=== PATIENT | male | born 1955 | race Caucasian/White ===

== ENCOUNTER 2017-11-05 11:26 | Inpatient (IN) | payer MEDICARE, SELFPAY ==
[2017-11-05] VITALS (8 sets, daily range): BP systolic 125–168; BP diastolic 61–102; PULSE 91–109; RESP 14–19; TEMP 36.1–37.1; O2SAT 93–98; BMI 23.6; BMI 22.7
--- NOTE | 2017-11-05 13:22 | CT_ITS ---
STUDY: CT ABDOMEN AND PELVIS WITH CONTRAST REASON FOR EXAM: Male, 61 years old. Lower abdominal pain. Elevated lipase. Metastatic lung cancer. Multiple previous abdominal surgeries. RADIATION DOSAGE (If Supplied By Facility): CTDIvol = ( 12.78 ) mGy, DLP = ( 690.08 ) mGycm TECHNIQUE: Transaxial images were obtained from the dome of the diaphragm to the symphysis pubis without oral contrast. 100CC ml of Isovue 300 contrast was administered. Sagittal and coronal images were reconstructed. Individualized dose optimization techniques were used for this CT. COMPARISON: 10/26/2017. FINDINGS: Visualized lung bases show chronic pulmonary disease including fibrosis. No effusions. Stable appearance of the liver which is normal shape and size vascular 3 tiny low-attenuation structures to small to characterize but stable and most consistent with cysts. Gallbladder is surgically absent. Abnormal pancreas which shows evidence for diffuse edema especially around the pancreatic head, there is peripancreatic edema and there is dilatation of the pancreatic duct. All these findings are new since previous exam and consistent with pancreatitis. No focal fluid collections or definite evidence for pancreatic necrosis. A 3.3 cm mass is not excluded in the head of the pancreas suggested on axial image 54 and coronal image 45. Spleen is unremarkable. Right adrenal gland is unremarkable. Again seen is a malignant mass of the left adrenal gland, with a greatest dimension, top to bottom, of 5.7 cm and measuring 5.4 cm only 9 days ago. Both kidneys show simple cysts and are otherwise normal. Stomach is unremarkable. Proximal duodenum shows prominent thickening of the wall probably related to the adjacent abnormalities of the pancreas. There is no evidence for small bowel obstruction. No distended loops of large bowel, no evidence of large bowel obstruction. Aorta shows heavily calcified plaque. No retroperitoneal adenopathy. In the pelvis, there is an enlarged prostate with calcifications. Bladder contour is normal. No free fluid. Skeletal structures show degenerative changes and no acute or focal abnormalities. There are old inferior pubic rami fractures. CT/Abdomen/Pelvis WITH Contrast IMPRESSION: Findings most consistent with acute pancreatitis. Correlate with liver function enzymes. Cannot exclude mass in the head of the pancreas. Secondary duodenitis. Increasing size of malignant mass of the left adrenal gland. Electronically Signed: Pilo Huizar MD at 16:37 EST , Service support ,
[2017-11-05] MEDS: 0.9% Normal Saline 1,000 ML 125 ML IV (13:34)
[2017-11-05 13:40] LABS: Absolute Lymphocyte Count 1.47 X10^3/ul (0.83-4.51); Absolute Neutrophil Count 8.9 X10^3/uL (2.0-7.7); Basophil# 0.02 X10^3/uL; Basophil% 0.2 % (0-1); Eosinophil# 0.07 X10^3/uL; Eosinophils% 0.6 % (0-5); Hematocrit 41.8 % (40-54); Hemoglobin 14.4 g/dl (13.0-16.5); Lymphocyte # 1.47 X10^3/ul (4.0); Lymphocyte % 12.7 % (19-41); Mean Corp Hgb Conc 34.4 g/gl (32-36); Mean Corpuscular Hgb 31.9 pg (27.0-32.0); Mean Corpuscular Volume 92.7 fL (80-94); Monocyte# 1.05 X10^3/uL; Monocyte% 9.1 % (0-10); Neutrophil # 8.93 X10^3/uL (2.7-7.7); Neutrophil % 77.1 % (47-70); Platelet Count 337 K/mm3 (150-450); RBC Distribution Width CV 13.6 % (11.6-14.6); RBC Distribution Width SD 45.2 fl (35.1-43.9); Red Blood Count 4.51 M/mm3 (4.6-6.2); White Blood Count 11.6 K/mm3 (4.4-11.0)
[2017-11-05 13:46] LABS: POSITIVE COUNT NO; POSITIVE DIFFERENTIAL NO; POSITIVE MORPHOLOGY NO
[2017-11-05 14:00] LABS: ALB/GLOB Ratio 0.6 RATIO (0.9-2.4); AST(SGOT) 25 U/L (15-37); Alanine Aminotransfer ALT/SGPT 18 U/L (12-78); Albumin, Serum 2.8 g/dL (3.4-5.0); Alkaline Phosphatase 112 U/L (45-117); Anion Gap 10 (5-15); BUN 8 mg/dL (7-18); BUN/Creat Ratio 14.2 RATIO (10-20); Calcium,Total 9.5 mg/dL (8.5-10.1); Chloride 98 mmol/L (98-107); Creatinine, Serum 0.56 mg/dL (0.70-1.30); EST Glomerular Filtration Rate 156 mL/min (>60); Est Glom Filt Rate - Afr Amer 188 mL/min (>60); Estimated Creatinine Clearance 135.02 ml/min; Globulin 4.8 g/dL (2.2-4.2); Glucose 186 mg/dL (70-110); Lipase 8848 U/L (73-393); Potassium 4.2 mmol/L (3.5-5.1); Protein, Total 7.6 g/dL (6.4-8.2); Sodium Level 135 mmol/L (136-145)
[2017-11-05 14:46] LABS: Red Blood Cells-Urine 0 SEEN /hpf (0-5); Squamous Epithelial Cells - UA 0 SEEN /hpf (0-5)
[2017-11-05 14:51] LABS: Color, Urine Yellow (Yellow); Glucose, Dipstick 50 mg/dl (Normal); Leukocyte Esterase-Dipstick 25 /ul (Negative); Nitrite-Dipstick Negative (Negative); Occult Blood-Urine Negative /ul (Negative); Protein-Dipstick 30 mg/dl (Negative); Specific Gravity, Urine 1.015 (1.002-1.030); Urine Bilirubin Dipstick Negative (Negative); Urine Clarity Clear (Clear); Urine Urobilinogen Normal (Normal)
[2017-11-05 14:54] LABS: Ketone-Dipstick 150 mg/dl (Negative)
[2017-11-05 15:00] LABS: Mucous, Urine 2+ /hpf (<or=2+); White Blood Cells 0-5 SEEN /hpf (0-5)
[2017-11-05 15:01] LABS: Bacteria RARE /hpf (None Seen)
--- NOTE | 2017-11-05 15:19 | ED.VISSUMM ---
- ER Visit Summary Date of Service: 11/05/17 Chief Complaint: [Abdominal pain] History of Present Illness: The patient is a 61 M [] who presents the emergency department with abdominal pain is been going on for the past 1 week it has diffuse bilateral mid abdomen has had nausea and difficulty with bowel movements. No fevers or chills. No urinary symptoms. He is diabetic. He has small smell lung cancer adrenal cancer is metastatic to the lymph nodes. He had a port placed 3 days ago. Physical Examination: [] Blood pressure elevated other vitals within normal limits WN WD NAD PERRL EOMI MMM NECK supple and nontender, no masses RRR no murmur rub or gallop, no peripheral edema, symmetric radial pulses CTAB no respiratory distress ABDOMEN is soft moderate diffuse tenderness, normal bowel sounds, no distension, no rebound or guarding SKIN is warm and dry no rashes Alert and Oriented x3, CN II-XII in tact, no motor or sensory deficits, gait normal No lymphadenopathy Test Results: [] Emergency Department Course and Treatment: [Screening labs are obtained and was significant for a lipase of 8800. CAT scans consistent with acute pancreatitis and secondary duodenitis. He has increasing side of his adrenal mass. Patient will be given IV fluids Protonix and fentanyl. I spoke with the patient's on-call oncologist. I spoke with the hospitalist he will be admitted.] Treatment Plan: [] Disposition: [Admit] Impression: [Pancreatitis 2. Metastatic small cell carcinoma] This note was generated with [employer] dictation software. It may contain incorrect words, spelling, and punctuation that were not noted in review of the chart prior to signing ED Disposition - Plan for ED Patient: Chief Complaint: Abd Pain Referrals: Last Aguilar Chi, MD [Primary Care Provider] -
--- NOTE | 2017-11-05 16:47 | PCM.HP.STD ---
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 Qualifiers: Laterality: left Qualified Code(s): C79.72 - Secondary malignant neoplasm of left adrenal gland (2) Regional lymph node metastasis present Status: Chronic (3) Small cell lung cancer Status: Chronic Qualifiers: Laterality: left Comment: ALEC (4) COPD (chronic obstructive pulmonary disease) Status: Chronic Qualifiers: COPD type: unspecified COPD (5) Crohns disease Status: Chronic Qualifiers: Gastrointestinal tract location: unspecified location Digestive disease complication type: unspecified complication Qualified Code(s): K50.919 - Crohn's disease, unspecified, with unspecified complications (6) Diabetes mellitus, type II Status: Chronic Qualifiers: Diabetes mellitus complication status: with unspecified complications Diabetes mellitus custodial insulin use: without custodial use Qualified Code(s): E11.8 - Type 2 diabetes mellitus with unspecified complications (7) History of TIA (transient ischemic attack) Status: Chronic (8) History of tobacco use Status: Chronic (9) Hypothyroidism Status: Chronic Qualifiers: Hypothyroidism type: unspecified (10) Migraine Status: Chronic Qualifiers: Migraine type: unspecified Status migrainosus presence: without status migrainosus Intractability: not intractable Qualified Code(s): G43.909 - Migraine, unspecified, not intractable, without status migrainosus History of Present Illness Date of Admission: 11/05/17 Chief Complaint: Abdominal pain, nausea, loose stool The patient is a 61 y/o M w/ PMHx: Chronic COPD, Migraines, Bipolar Disorder, Diabetes mellitus type II, Crohn's disease, Hypothyroidism, Hx TIA, Hx Tobacco use, Small cell lung cancer ALEC with metastatic disease to L adrenal and omentum w/ regional lymph involvement who presents to the [facility] ED on 11/05/17 with history of ongoing, progressively worsening diffuse abdominal discomfort, primarily epigastric and BL LQ also with associated nausea without emesis in addition to occasional loose stool x 1 week. He denies any associated fever or chills. In the ED work-up included T 98, HR 90-110, BP 151/61, RR 19, 95% on RA, CBC w/ WBC 11.6, Hgb 14.4, Plts 337 with L shift, CMP w/ Na 135, BUN/Cr8/0.56, glucose 186, lipase 8848, UA not marked appearing, CT A/P w/ findings consistent with acute pancreatitis, increased size of malignant mass L adrenal gland. He notes upcoming planned chemotherapy to start 11/06/16. In the ED patient administered NS, phenergan, protonix, fentanyl. Past Medical History Past Medical History (Chronic Problems): Chronic Problems (Last Reviewed 10/24/17 @ 13:17 by Kizzy Sena) Diabetes mellitus, type II (Chronic) COPD (chronic obstructive pulmonary disease) (Chronic) History of tobacco use (Chronic) Migraine (Chronic) Crohns disease (Chronic) History of TIA (transient ischemic attack) (Chronic) Hypothyroidism (Chronic) Small cell lung cancer (Chronic) ALEC 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) Allergies morphine Allergy (Verified 11/05/17 12:47) Swelling Home Medications: Ambulatory Orders Medication Instructions Recorded Atorvastatin Calcium 40 mg PO QHS 09/16/17 Divalproex Sodium [Depakote ER] 500 mg PO DAILY 09/16/17 Levothyroxine [Synthroid] 25 mcg PO DAILY 09/16/17 Metformin HCl [Glucophage] 500 mg PO BID 09/16/17 acetaminophen 300 mg-codeine 30 mg 1 tab PO TID PRN 10/15/17 tablet Albuterol Aerosols [Ventolin 2.5 mg INHALATION Q6H 10/25/17 Aerosols] Butalb/Acetaminophen/Caffeine 1 each PO PRN PRN 10/25/17 [Fhsvmc-Colcjhwy-Uhvu 50-300-40] Divalproex Sodium [Depakote] 1,000 mg PO QHS 10/25/17 Senna [Senokot] 1 tablet PO DAILY PRN 10/25/17 Acetaminophen/Codeine #3 1 tab PO Q4H PRN PRN #30 tab 10/27/17 [Tylenol#3] Surgical History: - - Cholecystectomy, appendectomy, colonic resection for Crohn's disease as well as for diverticulitis, left thumb surgery, several hernia repairs (8 total noted per patient), LNDx Bx, Port placement. Psychiatric History: Anxiety, Bipolar, Depression Lives: Spouse/ Significant Other Smoking Status: Former smoker - Quit October 2016. Tobacco Use: Non-smoker Alcohol: Rare Drugs: None - *Family History Maternal Family History: Family History (Last Reviewed 10/24/17 @ 13:17 by Kizzy Sena) Father CAD (coronary artery disease) Mesothelioma Grandfather Leukemia Brother Throat cancer History Items: No pertinent history Paternal Family History: Family History (Last Reviewed 10/24/17 @ 13:17 by Kizzy Sena) Father CAD (coronary artery disease) Mesothelioma Grandfather Leukemia Brother Throat cancer History Items: No pertinent history Review of Systems Constitutional: Reports: Anorexia, Malaise, Weakness, Fatigue Gastrointestinal: Reports: Abdominal Pain, Nausea Psychiatric: Reports: Anxiety, Depression VTE Information - Inpt Only VTE Present on Admission: No VTE Mechan Device Prophylaxis: SCD's VTE Pharm Prophylaxis ordered?: Yes Subjective: Seated upright in the ED bed, uncomfortable appearing. Objective: Physical Examination: General: awake, alert, oriented x 3 and cooperative, seated upright in the ED bed, uncomfortable appearing. Skin: normal color, turgor, no icterus, cyanosis. HEENT: AT/NC, EOMI, PERRLA, dry MM, no carotid bruits or JVD noted. Lungs: CTA bilaterally, moderate effort, mild decrease BL bases, no rales, ronchi or wheezing. Heart: Mildly tachycardic with regular; no gallop, rub audible. Abdomen: soft, TTP diffusely, > epigastric and BL LQ, voluntary guarding, no rebound TTP, ND, mildly hypoactive BS, no HSM but difficult to assess w/ severity of pain. Extremities: no cyanosis, clubbing, or edema. Neurological: patient awake, alert, oriented x 3; cognitive function intact; pupils equally reactive to light and accomodation; cranial nerves II-XII grossly normal, moving all 4 extremities, no focal deficits, strength severely globally decreased secondary to acute presentation. Psychiatric: affect appears fatigued, no acute evidence of depressive or anxiety feelings. - Physical Exam Vital Signs Temp Pulse Resp BP Pulse Ox 97.8 F 91 14 168/102 H 95 11/05/17 12:48 11/05/17 14:12 11/05/17 14:12 11/05/17 14:12 11/05/17 14:12 Oxygen Delivery Method Room Air Weight: 160 lb Body Mass Index (BMI) 23.6 Laboratory Tests Past 24 Hrs 11/05/17 11/05/17 11/05/17 13:31 13:31 14:37 WBC 11.6 H RBC 4.51 L Hgb 14.4 Hct 41.8 MCV 92.7 MCH 31.9 MCHC 34.4 RDW 13.6 RDW Differential 45.2 H Plt Count 337 MPV 10.0 Immature Gran % (Auto) 0.300 Neut % (Auto) 77.1 H Lymph % (Auto) 12.7 L Russell % (Auto) 9.1 Eos % (Auto) 0.6 Baso % (Auto) 0.2 Absolute Neuts (auto) 8.9 H Absolute Lymphs (auto) 1.47 Total Counted Not Reportable Sodium 135 L Potassium 4.2 Chloride 98 Carbon Dioxide 27.0 Anion Gap 10 BUN 8 Creatinine 0.56 L Estim Creat Clear Calc 135.02 Est GFR (MDRD) Af Amer 188 Est GFR (MDRD) Non-Af 156 BUN/Creatinine Ratio 14.2 Glucose 186 H Calcium 9.5 Total Bilirubin 0.50 AST 25 ALT 18 Alkaline Phosphatase 112 Total Protein 7.6 Albumin 2.8 L Globulin 4.8 H Albumin/Globulin Ratio 0.6 L Lipase 8848 H Urine Color Yellow Urine Clarity Clear Urine pH 6.0 Ur Specific [place] 1.015 Urine Protein 30 H Urine Glucose (UA) 50 H Urine Ketones 150 H Urine Occult Blood Negative Urine Nitrite Negative Urine Bilirubin Negative Urine Urobilinogen Normal Ur Leukocyte Esterase 25 H Urine RBC 0 SEEN Urine WBC 0-5 SEEN Ur Squamous Epith Cells 0 SEEN Urine Bacteria RARE Urine Mucus 2+ Assessment/Plan The patient is a 61 y/o M w/ PMHx: Chronic COPD, Migraines, Bipolar Disorder, Diabetes mellitus type II, Crohn's disease, Hypothyroidism, Hx TIA, Hx Tobacco use, Small cell lung cancer ALEC with metastatic disease to L adrenal and omentum w/ regional lymph involvement who presents to the [facility] ED on 11/05/17 with history of ongoing, progressively worsening diffuse abdominal discomfort, primarily epigastric and BL LQ also with associated nausea without emesis in addition to occasional loose stool x 1 week. (1) Acute pancreatitis w/ abdominal pain, nausea, loose stools w/ concurrent Duodenitis likely secondary to proximity: Will admit to [facility], maintain on IVFs, NPO, IV famotidine, IV pain control w/ fentanyl given intolerance of dilaudid with headache as well as allergy to morphine, PRN codeine which he tolerates outpatient (tylenol #3 hx use), trend lipase, CMP. Hx S/P cholecystectomy, CT A/P with chronic pulmonary disease, abnormal pancreas which shows evidence for diffuse edema especially around the pancreatic head, there is peripancreatic edema and there is dilatation of the pancreatic duct, 3.3 cm mass is not excluded in the head, malignant mass of the left adrenal gland, with a greatest dimension, top to bottom, of 5.7 cm and measuring 5.4 cm only 9 days ago, proximal duodenum shows prominent thickening of the wall probably related to the adjacent abnormalities of the pancreas. 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 Given increased size, concerning, will consult Hem/Onc. Would expect hold on chemotherapy secondary to acute presentation. (3) Diabetes mellitus type II: Hold oral home regimen, NPO status, accu checks w/ ISS. (4) Hypothyroidism: Continue home synthroid regimen. (5) Hx TIA: Continue home asa, statin, not on BP regimen, PRN hydralazine. (7) Crohn's Disease: Not on agent, CT duodenal findings likely secondary to proximity. (8) Migraines: Continue home oral depakote regimen. (9) Chronic COPD: HOB, IS, PRN albuterol, ATC aerosols although declined last admission. (10) DVT Prophylaxis: SCDs, lovenox. Code Visit Inpatient E&M: 31608 Init Hosp L3
--- NOTE | 2017-11-05 16:55 | HP.PCM_ITS ---
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 Qualifiers: Laterality: left Qualified Code(s): C79.72 - Secondary malignant neoplasm of left adrenal gland (2) Regional lymph node metastasis present Status: Chronic (3) Small cell lung cancer Status: Chronic Qualifiers: Laterality: left Comment: ALEC (4) COPD (chronic obstructive pulmonary disease) Status: Chronic Qualifiers: COPD type: unspecified COPD (5) Crohns disease Status: Chronic Qualifiers: Gastrointestinal tract location: unspecified location Digestive disease complication type: unspecified complication Qualified Code(s): K50.919 - Crohn 's disease, unspecified, with unspecified complications (6) Diabetes mellitus, type II Status: Chronic Qualifiers: Diabetes mellitus complication status: with unspecified complications Diabetes mellitus detention insulin use: without detention use Qualified Code( s): E11.8 - Type 2 diabetes mellitus with unspecified complications (7) History of TIA (transient ischemic attack) Status: Chronic (8) History of tobacco use Status: Chronic (9) Hypothyroidism Status: Chronic Qualifiers: Hypothyroidism type: unspecified (10) Migraine Status: Chronic Qualifiers: Migraine type: unspecified Status migrainosus presence: without status migrainosus Intractability: not intractable Qualified Code(s): G43.909 - Migraine, unspecified, not intractable, without status migrainosus History of Present Illness Date of Admission: 11/05/17 Chief Complaint: Abdominal pain, nausea, loose stool The patient is a 61 y/o M w/ PMHx: Chronic COPD, Migraines, Bipolar Disorder, Diabetes mellitus type II, Crohn's disease, Hypothyroidism, Hx TIA, Hx Tobacco use, Small cell lung cancer ALEC with metastatic disease to L adrenal and omentum w/ regional lymph involvement who presents to the [facility] ED on 11/05/17 with history of ongoing, progressively worsening diffuse abdominal discomfort, primarily epigastric and BL LQ also with associated nausea without emesis in addition to occasional loose stool x 1 week. He denies any associated fever or chills. In the ED work-up included T 98, HR 90-110, BP 151/61, RR 19, 95% on RA , CBC w/ WBC 11.6, Hgb 14.4, Plts 337 with L shift, CMP w/ Na 135, BUN/Cr8/0.56 , glucose 186, lipase 8848, UA not marked appearing, CT A/P w/ findings consistent with acute pancreatitis, increased size of malignant mass L adrenal gland. He notes upcoming planned chemotherapy to start 11/06/16. In the ED patient administered NS, phenergan, protonix, fentanyl. Past Medical History Past Medical History (Chronic Problems): Chronic Problems (Last Reviewed 10/24/17 @ 13:17 by Kizzy Sena) Diabetes mellitus, type II (Chronic) COPD (chronic obstructive pulmonary disease) (Chronic) History of tobacco use (Chronic) Migraine (Chronic) Crohns disease (Chronic) History of TIA (transient ischemic attack) (Chronic) Hypothyroidism (Chronic) Small cell lung cancer (Chronic) ALEC 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) Allergies morphine Allergy (Verified 11/05/17 12:47) Swelling Home Medications: Ambulatory Orders Medication Instructions Recorded Atorvastatin Calcium 40 mg PO QHS 09/16/17 Divalproex Sodium [Depakote ER] 500 mg PO DAILY 09/16/17 Levothyroxine [Synthroid] 25 mcg PO DAILY 09/16/17 Metformin HCl [Glucophage] 500 mg PO BID 09/16/17 acetaminophen 300 mg-codeine 30 mg 1 tab PO TID PRN 10/15/17 tablet Albuterol Aerosols [Ventolin 2.5 mg INHALATION Q6H 10/25/17 Aerosols] Butalb/Acetaminophen/Caffeine 1 each PO PRN PRN 10/25/17 [[id number] 50-300-40] Divalproex Sodium [Depakote] 1,000 mg PO QHS 10/25/17 Senna [Senokot] 1 tablet PO DAILY PRN 10/25/17 Acetaminophen/Codeine #3 1 tab PO Q4H PRN PRN #30 tab 10/27/17 [Tylenol#3] Surgical History: - - Cholecystectomy, appendectomy, colonic resection for Crohn 's disease as well as for diverticulitis, left thumb surgery, several hernia repairs (8 total noted per patient), LNDx Bx, Port placement. Psychiatric History: Anxiety, Bipolar, Depression Lives: Spouse/ Significant Other Smoking Status: Former smoker - Quit October 2016. Tobacco Use: Non-smoker Alcohol: Rare Drugs: None - *Family History Maternal Family History: Family History (Last Reviewed 10/24/17 @ 13:17 by Kizzy Sena) Father CAD (coronary artery disease) Mesothelioma Grandfather Leukemia Brother Throat cancer History Items: No pertinent history Paternal Family History: Family History (Last Reviewed 10/24/17 @ 13:17 by Kizzy Sena) Father CAD (coronary artery disease) Mesothelioma Grandfather Leukemia Brother Throat cancer History Items: No pertinent history Review of Systems Constitutional: Reports: Anorexia, Malaise, Weakness, Fatigue Gastrointestinal: Reports: Abdominal Pain, Nausea Psychiatric: Reports: Anxiety, Depression VTE Information - Inpt Only VTE Present on Admission: No VTE Mechan Device Prophylaxis: SCD's VTE Pharm Prophylaxis ordered?: Yes Subjective: Seated upright in the ED bed, uncomfortable appearing. Objective: Physical Examination: General: awake, alert, oriented x 3 and cooperative, seated upright in the ED bed, uncomfortable appearing. Skin: normal color, turgor, no icterus, cyanosis. HEENT: AT/NC, EOMI, PERRLA, dry MM, no carotid bruits or JVD noted. Lungs: CTA bilaterally, moderate effort, mild decrease BL bases, no rales, ronchi or wheezing. Heart: Mildly tachycardic with regular; no gallop, rub audible. Abdomen: soft, TTP diffusely, > epigastric and BL LQ, voluntary guarding, no rebound TTP, ND, mildly hypoactive BS, no HSM but difficult to assess w/ severity of pain. Extremities: no cyanosis, clubbing, or edema. Neurological: patient awake, alert, oriented x 3; cognitive function intact; pupils equally reactive to light and accomodation; cranial nerves II-XII grossly normal, moving all 4 extremities, no focal deficits, strength severely globally decreased secondary to acute presentation. Psychiatric: affect appears fatigued, no acute evidence of depressive or anxiety feelings. - Physical Exam Vital Signs Temp Pulse Resp BP Pulse Ox 97.8 F 91 14 168/102 H 95 11/05/17 12:48 11/05/17 14:12 11/05/17 14:12 11/05/17 14:12 11/05/17 14:12 Oxygen Delivery Method Room Air Weight: 160 lb Body Mass Index (BMI) 23.6 Laboratory Tests Past 24 Hrs 11/05/17 11/05/17 11/05/17 13:31 13:31 14:37 WBC 11.6 H RBC 4.51 L Hgb 14.4 Hct 41.8 MCV 92.7 MCH 31.9 MCHC 34.4 RDW 13.6 RDW Differential 45.2 H Plt Count 337 MPV 10.0 Immature Gran % (Auto) 0.300 Neut % (Auto) 77.1 H Lymph % (Auto) 12.7 L [place] % (Auto) 9.1 Eos % (Auto) 0.6 Baso % (Auto) 0.2 Absolute Neuts (auto) 8.9 H Absolute Lymphs (auto) 1.47 Total Counted Not Reportable Sodium 135 L Potassium 4.2 Chloride 98 Carbon Dioxide 27.0 Anion Gap 10 BUN 8 Creatinine 0.56 L Estim Creat Clear Calc 135.02 Est GFR (MDRD) Af Amer 188 Est GFR (MDRD) Non-Af 156 BUN/Creatinine Ratio 14.2 Glucose 186 H Calcium 9.5 Total Bilirubin 0.50 AST 25 ALT 18 Alkaline Phosphatase 112 Total Protein 7.6 Albumin 2.8 L Globulin 4.8 H Albumin/Globulin Ratio 0.6 L Lipase 8848 H Urine Color Yellow Urine Clarity Clear Urine pH 6.0 Ur Specific [place] 1.015 Urine Protein 30 H Urine Glucose (UA) 50 H Urine Ketones 150 H Urine Occult Blood Negative Urine Nitrite Negative Urine Bilirubin Negative Urine Urobilinogen Normal Ur Leukocyte Esterase 25 H Urine RBC 0 SEEN Urine WBC 0-5 SEEN Ur Squamous Epith Cells 0 SEEN Urine Bacteria RARE Urine Mucus 2+ Assessment/Plan The patient is a 61 y/o M w/ PMHx: Chronic COPD, Migraines, Bipolar Disorder, Diabetes mellitus type II, Crohn's disease, Hypothyroidism, Hx TIA, Hx Tobacco use, Small cell lung cancer ALEC with metastatic disease to L adrenal and omentum w/ regional lymph involvement who presents to the [facility] ED on 11/05/17 with history of ongoing, progressively worsening diffuse abdominal discomfort, primarily epigastric and BL LQ also with associated nausea without emesis in addition to occasional loose stool x 1 week. (1) Acute pancreatitis w/ abdominal pain, nausea, loose stools w/ concurrent Duodenitis likely secondary to proximity: Will admit to [facility], maintain on IVFs, NPO, IV famotidine, IV pain control w/ fentanyl given intolerance of dilaudid with headache as well as allergy to morphine, PRN codeine which he tolerates outpatient (tylenol #3 hx use), trend lipase, CMP. Hx S/P cholecystectomy, CT A/ P with chronic pulmonary disease, abnormal pancreas which shows evidence for diffuse edema especially around the pancreatic head, there is peripancreatic edema and there is dilatation of the pancreatic duct, 3.3 cm mass is not excluded in the head, malignant mass of the left adrenal gland, with a greatest dimension, top to bottom, of 5.7 cm and measuring 5.4 cm only 9 days ago, proximal duodenum shows prominent thickening of the wall probably related to the adjacent abnormalities of the pancreas. 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 Given increased size, concerning, will consult Hem/Onc. Would expect hold on chemotherapy secondary to acute presentation. (3) Diabetes mellitus type II: Hold oral home regimen, NPO status, accu checks w / ISS. (4) Hypothyroidism: Continue home synthroid regimen. (5) Hx TIA: Continue home asa, statin, not on BP regimen, PRN hydralazine. (7) Crohn's Disease: Not on agent, CT duodenal findings likely secondary to proximity. (8) Migraines: Continue home oral depakote regimen. (9) Chronic COPD: HOB, IS, PRN albuterol, ATC aerosols although declined last admission. (10) DVT Prophylaxis: SCDs, lovenox. Code Visit Inpatient E&M: 03020 Init Hosp L3
[2017-11-05] MEDS: fentaNYL 100 MCG/2 ML Ampul 25 MCG IV (17:34)
[2017-11-05] MEDS: 0.9% Normal Saline 1,000 ML 500 ML IV (18:49)
--- NOTE | 2017-11-05 19:30 | CPS ---
pt did not want aero tx at this time.
[2017-11-05] MEDS: Acetaminophen 325 MG Tablet 650 MG PO (19:32)
[2017-11-05 19:36] LABS: Bedside Glucose 146 mg/dL (70-110)
[2017-11-05 19:56] LABS: Magnesium 1.6 mg/dL (1.8-2.4); Phosphorus 3.1 mg/dL (2.5-4.9)
[2017-11-05] MEDS: Divalproex Sodium 250 MG Tablet 1000 MG PO (23:56)
[2017-11-05] MEDS: Atorvastatin Calcium 40 MG Tablet PO (23:57)
[2017-11-06] VITALS (7 sets, daily range): BP systolic 97–138; BP diastolic 53–70; PULSE 94–108; RESP 14–20; TEMP 36.2–37.2; O2SAT 95–97
[2017-11-06 00:36] LABS: Bedside Glucose 147 mg/dL (70-110)
[2017-11-06] MEDS: 0.9% Normal Saline 1,000 ML 150 ML IV ×4 (01:36→23:57)
[2017-11-06] MEDS: Acetaminophen 325 MG Tablet 650 MG PO ×3 (03:37→22:55)
[2017-11-06 06:21] LABS: Absolute Lymphocyte Count 1.46 X10^3/ul (0.83-4.51); Absolute Neutrophil Count 6.9 X10^3/uL (2.0-7.7); Basophil# 0.02 X10^3/uL; Basophil% 0.2 % (0-1); Eosinophil# 0.13 X10^3/uL; Eosinophils% 1.4 % (0-5); Lymphocyte # 1.46 X10^3/ul (4.0); Lymphocyte % 15.7 % (19-41); Mean Corp Hgb Conc 32.4 g/gl (32-36); Mean Corpuscular Hgb 30.9 pg (27.0-32.0); Mean Corpuscular Volume 95.4 fL (80-94); Mean Platelet Vol. 10.1 fl (6.2-12.0); Monocyte# 0.77 X10^3/uL; Monocyte% 8.3 % (0-10); Neutrophil # 6.89 X10^3/uL (2.7-7.7); Neutrophil % 74.1 % (47-70); Platelet Count 288 K/mm3 (150-450); RBC Distribution Width CV 13.8 % (11.6-14.6); RBC Distribution Width SD 47.8 fl (35.1-43.9); Red Blood Count 3.88 M/mm3 (4.6-6.2); White Blood Count 9.3 K/mm3 (4.4-11.0)
[2017-11-06 06:30] LABS: POSITIVE COUNT NO; POSITIVE DIFFERENTIAL NO; POSITIVE MORPHOLOGY NO
[2017-11-06 06:35] LABS: ALB/GLOB Ratio 0.6 RATIO (0.9-2.4); AST(SGOT) 24 U/L (15-37); Alanine Aminotransfer ALT/SGPT 13 U/L (12-78); Albumin, Serum 2.3 g/dL (3.4-5.0); Alkaline Phosphatase 89 U/L (45-117); Anion Gap 11 (5-15); BUN 7 mg/dL (7-18); BUN/Creat Ratio 15.6 RATIO (10-20); Calcium,Total 7.9 mg/dL (8.5-10.1); Chloride 106 mmol/L (98-107); Creatinine, Serum 0.45 mg/dL (0.70-1.30); EST Glomerular Filtration Rate 202 mL/min (>60); Est Glom Filt Rate - Afr Amer 244 mL/min (>60); Estimated Creatinine Clearance 166.01 ml/min; Globulin 3.7 g/dL (2.2-4.2); Glucose 130 mg/dL (70-110); Lipase 10322 U/L (73-393); Potassium 3.7 mmol/L (3.5-5.1); Sodium Level 140 mmol/L (136-145)
[2017-11-06] MEDS: Levothyroxine 25 MCG TABLET PO (06:35)
[2017-11-06] MEDS: Ipratropium/Albuterol Sulfate 3 ML AMPUL.NEB INHALATION ×3 (07:05→18:51)
[2017-11-06 07:31] LABS: Bedside Glucose 121 mg/dL (70-110)
--- NOTE | 2017-11-06 07:42 | PN_ITS ---
Subjective: Patient was seen and examined. He complains of mild abdominal pain. Tolerating clear liquid diet. Denies any fever or chills. Denies nausea and vomiting. Objective: Physical Examination: General: awake, alert, oriented x 3 and cooperative, comfortable in bed Skin: normal color, turgor, no icterus, cyanosis. HEENT: Moist oral mucosa Lungs: Diminished air entry, vesicular BS, no wheezes or rhonchi Heart: Tachycardic, HS I +II, regular, no murmurs. Abdomen: Full, soft, slight upper abdominal tenderness Extremities: no edema. Neurological: patient awake, alert, oriented x 3; cognitive function intact; pupils equally reactive to light and accomodation; cranial nerves II-XII grossly normal, moving all 4 extremities, no focal deficits, strength severely globally decreased secondary to acute presentation. Psychiatric: affect appears fatigued, no acute evidence of depressive or anxiety feelings. Vitals/I&O's: Vital Signs Temp Pulse Resp BP Pulse Ox 97.8 F 107 H 16 116/53 L 95 11/06/17 06:19 11/06/17 06:19 11/06/17 06:19 11/06/17 06:19 11/06/17 06:19 Oxygen Delivery Method Room Air Weight: 69.853 kg Body Mass Index (BMI) 22.7 Intake and Output for Last 24 Hours 11/04/17 11/05/17 11/06/17 23:59 23:59 23:59 Intake Total 2500 / 2500 Balance 2500 / 2500 Laboratory Results 11/05/17 18:50: POC Glucose 146 H 11/05/17 19:28: Phosphorus 3.1, Magnesium 1.6 L 11/06/17 00:00: POC Glucose 147 H 11/06/17 05:34: WBC 9.3, RBC 3.88 L, Hgb 12.0 L, Hct 37.0 L, MCV 95.4 H, MCH 30.9, MCHC 32.4, RDW 13.8, RDW Differential 47.8 H, Plt Count 288, MPV 10.1, Immature Gran % (Auto) 0.300, Neut % (Auto) 74.1 H, Lymph % (Auto) 15.7 L, [place] % (Auto) 8.3, Eos % (Auto) 1.4, Baso % (Auto) 0.2, Absolute Neuts (auto) 6.9, Absolute Lymphs (auto) 1.46, Total Counted Not Reportable 11/06/17 05:34: Sodium 140, Potassium 3.7, Chloride 106, Carbon Dioxide 23.0, Anion Gap 11, BUN 7, Creatinine 0.45 L, Estim Creat Clear Calc 166.01, Est GFR ( MDRD) Af Amer 244, Est GFR (MDRD) Non-Af 202, BUN/Creatinine Ratio 15.6, Glucose 130 H, Calcium 7.9 L, Total Bilirubin 0.40, AST 24, ALT 13, Alkaline Phosphatase 89, Total Protein 6.0 L, Albumin 2.3 L, Globulin 3.7, Albumin/ Globulin Ratio 0.6 L, Lipase 24490 H 11/06/17 06:29: POC Glucose 121 H Current Medications Acetaminophen (Tylenol) 650 mg PO Q6H PRN PRN PRN Reason: Mild Pain (1-3)/Temp > 100.7 F Last Admin: 11/06/17 03:37 Dose: 650 mg Acetaminophen/Butalbital/Caffeine (Fioricet) 1 tablet PO DAILY PRN PRN PRN Reason: HEADACHE PAIN Al Hydroxide/Mg Hydroxide (Mylanta Ii) 30 ml PO Q6H PRN PRN PRN Reason: Gastric burning Albuterol Sulfate (Ventolin Aerosols) 2.5 mg INHALATION Q2H PRN PRN PRN Reason: dyspnea, wheezing Albuterol/Ipratropium (Duoneb) 3 ml INHALATION Q6HWA.RT [facility] Last Admin: 11/06/17 07:05 Dose: 3 ml Aspirin (Ecotrin) 81 mg PO DAILY@0800 [facility] Atorvastatin Calcium (Lipitor) 40 mg PO QHS [facility] Last Admin: 11/05/17 23:57 Dose: 40 mg Codeine Sulfate (Codeine) 30 mg PO Q4H PRN PRN PRN Reason: PAIN Last Admin: 11/06/17 03:36 Dose: 30 mg Dextrose (D50w Syringe) 0 gm IV X1 PRN; Protocol PRN Reason: Hypoglycemia Divalproex Sodium (Depakote Er) 500 mg PO DAILY [facility] Divalproex Sodium (Depakote) 1,000 mg PO QHS [facility] Last Admin: 11/05/17 23:56 Dose: 1,000 mg Enoxaparin Sodium (Lovenox) 40 mg SC DAILY@1000 [facility] Fentanyl Citrate (Sublimaze) 50 mcg IV Q2H PRN PRN PRN Reason: SEVERE PAIN (6-10/10) Glucagon () 1 mg IM .X1 PRN PRN Reason: Hypoglycemia Hydralazine HCl (Apresoline) 10 mg IV Q4H PRN PRN PRN Reason: SBP > 160 Sodium Chloride () 1,000 mls @ 150 mls/hr IV .Q6H40M [facility] Last Admin: 11/06/17 01:36 Dose: 150 mls/hr Famotidine 20 mg/ Sodium (Chloride) 10 mls @ 300 mls/hr IV Q12 [facility] Last Admin: 11/05/17 19:34 Dose: 300 mls/hr Insulin Aspart (Novolog Flexpen (Bkc)) 0 units SC Q6 [facility] PRN Reason: Protocol Last Admin: 11/06/17 06:29 Dose: Not Given Levothyroxine Sodium (Synthroid) 25 mcg PO DAILY@0600 [facility] Last Admin: 11/06/17 06:35 Dose: 25 mcg Magnesium Hydroxide (Milk Of Magnesia) 30 ml PO DAILY PRN PRN PRN Reason: Constipation Ondansetron HCl (Zofran) 4 mg IV Q8H PRN PRN PRN Reason: NAUSEA Promethazine HCl (Phenergan (Ll)) 6.25 mg IV Q6H PRN PRN PRN Reason: NAUSEA/VOMITING Senna (Senokot) 1 tablet PO DAILY PRN PRN Reason: Constipation Zolpidem Tartrate (Ambien (Generic)) 5 mg PO QHS PRN PRN PRN Reason: INSOMNIA Assessment/Plan 61 y/o M with PMHx of Chronic COPD, Diabetes mellitus type II, Crohn's disease, hypothyroidism, 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 1. Acute pancreatitis/duodenitis, with very minimal improvement, lipase has gone up to 10,322 from 8848, kept on IV fluids, n.p.o., diet advanced as tolerated, IV famotidine, pain control with fentanyl and as needed codeine 2. Small cell lung cancer with metastatic disease to L adrenal and omentum with regional lymph involvement, now with possible pancreatic involvement, hematology oncology consulted, patient was supposed to have chemotherapy today but would hold on account of acute presentation 3. Diabetes mellitus type II, blood sugars are fairly controlled, metformin on hold, on account of n.p.o. status, will continue with Accu-Cheks and insulin sliding scale 4. Hypothyroidism, on synthroid 5. Hx TIA, on asa, statin, 6. Crohn's Disease 7. Migraines 8. Chronic COPD 9. DVT Prophylaxis: SCDs, lovenox This note was generated with [employer] software. It may contain incorrect words, spelling, and punctuation that were not noted in checking the note before signing. Code Visit Inpatient E&M: 22779 Subs Hosp L2
[2017-11-06] MEDS: Enoxaparin 40 MG/0.4 ML Syringe SC (08:37)
[2017-11-06] MEDS: Divalproex (ER) 500 MG Tablet PO ×2 (08:38→22:54)
[2017-11-06 08:51] LABS: Magnesium 1.5 mg/dL (1.8-2.4)
[2017-11-06] MEDS: Acetaminophen/Butalbital/Caffe 1 Tablet PO (11:16)
[2017-11-06 11:31] LABS: Bedside Glucose 116 mg/dL (70-110)
--- NOTE | 2017-11-06 12:57 | CHAPLAIN ---
Type of Pastoral Visit _x__ Initial Visit ___ Follow-up Visit ___ On-call Visit ___ General Patient Visit ___ Spiritual Assessment ___ Family Conference ___ Bereavement ___ Rapid Response ___ Code Blue ___ Other (describe below) Pastoral Care Referral From _x__ Patient ___ Family ___ Nurse ___ Physician ___ Belt Loop Maker ___ Stereo Equipment Installer ___ Other (describe below) Sacrament/Intervention _x__ Active listening ___ Anointing ___ Restorationism ___ Bereavement ___ Communion _x__ Tonya exploration ___ ___ Life review _x__ Prayer ___ Reconciliation ___ Sacrament of Sick _x__ Supportive presence ___ Wedding ___ Other (describe below) Pastoral Comments patient disclosed during visit that cancer was discovered during last admission to hospital; we discussed how he is coping with this diagnosis and pt was tearful at times; pt had SO and a DIL in room; DIL says that pt has tremendous love and support; pt says that he wonders how much time he will have and I've lived a good life, but I would still like to live more; pt tells me that he has no tonya background or support but that I do believe in God and I'm praying; pt speaks of good fortune of having insurance and gaining knowledge of illness and we look at spiritual aspect of these truths; pt would benefit from future visits of support;
[2017-11-06] MEDS: Ondansetron 4 MG/2 ML Vial IV (14:26)
--- NOTE | 2017-11-06 16:03 | CASEMGMT ---
RN KEN Face to Face with patient for initial transition planning/care coordination assessment. RN CM introduced self and role at [facility]. Patient lying in bed, alert and oriented, with family at bedside. Patient willing to participate in assessment and is able to answer all questions appropriately. Care providers, pharmacy, and demographics verified. See link attached. Patient wishes to discharge home, denies need for home health at this time. Patient states he has no further needs or concerns at this time. CM to follow for discharge planning needs that may arise. Disposition Plan: Patient to discharge home with family support and follow-up plans in place.
--- NOTE | 2017-11-06 16:52 | PN_ITS ---
- Past Medical/Social History Social History Smoking Status Former smoker Vital Signs Height 5 ft 9 in Weight: 69.853 kg Weight in Pounds 154.0 lbs Pulse Ox 97 Temperature 97.1 F Pulse Rate 102 Respiratory Rate 16 Blood Pressure 97/59 Blood Pressure Position Semi-Fowlers Laboratory Data: Laboratory Tests 3 11/06/17 11/06/17 11/06/17 Range/Units 11:23 06:29 05:34 WBC (4.4-11.0) K/mm3 RBC (4.6-6.2) M/mm3 Hgb (13.0-16.5) g/dl Hct (40-54) % MCV (80-94) fL MCH (27.0-32.0) pg MCHC (32-36) g/gl RDW (11.6-14.6) % RDW Differential (35.1-43.9) fl Plt Count (150-450) K/mm3 MPV (6.2-12.0) fl Immature Gran % (Auto) (0.0-0.9) % Neut % (Auto) (47-70) % Lymph % (Auto) (19-41) % [place] % (Auto) (0-10) % Eos % (Auto) (0-5) % Baso % (Auto) (0-1) % Absolute Neuts (auto) (2.0-7.7) X10^3/uL Absolute Lymphs (auto) (0.83-4.51) X10^3/ul Total Counted Sodium (136-145) mmol/L Potassium (3.5-5.1) mmol/L Chloride (98-107) mmol/L Carbon Dioxide (21.0-32.0) mmol/L Anion Gap (5-15) BUN (7-18) mg/dL Creatinine (0.70-1.30) mg/dL Estim Creat Clear Calc ml/min Est GFR (MDRD) Af Amer (>60) mL/min Est GFR (MDRD) Non-Af (>60) mL/min BUN/Creatinine Ratio (10-20) RATIO Glucose (70-110) mg/dL Calcium (8.5-10.1) mg/dL Phosphorus (2.5-4.9) mg/dL Magnesium 1.5 L (1.8-2.4) mg/dL Total Bilirubin (0.20-1.00) mg/dL AST (15-37) U/L ALT (12-78) U/L Alkaline Phosphatase (45-117) U/L Total Protein (6.4-8.2) g/dL Albumin (3.4-5.0) g/dL Globulin (2.2-4.2) g/dL Albumin/Globulin Ratio (0.9-2.4) RATIO Lipase (73-393) U/L POC Glucose 116 H 121 H (70-110) mg/dL 3 11/06/17 11/06/17 11/06/17 Range/Units 05:34 05:34 00:00 WBC 9.3 (4.4-11.0) K/mm3 RBC 3.88 L (4.6-6.2) M/mm3 Hgb 12.0 L (13.0-16.5) g/dl Hct 37.0 L (40-54) % MCV 95.4 H (80-94) fL MCH 30.9 (27.0-32.0) pg MCHC 32.4 (32-36) g/gl RDW 13.8 (11.6-14.6) % RDW Differential 47.8 H (35.1-43.9) fl Plt Count 288 (150-450) K/mm3 MPV 10.1 (6.2-12.0) fl Immature Gran % (Auto) 0.300 (0.0-0.9) % Neut % (Auto) 74.1 H (47-70) % Lymph % (Auto) 15.7 L (19-41) % [place] % (Auto) 8.3 (0-10) % Eos % (Auto) 1.4 (0-5) % Baso % (Auto) 0.2 (0-1) % Absolute Neuts (auto) 6.9 (2.0-7.7) X10^3/uL Absolute Lymphs (auto) 1.46 (0.83-4.51) X10^3/ul Total Counted Not Reportable Sodium 140 (136-145) mmol/L Potassium 3.7 (3.5-5.1) mmol/L Chloride 106 (98-107) mmol/L Carbon Dioxide 23.0 (21.0-32.0) mmol/L Anion Gap 11 (5-15) BUN 7 (7-18) mg/dL Creatinine 0.45 L (0.70-1.30) mg/dL Estim Creat Clear Calc 166.01 ml/min Est GFR (MDRD) Af Amer 244 (>60) mL/min Est GFR (MDRD) Non-Af 202 (>60) mL/min BUN/Creatinine Ratio 15.6 (10-20) RATIO Glucose 130 H (70-110) mg/dL Calcium 7.9 L (8.5-10.1) mg/dL Phosphorus (2.5-4.9) mg/dL Magnesium (1.8-2.4) mg/dL Total Bilirubin 0.40 (0.20-1.00) mg/dL AST 24 (15-37) U/L ALT 13 (12-78) U/L Alkaline Phosphatase 89 (45-117) U/L Total Protein 6.0 L (6.4-8.2) g/dL Albumin 2.3 L (3.4-5.0) g/dL Globulin 3.7 (2.2-4.2) g/dL Albumin/Globulin Ratio 0.6 L (0.9-2.4) RATIO Lipase 28658 H (73-393) U/L POC Glucose 147 H (70-110) mg/dL 3 11/05/17 11/05/17 Range/Units 19:28 18:50 WBC (4.4-11.0) K/mm3 RBC (4.6-6.2) M/mm3 Hgb (13.0-16.5) g/dl Hct (40-54) % MCV (80-94) fL MCH (27.0-32.0) pg MCHC (32-36) g/gl RDW (11.6-14.6) % RDW Differential (35.1-43.9) fl Plt Count (150-450) K/mm3 MPV (6.2-12.0) fl Immature Gran % (Auto) (0.0-0.9) % Neut % (Auto) (47-70) % Lymph % (Auto) (19-41) % [place] % (Auto) (0-10) % Eos % (Auto) (0-5) % Baso % (Auto) (0-1) % Absolute Neuts (auto) (2.0-7.7) X10^3/uL Absolute Lymphs (auto) (0.83-4.51) X10^3/ul Total Counted Sodium (136-145) mmol/L Potassium (3.5-5.1) mmol/L Chloride (98-107) mmol/L Carbon Dioxide (21.0-32.0) mmol/L Anion Gap (5-15) BUN (7-18) mg/dL Creatinine (0.70-1.30) mg/dL Estim Creat Clear Calc ml/min Est GFR (MDRD) Af Amer (>60) mL/min Est GFR (MDRD) Non-Af (>60) mL/min BUN/Creatinine Ratio (10-20) RATIO Glucose (70-110) mg/dL Calcium (8.5-10.1) mg/dL Phosphorus 3.1 (2.5-4.9) mg/dL Magnesium 1.6 L (1.8-2.4) mg/dL Total Bilirubin (0.20-1.00) mg/dL AST (15-37) U/L ALT (12-78) U/L Alkaline Phosphatase (45-117) U/L Total Protein (6.4-8.2) g/dL Albumin (3.4-5.0) g/dL Globulin (2.2-4.2) g/dL Albumin/Globulin Ratio (0.9-2.4) RATIO Lipase (73-393) U/L POC Glucose 146 H (70-110) mg/dL Diagnostic Data: Diagnostic Data Abdomen/Pelvis CT 11/05/17 13:22 IMPRESSION: Findings most consistent with acute pancreatitis. Correlate with liver function enzymes. Cannot exclude mass in the head of the pancreas. Secondary duodenitis. Increasing size of malignant mass of the left adrenal gland. 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 (1) Acute pancreatitis w/ abdominal pain, nausea, loose stools w/ concurrent Duodenitis likely secondary to proximity: Will admit to [facility], maintain on IVFs, NPO, IV famotidine, IV pain control w/ fentanyl given intolerance of dilaudid with headache as well as allergy to morphine, PRN codeine which he tolerates outpatient (tylenol #3 hx use), trend lipase, CMP. Hx S/P cholecystectomy, CT A/ P with chronic pulmonary disease, abnormal pancreas which shows evidence for diffuse edema especially around the pancreatic head, there is peripancreatic edema and there is dilatation of the pancreatic duct, 3.3 cm mass is not excluded in the head, malignant mass of the left adrenal gland, with a greatest dimension, top to bottom, of 5.7 cm and measuring 5.4 cm only 9 days ago, proximal duodenum shows prominent thickening of the wall probably related to the adjacent abnormalities of the pancreas. 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 Given increased size, concerning, will consult Hem/Onc. Would expect hold on chemotherapy secondary to acute presentation. (3) Diabetes mellitus type II: Hold oral home regimen, NPO status, accu checks w / ISS. (4) Hypothyroidism: Continue home synthroid regimen. (5) Hx TIA: Continue home asa, statin, not on BP regimen, PRN hydralazine. (7) Crohn's Disease: Not on agent, CT duodenal findings likely secondary to proximity. (8) Migraines: Continue home oral depakote regimen. (9) Chronic COPD: HOB, IS, PRN albuterol, ATC aerosols although declined last admission. (10) DVT Prophylaxis: SCDs, lovenox. Medications: Medications Added to Medication List This Visit Category Date Time Status Aspirin E.C. [Ecotrin] Med 11/06/17 08:00 Active 81 mg PO DAILY@0800 Divalproex (ER) [Depakote ER] Med 11/06/17 10:00 Active 500 mg PO DAILY Enoxaparin [Lovenox] Med 11/06/17 10:00 Active 40 mg SC DAILY@1000 Primary Care Provider: Last Aguilar Referring Provider:
--- NOTE | 2017-11-06 16:55 | CON.PCM_ITS ---
Consult Referring Physician: Manju Torres Date of Service:: 11/06/17 Chief Complaint: Abdominal Pain History of Present Illness: Mr. Dennis Hernandez is a pleasant 61-year-old male, ex-smoker who quit in 2015, who was hospitalized at [facility] in September 2017 with his acute abdominal pain and diagnosed with pancreatitis. During hospitalization a chest x-ray revealed a left lung mass. CT scan showed a malignant-looking left upper lobe mass and a CT-guided biopsy on September 18, 2017 confirmed small cell lung cancer. PET CT October 08, 2017 showed abnormal uptake consistent with a malignant process involving the left lung mass, hilar adenopathy and a newly evolving left adrenal mass was not visualized on his CT scan of the abdomen in March 2017. MRI of the brain showed no evidence of metastatic disease. 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 Port placed right upper chest 11/01/[address] Villegas. Scheduled to commence with cycle 1 carboplatin/VP16 on 11/06/17. Mr. Hernandez presented to [facility] ED on 11/05/17 with c/o of primarily epigastric and bilateral lower quad pain accompanied by nausea and loose stools x 1 week. also with associated nausea without emesis in addition to occasional loose stool x 1 week. Denied fever/chills. Lipase found to be 8848, CT A/P w/ findings consistent with acute pancreatitis, increased size of malignant mass L adrenal gland. Thus, patient admitted for management of acute pancreatitis. Upon assessment, patient reports marked improvement of pain and has been busy ambulating in the cueva, does not endorse exertional SOB, although admits to continued occasional wheezing. Power of Brand Communications Manager: No Living Will: No Health History: Social History Smoking Status Former smoker Allergies/Adverse Reactions: Allergy/AdvReac Type Severity Reaction Status Date / Time morphine Allergy Swelling Verified 11/05/17 12:47 Home Medications Medication Instructions Recorded Atorvastatin Calcium 40 mg PO QHS 09/16/17 Divalproex Sodium [Depakote ER] 500 mg PO DAILY 09/16/17 Levothyroxine [Synthroid] 25 mcg PO DAILY 09/16/17 Metformin HCl [Glucophage] 500 mg PO BID 09/16/17 acetaminophen 300 mg-codeine 30 mg 1 tab PO TID PRN 10/15/17 tablet Albuterol Aerosols [Ventolin 2.5 mg INHALATION Q6H 10/25/17 Aerosols] Butalb/Acetaminophen/Caffeine 1 each PO PRN PRN 10/25/17 [Hacsll-Mntwbick-Xweo 50-300-40] Divalproex Sodium [Depakote] 1,000 mg PO QHS 10/25/17 Senna [Senokot] 1 tablet PO DAILY PRN 10/25/17 Acetaminophen/Codeine #3 1 tab PO Q4H PRN PRN #30 tab 10/27/17 [Tylenol#3] Review of Systems Constitutional:: Reports: Fatigue, Weight loss. Denies: Fever, Sweats, Appetite change, Chills Cardiovascular:: Denies: Chest pain, Palpitations, Orthopnea, PND, Shortness of breath Respiratory: Reports: Cough, Shortness of breath upon exertion - occasionally, Wheezing - occasionally. Denies: Hemoptysis Gastrointestinal:: Denies: Abdominal pain, Nausea, Vomiting, Diarrhea, Constipation, Hematochezia Genitourinary: Denies: Dysuria, Hematuria, 15, Flank pain Musculoskeletal:: Denies: Back pain, Myalgia, Arthralgia Skin: Denies: Rash, Skin Changes, Wounds Neurological:: Denies: Headache, Dizziness, Visual changes, Tinnitus, Hearing loss Psychiatric: Denies: Anxiety, Depression, Homicidal Ideations, Suicidal Ideations Vital Signs Height 5 ft 9 in Weight: 69.853 kg Weight in Pounds 154.0 lbs Pulse Ox 97 Temperature 97.1 F Pulse Rate 102 Respiratory Rate 16 Blood Pressure 97/59 Blood Pressure Position Semi-Fowlers - Physical Exam General: Alert, Oriented x3, No apparent distress HEENT: Atraumatic, Normocephalic Oropharynx:: Negative for: Dry mucosa, Ulcerated lesions Neck:: Supple, Trachea midline. Negative for: JVD, bilateral Cardiac:: Regular rate, Regular rhythm, Normal S1, Normal S2. Negative for: Murmur Lungs: Clear to auscultation, Wheezes - faint expiratory, Excusion symmetrical. Negative for: Rhonchi, Increased respiratory effort Abdomen:: Bowel sounds x 4, Soft, Non-tender, Non-distended. Negative for: Hepatosplenomegaly Extremities:: Negative for: Cyanosis, Edema Neurological: Neuro grossly intact Skin:: - - port right upper chest, covered with DSD. Negative for: Lesions, Rash, Petechiae, Ecchymosis Psychiatric:: Appropriate affect, Euthymic Lymphatics:: Negative for: Cervical lymphadenopathy, Supraclavicular lymphadenopathy Laboratory Data: Laboratory Tests 3 11/06/17 11/06/17 11/06/17 Range/Units 11:23 06:29 05:34 WBC (4.4-11.0) K/mm3 RBC (4.6-6.2) M/mm3 Hgb (13.0-16.5) g/dl Hct (40-54) % MCV (80-94) fL MCH (27.0-32.0) pg MCHC (32-36) g/gl RDW (11.6-14.6) % RDW Differential (35.1-43.9) fl Plt Count (150-450) K/mm3 MPV (6.2-12.0) fl Immature Gran % (Auto) (0.0-0.9) % Neut % (Auto) (47-70) % Lymph % (Auto) (19-41) % [place] % (Auto) (0-10) % Eos % (Auto) (0-5) % Baso % (Auto) (0-1) % Absolute Neuts (auto) (2.0-7.7) X10^3/uL Absolute Lymphs (auto) (0.83-4.51) X10^3/ul Total Counted Sodium (136-145) mmol/L Potassium (3.5-5.1) mmol/L Chloride (98-107) mmol/L Carbon Dioxide (21.0-32.0) mmol/L Anion Gap (5-15) BUN (7-18) mg/dL Creatinine (0.70-1.30) mg/dL Estim Creat Clear Calc ml/min Est GFR (MDRD) Af Amer (>60) mL/min Est GFR (MDRD) Non-Af (>60) mL/min BUN/Creatinine Ratio (10-20) RATIO Glucose (70-110) mg/dL Calcium (8.5-10.1) mg/dL Phosphorus (2.5-4.9) mg/dL Magnesium 1.5 L (1.8-2.4) mg/dL Total Bilirubin (0.20-1.00) mg/dL AST (15-37) U/L ALT (12-78) U/L Alkaline Phosphatase (45-117) U/L Total Protein (6.4-8.2) g/dL Albumin (3.4-5.0) g/dL Globulin (2.2-4.2) g/dL Albumin/Globulin Ratio (0.9-2.4) RATIO Lipase (73-393) U/L POC Glucose 116 H 121 H (70-110) mg/dL 3 11/06/17 11/06/17 11/06/17 Range/Units 05:34 05:34 00:00 WBC 9.3 (4.4-11.0) K/mm3 RBC 3.88 L (4.6-6.2) M/mm3 Hgb 12.0 L (13.0-16.5) g/dl Hct 37.0 L (40-54) % MCV 95.4 H (80-94) fL MCH 30.9 (27.0-32.0) pg MCHC 32.4 (32-36) g/gl RDW 13.8 (11.6-14.6) % RDW Differential 47.8 H (35.1-43.9) fl Plt Count 288 (150-450) K/mm3 MPV 10.1 (6.2-12.0) fl Immature Gran % (Auto) 0.300 (0.0-0.9) % Neut % (Auto) 74.1 H (47-70) % Lymph % (Auto) 15.7 L (19-41) % [place] % (Auto) 8.3 (0-10) % Eos % (Auto) 1.4 (0-5) % Baso % (Auto) 0.2 (0-1) % Absolute Neuts (auto) 6.9 (2.0-7.7) X10^3/uL Absolute Lymphs (auto) 1.46 (0.83-4.51) X10^3/ul Total Counted Not Reportable Sodium 140 (136-145) mmol/L Potassium 3.7 (3.5-5.1) mmol/L Chloride 106 (98-107) mmol/L Carbon Dioxide 23.0 (21.0-32.0) mmol/L Anion Gap 11 (5-15) BUN 7 (7-18) mg/dL Creatinine 0.45 L (0.70-1.30) mg/dL Estim Creat Clear Calc 166.01 ml/min Est GFR (MDRD) Af Amer 244 (>60) mL/min Est GFR (MDRD) Non-Af 202 (>60) mL/min BUN/Creatinine Ratio 15.6 (10-20) RATIO Glucose 130 H (70-110) mg/dL Calcium 7.9 L (8.5-10.1) mg/dL Phosphorus (2.5-4.9) mg/dL Magnesium (1.8-2.4) mg/dL Total Bilirubin 0.40 (0.20-1.00) mg/dL AST 24 (15-37) U/L ALT 13 (12-78) U/L Alkaline Phosphatase 89 (45-117) U/L Total Protein 6.0 L (6.4-8.2) g/dL Albumin 2.3 L (3.4-5.0) g/dL Globulin 3.7 (2.2-4.2) g/dL Albumin/Globulin Ratio 0.6 L (0.9-2.4) RATIO Lipase 11143 H (73-393) U/L POC Glucose 147 H (70-110) mg/dL 3 11/05/17 11/05/17 Range/Units 19:28 18:50 WBC (4.4-11.0) K/mm3 RBC (4.6-6.2) M/mm3 Hgb (13.0-16.5) g/dl Hct (40-54) % MCV (80-94) fL MCH (27.0-32.0) pg MCHC (32-36) g/gl RDW (11.6-14.6) % RDW Differential (35.1-43.9) fl Plt Count (150-450) K/mm3 MPV (6.2-12.0) fl Immature Gran % (Auto) (0.0-0.9) % Neut % (Auto) (47-70) % Lymph % (Auto) (19-41) % [place] % (Auto) (0-10) % Eos % (Auto) (0-5) % Baso % (Auto) (0-1) % Absolute Neuts (auto) (2.0-7.7) X10^3/uL Absolute Lymphs (auto) (0.83-4.51) X10^3/ul Total Counted Sodium (136-145) mmol/L Potassium (3.5-5.1) mmol/L Chloride (98-107) mmol/L Carbon Dioxide (21.0-32.0) mmol/L Anion Gap (5-15) BUN (7-18) mg/dL Creatinine (0.70-1.30) mg/dL Estim Creat Clear Calc ml/min Est GFR (MDRD) Af Amer (>60) mL/min Est GFR (MDRD) Non-Af (>60) mL/min BUN/Creatinine Ratio (10-20) RATIO Glucose (70-110) mg/dL Calcium (8.5-10.1) mg/dL Phosphorus 3.1 (2.5-4.9) mg/dL Magnesium 1.6 L (1.8-2.4) mg/dL Total Bilirubin (0.20-1.00) mg/dL AST (15-37) U/L ALT (12-78) U/L Alkaline Phosphatase (45-117) U/L Total Protein (6.4-8.2) g/dL Albumin (3.4-5.0) g/dL Globulin (2.2-4.2) g/dL Albumin/Globulin Ratio (0.9-2.4) RATIO Lipase (73-393) U/L POC Glucose 146 H (70-110) mg/dL Diagnostic Data: Diagnostic Data Abdomen/Pelvis CT 11/05/17 13:22 IMPRESSION: Findings most consistent with acute pancreatitis. Correlate with liver function enzymes. Cannot exclude mass in the head of the pancreas. Secondary duodenitis. Increasing size of malignant mass of the left adrenal gland. 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 Chemotherapy administration held d/ t admission for medical management of acute pancreatitis. Most recent NCCN guidelines and advice systemic chemotherapy with carboplatin etoposide 4-6 cycles depending on response. D/t aggressive nature of small cell carcinomas, disease is typically found to be highly responsive to [place] based chemotherapy regimens. Thus, will not delay start of chemotherapy longer than necessary to recover from this acute presentation. Of note, CT A/P obtained 11/05 revealed in addition to diffuse peripancreatic and pancreatic edema as well as dilatation of the pancreatic duct, a questionable 3.3 cm mass at the head of the pancreas. Also biopsy proven malignant mass of the left adrenal gland is rapidly increasing in size with a greatest dimension, top to bottom, of 5.7 cm and measuring 5.4 cm only 9 days ago likely illustrating rapid doubling time. Oncology team to continue following. (2) DVT Prophylaxis: High risk for developing VTE d/t malignancy. Stressed importance of frequent ambulation and SCDs to patient. Continue prophylactic Lovenox. (3) Acute pancreatitis w/ abdominal pain, nausea, loose stools w/ concurrent Duodenitis likely secondary to proximity: Managed by hospitalist team, patient maintained on IVFs, NPO, IV famotidine, IV pain control with PRN codeine and trend lipase. (4) Central line- Power port right upper chest placed last week per Dr. Villegas. Certainly may access via sterile technique and utilize if able to obtain adequate blood return on aspiration if needed Bella Aguila, ZAYNAB, [employer], AOCNP Medications: Medications Added to Medication List This Visit Category Date Time Status Aspirin E.C. [Ecotrin] Med 11/06/17 08:00 Active 81 mg PO DAILY@0800 Divalproex (ER) [Depakote ER] Med 11/06/17 10:00 Active 500 mg PO DAILY Enoxaparin [Lovenox] Med 11/06/17 10:00 Active 40 mg SC DAILY@1000 Primary Care Provider: Last Aguilar Referring Provider: (1) Small cell lung cancer Status: Chronic Qualifiers: Laterality: left Comment: ALEC (2) Metastasis to adrenal gland Status: Chronic Qualifiers: Laterality: left Qualified Code(s): C79.72 - Secondary malignant neoplasm of left adrenal gland (3) Mass of pancreas Status: Acute (4) DVT prophylaxis Status: Acute
[2017-11-06 17:26] LABS: Bedside Glucose 154 mg/dL (70-110)
[2017-11-06] MEDS: Atorvastatin Calcium 40 MG Tablet PO (22:55)
[2017-11-06] MEDS: Divalproex Sodium 250 MG Tablet 1000 MG PO (22:57)
[2017-11-07] VITALS (27 sets, daily range): BP systolic 69–131; BP diastolic 38–92; PULSE 88–108; RESP 16–24; TEMP 36.2–36.9; O2SAT 87–95
[2017-11-07 00:21] LABS: Bedside Glucose 136 mg/dL (70-110)
[2017-11-07] MEDS: Levothyroxine 25 MCG TABLET PO (05:57)
[2017-11-07] MEDS: 0.9% Normal Saline 1,000 ML 150 ML IV ×2 (05:57→07:50)
[2017-11-07 05:59] LABS: ALB/GLOB Ratio 0.6 RATIO (0.9-2.4); AST(SGOT) 125 U/L (15-37); Alanine Aminotransfer ALT/SGPT 91 U/L (12-78); Albumin, Serum 2.5 g/dL (3.4-5.0); Alkaline Phosphatase 111 U/L (45-117); Anion Gap 12 (5-15); BUN 8 mg/dL (7-18); BUN/Creat Ratio 10.5 RATIO (10-20); Calcium,Total 8.2 mg/dL (8.5-10.1); Chloride 106 mmol/L (98-107); Creatinine, Serum 0.76 mg/dL (0.70-1.30); EST Glomerular Filtration Rate 109 mL/min (>60); Est Glom Filt Rate - Afr Amer 132 mL/min (>60); Estimated Creatinine Clearance 98.29 ml/min; Globulin 4.3 g/dL (2.2-4.2); Glucose 169 mg/dL (70-110); Lipase 2711 U/L (73-393); Potassium 4.9 mmol/L (3.5-5.1); Protein, Total 6.8 g/dL (6.4-8.2); Sodium Level 139 mmol/L (136-145)
[2017-11-07 06:13] LABS: Absolute Lymphocyte Count 0.77 X10^3/ul (0.83-4.51); Absolute Neutrophil Count 8.6 X10^3/uL (2.0-7.7); Basophil# 0.02 X10^3/uL; Basophil% 0.2 % (0-1); Eosinophil# 0.02 X10^3/uL; Eosinophils% 0.2 % (0-5); Hematocrit 42.3 % (40-54); Hemoglobin 13.3 g/dl (13.0-16.5); Lymphocyte # 0.77 X10^3/ul (4.0); Lymphocyte % 7.7 % (19-41); Mean Corp Hgb Conc 31.4 g/gl (32-36); Mean Corpuscular Hgb 30.9 pg (27.0-32.0); Mean Corpuscular Volume 98.1 fL (80-94); Mean Platelet Vol. 10.8 fl (6.2-12.0); Monocyte# 0.51 X10^3/uL; Monocyte% 5.1 % (0-10); Neutrophil # 8.61 X10^3/uL (2.7-7.7); Neutrophil % 86.2 % (47-70); Platelet Count 302 K/mm3 (150-450); RBC Distribution Width SD 50.1 fl (35.1-43.9); Red Blood Count 4.31 M/mm3 (4.6-6.2)
[2017-11-07 06:15] LABS: Differential Indicated SCAN CRITERIA MET; POSITIVE COUNT YES; POSITIVE DIFFERENTIAL NO; POSITIVE MORPHOLOGY NO
--- NOTE | 2017-11-07 06:15 | NURSING ---
Dr. Shaw advised that pt was not feeling well with poor color. BP 69/48, OT 170 (very diaphoretic), HR [address] Shaw his history as well. Anitra ISLAS stated HR was then reading in 130's. Dr. Shaw wanted BP taken in both arms and if BP low give 1L NS bolus wide open. Advised Dr. Shaw that labs had been drawn. Will request stat read. Pt groggy but responding stating what's going on?
--- NOTE | 2017-11-07 06:33 | NURSING ---
Linens changed, color a little better, seems more alert. On telemetry. According to monitor appears to be Afib which he has a history of.
[2017-11-07] MEDS: 0.9% Normal Saline 1,000 ML 999 ML IV (06:36)
[2017-11-07] MEDS: Ipratropium/Albuterol Sulfate 3 ML AMPUL.NEB INHALATION ×3 (07:07→20:25)
[2017-11-07 07:15] LABS: Bedside Glucose 170 mg/dL (70-110)
--- NOTE | 2017-11-07 08:51 | RAD_ITS ---
STUDY: X-RAY CHEST REASON FOR EXAM: Male, 61 years old. Shortness of breath. TECHNIQUE: Single AP portable view of the chest. COMPARISON: November 01, 2017. FINDINGS: Telemetry wires overlie the chest. Stable right jugular Port-A-Cath. There is elevation of right hemidiaphragm. There is diffuse interstitial changes throughout both lungs which have increased from the prior study. There is stable nodular density in the left perihilar region, unchanged from prior study. There is no demonstrated pleural abnormality. Normal size heart. Normal mediastinum and right hilum. There is prominence of the left hilum. Normal visualized pulmonary arteries. Normal visualized aortic arch and descending thoracic aorta. No visualized osseous changes. There is no demonstrated abnormality of the visualized soft tissue structures of the upper abdomen. RAD/Chest 1 View (Portable) IMPRESSION: 1. Persistent left perihilar mass and hilar prominence unchanged from prior study. 2. Increased diffuse interstitial changes. Electronically Signed: Flavio Hurley DO at 12:32 EST Tel [phone], Service support ,
--- NOTE | 2017-11-07 09:00 | PCM.PN.HOSP ---
Patient Problems: Active and Suspected Problems (Last Reviewed 10/24/17 @ 13:17 by Kizzy Sena) Mass of pancreas (Acute) DVT prophylaxis (Acute) Subjective: Patient was seen and examined. Noted acute events overnight with patient was said to have been looking as she, hypotensive. No fevers was seen. Says he feels fine. Complains of epigastric discomfort, has however been tolerating liquid diet with no nausea or vomiting or diarrhea. He is constipated and yet to move his bowels Vitals reviewed does show blood pressure 103/79, patient is saturating well on 3 L of oxygen. Vitals/I&O's: Vital Signs Temp Pulse Resp BP Pulse Ox 97.3 F L 102 H 18 103/92 H 90 11/07/17 08:42 11/07/17 08:42 11/07/17 08:42 11/07/17 08:42 11/07/17 08:42 Oxygen Flow Rate 3 Oxygen Delivery Method Nasal Cannula Weight: 69.853 kg Body Mass Index (BMI) 22.7 Intake and Output for Last 24 Hours 11/05/17 11/06/17 11/07/17 23:59 23:59 23:59 Intake Total 3635 / 3635 1426 / 1426 Balance 3635 / 3635 1426 / 1426 General: Alert, Oriented x3, Cooperative, - - On intranasal cannula oxygen HEENT: Atraumatic, PERRLA, EOMI, Normocephalic Oral: Moist Mucosa Neck: Supple Lungs: Diminished - At both lung bases, Rales - More on the right lower lung zone Cardiovascular: Regular rate, Regular Rhythm, Normal S1, Normal S2, No murmurs Abdomen: Bowel Sounds Present, Soft, No Hepato-splenomegaly, Distended, Tender - Epigastric and bilateral upper quadrant, Extremities: No edema Skin: No rashes, No breakdown Musculoskeletal: No Tenderness to Palpation of Joints or Extremities Neurological: Cranial nerves II-XII grossly intact Psych/Mental Status: Normal Affect, Appropriate Laboratory Results 11/06/17 11:23: POC Glucose 116 H 11/06/17 17:06: POC Glucose 154 H 11/07/17 00:13: POC Glucose 136 H 11/07/17 05:10: WBC 10.0, RBC 4.31 L, Hgb 13.3, Hct 42.3, MCV 98.1 H, MCH 30.9, MCHC 31.4 L, RDW 14.0, RDW Differential 50.1 H, Plt Count 302, MPV 10.8, Immature Gran % (Auto) 0.600, Neut % (Auto) 86.2 H, Lymph % (Auto) 7.7 L, [place] % (Auto) 5.1, Eos % (Auto) 0.2, Baso % (Auto) 0.2, Absolute Neuts (auto) 8.6 H, Absolute Lymphs (auto) 0.77 L, Total Counted Not Reportable, Differential Comment 11/07/17 05:10: Sodium 139, Potassium 4.9, Chloride 106, Carbon Dioxide 21.0, Anion Gap 12, BUN 8, Creatinine 0.76, Estim Creat Clear Calc 98.29, Est GFR (MDRD) Af Amer 132, Est GFR (MDRD) Non-Af 109, BUN/Creatinine Ratio 10.5, Glucose 169 H, Calcium 8.2 L, Total Bilirubin 0.90, AST 125 H, ALT 91 H, Alkaline Phosphatase 111, Total Protein 6.8, Albumin 2.5 L, Globulin 4.3 H, Albumin/Globulin Ratio 0.6 L, Lipase 2711 H 11/07/17 06:07: POC Glucose 170 H Current Medications Acetaminophen (Tylenol) 650 mg PO Q6H PRN PRN PRN Reason: Mild Pain (1-3)/Temp > 100.7 F Last Admin: 11/06/17 22:55 Dose: 650 mg Acetaminophen/Butalbital/Caffeine (Fioricet) 1 tablet PO DAILY PRN PRN PRN Reason: HEADACHE PAIN Last Admin: 11/06/17 11:16 Dose: 1 tablet Al Hydroxide/Mg Hydroxide (Mylanta Ii) 30 ml PO Q6H PRN PRN PRN Reason: Gastric burning Albuterol Sulfate (Ventolin Aerosols) 2.5 mg INHALATION Q2H PRN PRN PRN Reason: dyspnea, wheezing Albuterol/Ipratropium (Duoneb) 3 ml INHALATION Q6HWA.RT [facility] Last Admin: 11/07/17 07:07 Dose: 3 ml Aspirin (Ecotrin) 81 mg PO DAILY@0800 [facility] Last Admin: 11/06/17 08:33 Dose: Not Given Atorvastatin Calcium (Lipitor) 40 mg PO QHS [facility] Last Admin: 11/06/17 22:55 Dose: 40 mg Bisacodyl (Dulcolax) 10 mg RECTAL X1 ONE Stop: 11/07/17 08:52 Codeine Sulfate (Codeine) 30 mg PO Q4H PRN PRN PRN Reason: PAIN Last Admin: 11/06/17 22:55 Dose: 30 mg Dextrose (D50w Syringe) 0 gm IV X1 PRN; Protocol PRN Reason: Hypoglycemia Divalproex Sodium (Depakote Er) 500 mg PO DAILY [facility] Last Admin: 11/06/17 22:54 Dose: 500 mg Divalproex Sodium (Depakote) 1,000 mg PO QHS [facility] Last Admin: 11/06/17 22:57 Dose: 1,000 mg Enoxaparin Sodium (Lovenox) 40 mg SC DAILY@1000 [facility] Last Admin: 11/06/17 08:37 Dose: 40 mg Fentanyl Citrate (Sublimaze) 50 mcg IV Q2H PRN PRN PRN Reason: SEVERE PAIN (6-10/10) Glucagon () 1 mg IM .X1 PRN PRN Reason: Hypoglycemia Hydralazine HCl (Apresoline) 10 mg IV Q4H PRN PRN PRN Reason: SBP > 160 Sodium Chloride () 1,000 mls @ 150 mls/hr IV .Q6H40M [facility] Last Admin: 11/07/17 07:50 Dose: 150 mls/hr Famotidine 20 mg/ Sodium (Chloride) 10 mls @ 300 mls/hr IV Q12 [facility] Last Admin: 11/06/17 22:54 Dose: 300 mls/hr Insulin Aspart (Novolog Flexpen (Bkc)) 0 units SC Q6 VICKIE PRN Reason: Protocol Last Admin: 11/07/17 00:20 Dose: Not Given Levothyroxine Sodium (Synthroid) 25 mcg PO DAILY@0600 [facility] Last Admin: 11/07/17 05:57 Dose: 25 mcg Magnesium Hydroxide (Milk Of Magnesia) 30 ml PO DAILY PRN PRN PRN Reason: Constipation Ondansetron HCl (Zofran) 4 mg IV Q8H PRN PRN PRN Reason: NAUSEA Last Admin: 11/06/17 14:26 Dose: 4 mg Promethazine HCl (Phenergan (Ll)) 6.25 mg IV Q6H PRN PRN PRN Reason: NAUSEA/VOMITING Senna (Senokot) 1 tablet PO DAILY PRN PRN Reason: Constipation Sodium Chloride ([place] Nasal [place]) 1 spray NASAL TID PRN PRN PRN Reason: NASAL DRYNESS Zolpidem Tartrate (Ambien (Generic)) 5 mg PO QHS PRN PRN PRN Reason: INSOMNIA Assessment/Plan Active and Suspected Problems (Last Reviewed 10/24/17 @ 13:17 by Kizzy Sena) Mass of pancreas (Acute) DVT prophylaxis (Acute) 61 y/o M with PMHx of Chronic COPD, Diabetes mellitus type II, Crohn's disease, hypothyroidism, 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 1. Hypotension, likely related to dehydration, less likely to sepsis, no fevers, no leukocytosis, will continue to monitor on IV fluids 2. Acute hypoxic respiratory insufficiency in a patient with metastatic lung cancer, other differentials could be fluid overload condition, the chest x-ray, would wean off oxygen for SPO2 more than 94% 3. Acute pancreatitis/duodenitis, slightly improving, tolerating liquid diet, will advance diet as tolerated, continue on fentanyl and as needed codeine 4. Small cell lung cancer with metastatic disease to L adrenal and omentum with regional lymph involvement, Oncology 3. Diabetes mellitus type II, blood sugars are fairly controlled, metformin on hold, on account of n.p.o. status, will continue with Accu-Cheks and insulin sliding scale 4. Hypothyroidism, on synthroid 5. Hx TIA, on asa, statin, 6. Crohn's Disease 7. Migraines 8. Chronic COPD 9. DVT Prophylaxis: SCDs, lovenox This note was generated with [employer] software. It may contain incorrect words, spelling, and punctuation that were not noted in checking the note before signing.
--- NOTE | 2017-11-07 09:09 | PN_ITS ---
Patient Problems: Active and Suspected Problems (Last Reviewed 10/24/17 @ 13:17 by Kizzy Sena) Mass of pancreas (Acute) DVT prophylaxis (Acute) Subjective: Patient was seen and examined. Noted acute events overnight with patient was said to have been looking as she, hypotensive. No fevers was seen. Says he feels fine. Complains of epigastric discomfort, has however been tolerating liquid diet with no nausea or vomiting or diarrhea. He is constipated and yet to move his bowels Vitals reviewed does show blood pressure 103/79, patient is saturating well on 3 L of oxygen. Vitals/I&O's: Vital Signs Temp Pulse Resp BP Pulse Ox 97.3 F L 102 H 18 103/92 H 90 11/07/17 08:42 11/07/17 08:42 11/07/17 08:42 11/07/17 08:42 11/07/17 08:42 Oxygen Flow Rate 3 Oxygen Delivery Method Nasal Cannula Weight: 69.853 kg Body Mass Index (BMI) 22.7 Intake and Output for Last 24 Hours 11/05/17 11/06/17 11/07/17 23:59 23:59 23:59 Intake Total 3635 / 3635 1426 / 1426 Balance 3635 / 3635 1426 / 1426 General: Alert, Oriented x3, Cooperative, - - On intranasal cannula oxygen HEENT: Atraumatic, PERRLA, EOMI, Normocephalic Oral: Moist Mucosa Neck: Supple Lungs: Diminished - At both lung bases, Rales - More on the right lower lung zone Cardiovascular: Regular rate, Regular Rhythm, Normal S1, Normal S2, No murmurs Abdomen: Bowel Sounds Present, Soft, No Hepato-splenomegaly, Distended, Tender - Epigastric and bilateral upper quadrant, Extremities: No edema Skin: No rashes, No breakdown Musculoskeletal: No Tenderness to Palpation of Joints or Extremities Neurological: Cranial nerves II-XII grossly intact Psych/Mental Status: Normal Affect, Appropriate Laboratory Results 11/06/17 11:23: POC Glucose 116 H 11/06/17 17:06: POC Glucose 154 H 11/07/17 00:13: POC Glucose 136 H 11/07/17 05:10: WBC 10.0, RBC 4.31 L, Hgb 13.3, Hct 42.3, MCV 98.1 H, MCH 30.9, MCHC 31.4 L, RDW 14.0, RDW Differential 50.1 H, Plt Count 302, MPV 10.8, Immature Gran % (Auto) 0.600, Neut % (Auto) 86.2 H, Lymph % (Auto) 7.7 L, [place] % (Auto) 5.1, Eos % (Auto) 0.2, Baso % (Auto) 0.2, Absolute Neuts (auto) 8.6 H, Absolute Lymphs (auto) 0.77 L, Total Counted Not Reportable, Differential Comment 11/07/17 05:10: Sodium 139, Potassium 4.9, Chloride 106, Carbon Dioxide 21.0, Anion Gap 12, BUN 8, Creatinine 0.76, Estim Creat Clear Calc 98.29, Est GFR ( MDRD) Af Amer 132, Est GFR (MDRD) Non-Af 109, BUN/Creatinine Ratio 10.5, Glucose 169 H, Calcium 8.2 L, Total Bilirubin 0.90, AST 125 H, ALT 91 H, Alkaline Phosphatase 111, Total Protein 6.8, Albumin 2.5 L, Globulin 4.3 H, Albumin/Globulin Ratio 0.6 L, Lipase 2711 H 11/07/17 06:07: POC Glucose 170 H Current Medications Acetaminophen (Tylenol) 650 mg PO Q6H PRN PRN PRN Reason: Mild Pain (1-3)/Temp > 100.7 F Last Admin: 11/06/17 22:55 Dose: 650 mg Acetaminophen/Butalbital/Caffeine (Fioricet) 1 tablet PO DAILY PRN PRN PRN Reason: HEADACHE PAIN Last Admin: 11/06/17 11:16 Dose: 1 tablet Al Hydroxide/Mg Hydroxide (Mylanta Ii) 30 ml PO Q6H PRN PRN PRN Reason: Gastric burning Albuterol Sulfate (Ventolin Aerosols) 2.5 mg INHALATION Q2H PRN PRN PRN Reason: dyspnea, wheezing Albuterol/Ipratropium (Duoneb) 3 ml INHALATION Q6HWA.RT [facility] Last Admin: 11/07/17 07:07 Dose: 3 ml Aspirin (Ecotrin) 81 mg PO DAILY@0800 [facility] Last Admin: 11/06/17 08:33 Dose: Not Given Atorvastatin Calcium (Lipitor) 40 mg PO QHS [facility] Last Admin: 11/06/17 22:55 Dose: 40 mg Bisacodyl (Dulcolax) 10 mg RECTAL X1 ONE Stop: 11/07/17 08:52 Codeine Sulfate (Codeine) 30 mg PO Q4H PRN PRN PRN Reason: PAIN Last Admin: 11/06/17 22:55 Dose: 30 mg Dextrose (D50w Syringe) 0 gm IV X1 PRN; Protocol PRN Reason: Hypoglycemia Divalproex Sodium (Depakote Er) 500 mg PO DAILY [facility] Last Admin: 11/06/17 22:54 Dose: 500 mg Divalproex Sodium (Depakote) 1,000 mg PO QHS [facility] Last Admin: 11/06/17 22:57 Dose: 1,000 mg Enoxaparin Sodium (Lovenox) 40 mg SC DAILY@1000 [facility] Last Admin: 11/06/17 08:37 Dose: 40 mg Fentanyl Citrate (Sublimaze) 50 mcg IV Q2H PRN PRN PRN Reason: SEVERE PAIN (6-10/10) Glucagon () 1 mg IM .X1 PRN PRN Reason: Hypoglycemia Hydralazine HCl (Apresoline) 10 mg IV Q4H PRN PRN PRN Reason: SBP > 160 Sodium Chloride () 1,000 mls @ 150 mls/hr IV .Q6H40M [facility] Last Admin: 11/07/17 07:50 Dose: 150 mls/hr Famotidine 20 mg/ Sodium (Chloride) 10 mls @ 300 mls/hr IV Q12 [facility] Last Admin: 11/06/17 22:54 Dose: 300 mls/hr Insulin Aspart (Novolog Flexpen (Bkc)) 0 units SC Q6 VICKIE PRN Reason: Protocol Last Admin: 11/07/17 00:20 Dose: Not Given Levothyroxine Sodium (Synthroid) 25 mcg PO DAILY@0600 [facility] Last Admin: 11/07/17 05:57 Dose: 25 mcg Magnesium Hydroxide (Milk Of Magnesia) 30 ml PO DAILY PRN PRN PRN Reason: Constipation Ondansetron HCl (Zofran) 4 mg IV Q8H PRN PRN PRN Reason: NAUSEA Last Admin: 11/06/17 14:26 Dose: 4 mg Promethazine HCl (Phenergan (Ll)) 6.25 mg IV Q6H PRN PRN PRN Reason: NAUSEA/VOMITING Senna (Senokot) 1 tablet PO DAILY PRN PRN Reason: Constipation Sodium Chloride ([place] Nasal [place]) 1 spray NASAL TID PRN PRN PRN Reason: NASAL DRYNESS Zolpidem Tartrate (Ambien (Generic)) 5 mg PO QHS PRN PRN PRN Reason: INSOMNIA Assessment/Plan Active and Suspected Problems (Last Reviewed 10/24/17 @ 13:17 by Kizzy Sena) Mass of pancreas (Acute) DVT prophylaxis (Acute) 61 y/o M with PMHx of Chronic COPD, Diabetes mellitus type II, Crohn's disease, hypothyroidism, 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 1. Hypotension, likely related to dehydration, less likely to sepsis, no fevers , no leukocytosis, will continue to monitor on IV fluids 2. Acute hypoxic respiratory insufficiency in a patient with metastatic lung cancer, other differentials could be fluid overload condition, the chest x-ray, would wean off oxygen for SPO2 more than 94% 3. Acute pancreatitis/duodenitis, slightly improving, tolerating liquid diet, will advance diet as tolerated, continue on fentanyl and as needed codeine 4. Small cell lung cancer with metastatic disease to L adrenal and omentum with regional lymph involvement, Oncology 3. Diabetes mellitus type II, blood sugars are fairly controlled, metformin on hold, on account of n.p.o. status, will continue with Accu-Cheks and insulin sliding scale 4. Hypothyroidism, on synthroid 5. Hx TIA, on asa, statin, 6. Crohn's Disease 7. Migraines 8. Chronic COPD 9. DVT Prophylaxis: SCDs, lovenox This note was generated with [employer] software. It may contain incorrect words, spelling, and punctuation that were not noted in checking the note before signing.
[2017-11-07] MEDS: Enoxaparin 40 MG/0.4 ML Syringe SC (09:30)
[2017-11-07] MEDS: Bisacodyl 10 MG Suppository RECTAL (09:37)
[2017-11-07] MEDS: Magnesium Hydroxide 30 ML UDC PO (09:37)
--- NOTE | 2017-11-07 10:15 | NURSING ---
reviewed breathing techniques with patient as when he was first placed on pulse oximetry his oxygen saturations were in the low 80s even with 3 L of supplemental oxygen. Encouraged deep breathing exercises focussing on breathing through his nose and he is able to obtain oxygen saturations in the mid to upper 90s on 3L. Patient actually maintained oxygen saturations above 95% for a few minutes after performing deep breathing exercises. Educated patient that we will continue to monitor oxygen saturations but that if he continues to drop that we may need to utilize a mask to aid in oxygen delivery. patient acknowledges and denies further needs at this time. call light within reach
--- NOTE | 2017-11-07 10:50 | NURSING ---
Patient continued to drop oxygen saturations to low 80s without performing breathing exercises. Patient states that at home he uses supplemental oxygen at 2 - 4 L based on how he is feeling. This, he informs me is at the direction of Dr Sullivan. Given that his oxygen saturations continue to drop His oxygen has been increased to 4 L of oxygen. Will await Dr Dimas's response from text sent by Franky. Dr Dimas provided orders including a transfer to the ICU. She is on the floor to assess the patient and explain plans.
[2017-11-07 11:26] LABS: Allen Test POS; Base Excess -6 mmol/L (-2 to +2); Bicarbonate 20.2 mmol/L (22-26); Blood Gas Specimen Type ART; O2 Delivery Device Nasal Can; PO2 67 mmHG (75-100); SITE R Radial; SO2 92 % (95-99); Time Given 1115; Total Carbon Dioxide 21 mmol/L; pCO2 37.6 mmHg (35-45); pH 7.34 (7.35-7.45)
[2017-11-07 12:46] LABS: M R Staph aureus DNA By PCR Negative (Negative); Probe Check PASS; Specimen Processing Control PASS
--- NOTE | 2017-11-07 12:47 | CON.PCM_ITS ---
Reason for Consult Date of Consultation: 11/07/17 Reason for Consultation: Acute on chronic respiratory failure History of Present Illness: The patient is a 61-year-old male, with a history as outlined below, who presented to the emergency department initially on November 05 with complaints of abdominal pain, nausea and loose bowel movements. The patient does have a history of mild COPD and is a prior heavy smoker, having quit completely in 2015. The patient was hospitalized in September, during which time, a CT chest was obtained and revealed a left upper lobe lung mass. The patient subsequently underwent a CT-guided lung biopsy in September which confirmed the presence of small cell lung cancer. As part of his staging process, a PET CT was completed which revealed a left adrenal mass. This lesion was also later biopsied in October and was positive for metastatic small cell carcinoma. The patient is currently being followed by oncology. He recently underwent a port placement in preparation for initiation of chemotherapy. In fact, the patient was supposed to start his first cycle of chemotherapy on November 06. Subsequent workup has revealed evidence of acute pancreatitis. A repeat CT abdomen/pelvis completed on November 05 revealed increasing size of the malignant mass of the left adrenal gland. The visualized portions of the lung bases revealed chronic fibrosis. Pulmonary function testing last completed in October 2017 revealed evidence of an irreversible mild large airways obstructive ventilatory defect with a disproportionate moderate reduction in diffusing capacity. To date, the patient has been afebrile and without evidence of a leukocytosis. On the morning of November 07, the patient reportedly became hypotensive with systolic pressures in the 80s. Of note, the patient had received 30 mg of codeine this morning. The patient was given an IV fluid bolus. He was subsequently transferred to the medical intensive care unit. Nevertheless, upon arrival to the unit, the patient was noted to be hemodynamically stable. Past Medical History Past Medical History (Chronic Problems): Chronic Problems (Last Reviewed 10/24/17 @ 13:17 by Kizzy Sena) Diabetes mellitus, type II (Chronic) COPD (chronic obstructive pulmonary disease) (Chronic) History of tobacco use (Chronic) Migraine (Chronic) Crohns disease (Chronic) History of TIA (transient ischemic attack) (Chronic) Hypothyroidism (Chronic) Small cell lung cancer (Chronic) 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) Allergies morphine Allergy (Verified 11/05/17 12:47) Swelling Home Medications: Ambulatory Orders Medication Instructions Recorded Atorvastatin Calcium 40 mg PO QHS 09/16/17 Divalproex Sodium [Depakote ER] 500 mg PO DAILY 09/16/17 Levothyroxine [Synthroid] 25 mcg PO DAILY 09/16/17 Metformin HCl [Glucophage] 500 mg PO BID 09/16/17 acetaminophen 300 mg-codeine 30 mg 1 tab PO TID PRN 10/15/17 tablet Albuterol Aerosols [Ventolin 2.5 mg INHALATION Q6H 10/25/17 Aerosols] Butalb/Acetaminophen/Caffeine 1 each PO PRN PRN 10/25/17 [[id number] 50-300-40] Divalproex Sodium [Depakote] 1,000 mg PO QHS 10/25/17 Senna [Senokot] 1 tablet PO DAILY PRN 10/25/17 Acetaminophen/Codeine #3 1 tab PO Q4H PRN PRN #30 tab 10/27/17 [Tylenol#3] Surgical History: - - Cholecystectomy, appendectomy, colonic resection for Crohn 's disease as well as for diverticulitis, left thumb surgery, several hernia repairs (8 total noted per patient), LNDx Bx, Port placement. Psychiatric History: Anxiety, Bipolar, Depression Lives: Spouse/ Significant Other Smoking Status: Former smoker Tobacco Use: Non-smoker Alcohol: Rare Drugs: None - *Family History Maternal Family History: Family History (Last Reviewed 10/24/17 @ 13:17 by Kizzy Sena) Father CAD (coronary artery disease) Mesothelioma Grandfather Leukemia Brother Throat cancer History Items: No pertinent history Paternal Family History: Family History (Last Reviewed 10/24/17 @ 13:17 by Kizzy Sena) Father CAD (coronary artery disease) Mesothelioma Grandfather Leukemia Brother Throat cancer History Items: No pertinent history Review of Systems Constitutional: Reports: Fatigue. Denies: Chills, Fever Eyes: Denies: Blurred vision, Double vision HEENT: Denies: Head Aches, Sinus Congestion, Sinus Drainage Cardiovascular: Denies: Chest Pain, Palpitations Respiratory: Reports: Shortness of Breath Gastrointestinal: Reports: Abdominal Pain. Denies: Nausea, Vomiting Genitourinary: Denies: Dysuria Musculoskeletal: Denies: Joint Pain, Joint Tenderness Skin: Denies: Rash, Wounds Neurological: Denies: Numbness, Tingling, Focal weakness Psychiatric: Denies: Anxiety, Depression, Homicidal Ideations, Suicidal Ideations Hematologic/ Lymphatic: Denies: Easy Bruising, Easy Bleeding Patient Problems: Active and Suspected Problems (Last Reviewed 10/24/17 @ 13:17 by Kizzy Sena) Mass of pancreas (Acute) DVT prophylaxis (Acute) Objective: The patient's most recent lab work, culture data and imaging studies have all been personally reviewed. Rapid influenza screen was negative. Plain film chest x-ray dated November 07 revealed a stable appearing left perihilar mass and diffuse interstitial edema. The patient is overall net +5 L for the admission. - Physical Exam General: Alert, Oriented x3, Cooperative, No apparent distress HEENT: Atraumatic, PERRLA, Normocephalic Oral: Moist Mucosa, No Gingival or Mucosal Lesions/ Ulcerations Neck: Supple, No Nodes, Trachea Midline Lungs: Diminished, Rales, - - No conversational dyspnea or accessory muscle use. Cardiovascular: Regular rate, Regular Rhythm, Normal S1, Normal S2, No murmurs Abdomen: Bowel Sounds Present, Soft, Non Tender Extremities: No clubbing, No cyanosis, No edema Skin: No rashes, No breakdown Musculoskeletal: No Tenderness to Palpation of Joints or Extremities Lymphatic: No Cervical, Supraclavicular, or Inguinal Adenopathy Neurological: Neuro grossly intact Psych/Mental Status: Normal Affect, Appropriate Vital Signs Temp Pulse Resp BP Pulse Ox 98.2 F 100 24 H 100/64 87 11/07/17 10:14 11/07/17 10:55 11/07/17 10:55 11/07/17 10:55 11/07/17 10:55 Oxygen Flow Rate 4 Oxygen Delivery Method Nasal Cannula Weight: 153 lb 15.992 oz Body Mass Index (BMI) 22.7 Intake and Output for Last 24 Hours 11/05/17 11/06/17 11/07/17 23:59 23:59 23:59 Intake Total 3635 / 3635 1426 / 1426 Balance 3635 / 3635 1426 / 1426 Microbiology Past 72 Hours 11/07/17 10:35 Influenza Types A,B Direct FA (LEATHA) - Final Mucosa - Nose Laboratory Tests Past 24 Hrs 11/07/17 11/07/17 11/07/17 05:10 05:10 11:21 WBC 10.0 RBC 4.31 L Hgb 13.3 Hct 42.3 MCV 98.1 H MCH 30.9 MCHC 31.4 L RDW 14.0 RDW Differential 50.1 H Plt Count 302 MPV 10.8 Immature Gran % (Auto) 0.600 Neut % (Auto) 86.2 H Lymph % (Auto) 7.7 L [place] % (Auto) 5.1 Eos % (Auto) 0.2 Baso % (Auto) 0.2 Absolute Neuts (auto) 8.6 H Absolute Lymphs (auto) 0.77 L Total Counted Not Reportable Differential Comment Specimen Type ART Sample Site R Radial pH 7.34 L Bicarbonate Actual 20.2 L POC Total CO2 21 Base Excess -6 L O2 Saturation 92 L ABG pCO2 37.6 ABG pO2 67 L Willem Test POS O2 Delivery Device Nasal Can Liter Flow 4.0 Blood Gas Notified Whom [facility] Blood Gas Notified Time 1115 Sodium 139 Potassium 4.9 Chloride 106 Carbon Dioxide 21.0 Anion Gap 12 BUN 8 Creatinine 0.76 Estim Creat Clear Calc 98.29 Est GFR (MDRD) Af Amer 132 Est GFR (MDRD) Non-Af 109 BUN/Creatinine Ratio 10.5 Glucose 169 H Calcium 8.2 L Total Bilirubin 0.90 AST 125 H ALT 91 H Alkaline Phosphatase 111 Total Protein 6.8 Albumin 2.5 L Globulin 4.3 H Albumin/Globulin Ratio 0.6 L Lipase 2711 H MRSA (PCR) 11/07/17 11:25 WBC RBC Hgb Hct MCV MCH MCHC RDW RDW Differential Plt Count MPV Immature Gran % (Auto) Neut % (Auto) Lymph % (Auto) [place] % (Auto) Eos % (Auto) Baso % (Auto) Absolute Neuts (auto) Absolute Lymphs (auto) Total Counted Differential Comment Specimen Type Sample Site pH Bicarbonate Actual POC Total CO2 Base Excess O2 Saturation ABG pCO2 ABG pO2 Willem Test O2 Delivery Device Liter Flow Blood Gas Notified Whom Blood Gas Notified Time Sodium Potassium Chloride Carbon Dioxide Anion Gap BUN Creatinine Estim Creat Clear Calc Est GFR (MDRD) Af Amer Est GFR (MDRD) Non-Af BUN/Creatinine Ratio Glucose Calcium Total Bilirubin AST ALT Alkaline Phosphatase Total Protein Albumin Globulin Albumin/Globulin Ratio Lipase MRSA (PCR) Negative POC Glucose 11/07/17 11/07/17 11/06/17 06:07 00:13 17:06 POC Glucose 170 H 136 H 154 H Clinical Impression(s) from Imaging Studies Abdomen/Pelvis CT 11/05/17 13:22 IMPRESSION: Findings most consistent with acute pancreatitis. Correlate with liver function enzymes. Cannot exclude mass in the head of the pancreas. Secondary duodenitis. Increasing size of malignant mass of the left adrenal gland. Electronically Signed: Pilo Huizar MD at 16:37 EST , Service support , Chest X-Ray 11/07/17 08:51 IMPRESSION: 1. Persistent left perihilar mass and hilar prominence unchanged from prior study. 2. Increased diffuse interstitial changes. Electronically Signed: Flavio Hurley DO at 12:32 EST Tel [phone], Service support , Assessment/Plan Active and Suspected Problems (Last Reviewed 10/24/17 @ 13:17 by Kizzy Sena) Mass of pancreas (Acute) DVT prophylaxis (Acute) RECOMMENDATIONS: 1. Wean supplemental oxygen as tolerated. The patient wears between 2 and 4 L/ min at his baseline. 2. Agree with Lasix administration 3. Continue scheduled aerosol treatments 4. Advance diet as tolerated. 5. Start subcu heparin for DVT prophylaxis 6. Encourage incentive spirometer use and mobilize patient as tolerated 7. Check TSH and BNP levels IMPRESSIONS: 1. Acute on chronic hypoxic respiratory failure The patient has a baseline oxygen requirement between 2 and 4 L in his home environment. He is currently maintaining appropriate oxygen saturations at 4 L/ min. Repeat plain film chest x-ray showed findings concerning for interstitial edema. Agree with Lasix administration. Wean supplemental oxygen as tolerated. Encourage incentive spirometer use and mobilize patient as tolerated. Given that the patient is afebrile, has no cough and is without evidence of an elevated white blood cell count, have low clinical index of suspicion for underlying pulmonary infectious process. 2. Acute pancreatitis Improving clinically. Advance diet as tolerated. Lipase is downtrending. 3. Transient hypotension Potentially related to intravascular volume depletion versus ill fitting blood pressure cuff. The patient is currently hemodynamically stable. We will continue to monitor accordingly. 4. Stage IV small cell lung cancer There are tentative plans to start chemotherapy once the patient has been stabilized medically. 5. Tobacco dependence now in remission/hypothyroidism/diabetes/hyperlipidemia/ COPD Complicates care, management, recovery and prognosis. Continue home medications as indicated. Hold metformin and cover with sliding scale insulin while inpatient. Continue duo nebs while awake. This note was generated with [employer] dictation software. It may contain incorrect words, spelling, and punctuation that were not noted in checking the note before signing. Code Visit Inpatient E&M: 59704 Init Hosp L2
[2017-11-07] MEDS: Furosemide 20 MG/2 ML VIAL IV (13:12)
[2017-11-07 13:16] LABS: Bedside Glucose 228 mg/dL (70-110)
--- NOTE | 2017-11-07 14:19 | CASEMGMT ---
Intro role of CM to patient and his family in room. Discussed ADV DIR, brochure given. Discussed [place] regarding decision making if no adv dir. Pt is not , has significant other and children. Pt did state he felt his son is unrealistic re: pt prognosis. Questions answered. Pt will notify nurse if he would like adv directives completed this admission. Remigio ISLAS BSN ACM
[2017-11-07] MEDS: Heparin Injection 5,000 UNITS/ML Syringe 5000 UNITS SC ×2 (15:04→21:28)
[2017-11-07 15:26] LABS: Bedside Glucose 136 mg/dL (70-110)
[2017-11-07 15:27] LABS: Thyroid Stim Hormone (TSH) 1.04 uIU/mL (0.358-3.74)
[2017-11-07 21:36] LABS: Bedside Glucose 167 mg/dL (70-110)
[2017-11-08] VITALS (17 sets, daily range): BP systolic 122–154; BP diastolic 73–89; PULSE 84–98; RESP 12–18; TEMP 36.2–37.1; O2SAT 85–98
--- NOTE | 2017-11-08 04:20 | NURSING ---
Patient put inspector semiconductor wafer light, which was answered by this RN. Patient stated he wants this mask off, it is not helping, he does not wear O2 at home unless he feels short of breath and at this time he is not short of breath and doesn't care what the numbers read, he wants the oxygen off. This RN explained the consequences of not wearing oxygen with his O2 saturation decreasing into the 70's-80's. Patient stated he knows the risk and knows he has cancer and does not want the oxygen on right now. This RN followed patient's wishes and removed the oxygen.
--- NOTE | 2017-11-08 04:40 | NURSING ---
Patient's O2 sats were 78% maintaining. This RN went into patient's room and explained again the consequences of not wearing oxygen, with the possibility of needing intubated. Patient stated he understood and would wear oxygen via nasal cannula, but does not want to wear the venti mask. Patient placed on 4L NC. Will continue to monitor.
[2017-11-08] MEDS: Levothyroxine 25 MCG TABLET PO (05:00)
[2017-11-08] MEDS: Heparin Injection 5,000 UNITS/ML Syringe 5000 UNITS SC ×3 (05:00→22:48)
[2017-11-08 05:10] LABS: Absolute Lymphocyte Count 1.01 X10^3/ul (0.83-4.51); Absolute Neutrophil Count 5.3 X10^3/uL (2.0-7.7); Basophil# 0.02 X10^3/uL; Basophil% 0.3 % (0-1); Eosinophil# 0.06 X10^3/uL; Eosinophils% 0.9 % (0-5); Hematocrit 31.2 % (40-54); Lymphocyte # 1.01 X10^3/ul (4.0); Lymphocyte % 14.9 % (19-41); Mean Corp Hgb Conc 32.1 g/gl (32-36); Mean Corpuscular Hgb 31.4 pg (27.0-32.0); Mean Corpuscular Volume 98.1 fL (80-94); Mean Platelet Vol. 9.9 fl (6.2-12.0); Monocyte# 0.42 X10^3/uL; Monocyte% 6.2 % (0-10); Neutrophil # 5.28 X10^3/uL (2.7-7.7); Neutrophil % 77.6 % (47-70); Platelet Count 255 K/mm3 (150-450); RBC Distribution Width CV 13.8 % (11.6-14.6); Red Blood Count 3.18 M/mm3 (4.6-6.2); White Blood Count 6.8 K/mm3 (4.4-11.0)
[2017-11-08 05:14] LABS: POSITIVE COUNT NO; POSITIVE DIFFERENTIAL NO; POSITIVE MORPHOLOGY NO
[2017-11-08 05:36] LABS: ALB/GLOB Ratio 0.5 RATIO (0.9-2.4); AST(SGOT) 1012 U/L (15-37); Alanine Aminotransfer ALT/SGPT 781 U/L (12-78); Albumin, Serum 2.1 g/dL (3.4-5.0); Alkaline Phosphatase 110 U/L (45-117); Anion Gap 8 (5-15); BUN 9 mg/dL (7-18); BUN/Creat Ratio 14.1 RATIO (10-20); Calcium,Total 7.7 mg/dL (8.5-10.1); Chloride 109 mmol/L (98-107); Creatinine, Serum 0.64 mg/dL (0.70-1.30); EST Glomerular Filtration Rate 134 mL/min (>60); Est Glom Filt Rate - Afr Amer 162 mL/min (>60); Estimated Creatinine Clearance 116.72 ml/min; Globulin 3.9 g/dL (2.2-4.2); Glucose 142 mg/dL (70-110); Lipase 4762 U/L (73-393); Potassium 3.8 mmol/L (3.5-5.1); Sodium Level 144 mmol/L (136-145)
--- NOTE | 2017-11-08 06:53 | PCM.PN.INT ---
Subjective: The patient was seen and examined at the bedside this morning. Events from the last 24 hours have been reviewed. The patient is currently afebrile and hemodynamically stable. Overnight, the patient did desaturate, requiring an escalation in his supplemental flow rate. The patient eventually required the initiation of a Ventimask. However, a short time later, the patient refused to use supplemental oxygen. Following a discussion with nursing staff, he eventually agreed to utilize a nasal cannula only. The patient was overall net +1.4 L yesterday. His hemoglobin has fallen from 13 g/dL to 10 g/dL this morning. He also has worsening transaminitis and a climbing lipase level. Troponin was elevated to 0.37. This morning, the patient is without any significant complaints. He does report that his nasal cannula was not appropriately positioned last evening when he was sleeping, and this is what led to his oxygen desaturation. He currently denies the presence of chest pain. Objective: The patient's most recent lab work, culture data and imaging studies have all been personally reviewed. Rapid influenza screen was negative. Blood cultures are currently pending. Plain film chest x-ray dated November 07 revealed a stable appearing left perihilar mass and diffuse interstitial edema. General: Alert, Oriented x3, Cooperative, No apparent distress HEENT: Atraumatic, PERRLA, Normocephalic Oral: Moist Mucosa, No Gingival or Mucosal Lesions/ Ulcerations Neck: Supple, No Nodes, Trachea Midline Lungs: Diminished, Rales, - - Mild end expiratory wheeze. No conversational dyspnea. Cardiovascular: Regular rate, Regular Rhythm, Normal S1, Normal S2, No murmurs Abdomen: Bowel Sounds Present, Soft, Non Tender Extremities: No clubbing, No cyanosis, No edema Skin: No rashes, No breakdown Musculoskeletal: No Tenderness to Palpation of Joints or Extremities Lymphatic: No Cervical, Supraclavicular, or Inguinal Adenopathy Neurological: Neuro grossly intact Psych/Mental Status: Alert and oriented to time, place, person, mood and affect Vital Signs Temp Pulse Resp BP Pulse Ox 97.8 F 91 14 122/77 H 85 11/08/17 06:00 11/08/17 06:00 11/08/17 06:00 11/08/17 06:00 11/08/17 06:00 Oxygen Flow Rate 4 Oxygen Delivery Method Nasal Cannula Weight: 153 lb 15.992 oz Body Mass Index (BMI) 22.7 Intake and Output for Last 24 Hours 11/06/17 11/07/17 11/08/17 23:59 23:59 23:59 Intake Total 3635 / 3635 1741 / 1741 120 / 120 Output Total 340 / 340 200 / 200 Balance 3635 / 3635 1401 / 1401 -80 / -80 Labs (Last 48 Hours) 11/06/17 11/06/17 11/06/17 05:34 06:29 11:23 WBC RBC Hgb Hct MCV MCH MCHC RDW RDW Differential Plt Count MPV Immature Gran % (Auto) Neut % (Auto) Lymph % (Auto) [place] % (Auto) Eos % (Auto) Baso % (Auto) Absolute Neuts (auto) Absolute Lymphs (auto) Total Counted Differential Comment Specimen Type Sample Site pH Bicarbonate Actual POC Total CO2 Base Excess O2 Saturation ABG pCO2 ABG pO2 Willem Test O2 Delivery Device Liter Flow Blood Gas Notified Whom Blood Gas Notified Time Sodium Potassium Chloride Carbon Dioxide Anion Gap BUN Creatinine Estim Creat Clear Calc Est GFR (MDRD) Af Amer Est GFR (MDRD) Non-Af BUN/Creatinine Ratio Glucose Calcium Magnesium 1.5 L Total Bilirubin AST ALT Alkaline Phosphatase Troponin I B-Natriuretic Peptide Total Protein Albumin Globulin Albumin/Globulin Ratio Lipase TSH MRSA (PCR) POC Glucose 121 H 116 H 11/06/17 11/07/17 11/07/17 17:06 00:13 05:10 WBC 10.0 RBC 4.31 L Hgb 13.3 Hct 42.3 MCV 98.1 H MCH 30.9 MCHC 31.4 L RDW 14.0 RDW Differential 50.1 H Plt Count 302 MPV 10.8 Immature Gran % (Auto) 0.600 Neut % (Auto) 86.2 H Lymph % (Auto) 7.7 L [place] % (Auto) 5.1 Eos % (Auto) 0.2 Baso % (Auto) 0.2 Absolute Neuts (auto) 8.6 H Absolute Lymphs (auto) 0.77 L Total Counted Not Reportable Differential Comment Specimen Type Sample Site pH Bicarbonate Actual POC Total CO2 Base Excess O2 Saturation ABG pCO2 ABG pO2 Willem Test O2 Delivery Device Liter Flow Blood Gas Notified Whom Blood Gas Notified Time Sodium Potassium Chloride Carbon Dioxide Anion Gap BUN Creatinine Estim Creat Clear Calc Est GFR (MDRD) Af Amer Est GFR (MDRD) Non-Af BUN/Creatinine Ratio Glucose Calcium Magnesium Total Bilirubin AST ALT Alkaline Phosphatase Troponin I B-Natriuretic Peptide Total Protein Albumin Globulin Albumin/Globulin Ratio Lipase TSH MRSA (PCR) POC Glucose 154 H 136 H 11/07/17 11/07/17 11/07/17 05:10 06:07 11:21 WBC RBC Hgb Hct MCV MCH MCHC RDW RDW Differential Plt Count MPV Immature Gran % (Auto) Neut % (Auto) Lymph % (Auto) [place] % (Auto) Eos % (Auto) Baso % (Auto) Absolute Neuts (auto) Absolute Lymphs (auto) Total Counted Differential Comment Specimen Type ART Sample Site R Radial pH 7.34 L Bicarbonate Actual 20.2 L POC Total CO2 21 Base Excess -6 L O2 Saturation 92 L ABG pCO2 37.6 ABG pO2 67 L Willem Test POS O2 Delivery Device Nasal Can Liter Flow 4.0 Blood Gas Notified Whom [facility] MD Blood Gas Notified Time 1115 Sodium 139 Potassium 4.9 Chloride 106 Carbon Dioxide 21.0 Anion Gap 12 BUN 8 Creatinine 0.76 Estim Creat Clear Calc 98.29 Est GFR (MDRD) Af Amer 132 Est GFR (MDRD) Non-Af 109 BUN/Creatinine Ratio 10.5 Glucose 169 H Calcium 8.2 L Magnesium Total Bilirubin 0.90 AST 125 H ALT 91 H Alkaline Phosphatase 111 Troponin I B-Natriuretic Peptide Total Protein 6.8 Albumin 2.5 L Globulin 4.3 H Albumin/Globulin Ratio 0.6 L Lipase 2711 H TSH MRSA (PCR) POC Glucose 170 H 11/07/17 11/07/17 11/07/17 11:25 13:08 14:30 WBC RBC Hgb Hct MCV MCH MCHC RDW RDW Differential Plt Count MPV Immature Gran % (Auto) Neut % (Auto) Lymph % (Auto) [place] % (Auto) Eos % (Auto) Baso % (Auto) Absolute Neuts (auto) Absolute Lymphs (auto) Total Counted Differential Comment Specimen Type Sample Site pH Bicarbonate Actual POC Total CO2 Base Excess O2 Saturation ABG pCO2 ABG pO2 Willem Test O2 Delivery Device Liter Flow Blood Gas Notified Whom Blood Gas Notified Time Sodium Potassium Chloride Carbon Dioxide Anion Gap BUN Creatinine Estim Creat Clear Calc Est GFR (MDRD) Af Amer Est GFR (MDRD) Non-Af BUN/Creatinine Ratio Glucose Calcium Magnesium Total Bilirubin AST ALT Alkaline Phosphatase Troponin I 0.37 H B-Natriuretic Peptide Total Protein Albumin Globulin Albumin/Globulin Ratio Lipase TSH MRSA (PCR) Negative POC Glucose 228 H 11/07/17 11/07/17 11/07/17 14:30 14:30 15:22 WBC RBC Hgb Hct MCV MCH MCHC RDW RDW Differential Plt Count MPV Immature Gran % (Auto) Neut % (Auto) Lymph % (Auto) [place] % (Auto) Eos % (Auto) Baso % (Auto) Absolute Neuts (auto) Absolute Lymphs (auto) Total Counted Differential Comment Specimen Type Sample Site pH Bicarbonate Actual POC Total CO2 Base Excess O2 Saturation ABG pCO2 ABG pO2 Willem Test O2 Delivery Device Liter Flow Blood Gas Notified Whom Blood Gas Notified Time Sodium Potassium Chloride Carbon Dioxide Anion Gap BUN Creatinine Estim Creat Clear Calc Est GFR (MDRD) Af Amer Est GFR (MDRD) Non-Af BUN/Creatinine Ratio Glucose Calcium Magnesium Total Bilirubin AST ALT Alkaline Phosphatase Troponin I B-Natriuretic Peptide 119.0 H Total Protein Albumin Globulin Albumin/Globulin Ratio Lipase TSH 1.04 MRSA (PCR) POC Glucose 136 H 11/07/17 11/08/17 11/08/17 21:26 04:50 04:50 WBC 6.8 RBC 3.18 L Hgb 10.0 L Hct 31.2 L MCV 98.1 H MCH 31.4 MCHC 32.1 RDW 13.8 RDW Differential 47.0 H Plt Count 255 MPV 9.9 Immature Gran % (Auto) 0.100 Neut % (Auto) 77.6 H Lymph % (Auto) 14.9 L [place] % (Auto) 6.2 Eos % (Auto) 0.9 Baso % (Auto) 0.3 Absolute Neuts (auto) 5.3 Absolute Lymphs (auto) 1.01 Total Counted Not Reportable Differential Comment Specimen Type Sample Site pH Bicarbonate Actual POC Total CO2 Base Excess O2 Saturation ABG pCO2 ABG pO2 Willem Test O2 Delivery Device Liter Flow Blood Gas Notified Whom Blood Gas Notified Time Sodium 144 Potassium 3.8 Chloride 109 H Carbon Dioxide 27.0 Anion Gap 8 BUN 9 Creatinine 0.64 L Estim Creat Clear Calc 116.72 Est GFR (MDRD) Af Amer 162 Est GFR (MDRD) Non-Af 134 BUN/Creatinine Ratio 14.1 Glucose 142 H Calcium 7.7 L Magnesium Total Bilirubin 0.20 AST 1012 H ALT 781 H Alkaline Phosphatase 110 Troponin I B-Natriuretic Peptide Total Protein 6.0 L Albumin 2.1 L Globulin 3.9 Albumin/Globulin Ratio 0.5 L Lipase 4762 H TSH MRSA (PCR) POC Glucose 167 H Microbiology 11/07/17 10:35 Mucosa - Nose Influenza Types A,B Direct FA (LEATHA) - Final Clinical Impression(s) from Imaging Studies Abdomen/Pelvis CT 11/05/17 13:22 IMPRESSION: Findings most consistent with acute pancreatitis. Correlate with liver function enzymes. Cannot exclude mass in the head of the pancreas. Secondary duodenitis. Increasing size of malignant mass of the left adrenal gland. Electronically Signed: Pilo Huiazr MD at 16:37 EST , Service support , Chest X-Ray 11/07/17 08:51 IMPRESSION: 1. Persistent left perihilar mass and hilar prominence unchanged from prior study. 2. Increased diffuse interstitial changes. Electronically Signed: Flavio Hurley DO at 12:32 EST Tel [phone], Service support , Assessment/Plan Active and Suspected Problems (Last Reviewed 10/24/17 @ 13:17 by Kizzy Sena) Mass of pancreas (Acute) DVT prophylaxis (Acute) RECOMMENDATIONS: 1. Wean supplemental oxygen as tolerated. The patient wears between 2 and 4 L/min at his baseline. 2. Recommend continued attempts at diuresis 3. Continue scheduled aerosol treatments 4. Patient to be made n.p.o., given climbing lipase and worsening transaminitis 5. Encourage incentive spirometer use and mobilize patient as tolerated. 6. Continue subcu heparin for DVT prophylaxis 7. Trend troponins 8. Obtain surface echocardiogram IMPRESSIONS: 1. Acute on chronic hypoxic respiratory failure The patient has a baseline oxygen requirement between 2 and 4 L in his home environment. He is currently maintaining appropriate oxygen saturations at 4 L/min. Repeat plain film chest x-ray showed findings concerning for interstitial edema. Agree with Lasix administration. Wean supplemental oxygen as tolerated. Encourage incentive spirometer use and mobilize patient as tolerated. Given that the patient is afebrile, has no cough and is without evidence of an elevated white blood cell count, have low clinical index of suspicion for underlying pulmonary infectious process. 2. Acute pancreatitis Although the patient was initially improving both clinically and from a laboratory perspective, his most recent lipase and transaminases are elevated. Therefore, would recommend transitioning the patient back to an n.p.o. status. Agree with obtaining right upper quadrant ultrasound. 3. Normocytic anemia Continue to monitor blood counts daily. Transfusion can be considered if hemoglobin drops below 7 g/dL. 4. Troponin elevation Continue to trend troponins. Echocardiogram is currently pending. 5. Stage IV small cell lung cancer There are tentative plans to start chemotherapy once the patient has been stabilized medically. 6. Tobacco dependence now in remission/hypothyroidism/diabetes/hyperlipidemia/COPD Complicates care, management, recovery and prognosis. Continue home medications as indicated. Hold metformin and cover with sliding scale insulin while inpatient. Continue duo nebs while awake. This note was generated with [employer] dictation software. It may contain incorrect words, spelling, and punctuation that were not noted in checking the note before signing. Code Visit Inpatient E&M: 28187 Subs Hosp L3
[2017-11-08] MEDS: Ipratropium/Albuterol Sulfate 3 ML AMPUL.NEB INHALATION ×3 (07:13→18:49)
[2017-11-08 07:16] LABS: Bedside Glucose 139 mg/dL (70-110)
--- NOTE | 2017-11-08 07:23 | ECHOD_ITS ---
Reason For Study: DYSPNEA/sSOB Procedure This was a 2D Doppler, Color Flow transthoracic echocardiogram. Exam performed portable in ICU/CCU. Left Ventricle Normal size and thickness. The estimated ejection fraction is 65 %. Normal diastology for age. No regional wall motion abnormalities noted. Right Ventricle Normal size and thickness. Normal systolic function. Atria Normal left atrium. Normal right atrium. Normal atrial septum. Mitral Valve The mitral valve is structurally normal. No prolapse or stenosis seen. Tricuspid Valve Normal tricuspid valve. Trivial tricuspid valve insufficiency. Right ventricular systolic pressure estimated to be 43 mmHg. Mild pulmonary hypertension. Aortic Valve Trisinus/trileaflet aortic valve. Normal aortic valve. Pulmonic Valve Normal pulmonic valve. Great Vessels Normal aortic root. Normal arch. Normal inferior vena cava. Inferior vena cava collapse with sniff. Pericardium/Pleural No pericardial effusion. MMode/2D Measurements & Calculations LVIDd: 4.0 cm IVSd: 1.3 cm Ao root diam: 3.0 cm LVIDs: 2.5 cm LVPWd: 1.0 cm LA dimension: 3.5 cm RVDd: 3.1 cm FS: 37.9 % LAV(MOD-bp): 59.7 ml EDV(MOD-sp4): 53.7 ml EDV(MOD-sp2): 52.9 ml LAV(MOD-bp) Indexed: 32.4 ml/m2 ESV(MOD-sp4): 29.2 ml EF(MOD-sp2): 46.9 % LAV(MOD-sp2): 62.2 ml EF(MOD-sp4): 45.6 % LAV(MOD-sp4): 50.6 ml SV(MOD-sp4): 24.5 ml SV(MOD-sp2): 24.8 ml LA A4 area: 19.3 cm2 RA A4 area: 13.5 cm2 Time Measurements MV dec time: 0.17 sec Doppler Measurements & Calculations MV E max enrrique: 128.6 cm/sec Lat Peak E' Enrrique: 9.2 cm/sec Med Peak E' Enrrique: 9.7 cm/sec MV A max enrrique: 101.0 cm/sec E/E' lat: 14.0 E/E' med: 13.2 MV E/A: 1.3 Ao V2 max: 143.6 cm/sec LV V1 max: 123.6 cm/sec PA V2 max: 83.0 cm/sec Ao max P.3 mmHg LV V1 max P.1 mmHg Ao V2 mean: 95.8 cm/sec Ao mean P.1 mmHg Ao V2 VTI: 26.2 cm TR max enrrique: 283.4 cm/sec TR max P.4 mmHg Interpretation Summary The estimated ejection fraction is 65 %. Normal diastology for age. Trivial tricuspid valve insufficiency. Right ventricular systolic pressure estimated to be 43 mmHg. Mild pulmonary hypertension. The study was technically difficult. There is no comparison study available. Ordering Physician: Mariano Bhat D.O. Referring Physician: Last Aguilar Chi Performed By: Laura Roca RDCS, RVT
--- NOTE | 2017-11-08 07:37 | US_ITS ---
STUDY: ABDOMINAL ULTRASOUND - RIGHT UPPER QUADRANT REASON FOR VISIT: Male, 61 years old. Elevated liver enzymes. TECHNIQUE: Ultrasound evaluation of the right upper quadrant was performed with real-time and static medina-scale imaging. TECHNICAL QUALITY: Adequate. COMPARISON: Comparison is made with prior CT scan of the abdomen dated November 05, 2017. FINDINGS: Liver: The liver measures 16.5 cm. There is increased echogenicity consistent with fatty infiltration. The bile ducts are within normal limits. There is hepatic color flow. The direction of portal flow is hepatopetal. There is no demonstrated mass lesion. Gallbladder: The patient is status post cholecystectomy. Common Bile Duct (C.B.D.): The common bile duct measures 5.4 mm. Pancreas: Normal size of the head, body of the pancreas. The tail portion is obscured due to overlying bowel gas. There is normal echogenicity of the pancreas. There is no demonstrated pancreatic mass or cyst. Right Kidney: Normal size of the right kidney. The right kidney measures 11.8 cm x 5.4 cm x 6.4 cm. Normal renal cortex. The right cortex measures 1.9 cm. There is no demonstrated renal mass or cyst. There is no right hydronephrosis. US/Liver IMPRESSION: Diffuse fatty infiltration of the liver. The patient is status post cholecystectomy. Electronically Signed: Dale Salazar MD at 11:05 EST Tel [phone], Service support ,
--- NOTE | 2017-11-08 08:15 | PCM.PN.HOSP ---
Patient Problems: Active and Suspected Problems (Last Reviewed 10/24/17 @ 13:17 by Kizzy Sena) Mass of pancreas (Acute) DVT prophylaxis (Acute) Subjective: Patient was seen and examined. Had dips in his oxygen saturation overnight with use of the venturi mask. On 5 L of oxygen this morning. Denies any worsening shortness of breath, fever or chills. Abdominal discomfort is present but much better. Objective: PHYSICAL EXAM: General: Alert, Oriented x3, Cooperative, - - On intranasal cannula oxygen HEENT: Atraumatic, PERRLA, EOMI, Normocephalic Oral: Moist Mucosa Neck: Supple Lungs: Diminished - At both lung bases, less rales - More on the right lower lung zone Cardiovascular: Regular rate, Regular Rhythm, Normal S1, Normal S2, No murmurs Abdomen: Bowel Sounds Present, Soft, No Hepato-splenomegaly, Distended, Tender - Epigastric and bilateral upper quadrant, Extremities: No edema Skin: No rashes, No breakdown Musculoskeletal: No Tenderness to Palpation of Joints or Extremities Neurological: Cranial nerves II-XII grossly intact Psych/Mental Status: Normal Affect, Appropriate Vitals/I&O's: Vital Signs Temp Pulse Resp BP Pulse Ox 97.8 F 91 14 122/77 H 85 11/08/17 06:00 11/08/17 06:00 11/08/17 06:00 11/08/17 06:00 11/08/17 06:00 Oxygen Flow Rate 4 Oxygen Delivery Method Nasal Cannula Weight: 69.853 kg Body Mass Index (BMI) 22.7 Intake and Output for Last 24 Hours 11/06/17 11/07/17 11/08/17 23:59 23:59 23:59 Intake Total 3635 / 3635 1741 / 1741 120 / 120 Output Total 340 / 340 200 / 200 Balance 3635 / 3635 1401 / 1401 -80 / -80 Microbiology Past 72 Hours 11/07/17 10:35 Mucosa - Nose Influenza Types A,B Direct FA (LEATHA) - Final Laboratory Results 11/07/17 11:21: Specimen Type ART, Sample Site R Radial, pH 7.34 L, Bicarbonate Actual 20.2 L, POC Total CO2 21, Base Excess -6 L, O2 Saturation 92 L, ABG pCO2 37.6, ABG pO2 67 L, Willem Test POS, O2 Delivery Device Nasal Can, Liter Flow 4.0, Blood Gas Notified Whom BELLO CORNELL, Blood Gas Notified Time 1115 11/07/17 11:25: MRSA (PCR) Negative 11/07/17 13:08: POC Glucose 228 H 11/07/17 14:30: Troponin I 0.37 H 11/07/17 14:30: TSH 1.04 11/07/17 14:30: B-Natriuretic Peptide 119.0 H 11/07/17 15:22: POC Glucose 136 H 11/07/17 21:26: POC Glucose 167 H 11/08/17 04:50: WBC 6.8, RBC 3.18 L, Hgb 10.0 L, Hct 31.2 L, MCV 98.1 H, MCH 31.4, MCHC 32.1, RDW 13.8, RDW Differential 47.0 H, Plt Count 255, MPV 9.9, Immature Gran % (Auto) 0.100, Neut % (Auto) 77.6 H, Lymph % (Auto) 14.9 L, [place] % (Auto) 6.2, Eos % (Auto) 0.9, Baso % (Auto) 0.3, Absolute Neuts (auto) 5.3, Absolute Lymphs (auto) 1.01, Total Counted Not Reportable 11/08/17 04:50: Sodium 144, Potassium 3.8, Chloride 109 H, Carbon Dioxide 27.0, Anion Gap 8, BUN 9, Creatinine 0.64 L, Estim Creat Clear Calc 116.72, Est GFR (MDRD) Af Amer 162, Est GFR (MDRD) Non-Af 134, BUN/Creatinine Ratio 14.1, Glucose 142 H, Calcium 7.7 L, Total Bilirubin 0.20, AST 1012 H, ALT 781 H, Alkaline Phosphatase 110, Total Protein 6.0 L, Albumin 2.1 L, Globulin 3.9, Albumin/Globulin Ratio 0.5 L, Lipase 4762 H 11/08/17 04:50: Troponin I 0.23 H 11/08/17 07:11: POC Glucose 139 H Current Medications Albuterol/Ipratropium (Duoneb) 3 ml INHALATION Q6HWA.RT VICKIE Last Admin: 11/08/17 07:13 Dose: 3 ml Codeine Sulfate (Codeine) 30 mg PO Q4H PRN PRN PRN Reason: SEVERE PAIN (6-10/10) Last Admin: 11/08/17 04:05 Dose: 30 mg Dextrose (D50w Syringe) 0 gm IV X1 PRN; Protocol PRN Reason: Hypoglycemia Divalproex Sodium (Depakote Er) 500 mg PO DAILY@0800 VICKIE Glucagon () 1 mg IM .X1 PRN PRN Reason: Hypoglycemia Heparin Sodium (Porcine) () 5,000 units SC Q8 VICKIE Last Admin: 11/08/17 05:00 Dose: 5,000 units Insulin Aspart (Novolog Flexpen (Bkc)) 0 units SC ACHS VICKIE PRN Reason: Protocol Last Admin: 11/07/17 21:29 Dose: 1 u Levothyroxine Sodium (Synthroid) 25 mcg PO DAILY@0600 VICKIE Last Admin: 11/08/17 05:00 Dose: 25 mcg Sodium Chloride () 5 - 30 ml IV UD PRN PRN Reason: SALINE FLUSH Assessment/Plan Active and Suspected Problems (Last Reviewed 10/24/17 @ 13:17 by Kizzy Sena) Mass of pancreas (Acute) DVT prophylaxis (Acute) 61 y/o M with PMHx of Chronic COPD, Diabetes mellitus type II, Crohn's disease, hypothyroidism, 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 1. Hypotension, likely related to dehydration, less likely to sepsis, no fevers, no leukocytosis, blood cultures are pending, hypertension appears to be resolved, due to monitor vitals closely 2. Acute hypoxic respiratory insufficiency in a patient with metastatic lung cancer, secondary to fluid overload, not due to CHF, and received 1 dose of Lasix 20 mg IV, no much improvement continues to be on 5 L of oxygen, will continue on Lasix for now. He wears oxygen at home, 4 L. Encouraged him to use his incentive spirometer and Acapella. Continue to monitor his oxygen saturations. Will get 2d-echo. 3. Acute pancreatitis/duodenitis, medically appears improved, denies worsening abdominal discomfort, abdominal exam shows a very soft abdomen but lipase( 4762 from 2711) and AST has gone up, kept n.p.o. by db2 developer, would monitor closely 4. Elevated liver function tests, worse from yesterday, will get an ultrasound of the liver to evaluate 5. Elevated troponins likely secondary to demand ischemia, patient is asymptomatic, will continue to monitor 6. Small cell lung cancer with metastatic disease to L adrenal and omentum with regional lymph involvement, chemotherapy has been deferred until this acute event is over, will follow-up with oncology in the outpatient 7. Diabetes mellitus type II, blood sugars are fairly controlled, metformin on hold, on account of n.p.o. status, will continue with Accu-Cheks and insulin sliding scale 8. Hypothyroidism, on synthroid 9. Hx TIA, on asa, statin, 10. Crohn's Disease 11. Severe malnutrition with severe suboptimal intake and weight loss, pharmacy informatics manager consulted, will add nutritional supplements when able to eat. 12. DVT Prophylaxis: eusebio Yap This note was generated with [employer] dictation software. It may contain incorrect words, spelling, and punctuation that were not noted in checking the note before signing. Code Visit Inpatient E&M: 44016 Subs Hosp L3
--- NOTE | 2017-11-08 08:25 | PN_ITS ---
Patient Problems: Active and Suspected Problems (Last Reviewed 10/24/17 @ 13:17 by Kizzy Sena) Mass of pancreas (Acute) DVT prophylaxis (Acute) Subjective: Patient was seen and examined. Had dips in his oxygen saturation overnight with use of the venturi mask. On 5 L of oxygen this morning. Denies any worsening shortness of breath, fever or chills. Abdominal discomfort is present but much better. Objective: PHYSICAL EXAM: General: Alert, Oriented x3, Cooperative, - - On intranasal cannula oxygen HEENT: Atraumatic, PERRLA, EOMI, Normocephalic Oral: Moist Mucosa Neck: Supple Lungs: Diminished - At both lung bases, less rales - More on the right lower lung zone Cardiovascular: Regular rate, Regular Rhythm, Normal S1, Normal S2, No murmurs Abdomen: Bowel Sounds Present, Soft, No Hepato-splenomegaly, Distended, Tender - Epigastric and bilateral upper quadrant, Extremities: No edema Skin: No rashes, No breakdown Musculoskeletal: No Tenderness to Palpation of Joints or Extremities Neurological: Cranial nerves II-XII grossly intact Psych/Mental Status: Normal Affect, Appropriate Vitals/I&O's: Vital Signs Temp Pulse Resp BP Pulse Ox 97.8 F 91 14 122/77 H 85 11/08/17 06:00 11/08/17 06:00 11/08/17 06:00 11/08/17 06:00 11/08/17 06:00 Oxygen Flow Rate 4 Oxygen Delivery Method Nasal Cannula Weight: 69.853 kg Body Mass Index (BMI) 22.7 Intake and Output for Last 24 Hours 11/06/17 11/07/17 11/08/17 23:59 23:59 23:59 Intake Total 3635 / 3635 1741 / 1741 120 / 120 Output Total 340 / 340 200 / 200 Balance 3635 / 3635 1401 / 1401 -80 / -80 Microbiology Past 72 Hours 11/07/17 10:35 Mucosa - Nose Influenza Types A,B Direct FA (LEATHA) - Final Laboratory Results 11/07/17 11:21: Specimen Type ART, Sample Site R Radial, pH 7.34 L, Bicarbonate Actual 20.2 L, POC Total CO2 21, Base Excess -6 L, O2 Saturation 92 L, ABG pCO2 37.6, ABG pO2 67 L, Willem Test POS, O2 Delivery Device Nasal Can, Liter Flow 4.0 , Blood Gas Notified Whom BELLO CORNELL, Blood Gas Notified Time 1115 11/07/17 11:25: MRSA (PCR) Negative 11/07/17 13:08: POC Glucose 228 H 11/07/17 14:30: Troponin I 0.37 H 11/07/17 14:30: TSH 1.04 11/07/17 14:30: B-Natriuretic Peptide 119.0 H 11/07/17 15:22: POC Glucose 136 H 11/07/17 21:26: POC Glucose 167 H 11/08/17 04:50: WBC 6.8, RBC 3.18 L, Hgb 10.0 L, Hct 31.2 L, MCV 98.1 H, MCH 31.4, MCHC 32.1, RDW 13.8, RDW Differential 47.0 H, Plt Count 255, MPV 9.9, Immature Gran % (Auto) 0.100, Neut % (Auto) 77.6 H, Lymph % (Auto) 14.9 L, [place] % (Auto) 6.2, Eos % (Auto) 0.9, Baso % (Auto) 0.3, Absolute Neuts (auto) 5.3, Absolute Lymphs (auto) 1.01, Total Counted Not Reportable 11/08/17 04:50: Sodium 144, Potassium 3.8, Chloride 109 H, Carbon Dioxide 27.0, Anion Gap 8, BUN 9, Creatinine 0.64 L, Estim Creat Clear Calc 116.72, Est GFR ( MDRD) Af Amer 162, Est GFR (MDRD) Non-Af 134, BUN/Creatinine Ratio 14.1, Glucose 142 H, Calcium 7.7 L, Total Bilirubin 0.20, AST 1012 H, ALT 781 H, Alkaline Phosphatase 110, Total Protein 6.0 L, Albumin 2.1 L, Globulin 3.9, Albumin/Globulin Ratio 0.5 L, Lipase 4762 H 11/08/17 04:50: Troponin I 0.23 H 11/08/17 07:11: POC Glucose 139 H Current Medications Albuterol/Ipratropium (Duoneb) 3 ml INHALATION Q6HWA.RT VICKIE Last Admin: 11/08/17 07:13 Dose: 3 ml Codeine Sulfate (Codeine) 30 mg PO Q4H PRN PRN PRN Reason: SEVERE PAIN (6-10/10) Last Admin: 11/08/17 04:05 Dose: 30 mg Dextrose (D50w Syringe) 0 gm IV X1 PRN; Protocol PRN Reason: Hypoglycemia Divalproex Sodium (Depakote Er) 500 mg PO DAILY@0800 VICKIE Glucagon () 1 mg IM .X1 PRN PRN Reason: Hypoglycemia Heparin Sodium (Porcine) () 5,000 units SC Q8 VICKIE Last Admin: 11/08/17 05:00 Dose: 5,000 units Insulin Aspart (Novolog Flexpen (Bkc)) 0 units SC ACHS VICKIE PRN Reason: Protocol Last Admin: 11/07/17 21:29 Dose: 1 u Levothyroxine Sodium (Synthroid) 25 mcg PO DAILY@0600 VICKIE Last Admin: 11/08/17 05:00 Dose: 25 mcg Sodium Chloride () 5 - 30 ml IV UD PRN PRN Reason: SALINE FLUSH Assessment/Plan Active and Suspected Problems (Last Reviewed 10/24/17 @ 13:17 by Kizzy Sena) Mass of pancreas (Acute) DVT prophylaxis (Acute) 61 y/o M with PMHx of Chronic COPD, Diabetes mellitus type II, Crohn's disease, hypothyroidism, 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 1. Hypotension, likely related to dehydration, less likely to sepsis, no fevers , no leukocytosis, blood cultures are pending, hypertension appears to be resolved, due to monitor vitals closely 2. Acute hypoxic respiratory insufficiency in a patient with metastatic lung cancer, secondary to fluid overload, not due to CHF, and received 1 dose of Lasix 20 mg IV, no much improvement continues to be on 5 L of oxygen, will continue on Lasix for now. He wears oxygen at home, 4 L. Encouraged him to use his incentive spirometer and Acapella. Continue to monitor his oxygen saturations. Will get 2d-echo. 3. Acute pancreatitis/duodenitis, medically appears improved, denies worsening abdominal discomfort, abdominal exam shows a very soft abdomen but lipase( 4762 from 2711) and AST has gone up, kept n.p.o. by thresher broomcorn, would monitor closely 4. Elevated liver function tests, worse from yesterday, will get an ultrasound of the liver to evaluate 5. Elevated troponins likely secondary to demand ischemia, patient is asymptomatic, will continue to monitor 6. Small cell lung cancer with metastatic disease to L adrenal and omentum with regional lymph involvement, chemotherapy has been deferred until this acute event is over, will follow-up with oncology in the outpatient 7. Diabetes mellitus type II, blood sugars are fairly controlled, metformin on hold, on account of n.p.o. status, will continue with Accu-Cheks and insulin sliding scale 8. Hypothyroidism, on synthroid 9. Hx TIA, on asa, statin, 10. Crohn's Disease 11. Severe malnutrition with severe suboptimal intake and weight loss, bin piler consulted, will add nutritional supplements when able to eat. 12. DVT Prophylaxis: eusebio Yap This note was generated with [employer] dictation software. It may contain incorrect words, spelling, and punctuation that were not noted in checking the note before signing. Code Visit Inpatient E&M: 68814 Subs Hosp L3
[2017-11-08] MEDS: Divalproex (ER) 500 MG Tablet PO (08:56)
[2017-11-08] MEDS: 0.9% NaCl Peripheral Flush Adult/Peds IV (09:57)
[2017-11-08] MEDS: Furosemide 20 MG/2 ML VIAL IV (09:57)
--- NOTE | 2017-11-08 11:13 | ONC.PN.ESTAB ---
- Date of Service Date of Service:: 11/08/17 - History of Present Illness Mr. Dennis Hernandez is a pleasant 61-year-old male, ex-smoker who quit in 2016, who was hospitalized at [facility] in September 2017 with his acute abdominal pain and diagnosed with pancreatitis. During hospitalization a chest x-ray revealed a left lung mass. CT scan showed a malignant-looking left upper lobe mass and a CT-guided biopsy on September 18, 2017 confirmed small cell lung cancer. PET CT October 08, 2017 showed abnormal uptake consistent with a malignant process involving the left lung mass, hilar adenopathy and a newly evolving left adrenal mass was not visualized on his CT scan of the abdomen in March 2017. MRI of the brain showed no evidence of metastatic disease. 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 Port placed right upper chest 11/01/[address] Villegas. Scheduled to commence with cycle 1 carboplatin/VP16 on 11/06/17. Mr. Hernandez presented to [facility] ED on 11/05/17 with c/o of primarily epigastric and bilateral lower quad pain accompanied by nausea and loose stools x 1 week. Denied fever/chills. [place] be 8848, CT A/P w/ findings consistent with acute pancreatitis, increased size of malignant mass L adrenal gland. Thus, patient admitted for management of acute pancreatitis. Transitioned from floor to unit 11/07/17 d/t hypotensive episode. Upon assessment, pain reports improvement of abd pain severity and describes tolerable level at this time. Wheezing continues, although he reports an improvement of SOB while on 5 L per nc. Specifically denies CP, swelling/pain of his extremities and any episodes of bleeding/abnormal bruising. - Past Medical/Social History Social History Smoking Status Former smoker Review of Systems Constitutional:: Reports: Weakness, Fatigue. Denies: Fever, Sweats, Weight loss, Appetite change, Chills Cardiovascular:: Reports: Dyspnea on exertion. Denies: Chest pain, Palpitations, Orthopnea, PND, Shortness of breath Respiratory: Reports: Cough, Wheezing. Denies: Hemoptysis Gastrointestinal:: Reports: Abdominal pain - see HPI. Denies: Nausea, Vomiting, Diarrhea, Constipation, Hematochezia Genitourinary: Denies: Dysuria, Hematuria, 15, Flank pain Musculoskeletal:: Reports: Back pain - chronic. Denies: Myalgia, Arthralgia Skin: Denies: Rash, Skin Changes, Wounds Neurological:: Denies: Headache, Dizziness, Numbness, Tingling, Visual changes, Tinnitus, Hearing loss Psychiatric: Denies: Anxiety, Depression, Homicidal Ideations, Suicidal Ideations Vital Signs Height 5 ft 9 in Weight: 69.853 kg Weight in Pounds 154.0 lbs Pulse Ox 94 Temperature 98.4 F Pulse Rate 96 Respiratory Rate 14 Blood Pressure [BP] 100/64 Blood Pressure 133/83 Blood Pressure Position [BP] Semi-Fowlers Blood Pressure Position Supine - Physical Exam General: Alert, Oriented x3, No apparent distress HEENT: Atraumatic, Normocephalic Oropharynx:: Negative for: Dry mucosa, Ulcerated lesions Neck:: Supple, Trachea midline. Negative for: JVD, bilateral Cardiac:: Regular rate, Regular rhythm, Normal S1, Normal S2 Lungs: Wheezes, Rales, Diminished, Excusion symmetrical. Negative for: Tachypneic, Increased respiratory effort Abdomen:: Bowel sounds x 4, Soft, Non-distended, Tender. Negative for: Hepatosplenomegaly Extremities:: Negative for: Cyanosis, Edema, Calf tenderness Neurological: Neuro grossly intact Skin:: - - port right upper chest covered with dsd. Negative for: Lesions, Rash, Petechiae, Ecchymosis Psychiatric:: Appropriate affect, Euthymic Lymphatics:: Negative for: Cervical lymphadenopathy, Supraclavicular lymphadenopathy, Axillary lymphadenopathy Laboratory Data: Microbiology 11/07/17 10:35 Influenza Types A,B Direct FA (LEATHA) - Final Mucosa - Nose Laboratory Tests 11/08/17 11/08/17 11/08/17 Range/Units 07:11 04:50 04:50 WBC (4.4-11.0) K/mm3 RBC (4.6-6.2) M/mm3 Hgb (13.0-16.5) g/dl Hct (40-54) % MCV (80-94) fL MCH (27.0-32.0) pg MCHC (32-36) g/gl RDW (11.6-14.6) % RDW Differential (35.1-43.9) fl Plt Count (150-450) K/mm3 MPV (6.2-12.0) fl Immature Gran % (Auto) (0.0-0.9) % Neut % (Auto) (47-70) % Lymph % (Auto) (19-41) % Hooker % (Auto) (0-10) % Eos % (Auto) (0-5) % Baso % (Auto) (0-1) % Absolute Neuts (auto) (2.0-7.7) X10^3/uL Absolute Lymphs (auto) (0.83-4.51) X10^3/ul Total Counted Specimen Type Sample Site pH (7.35-7.45) Bicarbonate Actual (22-26) mmol/L POC Total CO2 mmol/L Base Excess (-2 to +2) mmol/L O2 Saturation (95-99) % ABG pCO2 (35-45) mmHg ABG pO2 (75-100) mmHG Willem Test O2 Delivery Device Liter Flow /min Blood Gas Notified Whom Blood Gas Notified Time Sodium 144 (136-145) mmol/L Potassium 3.8 (3.5-5.1) mmol/L Chloride 109 H (98-107) mmol/L Carbon Dioxide 27.0 (21.0-32.0) mmol/L Anion Gap 8 (5-15) BUN 9 (7-18) mg/dL Creatinine 0.64 L (0.70-1.30) mg/dL Estim Creat Clear Calc 116.72 ml/min Est GFR (MDRD) Af Amer 162 (>60) mL/min Est GFR (MDRD) Non-Af 134 (>60) mL/min BUN/Creatinine Ratio 14.1 (10-20) RATIO Glucose 142 H (70-110) mg/dL Calcium 7.7 L (8.5-10.1) mg/dL Total Bilirubin 0.20 (0.20-1.00) mg/dL AST 1012 H (15-37) U/L ALT 781 H (12-78) U/L Alkaline Phosphatase 110 (45-117) U/L Troponin I 0.23 H (<0.06) ng/mL B-Natriuretic Peptide (0-100) pg/mL Total Protein 6.0 L (6.4-8.2) g/dL Albumin 2.1 L (3.4-5.0) g/dL Globulin 3.9 (2.2-4.2) g/dL Albumin/Globulin Ratio 0.5 L (0.9-2.4) RATIO Lipase 4762 H (73-393) U/L TSH (0.358-3.74) uIU/mL MRSA (PCR) (Negative) POC Glucose 139 H (70-110) mg/dL 11/08/17 11/07/17 11/07/17 Range/Units 04:50 21:26 15:22 WBC 6.8 (4.4-11.0) K/mm3 RBC 3.18 L (4.6-6.2) M/mm3 Hgb 10.0 L (13.0-16.5) g/dl Hct 31.2 L (40-54) % MCV 98.1 H (80-94) fL MCH 31.4 (27.0-32.0) pg MCHC 32.1 (32-36) g/gl RDW 13.8 (11.6-14.6) % RDW Differential 47.0 H (35.1-43.9) fl Plt Count 255 (150-450) K/mm3 MPV 9.9 (6.2-12.0) fl Immature Gran % (Auto) 0.100 (0.0-0.9) % Neut % (Auto) 77.6 H (47-70) % Lymph % (Auto) 14.9 L (19-41) % Hooker % (Auto) 6.2 (0-10) % Eos % (Auto) 0.9 (0-5) % Baso % (Auto) 0.3 (0-1) % Absolute Neuts (auto) 5.3 (2.0-7.7) X10^3/uL Absolute Lymphs (auto) 1.01 (0.83-4.51) X10^3/ul Total Counted Not Reportable Specimen Type Sample Site pH (7.35-7.45) Bicarbonate Actual (22-26) mmol/L POC Total CO2 mmol/L Base Excess (-2 to +2) mmol/L O2 Saturation (95-99) % ABG pCO2 (35-45) mmHg ABG pO2 (75-100) mmHG Willem Test O2 Delivery Device Liter Flow /min Blood Gas Notified Whom Blood Gas Notified Time Sodium (136-145) mmol/L Potassium (3.5-5.1) mmol/L Chloride (98-107) mmol/L Carbon Dioxide (21.0-32.0) mmol/L Anion Gap (5-15) BUN (7-18) mg/dL Creatinine (0.70-1.30) mg/dL Estim Creat Clear Calc ml/min Est GFR (MDRD) Af Amer (>60) mL/min Est GFR (MDRD) Non-Af (>60) mL/min BUN/Creatinine Ratio (10-20) RATIO Glucose (70-110) mg/dL Calcium (8.5-10.1) mg/dL Total Bilirubin (0.20-1.00) mg/dL AST (15-37) U/L ALT (12-78) U/L Alkaline Phosphatase (45-117) U/L Troponin I (<0.06) ng/mL B-Natriuretic Peptide (0-100) pg/mL Total Protein (6.4-8.2) g/dL Albumin (3.4-5.0) g/dL Globulin (2.2-4.2) g/dL Albumin/Globulin Ratio (0.9-2.4) RATIO Lipase (73-393) U/L TSH (0.358-3.74) uIU/mL MRSA (PCR) (Negative) POC Glucose 167 H 136 H (70-110) mg/dL 11/07/17 11/07/17 11/07/17 Range/Units 14:30 14:30 14:30 WBC (4.4-11.0) K/mm3 RBC (4.6-6.2) M/mm3 Hgb (13.0-16.5) g/dl Hct (40-54) % MCV (80-94) fL MCH (27.0-32.0) pg MCHC (32-36) g/gl RDW (11.6-14.6) % RDW Differential (35.1-43.9) fl Plt Count (150-450) K/mm3 MPV (6.2-12.0) fl Immature Gran % (Auto) (0.0-0.9) % Neut % (Auto) (47-70) % Lymph % (Auto) (19-41) % Hooker % (Auto) (0-10) % Eos % (Auto) (0-5) % Baso % (Auto) (0-1) % Absolute Neuts (auto) (2.0-7.7) X10^3/uL Absolute Lymphs (auto) (0.83-4.51) X10^3/ul Total Counted Specimen Type Sample Site pH (7.35-7.45) Bicarbonate Actual (22-26) mmol/L POC Total CO2 mmol/L Base Excess (-2 to +2) mmol/L O2 Saturation (95-99) % ABG pCO2 (35-45) mmHg ABG pO2 (75-100) mmHG Willem Test O2 Delivery Device Liter Flow /min Blood Gas Notified Whom Blood Gas Notified Time Sodium (136-145) mmol/L Potassium (3.5-5.1) mmol/L Chloride (98-107) mmol/L Carbon Dioxide (21.0-32.0) mmol/L Anion Gap (5-15) BUN (7-18) mg/dL Creatinine (0.70-1.30) mg/dL Estim Creat Clear Calc ml/min Est GFR (MDRD) Af Amer (>60) mL/min Est GFR (MDRD) Non-Af (>60) mL/min BUN/Creatinine Ratio (10-20) RATIO Glucose (70-110) mg/dL Calcium (8.5-10.1) mg/dL Total Bilirubin (0.20-1.00) mg/dL AST (15-37) U/L ALT (12-78) U/L Alkaline Phosphatase (45-117) U/L Troponin I 0.37 H (<0.06) ng/mL B-Natriuretic Peptide 119.0 H (0-100) pg/mL Total Protein (6.4-8.2) g/dL Albumin (3.4-5.0) g/dL Globulin (2.2-4.2) g/dL Albumin/Globulin Ratio (0.9-2.4) RATIO Lipase (73-393) U/L TSH 1.04 (0.358-3.74) uIU/mL MRSA (PCR) (Negative) POC Glucose (70-110) mg/dL 11/07/17 11/07/17 11/07/17 Range/Units 13:08 11:25 11:21 WBC (4.4-11.0) K/mm3 RBC (4.6-6.2) M/mm3 Hgb (13.0-16.5) g/dl Hct (40-54) % MCV (80-94) fL MCH (27.0-32.0) pg MCHC (32-36) g/gl RDW (11.6-14.6) % RDW Differential (35.1-43.9) fl Plt Count (150-450) K/mm3 MPV (6.2-12.0) fl Immature Gran % (Auto) (0.0-0.9) % Neut % (Auto) (47-70) % Lymph % (Auto) (19-41) % Hooker % (Auto) (0-10) % Eos % (Auto) (0-5) % Baso % (Auto) (0-1) % Absolute Neuts (auto) (2.0-7.7) X10^3/uL Absolute Lymphs (auto) (0.83-4.51) X10^3/ul Total Counted Specimen Type ART Sample Site R Radial pH 7.34 L (7.35-7.45) Bicarbonate Actual 20.2 L (22-26) mmol/L POC Total CO2 21 mmol/L Base Excess -6 L (-2 to +2) mmol/L O2 Saturation 92 L (95-99) % ABG pCO2 37.6 (35-45) mmHg ABG pO2 67 L (75-100) mmHG Willem Test POS O2 Delivery Device Nasal Can Liter Flow 4.0 /min Blood Gas Notified Whom [facility] Blood Gas Notified Time 1115 Sodium (136-145) mmol/L Potassium (3.5-5.1) mmol/L Chloride (98-107) mmol/L Carbon Dioxide (21.0-32.0) mmol/L Anion Gap (5-15) BUN (7-18) mg/dL Creatinine (0.70-1.30) mg/dL Estim Creat Clear Calc ml/min Est GFR (MDRD) Af Amer (>60) mL/min Est GFR (MDRD) Non-Af (>60) mL/min BUN/Creatinine Ratio (10-20) RATIO Glucose (70-110) mg/dL Calcium (8.5-10.1) mg/dL Total Bilirubin (0.20-1.00) mg/dL AST (15-37) U/L ALT (12-78) U/L Alkaline Phosphatase (45-117) U/L Troponin I (<0.06) ng/mL B-Natriuretic Peptide (0-100) pg/mL Total Protein (6.4-8.2) g/dL Albumin (3.4-5.0) g/dL Globulin (2.2-4.2) g/dL Albumin/Globulin Ratio (0.9-2.4) RATIO Lipase (73-393) U/L TSH (0.358-3.74) uIU/mL MRSA (PCR) Negative (Negative) POC Glucose 228 H (70-110) mg/dL Diagnostic Data: Diagnostic Data Abdomen/Pelvis CT 11/05/17 13:22 IMPRESSION: Findings most consistent with acute pancreatitis. Correlate with liver function enzymes. Cannot exclude mass in the head of the pancreas. Secondary duodenitis. Increasing size of malignant mass of the left adrenal gland. Electronically Signed: Pilo Huizar MD at 16:37 EST , Service support , Chest X-Ray 11/07/17 08:51 IMPRESSION: 1. Persistent left perihilar mass and hilar prominence unchanged from prior study. 2. Increased diffuse interstitial changes. Electronically Signed: Flavio Hurley DO at 12:32 EST Tel [phone], Service support , Liver Ultrasound 11/08/17 07:37 IMPRESSION: Diffuse fatty infiltration of the liver. The patient is status post cholecystectomy. Electronically Signed: Dale Salazar MD at 11:05 EST Tel [phone], Service support , Assessment and Plan The patient is a 61 y/o M w/ PMHx: Chronic COPD, Migraines, Bipolar Disorder, Diabetes mellitus type II, Crohn's disease, Hypothyroidism, Hx TIA, Hx Tobacco use, Small cell lung cancer ALEC with metastatic disease to L adrenal and omentum w/ regional lymph involvement who presents to the [facility] ED on 11/05/17 with c/o epigastric and bilateral lower quad pain accompanied by nausea and loose stools. (1) Small cell lung cancer ALEC with metastatic disease to L adrenal and omentum w/ regional lymph involvement: Scheduled to commence with cycle 1 carboplatin/etoposide on 11/06 in the ambulatory setting. Chemotherapy administration was held d/t admission for medical management of acute pancreatitis. Most recent NCCN guidelines and advice systemic chemotherapy with carboplatin etoposide 4-6 cycles depending on response. D/t aggressive nature of small cell carcinomas, disease is typically found to be highly responsive to tunica-biloxi based chemotherapy regimens. Thus, will not delay start of chemotherapy longer than necessary to recover from this acute presentation. Of note, CT A/P obtained 11/05/17 revealed in addition to diffuse peripancreatic and pancreatic edema as well as dilatation of the pancreatic duct, a questionable 3.3 cm mass at the head of the pancreas. Also biopsy proven malignant mass of the left adrenal gland is rapidly increasing in size with a greatest dimension, top to bottom, of 5.7 cm and measuring 5.4 cm 9 days prior likely illustrating rapid doubling time. Oncology team to follow as out patient upon discharge. (2) DVT Prophylaxis: High risk for developing VTE d/t malignancy. Stressed importance of frequent ambulation and SCDs to patient. Continue prophylactic Lovenox. (3) Acute pancreatitis w/ abdominal pain, nausea, loose stools w/ concurrent Duodenitis likely secondary to proximity: Managed by hospitalist team, patient maintained on IVFs, NPO, IV famotidine, IV pain control with PRN codeine and trend lipase. LFTs elevated, US liver report reviewed shows only hepatic steatosis (4) Normocytic anemia- Likely reactive. Continue to monitor. (5) Central line- Power port right upper chest placed last week per Dr. Villegas. Certainly may access via sterile technique and utilize if able to obtain adequate blood return on aspiration if needed Bella Aguila, MSN, [employer], AOCNP Medications: Medications Added to Medication List This Visit Category Date Time Status Divalproex (ER) [Depakote ER] Med 11/08/17 08:00 Active 500 mg PO DAILY@0800 Furosemide [Lasix] Med 11/08/17 10:00 Active 20 mg IV DAILY Levothyroxine [Synthroid] Med 11/08/17 06:00 Active 25 mcg PO DAILY@0600 (1) Small cell lung cancer Status: Chronic Qualifiers: Laterality: left Qualified Code(s): C34.92 - Malignant neoplasm of unspecified part of left bronchus or lung Comment: ALEC (2) Metastasis to adrenal gland Status: Chronic Qualifiers: Laterality: left Qualified Code(s): C79.72 - Secondary malignant neoplasm of left adrenal gland (3) Mass of pancreas Status: Acute (4) DVT prophylaxis Status: Acute (5) Anemia Status: Acute Qualifiers: Anemia type: other cause Other causes of anemia: other cause, not classified Qualified Code(s): D64.89 - Other specified anemias
--- NOTE | 2017-11-08 11:17 | PN_ITS ---
- Date of Service Date of Service:: 11/08/17 - History of Present Illness Mr. Dennis Hernandez is a pleasant 61-year-old male, ex-smoker who quit in 2016, who was hospitalized at [facility] in September 2017 with his acute abdominal pain and diagnosed with pancreatitis. During hospitalization a chest x-ray revealed a left lung mass. CT scan showed a malignant-looking left upper lobe mass and a CT-guided biopsy on September 18, 2017 confirmed small cell lung cancer. PET CT October 08, 2017 showed abnormal uptake consistent with a malignant process involving the left lung mass, hilar adenopathy and a newly evolving left adrenal mass was not visualized on his CT scan of the abdomen in March 2017. MRI of the brain showed no evidence of metastatic disease. 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 Port placed right upper chest 11/01/[address] Villegas. Scheduled to commence with cycle 1 carboplatin/VP16 on 11/06/17. Mr. Hernandez presented to [facility] ED on 11/05/17 with c/o of primarily epigastric and bilateral lower quad pain accompanied by nausea and loose stools x 1 week. Denied fever/chills. Lipase [place] be 8848, CT A/P w/ findings consistent with acute pancreatitis, increased size of malignant mass L adrenal gland. Thus , patient admitted for management of acute pancreatitis. Transitioned from floor to unit 11/07/17 d/t hypotensive episode. Upon assessment, pain reports improvement of abd pain severity and describes tolerable level at this time. Wheezing continues, although he reports an improvement of SOB while on 5 L per nc. Specifically denies CP, swelling/pain of his extremities and any episodes of bleeding/abnormal bruising. - Past Medical/Social History Social History Smoking Status Former smoker Review of Systems Constitutional:: Reports: Weakness, Fatigue. Denies: Fever, Sweats, Weight loss , Appetite change, Chills Cardiovascular:: Reports: Dyspnea on exertion. Denies: Chest pain, Palpitations , Orthopnea, PND, Shortness of breath Respiratory: Reports: Cough, Wheezing. Denies: Hemoptysis Gastrointestinal:: Reports: Abdominal pain - see HPI. Denies: Nausea, Vomiting , Diarrhea, Constipation, Hematochezia Genitourinary: Denies: Dysuria, Hematuria, 15, Flank pain Musculoskeletal:: Reports: Back pain - chronic. Denies: Myalgia, Arthralgia Skin: Denies: Rash, Skin Changes, Wounds Neurological:: Denies: Headache, Dizziness, Numbness, Tingling, Visual changes, Tinnitus, Hearing loss Psychiatric: Denies: Anxiety, Depression, Homicidal Ideations, Suicidal Ideations Vital Signs Height 5 ft 9 in Weight: 69.853 kg Weight in Pounds 154.0 lbs Pulse Ox 94 Temperature 98.4 F Pulse Rate 96 Respiratory Rate 14 Blood Pressure [BP] 100/64 Blood Pressure 133/83 Blood Pressure Position [BP] Semi-Fowlers Blood Pressure Position Supine - Physical Exam General: Alert, Oriented x3, No apparent distress HEENT: Atraumatic, Normocephalic Oropharynx:: Negative for: Dry mucosa, Ulcerated lesions Neck:: Supple, Trachea midline. Negative for: JVD, bilateral Cardiac:: Regular rate, Regular rhythm, Normal S1, Normal S2 Lungs: Wheezes, Rales, Diminished, Excusion symmetrical. Negative for: Tachypneic, Increased respiratory effort Abdomen:: Bowel sounds x 4, Soft, Non-distended, Tender. Negative for: Hepatosplenomegaly Extremities:: Negative for: Cyanosis, Edema, Calf tenderness Neurological: Neuro grossly intact Skin:: - - port right upper chest covered with dsd. Negative for: Lesions, Rash , Petechiae, Ecchymosis Psychiatric:: Appropriate affect, Euthymic Lymphatics:: Negative for: Cervical lymphadenopathy, Supraclavicular lymphadenopathy, Axillary lymphadenopathy Laboratory Data: Microbiology 11/07/17 10:35 Influenza Types A,B Direct FA (LEATHA) - Final Mucosa - Nose Laboratory Tests 3 11/08/17 11/08/17 11/08/17 Range/Units 07:11 04:50 04:50 WBC (4.4-11.0) K/mm3 RBC (4.6-6.2) M/mm3 Hgb (13.0-16.5) g/dl Hct (40-54) % MCV (80-94) fL MCH (27.0-32.0) pg MCHC (32-36) g/gl RDW (11.6-14.6) % RDW Differential (35.1-43.9) fl Plt Count (150-450) K/mm3 MPV (6.2-12.0) fl Immature Gran % (Auto) (0.0-0.9) % Neut % (Auto) (47-70) % Lymph % (Auto) (19-41) % [place] % (Auto) (0-10) % Eos % (Auto) (0-5) % Baso % (Auto) (0-1) % Absolute Neuts (auto) (2.0-7.7) X10^3/uL Absolute Lymphs (auto) (0.83-4.51) X10^3/ul Total Counted Specimen Type Sample Site pH (7.35-7.45) Bicarbonate Actual (22-26) mmol/L POC Total CO2 mmol/L Base Excess (-2 to +2) mmol/L O2 Saturation (95-99) % ABG pCO2 (35-45) mmHg ABG pO2 (75-100) mmHG Willem Test O2 Delivery Device Liter Flow /min Blood Gas Notified Whom Blood Gas Notified Time Sodium 144 (136-145) mmol/L Potassium 3.8 (3.5-5.1) mmol/L Chloride 109 H (98-107) mmol/L Carbon Dioxide 27.0 (21.0-32.0) mmol/L Anion Gap 8 (5-15) BUN 9 (7-18) mg/dL Creatinine 0.64 L (0.70-1.30) mg/dL Estim Creat Clear Calc 116.72 ml/min Est GFR (MDRD) Af Amer 162 (>60) mL/min Est GFR (MDRD) Non-Af 134 (>60) mL/min BUN/Creatinine Ratio 14.1 (10-20) RATIO Glucose 142 H (70-110) mg/dL Calcium 7.7 L (8.5-10.1) mg/dL Total Bilirubin 0.20 (0.20-1.00) mg/dL AST 1012 H (15-37) U/L ALT 781 H (12-78) U/L Alkaline Phosphatase 110 (45-117) U/L Troponin I 0.23 H (<0.06) ng/mL B-Natriuretic Peptide (0-100) pg/mL Total Protein 6.0 L (6.4-8.2) g/dL Albumin 2.1 L (3.4-5.0) g/dL Globulin 3.9 (2.2-4.2) g/dL Albumin/Globulin Ratio 0.5 L (0.9-2.4) RATIO Lipase 4762 H (73-393) U/L TSH (0.358-3.74) uIU/mL MRSA (PCR) (Negative) POC Glucose 139 H (70-110) mg/dL 3 11/08/17 11/07/17 11/07/17 Range/Units 04:50 21:26 15:22 WBC 6.8 (4.4-11.0) K/mm3 RBC 3.18 L (4.6-6.2) M/mm3 Hgb 10.0 L (13.0-16.5) g/dl Hct 31.2 L (40-54) % MCV 98.1 H (80-94) fL MCH 31.4 (27.0-32.0) pg MCHC 32.1 (32-36) g/gl RDW 13.8 (11.6-14.6) % RDW Differential 47.0 H (35.1-43.9) fl Plt Count 255 (150-450) K/mm3 MPV 9.9 (6.2-12.0) fl Immature Gran % (Auto) 0.100 (0.0-0.9) % Neut % (Auto) 77.6 H (47-70) % Lymph % (Auto) 14.9 L (19-41) % [place] % (Auto) 6.2 (0-10) % Eos % (Auto) 0.9 (0-5) % Baso % (Auto) 0.3 (0-1) % Absolute Neuts (auto) 5.3 (2.0-7.7) X10^3/uL Absolute Lymphs (auto) 1.01 (0.83-4.51) X10^3/ul Total Counted Not Reportable Specimen Type Sample Site pH (7.35-7.45) Bicarbonate Actual (22-26) mmol/L POC Total CO2 mmol/L Base Excess (-2 to +2) mmol/L O2 Saturation (95-99) % ABG pCO2 (35-45) mmHg ABG pO2 (75-100) mmHG Willem Test O2 Delivery Device Liter Flow /min Blood Gas Notified Whom Blood Gas Notified Time Sodium (136-145) mmol/L Potassium (3.5-5.1) mmol/L Chloride (98-107) mmol/L Carbon Dioxide (21.0-32.0) mmol/L Anion Gap (5-15) BUN (7-18) mg/dL Creatinine (0.70-1.30) mg/dL Estim Creat Clear Calc ml/min Est GFR (MDRD) Af Amer (>60) mL/min Est GFR (MDRD) Non-Af (>60) mL/min BUN/Creatinine Ratio (10-20) RATIO Glucose (70-110) mg/dL Calcium (8.5-10.1) mg/dL Total Bilirubin (0.20-1.00) mg/dL AST (15-37) U/L ALT (12-78) U/L Alkaline Phosphatase (45-117) U/L Troponin I (<0.06) ng/mL B-Natriuretic Peptide (0-100) pg/mL Total Protein (6.4-8.2) g/dL Albumin (3.4-5.0) g/dL Globulin (2.2-4.2) g/dL Albumin/Globulin Ratio (0.9-2.4) RATIO Lipase (73-393) U/L TSH (0.358-3.74) uIU/mL MRSA (PCR) (Negative) POC Glucose 167 H 136 H (70-110) mg/dL 3 11/07/17 11/07/17 11/07/17 Range/Units 14:30 14:30 14:30 WBC (4.4-11.0) K/mm3 RBC (4.6-6.2) M/mm3 Hgb (13.0-16.5) g/dl Hct (40-54) % MCV (80-94) fL MCH (27.0-32.0) pg MCHC (32-36) g/gl RDW (11.6-14.6) % RDW Differential (35.1-43.9) fl Plt Count (150-450) K/mm3 MPV (6.2-12.0) fl Immature Gran % (Auto) (0.0-0.9) % Neut % (Auto) (47-70) % Lymph % (Auto) (19-41) % [place] % (Auto) (0-10) % Eos % (Auto) (0-5) % Baso % (Auto) (0-1) % Absolute Neuts (auto) (2.0-7.7) X10^3/uL Absolute Lymphs (auto) (0.83-4.51) X10^3/ul Total Counted Specimen Type Sample Site pH (7.35-7.45) Bicarbonate Actual (22-26) mmol/L POC Total CO2 mmol/L Base Excess (-2 to +2) mmol/L O2 Saturation (95-99) % ABG pCO2 (35-45) mmHg ABG pO2 (75-100) mmHG Willem Test O2 Delivery Device Liter Flow /min Blood Gas Notified Whom Blood Gas Notified Time Sodium (136-145) mmol/L Potassium (3.5-5.1) mmol/L Chloride (98-107) mmol/L Carbon Dioxide (21.0-32.0) mmol/L Anion Gap (5-15) BUN (7-18) mg/dL Creatinine (0.70-1.30) mg/dL Estim Creat Clear Calc ml/min Est GFR (MDRD) Af Amer (>60) mL/min Est GFR (MDRD) Non-Af (>60) mL/min BUN/Creatinine Ratio (10-20) RATIO Glucose (70-110) mg/dL Calcium (8.5-10.1) mg/dL Total Bilirubin (0.20-1.00) mg/dL AST (15-37) U/L ALT (12-78) U/L Alkaline Phosphatase (45-117) U/L Troponin I 0.37 H (<0.06) ng/mL B-Natriuretic Peptide 119.0 H (0-100) pg/mL Total Protein (6.4-8.2) g/dL Albumin (3.4-5.0) g/dL Globulin (2.2-4.2) g/dL Albumin/Globulin Ratio (0.9-2.4) RATIO Lipase (73-393) U/L TSH 1.04 (0.358-3.74) uIU/mL MRSA (PCR) (Negative) POC Glucose (70-110) mg/dL 3 11/07/17 11/07/17 11/07/17 Range/Units 13:08 11:25 11:21 WBC (4.4-11.0) K/mm3 RBC (4.6-6.2) M/mm3 Hgb (13.0-16.5) g/dl Hct (40-54) % MCV (80-94) fL MCH (27.0-32.0) pg MCHC (32-36) g/gl RDW (11.6-14.6) % RDW Differential (35.1-43.9) fl Plt Count (150-450) K/mm3 MPV (6.2-12.0) fl Immature Gran % (Auto) (0.0-0.9) % Neut % (Auto) (47-70) % Lymph % (Auto) (19-41) % [place] % (Auto) (0-10) % Eos % (Auto) (0-5) % Baso % (Auto) (0-1) % Absolute Neuts (auto) (2.0-7.7) X10^3/uL Absolute Lymphs (auto) (0.83-4.51) X10^3/ul Total Counted Specimen Type ART Sample Site R Radial pH 7.34 L (7.35-7.45) Bicarbonate Actual 20.2 L (22-26) mmol/L POC Total CO2 21 mmol/L Base Excess -6 L (-2 to +2) mmol/L O2 Saturation 92 L (95-99) % ABG pCO2 37.6 (35-45) mmHg ABG pO2 67 L (75-100) mmHG Willem Test POS O2 Delivery Device Nasal Can Liter Flow 4.0 /min Blood Gas Notified Whom [facility] Blood Gas Notified Time 1115 Sodium (136-145) mmol/L Potassium (3.5-5.1) mmol/L Chloride (98-107) mmol/L Carbon Dioxide (21.0-32.0) mmol/L Anion Gap (5-15) BUN (7-18) mg/dL Creatinine (0.70-1.30) mg/dL Estim Creat Clear Calc ml/min Est GFR (MDRD) Af Amer (>60) mL/min Est GFR (MDRD) Non-Af (>60) mL/min BUN/Creatinine Ratio (10-20) RATIO Glucose (70-110) mg/dL Calcium (8.5-10.1) mg/dL Total Bilirubin (0.20-1.00) mg/dL AST (15-37) U/L ALT (12-78) U/L Alkaline Phosphatase (45-117) U/L Troponin I (<0.06) ng/mL B-Natriuretic Peptide (0-100) pg/mL Total Protein (6.4-8.2) g/dL Albumin (3.4-5.0) g/dL Globulin (2.2-4.2) g/dL Albumin/Globulin Ratio (0.9-2.4) RATIO Lipase (73-393) U/L TSH (0.358-3.74) uIU/mL MRSA (PCR) Negative (Negative) POC Glucose 228 H (70-110) mg/dL Diagnostic Data: Diagnostic Data Abdomen/Pelvis CT 11/05/17 13:22 IMPRESSION: Findings most consistent with acute pancreatitis. Correlate with liver function enzymes. Cannot exclude mass in the head of the pancreas. Secondary duodenitis. Increasing size of malignant mass of the left adrenal gland. Electronically Signed: Pilo Huizar MD at 16:37 EST , Service support , Chest X-Ray 11/07/17 08:51 IMPRESSION: 1. Persistent left perihilar mass and hilar prominence unchanged from prior study. 2. Increased diffuse interstitial changes. Electronically Signed: Flavio Hurley DO at 12:32 EST Tel [phone], Service support , Liver Ultrasound 11/08/17 07:37 IMPRESSION: Diffuse fatty infiltration of the liver. The patient is status post cholecystectomy. Electronically Signed: Dale Salazar MD at 11:05 EST Tel [phone], Service support , Assessment and Plan The patient is a 61 y/o M w/ PMHx: Chronic COPD, Migraines, Bipolar Disorder, Diabetes mellitus type II, Crohn's disease, Hypothyroidism, Hx TIA, Hx Tobacco use, Small cell lung cancer ALEC with metastatic disease to L adrenal and omentum w/ regional lymph involvement who presents to the [facility] ED on 11/05/17 with c/o epigastric and bilateral lower quad pain accompanied by nausea and loose stools. (1) Small cell lung cancer ALEC with metastatic disease to L adrenal and omentum w/ regional lymph involvement: Scheduled to commence with cycle 1 carboplatin/ etoposide on 11/06 in the ambulatory setting. Chemotherapy administration was held d/t admission for medical management of acute pancreatitis. Most recent NCCN guidelines and advice systemic chemotherapy with carboplatin etoposide 4-6 cycles depending on response. D/t aggressive nature of small cell carcinomas, disease is typically found to be highly responsive to chipewwa based chemotherapy regimens. Thus, will not delay start of chemotherapy longer than necessary to recover from this acute presentation. Of note, CT A/P obtained 11/05 revealed in addition to diffuse peripancreatic and pancreatic edema as well as dilatation of the pancreatic duct, a questionable 3.3 cm mass at the head of the pancreas. Also biopsy proven malignant mass of the left adrenal gland is rapidly increasing in size with a greatest dimension, top to bottom, of 5.7 cm and measuring 5.4 cm 9 days prior likely illustrating rapid doubling time. Oncology team to follow as out patient upon discharge. (2) DVT Prophylaxis: High risk for developing VTE d/t malignancy. Stressed importance of frequent ambulation and SCDs to patient. Continue prophylactic Lovenox. (3) Acute pancreatitis w/ abdominal pain, nausea, loose stools w/ concurrent Duodenitis likely secondary to proximity: Managed by hospitalist team, patient maintained on IVFs, NPO, IV famotidine, IV pain control with PRN codeine and trend lipase. LFTs elevated, US liver report reviewed shows only hepatic steatosis (4) Normocytic anemia- Likely reactive. Continue to monitor. (5) Central line- Power port right upper chest placed last week per Dr. Villegas. Certainly may access via sterile technique and utilize if able to obtain adequate blood return on aspiration if needed Bella Aguila, ZAYNAB, EXECUTIVE TALENT ACQUISITION CONSULTANT-C, AOCNP Medications: Medications Added to Medication List This Visit Category Date Time Status Divalproex (ER) [Depakote ER] Med 11/08/17 08:00 Active 500 mg PO DAILY@0800 Furosemide [Lasix] Med 11/08/17 10:00 Active 20 mg IV DAILY Levothyroxine [Synthroid] Med 11/08/17 06:00 Active 25 mcg PO DAILY@0600 (1) Small cell lung cancer Status: Chronic Qualifiers: Laterality: left Qualified Code(s): C34.92 - Malignant neoplasm of unspecified part of left bronchus or lung Comment: ALEC (2) Metastasis to adrenal gland Status: Chronic Qualifiers: Laterality: left Qualified Code(s): C79.72 - Secondary malignant neoplasm of left adrenal gland (3) Mass of pancreas Status: Acute (4) DVT prophylaxis Status: Acute (5) Anemia Status: Acute Qualifiers: Anemia type: other cause Other causes of anemia: other cause, not classified Qualified Code(s): D64.89 - Other specified anemias
[2017-11-08 11:31] LABS: Bedside Glucose 132 mg/dL (70-110)
--- NOTE | 2017-11-08 12:58 | CHAPLAIN ---
Type of Pastoral Visit ___ Initial Visit _x__ Follow-up Visit ___ On-call Visit ___ General Patient Visit ___ Spiritual Assessment ___ Family Conference ___ Bereavement ___ Rapid Response ___ Code Blue ___ Other (describe below) Pastoral Care Referral From _x__ Patient ___ Family ___ Nurse ___ Physician ___ Fisher Weir ___ Wind Energy Project Manager ___ Other (describe below) Sacrament/Intervention _x__ Active listening ___ Anointing ___ Buddhist ___ Bereavement ___ Communion _x__ Tonya exploration ___ ___ Life review _x__ Prayer ___ Reconciliation ___ Sacrament of Sick _x__ Supportive presence ___ Wedding ___ Other (describe below) Pastoral Comments
[2017-11-08 17:01] LABS: Bedside Glucose 125 mg/dL (70-110)
[2017-11-08 22:56] LABS: Bedside Glucose 139 mg/dL (70-110)
[2017-11-09] VITALS (16 sets, daily range): BP systolic 136–166; BP diastolic 79–100; PULSE 76–186; RESP 16–18; TEMP 36.4–36.7; O2SAT 92–98
--- NOTE | 2017-11-09 00:10 | EKG12_ITS ---
Test Reason : TACHYCARDIA Blood Pressure : / mmHG Vent. Rate : 156 BPM Atrial Rate : 156 BPM P-R Int : 128 ms QRS Dur : 076 ms QT Int : 318 ms P-R-T Axes : 000 006 006 degrees QTc Int : 512 ms Sinus tachycardia Nonspecific ST and T wave abnormality Abnormal ECG Confirmed by PIOTR CORNELL, JUSTICE ([id number]), sports editor ANTHONY TEIXEIRA ([id number]) on 11/12/2017 3:30:42 PM Referred By: JUAN Confirmed By:JUSTICE SALDAÑA MD
[2017-11-09] MEDS: Levothyroxine 25 MCG TABLET PO (06:37)
[2017-11-09] MEDS: Heparin Injection 5,000 UNITS/ML Syringe 5000 UNITS SC ×3 (06:37→21:35)
[2017-11-09 07:01] LABS: Bedside Glucose 134 mg/dL (70-110)
[2017-11-09 07:16] LABS: Absolute Lymphocyte Count 1.08 X10^3/ul (0.83-4.51); Absolute Neutrophil Count 4.8 X10^3/uL (2.0-7.7); Basophil# 0.02 X10^3/uL; Basophil% 0.3 % (0-1); Eosinophil# 0.13 X10^3/uL; Hemoglobin 11.2 g/dl (13.0-16.5); Lymphocyte # 1.08 X10^3/ul (4.0); Lymphocyte % 16.5 % (19-41); Mean Corpuscular Hgb 30.9 pg (27.0-32.0); Mean Corpuscular Volume 96.4 fL (80-94); Mean Platelet Vol. 10.2 fl (6.2-12.0); Monocyte# 0.56 X10^3/uL; Monocyte% 8.5 % (0-10); Neutrophil # 4.75 X10^3/uL (2.7-7.7); Neutrophil % 72.4 % (47-70); Platelet Count 299 K/mm3 (150-450); RBC Distribution Width CV 13.7 % (11.6-14.6); RBC Distribution Width SD 48.5 fl (35.1-43.9); Red Blood Count 3.63 M/mm3 (4.6-6.2); White Blood Count 6.6 K/mm3 (4.4-11.0)
[2017-11-09 07:39] LABS: ALB/GLOB Ratio 0.6 RATIO (0.9-2.4); AST(SGOT) 606 U/L (15-37); Alanine Aminotransfer ALT/SGPT 680 U/L (12-78); Albumin, Serum 2.4 g/dL (3.4-5.0); Alkaline Phosphatase 124 U/L (45-117); Anion Gap 7 (5-15); BUN 11 mg/dL (7-18); BUN/Creat Ratio 20.4 RATIO (10-20); Calcium,Total 8.1 mg/dL (8.5-10.1); Chloride 107 mmol/L (98-107); Creatinine, Serum 0.54 mg/dL (0.70-1.30); EST Glomerular Filtration Rate 164 mL/min (>60); Est Glom Filt Rate - Afr Amer 198 mL/min (>60); Estimated Creatinine Clearance 138.34 ml/min; Globulin 3.8 g/dL (2.2-4.2); Glucose 113 mg/dL (70-110); Lipase 5270 U/L (73-393); Potassium 3.7 mmol/L (3.5-5.1); Protein, Total 6.2 g/dL (6.4-8.2); Sodium Level 143 mmol/L (136-145)
[2017-11-09] MEDS: Divalproex (ER) 500 MG Tablet PO (09:51)
[2017-11-09] MEDS: Furosemide 20 MG/2 ML VIAL IV (09:52)
[2017-11-09] MEDS: 0.9% NaCl Peripheral Flush Adult/Peds IV (09:52)
--- NOTE | 2017-11-09 11:46 | PN_ITS ---
Patient Problems: Active and Suspected Problems (Last Reviewed 10/24/17 @ 13:17 by Kizzy Sena) Mass of pancreas (Acute) DVT prophylaxis (Acute) Anemia (Acute) Subjective: The patient was seen and examined at the bedside this morning. Events from the last 24 hours have been reviewed. The patient is currently afebrile, hemodynamically stable and maintaining appropriate oxygen saturations on 4 L/ min via nasal cannula. The patient has been intermittently noncompliant with use of supplemental oxygen. Lipase remains elevated. Objective: The patient's most recent lab work, culture data and imaging studies have all been personally reviewed. Rapid influenza screen was negative. Blood cultures are currently pending. Plain film chest x-ray dated November 07 revealed a stable appearing left perihilar mass and diffuse interstitial edema. - Physical Exam General: Alert, Cooperative, No apparent distress HEENT: Atraumatic, PERRLA, Normocephalic Oral: Moist Mucosa, No Gingival or Mucosal Lesions/ Ulcerations Neck: Supple, No Nodes, Trachea Midline Lungs: No rhonchi, No wheeze, No rales, Diminished Cardiovascular: Regular rate, Regular Rhythm, Normal S1, Normal S2, No murmurs Abdomen: Bowel Sounds Present, Soft, Non Tender Extremities: No clubbing, No cyanosis, No edema Skin: No rashes, No breakdown Musculoskeletal: No Tenderness to Palpation of Joints or Extremities Lymphatic: No Cervical, Supraclavicular, or Inguinal Adenopathy Neurological: Neuro grossly intact Psych/Mental Status: Alert and oriented to time, place, person, mood and affect Vital Signs Temp Pulse Resp BP Pulse Ox 97.5 F L 99 16 136/81 H 96 11/09/17 09:37 11/09/17 11:13 11/09/17 09:37 11/09/17 09:37 11/09/17 09:37 Oxygen Flow Rate 4 Oxygen Delivery Method Room Air Weight: 153 lb 15.992 oz Body Mass Index (BMI) 22.7 Intake and Output for Last 24 Hours 11/07/17 11/08/17 11/09/17 23:59 23:59 23:59 Intake Total 1741 / 1741 220 / 220 Output Total 340 / 340 800 / 800 250 / 250 Balance 1401 / 1401 -580 / -580 -250 / -250 Microbiology Past 72 Hours 11/07/17 10:35 Influenza Types A,B Direct FA (LEATHA) - Final Mucosa - Nose Laboratory Tests Past 24 Hrs 11/09/17 11/09/17 05:47 05:47 WBC 6.6 RBC 3.63 L Hgb 11.2 L Hct 35.0 L MCV 96.4 H MCH 30.9 MCHC 32.0 RDW 13.7 RDW Differential 48.5 H Plt Count 299 MPV 10.2 Immature Gran % (Auto) 0.300 Neut % (Auto) 72.4 H Lymph % (Auto) 16.5 L [place] % (Auto) 8.5 Eos % (Auto) 2.0 Baso % (Auto) 0.3 Absolute Neuts (auto) 4.8 Absolute Lymphs (auto) 1.08 Total Counted Not Reportable Sodium 143 Potassium 3.7 Chloride 107 Carbon Dioxide 29.0 Anion Gap 7 BUN 11 Creatinine 0.54 L Estim Creat Clear Calc 138.34 Est GFR (MDRD) Af Amer 198 Est GFR (MDRD) Non-Af 164 BUN/Creatinine Ratio 20.4 H Glucose 113 H Calcium 8.1 L Total Bilirubin 0.40 AST 606 H ALT 680 H Alkaline Phosphatase 124 H Total Protein 6.2 L Albumin 2.4 L Globulin 3.8 Albumin/Globulin Ratio 0.6 L Lipase 5270 H POC Glucose 11/09/17 11/08/17 11/08/17 06:43 22:42 16:55 POC Glucose 134 H 139 H 125 H Clinical Impression(s) from Imaging Studies Abdomen/Pelvis CT 11/05/17 13:22 IMPRESSION: Findings most consistent with acute pancreatitis. Correlate with liver function enzymes. Cannot exclude mass in the head of the pancreas. Secondary duodenitis. Increasing size of malignant mass of the left adrenal gland. Electronically Signed: Pilo Huizar MD at 16:37 EST , Service support , Chest X-Ray 11/07/17 08:51 IMPRESSION: 1. Persistent left perihilar mass and hilar prominence unchanged from prior study. 2. Increased diffuse interstitial changes. Electronically Signed: Flavio Hurley DO at 12:32 EST Tel [phone], Service support , Liver Ultrasound 11/08/17 07:37 IMPRESSION: Diffuse fatty infiltration of the liver. The patient is status post cholecystectomy. Electronically Signed: Dale Salazar MD at 11:05 EST Tel [phone], Service support , Assessment/Plan Active and Suspected Problems (Last Reviewed 10/24/17 @ 13:17 by Kizzy Sena) Mass of pancreas (Acute) DVT prophylaxis (Acute) Anemia (Acute) RECOMMENDATIONS: 1. Wean supplemental oxygen as tolerated. The patient wears between 2 and 4 L/ min at his baseline. 2. Recommend continued attempts at diuresis 3. Continue scheduled aerosol treatments 4. Encourage incentive spirometer use and mobilize patient as tolerated. 5. Continue subcu heparin for DVT prophylaxis 6. Perform walking oximetry study prior to consideration for discharge. 7. The patient should ideally follow up in the pulmonary medicine clinic within 2 weeks of his discharge from the hospital. IMPRESSIONS: 1. Acute on chronic hypoxic respiratory failure The patient has a baseline oxygen requirement between 2 and 4 L in his home environment. He is currently maintaining appropriate oxygen saturations at 4 L/ min. Repeat plain film chest x-ray showed findings concerning for interstitial edema. Agree with Lasix administration. Wean supplemental oxygen as tolerated. Encourage incentive spirometer use and mobilize patient as tolerated. Given that the patient is afebrile, has no cough and is without evidence of an elevated white blood cell count, have low clinical index of suspicion for underlying pulmonary infectious process. 2. Acute pancreatitis Although the patient was initially improving both clinically and from a laboratory perspective, his most recent lipase and transaminases are elevated. The patient is currently n.p.o. pending improvement in his lipase levels. 3. Normocytic anemia Continue to monitor blood counts daily. Transfusion can be considered if hemoglobin drops below 7 g/dL. 4. Stage IV small cell lung cancer There are tentative plans to start chemotherapy once the patient has been stabilized medically. 5. Tobacco dependence now in remission/hypothyroidism/diabetes/hyperlipidemia/ COPD Complicates care, management, recovery and prognosis. Continue home medications as indicated. Hold metformin and cover with sliding scale insulin while inpatient. Continue duo nebs while awake. This note was generated with [employer] software. It may contain incorrect words, spelling, and punctuation that were not noted in checking the note before signing. Code Visit Inpatient E&M: 82951 Subs Hosp L2
--- NOTE | 2017-11-09 11:56 | PCM.DC ---
- Discharge Diagnoses Current Active Problems: Current Active and Chronic Problems (Last Reviewed 10/24/17 @ 13:17 by Kizzy Sena) Mass of pancreas (Acute) DVT prophylaxis (Acute) Anemia (Acute) Reason(s) for Visit for Discharge Instructions: Abdominal pain You will use the following diet at home:: Regular Your food should be the consistency of: Regular Your liquids should be the consistency of: Regular/Thin Discharge Activity: Return to Normal Activity Allergies/Adverse Reactions: Allergies morphine Allergy (Verified 11/05/17 12:47) Swelling Medications to take at Discharge Atorvastatin Calcium 40 mg PO QHS 09/16/17 Divalproex Sodium [Depakote ER] 500 mg PO DAILY 09/16/17 Levothyroxine [Synthroid] 25 mcg PO DAILY 09/16/17 Metformin HCl [Glucophage] 500 mg PO BID 09/16/17 acetaminophen 300 mg-codeine 30 mg tablet 1 tab PO TID PRN 10/15/17 Albuterol Aerosols [Ventolin Aerosols] 2.5 mg INHALATION Q6H 10/25/17 Butalb/Acetaminophen/Caffeine [Bojvgz-Tbyppgvd-Ckoy 50-300-40] 1 each PO PRN PRN 10/25/17 Divalproex Sodium [Depakote] 1,000 mg PO QHS 10/25/17 Senna [Senokot] 1 tablet PO DAILY PRN 10/25/17 Acetaminophen/Codeine #3 [Tylenol #3 Tablet] 1 tab PO Q4H PRN PRN #30 tab 10/27/17 Primary Care Physician: Last Aguilar Chi, MD [Primary Care Provider] - Please follow up with your Primary Care Physician in: within 2 weeks of discharge Please Follow Up With: Bella Aguila NP-C When: and with oncology in outpatient Proposed Discharge Date: 11/09/17
--- NOTE | 2017-11-09 12:17 | PCM.DC.SUM ---
Discharge Date and Diagnosis - Problem List Patient Problems: Active and Suspected Problems (Last Reviewed 10/24/17 @ 13:17 by Kizzy Sena) Mass of pancreas (Acute) DVT prophylaxis (Acute) Anemia (Acute) Date of Admission: 11/05/17 Date of Discharge: 11/09/17 - Primary Discharge Diagnosis Active and Suspected Problems (Last Reviewed 10/24/17 @ 13:17 by Kizzy Sena) Mass of pancreas (Acute) DVT prophylaxis (Acute) Anemia (Acute) - Secondary Discharge Diagnosis Chronic Problems (Last Reviewed 10/24/17 @ 13:17 by Kizzy Sena) Diabetes mellitus, type II (Chronic) COPD (chronic obstructive pulmonary disease) (Chronic) History of tobacco use (Chronic) Migraine (Chronic) Crohns disease (Chronic) History of TIA (transient ischemic attack) (Chronic) Hypothyroidism (Chronic) Small cell lung cancer (Chronic) ALEC 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) Hospital Course and Treatment Operations: None Summary of Care Provided: The patient is a 61 year old M [] Discharge Activity: Return to Normal Activity Home Medications: Medications to take at Discharge Atorvastatin Calcium 40 mg PO QHS 09/16/17 Divalproex Sodium [Depakote ER] 500 mg PO DAILY 09/16/17 Levothyroxine [Synthroid] 25 mcg PO DAILY 09/16/17 Metformin HCl [Glucophage] 500 mg PO BID 09/16/17 acetaminophen 300 mg-codeine 30 mg tablet 1 tab PO TID PRN 10/15/17 Albuterol Aerosols [Ventolin Aerosols] 2.5 mg INHALATION Q6H 10/25/17 Butalb/Acetaminophen/Caffeine [Dikrzz-Drugcirf-Sgic 50-300-40] 1 each PO PRN PRN 10/25/17 Divalproex Sodium [Depakote] 1,000 mg PO QHS 10/25/17 Senna [Senokot] 1 tablet PO DAILY PRN 10/25/17 Acetaminophen/Codeine #3 [Tylenol #3 Tablet] 1 tab PO Q4H PRN PRN #30 tab 10/27/17 Primary Care Physician: Last Aguilar Chi, MD [Primary Care Provider] - Please follow up with your Primary Care Physician in: within 2 weeks of discharge Please Follow Up With: Bella Aguila NP-C When: and with oncology in outpatient
[2017-11-09] MEDS: Ipratropium/Albuterol Sulfate 3 ML AMPUL.NEB INHALATION ×2 (13:14→19:02)
--- NOTE | 2017-11-09 15:45 | PCM.PN.HOSP ---
Patient Problems: Active and Suspected Problems (Last Reviewed 10/24/17 @ 13:17 by Kizzy Sena) Mass of pancreas (Acute) DVT prophylaxis (Acute) Anemia (Acute) Subjective: He complains of left lower quadrant discomfort rated 5 out of 10, feels hungry ready to advance in diet, denies any fever or chills, remains on 4 L of oxygen Objective: General: Alert, Oriented x3, Cooperative, - - On intranasal cannula oxygen HEENT: Atraumatic, PERRLA, EOMI, Normocephalic Oral: Moist Mucosa Neck: Supple Lungs: Diminished - At both lung bases, less rales - More on the right lower lung zone Cardiovascular: Regular rate, Regular Rhythm, Normal S1, Normal S2, No murmurs Abdomen: Bowel Sounds Present, Soft, No Hepato-splenomegaly, Distended, Tender - Epigastric and left lower quadrant Extremities: No edema Skin: No rashes, No breakdown Musculoskeletal: No Tenderness to Palpation of Joints or Extremities Neurological: Cranial nerves II-XII grossly intact Psych/Mental Status: Normal Affect, Appropriate Vitals/I&O's: Vital Signs Temp Pulse Resp BP Pulse Ox 97.5 F L 86 16 136/81 H 94 11/09/17 09:37 11/09/17 13:14 11/09/17 13:14 11/09/17 09:37 11/09/17 13:14 Oxygen Flow Rate 2 Oxygen Delivery Method Nasal Cannula Weight: 69.853 kg Body Mass Index (BMI) 22.7 Intake and Output for Last 24 Hours 11/07/17 11/08/17 11/09/17 23:59 23:59 23:59 Intake Total 1741 / 1741 220 / 220 100 / 100 Output Total 340 / 340 800 / 800 1050 / 1050 Balance 1401 / 1401 -580 / -580 -950 / -950 Microbiology Past 72 Hours 11/07/17 10:35 Mucosa - Nose Influenza Types A,B Direct FA (LEATHA) - Final Laboratory Results 11/08/17 16:55: POC Glucose 125 H 11/08/17 22:42: POC Glucose 139 H 11/09/17 05:47: WBC 6.6, RBC 3.63 L, Hgb 11.2 L, Hct 35.0 L, MCV 96.4 H, MCH 30.9, MCHC 32.0, RDW 13.7, RDW Differential 48.5 H, Plt Count 299, MPV 10.2, Immature Gran % (Auto) 0.300, Neut % (Auto) 72.4 H, Lymph % (Auto) 16.5 L, [place] % (Auto) 8.5, Eos % (Auto) 2.0, Baso % (Auto) 0.3, Absolute Neuts (auto) 4.8, Absolute Lymphs (auto) 1.08, Total Counted Not Reportable 11/09/17 05:47: Sodium 143, Potassium 3.7, Chloride 107, Carbon Dioxide 29.0, Anion Gap 7, BUN 11, Creatinine 0.54 L, Estim Creat Clear Calc 138.34, Est GFR (MDRD) Af Amer 198, Est GFR (MDRD) Non-Af 164, BUN/Creatinine Ratio 20.4 H, Glucose 113 H, Calcium 8.1 L, Total Bilirubin 0.40, AST 606 H, ALT 680 H, Alkaline Phosphatase 124 H, Total Protein 6.2 L, Albumin 2.4 L, Globulin 3.8, Albumin/Globulin Ratio 0.6 L, Lipase 5270 H 11/09/17 06:43: POC Glucose 134 H Current Medications Albuterol/Ipratropium (Duoneb) 3 ml INHALATION Q6HWA.RT [facility] Last Admin: 11/09/17 13:14 Dose: 3 ml Codeine Sulfate (Codeine) 30 mg PO Q4H PRN PRN PRN Reason: SEVERE PAIN (6-10/10) Last Admin: 11/09/17 09:51 Dose: 30 mg Dextrose (D50w Syringe) 0 gm IV X1 PRN; Protocol PRN Reason: Hypoglycemia Divalproex Sodium (Depakote Er) 500 mg PO DAILY@0800 [facility] Last Admin: 11/09/17 09:51 Dose: 500 mg Furosemide (Lasix) 20 mg IV DAILY [facility] Last Admin: 11/09/17 09:52 Dose: 20 mg Glucagon () 1 mg IM .X1 PRN PRN Reason: Hypoglycemia Heparin Sodium (Porcine) () 5,000 units SC Q8 [facility] Last Admin: 11/09/17 06:37 Dose: 5,000 units Insulin Aspart (Novolog Flexpen (Bkc)) 0 units SC ACHS [facility] PRN Reason: Protocol Last Admin: 11/09/17 11:49 Dose: Not Given Levothyroxine Sodium (Synthroid) 25 mcg PO DAILY@0600 [facility] Last Admin: 11/09/17 06:37 Dose: 25 mcg Sodium Chloride () 5 - 30 ml IV UD PRN PRN Reason: SALINE FLUSH Last Admin: 11/09/17 09:52 Dose: 10 ml Assessment/Plan Active and Suspected Problems (Last Reviewed 10/24/17 @ 13:17 by Kizzy Sena) Mass of pancreas (Acute) DVT prophylaxis (Acute) Anemia (Acute) 61 y/o M with PMHx of Chronic COPD, Diabetes mellitus type II, Crohn's disease, hypothyroidism, 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 1. Hypotension, likely related to dehydration, less likely to sepsis, resolved 2. Acute on chronic hypoxic respiratory insufficiency in a patient with metastatic lung cancer, secondary to fluid overload, 2D echo done yesterday shows EF of 65%, RVSP was 43% ,remains on 2 L of oxygen, which appears to be his home oxygen level. 3. Acute pancreatitis/duodenitis, would advance his diet, persistent lipase and abnormal liver function tests secondary to patient's metastatic disease. 4. Elevated liver function tests, ultrasound of the liver shows diffuse fatty infiltration 5. Elevated troponins likely secondary to demand ischemia, patient is asymptomatic, will continue to monitor 6. Small cell lung cancer with metastatic disease to L adrenal and omentum with regional lymph involvement, chemotherapy has been deferred until this acute event is over, will follow-up with oncology in the outpatient 7. Diabetes mellitus type II, blood sugars are fairly controlled, metformin on hold, on account of n.p.o. status, will continue with Accu-Cheks and insulin sliding scale, will resume metformin on discharge 8. Hypothyroidism, on synthroid 9. Hx TIA, on asa, statin, 10. Crohn's Disease 11. Severe malnutrition with severe suboptimal intake and weight loss, cashier clerk consulted, will add nutritional supplements when able to eat. 12. DVT Prophylaxis: SCDs, lovenox This note was generated with [employer] software. It may contain incorrect words, spelling, and punctuation that were not noted in checking the note before signing.
--- NOTE | 2017-11-09 15:50 | PN_ITS ---
Patient Problems: Active and Suspected Problems (Last Reviewed 10/24/17 @ 13:17 by Kizzy Sena) Mass of pancreas (Acute) DVT prophylaxis (Acute) Anemia (Acute) Subjective: He complains of left lower quadrant discomfort rated 5 out of 10, feels hungry ready to advance in diet, denies any fever or chills, remains on 4 L of oxygen Objective: General: Alert, Oriented x3, Cooperative, - - On intranasal cannula oxygen HEENT: Atraumatic, PERRLA, EOMI, Normocephalic Oral: Moist Mucosa Neck: Supple Lungs: Diminished - At both lung bases, less rales - More on the right lower lung zone Cardiovascular: Regular rate, Regular Rhythm, Normal S1, Normal S2, No murmurs Abdomen: Bowel Sounds Present, Soft, No Hepato-splenomegaly, Distended, Tender - Epigastric and left lower quadrant Extremities: No edema Skin: No rashes, No breakdown Musculoskeletal: No Tenderness to Palpation of Joints or Extremities Neurological: Cranial nerves II-XII grossly intact Psych/Mental Status: Normal Affect, Appropriate Vitals/I&O's: Vital Signs Temp Pulse Resp BP Pulse Ox 97.5 F L 86 16 136/81 H 94 11/09/17 09:37 11/09/17 13:14 11/09/17 13:14 11/09/17 09:37 11/09/17 13:14 Oxygen Flow Rate 2 Oxygen Delivery Method Nasal Cannula Weight: 69.853 kg Body Mass Index (BMI) 22.7 Intake and Output for Last 24 Hours 11/07/17 11/08/17 11/09/17 23:59 23:59 23:59 Intake Total 1741 / 1741 220 / 220 100 / 100 Output Total 340 / 340 800 / 800 1050 / 1050 Balance 1401 / 1401 -580 / -580 -950 / -950 Microbiology Past 72 Hours 11/07/17 10:35 Mucosa - Nose Influenza Types A,B Direct FA (LEATHA) - Final Laboratory Results 11/08/17 16:55: POC Glucose 125 H 11/08/17 22:42: POC Glucose 139 H 11/09/17 05:47: WBC 6.6, RBC 3.63 L, Hgb 11.2 L, Hct 35.0 L, MCV 96.4 H, MCH 30.9, MCHC 32.0, RDW 13.7, RDW Differential 48.5 H, Plt Count 299, MPV 10.2, Immature Gran % (Auto) 0.300, Neut % (Auto) 72.4 H, Lymph % (Auto) 16.5 L, Rains % (Auto) 8.5, Eos % (Auto) 2.0, Baso % (Auto) 0.3, Absolute Neuts (auto) 4.8, Absolute Lymphs (auto) 1.08, Total Counted Not Reportable 11/09/17 05:47: Sodium 143, Potassium 3.7, Chloride 107, Carbon Dioxide 29.0, Anion Gap 7, BUN 11, Creatinine 0.54 L, Estim Creat Clear Calc 138.34, Est GFR ( MDRD) Af Amer 198, Est GFR (MDRD) Non-Af 164, BUN/Creatinine Ratio 20.4 H, Glucose 113 H, Calcium 8.1 L, Total Bilirubin 0.40, AST 606 H, ALT 680 H, Alkaline Phosphatase 124 H, Total Protein 6.2 L, Albumin 2.4 L, Globulin 3.8, Albumin/Globulin Ratio 0.6 L, Lipase 5270 H 11/09/17 06:43: POC Glucose 134 H Current Medications Albuterol/Ipratropium (Duoneb) 3 ml INHALATION Q6HWA.RT [facility] Last Admin: 11/09/17 13:14 Dose: 3 ml Codeine Sulfate (Codeine) 30 mg PO Q4H PRN PRN PRN Reason: SEVERE PAIN (6-10/10) Last Admin: 11/09/17 09:51 Dose: 30 mg Dextrose (D50w Syringe) 0 gm IV X1 PRN; Protocol PRN Reason: Hypoglycemia Divalproex Sodium (Depakote Er) 500 mg PO DAILY@0800 [facility] Last Admin: 11/09/17 09:51 Dose: 500 mg Furosemide (Lasix) 20 mg IV DAILY [facility] Last Admin: 11/09/17 09:52 Dose: 20 mg Glucagon () 1 mg IM .X1 PRN PRN Reason: Hypoglycemia Heparin Sodium (Porcine) () 5,000 units SC Q8 [facility] Last Admin: 11/09/17 06:37 Dose: 5,000 units Insulin Aspart (Novolog Flexpen (Bkc)) 0 units SC ACHS [facility] PRN Reason: Protocol Last Admin: 11/09/17 11:49 Dose: Not Given Levothyroxine Sodium (Synthroid) 25 mcg PO DAILY@0600 [facility] Last Admin: 11/09/17 06:37 Dose: 25 mcg Sodium Chloride () 5 - 30 ml IV UD PRN PRN Reason: SALINE FLUSH Last Admin: 11/09/17 09:52 Dose: 10 ml Assessment/Plan Active and Suspected Problems (Last Reviewed 10/24/17 @ 13:17 by Kizzy Sena) Mass of pancreas (Acute) DVT prophylaxis (Acute) Anemia (Acute) 61 y/o M with PMHx of Chronic COPD, Diabetes mellitus type II, Crohn's disease, hypothyroidism, 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 1. Hypotension, likely related to dehydration, less likely to sepsis, resolved 2. Acute on chronic hypoxic respiratory insufficiency in a patient with metastatic lung cancer, secondary to fluid overload, 2D echo done yesterday shows EF of 65%, RVSP was 43% ,remains on 2 L of oxygen, which appears to be his home oxygen level. 3. Acute pancreatitis/duodenitis, would advance his diet, persistent lipase and abnormal liver function tests secondary to patient's metastatic disease. 4. Elevated liver function tests, ultrasound of the liver shows diffuse fatty infiltration 5. Elevated troponins likely secondary to demand ischemia, patient is asymptomatic, will continue to monitor 6. Small cell lung cancer with metastatic disease to L adrenal and omentum with regional lymph involvement, chemotherapy has been deferred until this acute event is over, will follow-up with oncology in the outpatient 7. Diabetes mellitus type II, blood sugars are fairly controlled, metformin on hold, on account of n.p.o. status, will continue with Accu-Cheks and insulin sliding scale, will resume metformin on discharge 8. Hypothyroidism, on synthroid 9. Hx TIA, on asa, statin, 10. Crohn's Disease 11. Severe malnutrition with severe suboptimal intake and weight loss, cream beater consulted, will add nutritional supplements when able to eat. 12. DVT Prophylaxis: SCDs, lovenox This note was generated with [employer] software. It may contain incorrect words, spelling, and punctuation that were not noted in checking the note before signing.
[2017-11-09 16:21] LABS: Bedside Glucose 199 mg/dL (70-110)
[2017-11-09 16:36] LABS: Bedside Glucose 124 mg/dL (70-110)
[2017-11-09 22:16] LABS: Bedside Glucose 194 mg/dL (70-110)
[2017-11-10] VITALS (14 sets, daily range): BP systolic 127–148; BP diastolic 71–89; PULSE 70–144; RESP 16–18; TEMP 36.4–37.2; O2SAT 93–98
[2017-11-10] MEDS: Levothyroxine 25 MCG TABLET PO (05:00)
[2017-11-10] MEDS: Heparin Injection 5,000 UNITS/ML Syringe 5000 UNITS SC ×3 (05:00→21:19)
[2017-11-10 05:28] LABS: Absolute Lymphocyte Count 1.24 X10^3/ul (0.83-4.51); Absolute Neutrophil Count 3.5 X10^3/uL (2.0-7.7); Basophil# 0.01 X10^3/uL; Basophil% 0.2 % (0-1); Eosinophil# 0.16 X10^3/uL; Eosinophils% 2.9 % (0-5); Hematocrit 34.5 % (40-54); Hemoglobin 11.1 g/dl (13.0-16.5); Lymphocyte # 1.24 X10^3/ul (4.0); Lymphocyte % 22.6 % (19-41); Mean Corp Hgb Conc 32.2 g/gl (32-36); Mean Corpuscular Hgb 30.4 pg (27.0-32.0); Mean Corpuscular Volume 94.5 fL (80-94); Mean Platelet Vol. 9.7 fl (6.2-12.0); Monocyte# 0.57 X10^3/uL; Monocyte% 10.4 % (0-10); Neutrophil # 3.48 X10^3/uL (2.7-7.7); Neutrophil % 63.5 % (47-70); Platelet Count 305 K/mm3 (150-450); RBC Distribution Width CV 13.6 % (11.6-14.6); Red Blood Count 3.65 M/mm3 (4.6-6.2); White Blood Count 5.5 K/mm3 (4.4-11.0)
[2017-11-10 05:31] LABS: POSITIVE COUNT NO; POSITIVE DIFFERENTIAL NO; POSITIVE MORPHOLOGY NO
[2017-11-10 05:52] LABS: ALB/GLOB Ratio 0.6 RATIO (0.9-2.4); AST(SGOT) 325 U/L (15-37); Alanine Aminotransfer ALT/SGPT 497 U/L (12-78); Albumin, Serum 2.2 g/dL (3.4-5.0); Alkaline Phosphatase 115 U/L (45-117); Anion Gap 5 (5-15); BUN 11 mg/dL (7-18); BUN/Creat Ratio 17.5 RATIO (10-20); Calcium,Total 8.3 mg/dL (8.5-10.1); Chloride 102 mmol/L (98-107); Creatinine, Serum 0.63 mg/dL (0.70-1.30); EST Glomerular Filtration Rate 136 mL/min (>60); Est Glom Filt Rate - Afr Amer 165 mL/min (>60); Estimated Creatinine Clearance 118.58 ml/min; Globulin 3.9 g/dL (2.2-4.2); Glucose 165 mg/dL (70-110); Lipase 8633 U/L (73-393); Potassium 3.5 mmol/L (3.5-5.1); Protein, Total 6.1 g/dL (6.4-8.2); Sodium Level 141 mmol/L (136-145)
[2017-11-10 07:16] LABS: Bedside Glucose 149 mg/dL (70-110)
[2017-11-10] MEDS: Divalproex (ER) 500 MG Tablet PO (08:51)
[2017-11-10] MEDS: Furosemide 20 MG/2 ML VIAL IV (08:52)
[2017-11-10 11:17] LABS: Bedside Glucose 202 mg/dL (70-110)
[2017-11-10] MEDS: Senna/Docusate Sodium 1 Tablet 2 TABLET PO ×2 (14:43→21:19)
[2017-11-10 16:46] LABS: Bedside Glucose 231 mg/dL (70-110)
--- NOTE | 2017-11-10 18:33 | NURSING ---
REVIEWED AND AGREED WRamon MADRIGAL'S CHARTING.
[2017-11-10] MEDS: Ipratropium/Albuterol Sulfate 3 ML AMPUL.NEB INHALATION (18:57)
[2017-11-10 22:21] LABS: Bedside Glucose 253 mg/dL (70-110)
[2017-11-11] MEDS: Bisacodyl 10 MG Suppository RECTAL (02:39)
[2017-11-11 02:57] VITALS: PULSE 62
[2017-11-11 04:40] VITALS: BP 138/73; PULSE 82; RESP 18; TEMP 36.9; O2SAT 96
[2017-11-11] MEDS: Levothyroxine 25 MCG TABLET PO (05:43)
[2017-11-11] MEDS: Heparin Injection 5,000 UNITS/ML Syringe 5000 UNITS SC (05:43)
[2017-11-11 06:56] LABS: Bedside Glucose 178 mg/dL (70-110)
[2017-11-11 07:08] VITALS: PULSE 74
[2017-11-11 07:50] LABS: Absolute Neutrophil Count 4.2 X10^3/uL (2.0-7.7); Basophil# 0.02 X10^3/uL; Basophil% 0.3 % (0-1); Eosinophil# 0.24 X10^3/uL; Eosinophils% 3.6 % (0-5); Hematocrit 35.6 % (40-54); Hemoglobin 11.6 g/dl (13.0-16.5); Lymphocyte % 19.5 % (19-41); Mean Corp Hgb Conc 32.6 g/gl (32-36); Mean Corpuscular Volume 95.2 fL (80-94); Mean Platelet Vol. 10.1 fl (6.2-12.0); Monocyte% 13.5 % (0-10); Neutrophil # 4.19 X10^3/uL (2.7-7.7); Neutrophil % 62.8 % (47-70); Platelet Count 350 K/mm3 (150-450); RBC Distribution Width CV 13.5 % (11.6-14.6); RBC Distribution Width SD 44.4 fl (35.1-43.9); Red Blood Count 3.74 M/mm3 (4.6-6.2); White Blood Count 6.7 K/mm3 (4.4-11.0)
[2017-11-11 08:00] LABS: ALB/GLOB Ratio 0.6 RATIO (0.9-2.4); AST(SGOT) 190 U/L (15-37); Alanine Aminotransfer ALT/SGPT 357 U/L (12-78); Albumin, Serum 2.2 g/dL (3.4-5.0); Alkaline Phosphatase 125 U/L (45-117); Anion Gap 7 (5-15); BUN 9 mg/dL (7-18); BUN/Creat Ratio 13.8 RATIO (10-20); Calcium,Total 8.4 mg/dL (8.5-10.1); Chloride 104 mmol/L (98-107); Creatinine, Serum 0.65 mg/dL (0.70-1.30); EST Glomerular Filtration Rate 132 mL/min (>60); Est Glom Filt Rate - Afr Amer 159 mL/min (>60); Estimated Creatinine Clearance 114.93 ml/min; Globulin 3.8 g/dL (2.2-4.2); Glucose 161 mg/dL (70-110); Lipase 15002 U/L (73-393); Potassium 3.3 mmol/L (3.5-5.1); Sodium Level 144 mmol/L (136-145)
[2017-11-11 08:12] LABS: POSITIVE COUNT NO; POSITIVE DIFFERENTIAL NO; POSITIVE MORPHOLOGY NO
[2017-11-11] MEDS: Divalproex (ER) 500 MG Tablet PO (08:18)
[2017-11-11] MEDS: Senna/Docusate Sodium 1 Tablet 2 TABLET PO (08:18)
[2017-11-11] MEDS: Furosemide 20 MG Tablet PO (08:18)
[2017-11-11 08:26] VITALS: RESP 18
[2017-11-11 10:23] VITALS: BP 136/86; PULSE 80; RESP 18; TEMP 36.4; O2SAT 94
--- NOTE | 2017-11-11 10:54 | PCM.DC ---
- Discharge Diagnoses Current Active Problems: Current Active and Chronic Problems (Last Reviewed 10/24/17 @ 13:17 by Kizzy Sena) Mass of pancreas (Acute) DVT prophylaxis (Acute) Anemia (Acute) Reason(s) for Visit for Discharge Instructions: Abdominal pain You will use the following diet at home:: Calorie/Carbohydrate Controlled (specify 1200, 1400, etc), Cardiac Your food should be the consistency of: Regular Your liquids should be the consistency of: Regular/Thin Discharge Activity: Return to Normal Activity Additional Instructions: Please make sure you wear your oxygen all the time. You need to follow-up with your oncologist tomorrow. Allergies/Adverse Reactions: Allergies morphine Allergy (Verified 11/05/17 12:47) Swelling Medications to take at Discharge Atorvastatin Calcium 40 mg PO QHS 09/16/17 Divalproex Sodium [Depakote ER] 500 mg PO DAILY 09/16/17 Levothyroxine [Synthroid] 25 mcg PO DAILY 09/16/17 Metformin HCl [Glucophage] 500 mg PO BID 09/16/17 acetaminophen 300 mg-codeine 30 mg tablet 1 tab PO TID PRN 10/15/17 Albuterol Aerosols [Ventolin Aerosols] 2.5 mg INHALATION Q6H 10/25/17 Butalb/Acetaminophen/Caffeine [Jlyvsh-Tlslkezt-Haeu 50-300-40] 1 each PO PRN PRN 10/25/17 Divalproex Sodium [Depakote] 1,000 mg PO QHS 10/25/17 Senna [Senokot] 1 tablet PO DAILY PRN 10/25/17 Acetaminophen/Codeine #3 [Tylenol #3 Tablet] 1 tab PO Q4H PRN PRN #30 tab 10/27/17 Bisacodyl [Dulcolax] 10 mg RECTAL DAILY #30 suppos. 11/11/17 Furosemide [Lasix] 20 mg PO DAILY #30 tab 11/11/17 The following prescriptions were given: Bisacodyl [Dulcolax] 10 mg RECTAL DAILY #30 suppos. Furosemide [Lasix] 20 mg PO DAILY #30 tab Primary Care Physician: Last Aguilar Chi, MD [Primary Care Provider] - Please follow up with your Primary Care Physician in: within 2 weeks of discharge Please Follow Up With: Gisell Betancourt MD When: Tomorrow, Sunday11/12/17 in outaptient Proposed Discharge Date: 11/09/17
--- NOTE | 2017-11-11 10:57 | DCINST_ITS ---
- Discharge Diagnoses Current Active Problems: Current Active and Chronic Problems (Last Reviewed 10/24/17 @ 13:17 by Kizzy Sena) Mass of pancreas (Acute) DVT prophylaxis (Acute) Anemia (Acute) Reason(s) for Visit for Discharge Instructions: Abdominal pain You will use the following diet at home:: Calorie/Carbohydrate Controlled ( specify 1200, 1400, etc), Cardiac Your food should be the consistency of: Regular Your liquids should be the consistency of: Regular/Thin Discharge Activity: Return to Normal Activity Additional Instructions: Please make sure you wear your oxygen all the time. You need to follow-up with your oncologist tomorrow. Allergies/Adverse Reactions: Allergies morphine Allergy (Verified 11/05/17 12:47) Swelling Medications to take at Discharge Atorvastatin Calcium 40 mg PO QHS 09/16/17 Divalproex Sodium [Depakote ER] 500 mg PO DAILY 09/16/17 Levothyroxine [Synthroid] 25 mcg PO DAILY 09/16/17 Metformin HCl [Glucophage] 500 mg PO BID 09/16/17 acetaminophen 300 mg-codeine 30 mg tablet 1 tab PO TID PRN 10/15/17 Albuterol Aerosols [Ventolin Aerosols] 2.5 mg INHALATION Q6H 10/25/17 Butalb/Acetaminophen/Caffeine [Yrmykm-Mnjekbmy-Wzix 50-300-40] 1 each PO PRN PRN 10/25/17 Divalproex Sodium [Depakote] 1,000 mg PO QHS 10/25/17 Senna [Senokot] 1 tablet PO DAILY PRN 10/25/17 Acetaminophen/Codeine #3 [Tylenol #3 Tablet] 1 tab PO Q4H PRN PRN #30 tab Bisacodyl [Dulcolax] 10 mg RECTAL DAILY #30 suppos. 11/11/17 Furosemide [Lasix] 20 mg PO DAILY #30 tab 11/11/17 The following prescriptions were given: Bisacodyl [Dulcolax] 10 mg RECTAL DAILY #30 suppos. Furosemide [Lasix] 20 mg PO DAILY #30 tab Primary Care Physician: Last Aguilar Chi, MD [Primary Care Provider] - Please follow up with your Primary Care Physician in: within 2 weeks of discharge Please Follow Up With: Gisell Betancourt MD When: Tomorrow, Sunday11/12/17 in outaptient Proposed Discharge Date: 11/09/17
--- NOTE | 2017-11-11 10:57 | PCM.DC.SUM ---
Discharge Date and Diagnosis Date of Admission: 11/05/17 Date of Discharge: 11/11/17 - Primary Discharge Diagnosis Active and Suspected Problems (Last Reviewed 10/24/17 @ 13:17 by Kizzy Sena) Mass of pancreas (Acute) DVT prophylaxis (Acute) Anemia (Acute) - Secondary Discharge Diagnosis Chronic Problems (Last Reviewed 10/24/17 @ 13:17 by Kizzy Sena) Diabetes mellitus, type II (Chronic) COPD (chronic obstructive pulmonary disease) (Chronic) History of tobacco use (Chronic) Migraine (Chronic) Crohns disease (Chronic) History of TIA (transient ischemic attack) (Chronic) Hypothyroidism (Chronic) Small cell lung cancer (Chronic) ALEC 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) Hospital Course and Treatment Imaging Results: Clinical Impression(s) from Imaging Studies Abdomen/Pelvis CT 11/05/17 13:22 IMPRESSION: Findings most consistent with acute pancreatitis. Correlate with liver function enzymes. Cannot exclude mass in the head of the pancreas. Secondary duodenitis. Increasing size of malignant mass of the left adrenal gland. Electronically Signed: Pilo Huizar MD at 16:37 EST , Service support , Chest X-Ray 11/07/17 08:51 IMPRESSION: 1. Persistent left perihilar mass and hilar prominence unchanged from prior study. 2. Increased diffuse interstitial changes. Electronically Signed: Flavio Hurley DO at 12:32 EST Tel [phone], Service support , Liver Ultrasound 11/08/17 07:37 IMPRESSION: Diffuse fatty infiltration of the liver. The patient is status post cholecystectomy. Electronically Signed: Dale Salazar MD at 11:05 EST Tel [phone], Service support , [employer] Operations: None Procedures: 2-D Echocardiogram Summary of Care Provided: 61 y/o M with PMHx of Chronic COPD, Diabetes mellitus type II, Crohn's disease, hypothyroidism, 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 1. Hypotension developed during the hospital stay, likely related to dehydration, less likely to sepsis, resolved 2. Acute on chronic hypoxic respiratory insufficiency in a patient with metastatic lung cancer, secondary to fluid overload, 2D echo done yesterday shows EF of 65%, RVSP was 43% , remains on 2 L of oxygen, which appears to be his home oxygen level. Patient has chronic hypoxic respiratory failure, supposed to be on 2 L of oxygen, but does not wear the oxygen at home, admitted with acute on chronic hypoxic respiratory failure, increased to 4 L during this hospital stay with occasional use of Ventimask. Patient was saturating at 86% on room air, improved to 92-94% on 2L oxygen, qualified for home oxygen. 3. Acute pancreatitis/duodenitis, clinically improved, lipase was 8848 on admission, improved, elevated later on to 15,002. This is likely secondary to new mass in pancreas. 4. Elevated liver function tests, ultrasound of the liver shows diffuse fatty infiltration 5. Elevated troponins likely secondary to demand ischemia, patient is asymptomatic, will continue to monitor 6. Small cell lung cancer with metastatic disease to L adrenal and omentum with regional lymph involvement, chemotherapy has been deferred until this acute event is over, will follow-up with oncology in the outpatient 7. Diabetes mellitus type II, blood sugars are fairly controlled, metformin resumed on discharged. 8. Hypothyroidism, on synthroid 9. Hx TIA, on asa, statin, 10. Crohn's Disease 11. Severe malnutrition with severe suboptimal intake and weight loss, house mover consulted, will add nutritional supplements when able to Discharge Diet: Low fat/ Low Cholesterol, 6 Cup Fluid Restriction, 2000 mg Sodium Diet Discharge Activity: Return to Normal Activity Home Medications: Medications to take at Discharge Atorvastatin Calcium 40 mg PO QHS 09/16/17 Divalproex Sodium [Depakote ER] 500 mg PO DAILY 09/16/17 Levothyroxine [Synthroid] 25 mcg PO DAILY 09/16/17 Metformin HCl [Glucophage] 500 mg PO BID 09/16/17 acetaminophen 300 mg-codeine 30 mg tablet 1 tab PO TID PRN 10/15/17 Albuterol Aerosols [Ventolin Aerosols] 2.5 mg INHALATION Q6H 10/25/17 Butalb/Acetaminophen/Caffeine [Fhvkth-Fvetaglj-Hcwq 50-300-40] 1 each PO PRN PRN 10/25/17 Divalproex Sodium [Depakote] 1,000 mg PO QHS 10/25/17 Senna [Senokot] 1 tablet PO DAILY PRN 10/25/17 Acetaminophen/Codeine #3 [Tylenol #3 Tablet] 1 tab PO Q4H PRN PRN #30 tab 10/27/17 Bisacodyl [Dulcolax] 10 mg RECTAL DAILY #30 suppos. 11/11/17 Furosemide [Lasix] 20 mg PO DAILY #30 tab 11/11/17 Following Prescrptions Were Given to Patient: Bisacodyl [Dulcolax] 10 mg RECTAL DAILY #30 suppos. Furosemide [Lasix] 20 mg PO DAILY #30 tab Primary Care Physician: Last Aguilar Chi, MD [Primary Care Provider] - Please follow up with your Primary Care Physician in: within 2 weeks of discharge Please Follow Up With: Gisell Betancourt MD When: Tomorrow, Sunday11/12/17 in outaptient Disposition: Home Minutes spent on discharge:: 25 Patient Condition:: Stable Meaningful Use Info Meaningful Use Diagnoses (Choose all that apply): None applicable Code Visit Inpatient E&M: 88827 Subs Hosp L2
[2017-11-11 11:05] VITALS: O2SAT 86; O2SAT 92
--- NOTE | 2017-11-12 10:16 | CASEMGMT ---
This JANEL ROGERS received call on 11/11/17, patient was being discharged with continuous home oxygen. Patient reported he had previously been on intermittent oxygen at home, but did have portable tanks and a concentrator at home. Patient's family brought tank to hospital for patient discharge. JANEL ROGERS called [facility] this morning, 11/12/16, at 1012, to confirm patient's oxygen orders prior to admission. Per Patricia, patient had a current order for continuous home O2 with portability prior to admission to the hospital, has portable tanks, and home concentrator. Nursing staff did fax new home oxygen testing results, order, and documentation to [facility] on Sunday11/11/17, just in case the patient didn't have continuous oxygen ordered. Since patient already had the appropriate orders, no new services will be initiated by [facility].
== END 2017-11-11 12:35 | disposition home or self-care (01) | DRG 438 ==
LOC: ED 13:24 → MS3 17:23 → ICU 11-09 10:36 → PCU 11-09 10:36
PROVIDERS: Internal Medicine Critical Care Medicine; Admitting Provider Family Medicine; Emergency Provider Emergency Medicine; Family Provider Family Medicine Geriatric Medicine; PCP Family Medicine Geriatric Medicine; Visit Provider Internal Medicine
DX: K85.90 Acute pancreatitis without necrosis or infection, unspecified (principal); J96.21 Acute and chronic respiratory failure with hypoxia; E43 Unspecified severe protein-calorie malnutrition; C77.9 Secondary and unspecified malignant neoplasm of lymph node, unspecified; C79.72 Secondary malignant neoplasm of left adrenal gland; C78.89 Secondary malignant neoplasm of other digestive organs; K50.90 Crohn's disease, unspecified, without complications; I24.8 Other forms of acute ischemic heart disease; C34.12 Malignant neoplasm of upper lobe, left bronchus or lung; Z99.81 Dependence on supplemental oxygen; J44.9 Chronic obstructive pulmonary disease, unspecified; E03.9 Hypothyroidism, unspecified; E11.9 Type 2 diabetes mellitus without complications; G43.909 Migraine, unspecified, not intractable, without status migrainosus; K29.80 Duodenitis without bleeding; D64.9 Anemia, unspecified; Z68.22 Body mass index [BMI] 22.0-22.9, adult; Z86.73 Personal history of transient ischemic attack (TIA), and cerebral infarction without residual deficits; Z79.84 Long term (current) use of oral hypoglycemic drugs; Z79.899 Other long term (current) drug therapy; Z87.891 Personal history of nicotine dependence; Z90.49 Acquired absence of other specified parts of digestive tract; E78.5 Hyperlipidemia, unspecified
CPT/HCPCS: 36415; 36600; 71045; 74177; 76705; 80053; 81001; 82803; 82962; 83690; 83735; 83880; 84100; 84443; 84484; 85025; 87040; 87086; 87088; 87641; 87804; 93005; 93306; 94640; 99282; J7030; Q9967; A4216; J1940; J2405; J3490

== ENCOUNTER → 2017-12-10 12:59 | Outpatient (CLI) | payer MEDICARE, SELFPAY ==
[2017-12-10 09:41] VITALS: BP 150/87
[2017-12-10 14:02] LABS: Amphetamine Urine VISTA NEGATIVE (<1000 ng/mL); Barbiturate Urine VISTA NEGATIVE (< 200 ng/mL); Benzodiazepine Urine VISTA NEGATIVE (< 200 ng/mL); Cocaine Urine VISTA NEGATIVE (< 300 ng/mL); Ecstacy Urine VISTA NEGATIVE (< 500 ng/mL); Methadone Urine VISTA NEGATIVE (< 300 ng/mL); PCP Urine VISTA NEGATIVE (< 25 ng/mL); THC Urine VISTA NEGATIVE (< 50 ng/mL); Vista UDS pH Range 6
== END ==
PROVIDERS: Family Provider Family Medicine Geriatric Medicine; PCP Family Medicine Geriatric Medicine; Visit Provider Anesthesiology Pain Medicine
DX: F11.20 Opioid dependence, uncomplicated (principal)
CPT/HCPCS: 80307

== ENCOUNTER 2017-12-12 17:11 | Inpatient (IN) | payer MEDICARE, SELFPAY ==
[2017-12-10 09:41] VITALS: BP 150/87
[2017-12-12] VITALS (8 sets, daily range): BP systolic 95–133; BP diastolic 59–89; PULSE 105–115; RESP 16–21; TEMP 36.1–37.2; O2SAT 94–97; BMI 23.1; BMI 21.0; BMI 21.9
--- NOTE | 2017-12-12 17:37 | EKG12_ITS ---
Test Reason : CP Blood Pressure : / mmHG Vent. Rate : 102 BPM Atrial Rate : 102 BPM P-R Int : 134 ms QRS Dur : 072 ms QT Int : 326 ms P-R-T Axes : 032 028 041 degrees QTc Int : 424 ms Sinus tachycardia Otherwise normal ECG Confirmed by PIOTR CORNELL, JUSTICE ([id number]), news editor ANTHONY TEIXEIRA ([id number]) on 12/14/2017 2:22:55 PM Referred By: ASHLEE Confirmed By:JUSTICE SALDAÑA MD
--- NOTE | 2017-12-12 17:42 | ED.VISSUMM ---
- ER Visit Summary Date of Service: 12/12/17 Chief Complaint: Palpitations History of Present Illness: The patient is a 62 M presenting with palpitations. Patient states he was standing and suddenly felt near syncopal with his heart racing. He denies chest pain. Complains of shortness of breath. EMS was called. He was given adenosine. His heart rate went from 160-190s to a flutter to sinus tachycardia per EMS. He is currently on chemotherapy for history of small cell lung cancer. He had a recent admission for pancreatitis. He states these symptoms have improved. Denies history of previous arrhythmias. Physical Examination: Vitals are stable. Patient is afebrile. Alert no acute distress. HEENT exam is unremarkable. Neck is supple. Lungs are clear and equal bilaterally. Heart is regular and tachycardic. Abdomen is soft nontender nondistended. Extremities are unremarkable. Skin is warm and dry. No focal neurologic deficit. Remainder of exam is unremarkable. Emergency Department Course and Treatment: EKG is sinus tachycardia rate of 102. He was given IV fluids. CBC normal except for hemoglobin 10.9. Chemistry normal except for glucose 62, BUN 28. Troponin is negative. D-dimer is elevated 0.55. TSH is normal. Due to elevated d-dimer, CTA chest was obtained and shows no PE or dissection, Reduced middle mediastinal adenopathy. Inferior right hilar adenopathy with 9 and 12 mm lymph nodes. Stable marked left hilar adenopathy. Some change in the anterior left upper lobe mass which appears somewhat retracted from the pleura but appears to have expanded on its anterior medial and posterior medial borders. More generalized confluent and interstitial infiltrate present throughout the left upper lobe and lingula. Underlying emphysematous and chronic interstitial changes bilaterally. Negative for substantial pleural effusion. Increased size of the left adrenal mass partly included in the [id number] on [id number]-[id number] comparison. Multiple subcentimeter hypodensities of the liver of indeterminate etiology. One possible hemangioma. In the emergency department patient's heart rate intermittently goes into the 160s-180s. He is able to break this with vagal maneuvers. He was ordered IV Cardizem. Discussed with Dr. Shaw for admission. Disposition: Admission Impression: SVT This note was generated with [employer] dictation software. It may contain incorrect words, spelling, and punctuation that were not noted in review of the chart prior to signing ED Disposition - Plan for ED Patient: Disposition: Acute [facility] Chief Complaint: Palpitations
--- NOTE | 2017-12-12 17:45 | ED.DCSUM_ITS ---
- ER Visit Summary Date of Service: 12/12/17 Chief Complaint: Palpitations History of Present Illness: The patient is a 62 M presenting with palpitations. Patient states he was standing and suddenly felt near syncopal with his heart racing. He denies chest pain. Complains of shortness of breath. EMS was called. He was given adenosine. His heart rate went from 160-190s to a flutter to sinus tachycardia per EMS. He is currently on chemotherapy for history of small cell lung cancer. He had a recent admission for pancreatitis. He states these symptoms have improved. Denies history of previous arrhythmias. Physical Examination: Vitals are stable. Patient is afebrile. Alert no acute distress. HEENT exam is unremarkable. Neck is supple. Lungs are clear and equal bilaterally. Heart is regular and tachycardic. Abdomen is soft nontender nondistended. Extremities are unremarkable. Skin is warm and dry. No focal neurologic deficit. Remainder of exam is unremarkable. Emergency Department Course and Treatment: EKG is sinus tachycardia rate of 102. He was given IV fluids. CBC normal except for hemoglobin 10.9. Chemistry normal except for glucose 62, BUN 28. Troponin is negative. D-dimer is elevated 0.55. TSH is normal. Due to elevated d-dimer, CTA chest was obtained and shows no PE or dissection, Reduced middle mediastinal adenopathy. Inferior right hilar adenopathy with 9 and 12 mm lymph nodes. Stable marked left hilar adenopathy. Some change in the anterior left upper lobe mass which appears somewhat retracted from the pleura but appears to have expanded on its anterior medial and posterior medial borders. More generalized confluent and interstitial infiltrate present throughout the left upper lobe and lingula. Underlying emphysematous and chronic interstitial changes bilaterally. Negative for substantial pleural effusion. Increased size of the left adrenal mass partly included in the [id number] on kitc-bo-hyzw comparison. Multiple subcentimeter hypodensities of the liver of indeterminate etiology. One possible hemangioma. In the emergency department patient's heart rate intermittently goes into the 160s-180s. He is able to break this with vagal maneuvers. He was ordered IV Cardizem. Discussed with Dr. Shaw for admission. Disposition: Admission Impression: SVT This note was generated with [employer] dictation software. It may contain incorrect words, spelling, and punctuation that were not noted in review of the chart prior to signing ED Disposition - Plan for ED Patient: Disposition: Acute [facility] Chief Complaint: Palpitations
[2017-12-12] MEDS: 0.9% Normal Saline 1,000 ML 1000 ML IV (17:56)
--- NOTE | 2017-12-12 18:05 | RAD_ITS ---
STUDY: X-RAY CHEST REASON FOR EXAM: Male, 62 years old. Presents with SVT. TECHNIQUE: Single AP portable view of the chest. COMPARISON: Prior chest radiograph of November 07, 2017. FINDINGS: Port-A-Cath remains ending in the mid to distal superior vena cava. The lung toscano remain well expanded allowing for a mild chronic elevation of the right diaphragm. The extensive left-sided pulmonary infiltrates are improving now consisting mostly of asymmetric densities above and lateral to the left hilum and a longer linear opacity extending into the lingula and retrocardiac left lung base. Normal size heart. Normal mediastinum and rubina. Normal visualized pulmonary arteries. Normal visualized aortic arch and descending thoracic aorta. Normal visualized ribs, clavicles, and shoulders. There is no demonstrated abnormality of the visualized soft tissue structures of the upper abdomen. RAD/Chest 1 View (Portable) IMPRESSION: Improving generalized infiltrate of the left lung with residual perihilar and lower lung zone findings as described above. Negative for new consolidation, focal atelectasis or a substantial pleural effusion. Mild chronic elevation of the right diaphragm. Negative for new infiltrates, volume loss or pleural effusion. Electronically Signed: Dionne Blanco MD at 18:26 EST , Service support ,
[2017-12-12 18:31] LABS: Absolute Lymphocyte Count 1.23 X10^3/ul (0.83-4.51); Absolute Neutrophil Count 8.3 X10^3/uL (2.0-7.7); Basophil# 0.03 X10^3/uL; Basophil% 0.3 % (0-1); Eosinophil# 0.01 X10^3/uL; Eosinophils% 0.1 % (0-5); Hematocrit 34.3 % (40-54); Hemoglobin 10.9 g/dl (13.0-16.5); Lymphocyte # 1.23 X10^3/ul (4.0); Lymphocyte % 11.8 % (19-41); Mean Corp Hgb Conc 31.8 g/gl (32-36); Mean Corpuscular Hgb 30.7 pg (27.0-32.0); Mean Corpuscular Volume 96.6 fL (80-94); Mean Platelet Vol. 9.8 fl (6.2-12.0); Monocyte# 0.85 X10^3/uL; Monocyte% 8.1 % (0-10); Neutrophil # 8.29 X10^3/uL (2.7-7.7); Neutrophil % 79.3 % (47-70); Platelet Count 498 K/mm3 (150-450); RBC Distribution Width CV 16.8 % (11.6-14.6); RBC Distribution Width SD 58.5 fl (35.1-43.9); Red Blood Count 3.55 M/mm3 (4.6-6.2); White Blood Count 10.5 K/mm3 (4.4-11.0)
[2017-12-12 18:38] LABS: POSITIVE COUNT NO; POSITIVE DIFFERENTIAL NO; POSITIVE MORPHOLOGY NO
[2017-12-12 18:46] LABS: Anion Gap 9 (5-15); BUN 28 mg/dL (7-18); BUN/Creat Ratio 34.3 RATIO (10-20); Calcium,Total 8.4 mg/dL (8.5-10.1); Chloride 106 mmol/L (98-107); Creatinine, Serum 0.82 mg/dL (0.70-1.30); EST Glomerular Filtration Rate 101 mL/min (>60); Est Glom Filt Rate - Afr Amer 122 mL/min (>60); Estimated Creatinine Clearance 91.01 ml/min; Glucose 62 mg/dL (74-106); Potassium 3.8 mmol/L (3.5-5.1); Sodium Level 142 mmol/L (136-145); Thyroid Stim Hormone (TSH) 2.01 uIU/mL (0.358-3.74)
[2017-12-12 18:47] LABS: D-Dimer Quantitative (DVT/PE) 0.55 FEU/ug/m (0.27-0.49)
--- NOTE | 2017-12-12 18:48 | CT_ITS ---
STUDY: CTA CHEST REASON FOR EXAM: Male, 62 years old. Elevated d-dimer. History of lung cancer. RADIATION DOSAGE (If Supplied By Facility): CTDIvol = ( 13.18 ) mGy, DLP = ( 659.29 ) mGycm TECHNIQUE: The examination was performed with the intravenous administration of 75 ml of Isovue 370 contrast material. Post-processing of the angiographic images was performed, with multiplanar reformation and 3D reconstruction. Individualized dose optimization techniques were used for this CT. COMPARISON: Prior chest CT exam of September 17, 2017. PET scan October 08, 2017 FINDINGS: Normal enhancement of the main pulmonary artery and right and left pulmonary arteries. Normal enhancement of the bilateral peripheral pulmonary arteries. There is no demonstrated pulmonary embolism. There is atherosclerotic tortuosity of the aortic arch and descending thoracic aorta. There is no demonstrated aortic dissection. Normal heart and pericardium. Diminished size of mediastinal lymph nodes. 9 in 12 mm lymph nodes of the inferior right hilum. Continued left hilar adenopathy probably increased from the prior noncontrast study. The mass of the left upper lobe is somewhat retracted in one dimension but appears to have expanded into confluent opacities anterior medially and posteriorly laterally. In addition there is considerably more diffuse interstitial changes present throughout the left upper lobe and lingula superimposed on extensive emphysematous changes. Negative for substantial pleural effusion. Diffuse emphysematous and interstitial changes throughout the remainder of the lung toscano. Azygos lobe. Bilateral apical bulla. Normal chest wall structures. There are degenerative changes of thoracic spine. Left adrenal mass partially included in the field of view measures 4.1 x 2.5 x 2.6 cm appearing increased in size on becn-hs-hekf comparison to the PET scan of October 08, 2017. Numerous scattered low-density liver lesions of indeterminate etiology secondary to size. Enhancing lesion in the medial right liver lobe, images 60 through [address]/CTA Chest W/WO Contrast IMPRESSION: Negative for pulmonary embolus. Negative for aortic dissection. Reduced middle mediastinal adenopathy. Inferior right hilar adenopathy with 9 and 12 mm lymph nodes. Stable marked left hilar adenopathy. Some change in the anterior left upper lobe mass which appears somewhat retracted from the pleura but appears to have expanded on its anterior medial and posterior medial borders. More generalized confluent and interstitial infiltrate present throughout the left upper lobe and lingula. Underlying emphysematous and chronic interstitial changes bilaterally. Negative for substantial pleural effusion. Increased size of the left adrenal mass partly included in the [id number]-gl-[id number] on kmit-qq-sibt comparison. Multiple subcentimeter hypodensities of the liver of indeterminate etiology. One possible hemangioma. Electronically Signed: Dionne Blanco MD at 19:46 EST , Service support ,
--- NOTE | 2017-12-12 19:46 | ED.RN ---
PATIENT CONVERTED BACK INTO SVT. DR. RODRIGUEZ MADE AWARE. NO NEW ORDERS AT THIS TIME PATIENTS HR 173
--- NOTE | 2017-12-12 20:02 | ED.RN ---
DR RODRIGUEZ AWARE HEART RATE 178 AND SUSTAINING.
[2017-12-12] MEDS: dilTIAZem 25 MG/5 ML Vial 20 MG IV BOLUS (20:27)
--- NOTE | 2017-12-12 20:33 | ED.RN ---
PRIOR TO GIVEN THE CARDIZEM,INFORMED DR RODRIGUEZ THAT THE PT'S HEART RATE 110'S NOW.INSTRUCTED TO GIVE MED.DR ERICKSON AT THE BEDSIDE AND HE INSTRUCTED TO GIVE 10MG AND RECHECK.
--- NOTE | 2017-12-12 21:04 | ED.RN ---
DR RODRIGUEZ AWARE OF DR ERICKSON ORDER TO GIVE ONLY 10MG,WILL HOLD THE OTHER 10MG BECAUSE BP 95/65.
--- NOTE | 2017-12-12 21:12 | PCM.CONS.C ---
Reason for Consult Date of Consultation: 12/12/17 Reason for Consultation: Fast heart rate History of Present Illness: The patient is a 62 year old M no previous cardiac history who has been recently diagnosed with lung carcinoma receiving chemotherapy. He says that this evening he took his usual oral chemotherapeutic dose and then started feeling funny and warm with a mild tightness in his chest. He has a pulse oximeter which he put on his finger as well as a blood pressure cuff and he noted that his heart rate was going up to the 180s. He got concerned about this and so called the emergency medical squad who brought him to the emergency room. On presentation he was noted to be in a sinus tachycardia with intermittent periods with his heart rate going up to approximately 160 bpm with a narrow complex tachycardia. He was given 10 mg of intravenous Cardizem I was called for further evaluation and management. He denies any previous chest discomfort no shortness of breath or paroxysmal nocturnal dyspnea. He has had no neck arm or jaw discomfort to suggest angina. [] Past Medical History Allergies/Adverse Reactions: Allergies morphine Allergy (Severe, Verified 12/12/17 17:17) Swelling hydromorphone [From Dilaudid] Adverse Reaction (Severe, Verified 12/12/17 17:17) Other HEAD-ACHE SEVERE Home Medications: Ambulatory Orders Medication Instructions Recorded Atorvastatin Calcium 40 mg PO QHS 09/16/17 Divalproex Sodium [Depakote ER] 500 mg PO DAILY 09/16/17 Levothyroxine [Synthroid] 25 mcg PO DAILY 09/16/17 Metformin HCl [Glucophage] 1,000 mg PO BID 09/16/17 Albuterol Aerosols [Ventolin 2.5 mg INHALATION Q6H 10/25/17 Aerosols] Divalproex Sodium [Depakote] 1,000 mg PO QHS 10/25/17 Senna [Senokot] 1 tab PO BID 10/25/17 Furosemide [Lasix] 20 mg PO DAILY #30 tab 11/11/17 Ondansetron HCl [Zofran] 4 mg PO Q8H PRN PRN 10 Days #30 tab 12/11/17 Cyanocobalamin (Vitamin B-12) 500 mcg PO DAILY 12/12/17 [Vitamin B-12] Fentanyl [Duragesic] 12 mcg TRANSDERM. Q3D 12/12/17 Hydrocodone/Acetaminophen [[place] 1 each PO BID 12/12/17 5-325 Tablet] Past Medical History (Chronic Problems): Chronic Problems (Last Reviewed 12/10/17 @ 09:38 by Kizzy Sena) Small cell lung cancer (Chronic) 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) Diabetes mellitus, type II (Chronic) COPD (chronic obstructive pulmonary disease) (Chronic) History of tobacco use (Chronic) Migraine (Chronic) Crohns disease (Chronic) History of TIA (transient ischemic attack) (Chronic) Hypothyroidism (Chronic) Surgical History: - - Cholecystectomy, appendectomy, colonic resection for Crohn's disease as well as for diverticulitis, left thumb surgery, several hernia repairs (8 total noted per patient), LNDx Bx, Port placement. Psychiatric History: Anxiety, Bipolar, Depression - *Family History Maternal Family History: Family History (Last Reviewed 12/10/17 @ 09:38 by Kizzy Sena) Father CAD (coronary artery disease) Mesothelioma Grandfather Leukemia Brother Throat cancer History Items: No pertinent history Paternal Family History: Family History (Last Reviewed 12/10/17 @ 09:38 by Kizzy Sena) Father CAD (coronary artery disease) Mesothelioma Grandfather Leukemia Brother Throat cancer History Items: No pertinent history Lives: Spouse/ Significant Other Smoking Status: Former smoker Alcohol: None Drugs: None Review of Systems - Review of Systems General: Denies: Fever, Night Sweats, Fatigue Cardiovascular: Reports: Palpitations, Lightheadedness. Denies: Chest Discomfort, Shortness of Breath, Orthopnea, PND, Peripheral Edema, Dizziness, Near Syncope, Syncope Respiratory: Denies: Cough, Sputum Production, Hemoptysis Gastrointestinal: Denies: Hematemesis, Hematochezia, Melena Genitourinary: Denies: Dysuria, Hematuria Muscoloskeletal: Reports: Back Pain Skin: Denies: Rash Subjectve: Pleasant gentleman in no apparent distress at this time Objective: Vital Signs Temp Pulse Resp BP Pulse Ox 98.0 F 105 H 20 H 95/65 94 12/12/17 20:38 12/12/17 20:38 12/12/17 20:38 12/12/17 20:38 12/12/17 20:38 General: Awake, Alert, Oriented x 3 HEENT: PERRL, EOMI, Sclera Non Icteric Neck: Supple, Good ROM, No Lymph Node Enlargement Chest Wall: - - Right sided port Lungs: Clear to auscultation Cardiovascular: Regular Rhythm, Normal S1, Normal S2, No Murmurs, No Rubs, No Gallops Vascular: No Carotid Bruits, Normal Femoral Pulses, Normal Radial Pulses, Normal Dorsalis Pedal Pulse, Normal Posterior Tibial Pulses Abdomen: Bowel Sounds Present, Soft, Non Tender, No HSM, No Organomegaly Extremities: No Cyanosis, No Clubbing, No edema Neurological: No Focal Motor or Sensory Deficit Psych/Mental Status: Appropriate Rhythm: Sinus rhythm with intermittent periods of narrow complex tachycardia with a rate of approximately 160 bpm 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 EKG: Sinus tachycardia with a rate of [address] Scan: No evidence of pulmonary embolism or dissection noted, and no pericardial effusion Assessment/Plan 1. 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 It is not clear whether the above is secondary to metastatic disease or intrinsic. Also not sure whether his chemotherapeutic agents may have induced the above though this is unlikely. My recommendation at this time would be to obtain an echocardiogram to assess his left ventricular function and exclude any evidence of cardiac metastatic disease causing atrial irritation. At this time as he is maintaining sinus rhythm my recommendation would also be to start a beta-tash and keep him hydrated. He can be controlled on the beta-tash without resorting to an invasive approach this would likely be the better mode to undertake. Cardiac enzymes should also be obtained though and minor elevation may be consistent with demand ischemia. Depending on the findings of the above tests further recommendations will be made. The above has been discussed with the patient and his and they understand and agreed to proceed Thank you for allowing me to participate in the care of your patient. Please don't hesitate to call if any issues arise
[2017-12-12 21:58] LABS: Magnesium 1.9 mg/dL (1.6-2.6)
--- NOTE | 2017-12-12 22:10 | PCM.HP.STD ---
Problem List (1) Palpitations Status: Acute History of Present Illness Date of Admission: 12/12/17 Chief Complaint: Palpitations The patient is a 62 year old M was seen in the emergency room at [facility] with chief complaint of palpitations. Patient also stated that he had chest tightness and shortness of breath. He noticed that his heart rate was elevated at home and called the squad, when the squad arrived he was noted to be in SVT and was given adenosine with some slowing of his heart rate. Squad noted that shortly thereafter, patient's heart rate did increase again, when he arrived in the emergency room he was noted to be in a sinus tachycardia at approximately 110. Workup in the emergency room included labs which was significant for an elevated d-dimer at 0.55, BUN was 28, and hemoglobin was 10.9. Patient had a CTA of his chest which showed a left upper lobe mass which was known to be present-patient is currently under treatment for small cell lung cancer-but no evidence of PE. Patient had repeat episodes of SVT while in the ER but was able to slow the heart rate down with the Valsalva maneuver. He was finally given 10 mg IV of Cardizem with some slowing of his rate but it caused his blood pressure to drop. Cardiology was contacted, it was planned that the patient would go to the PCU on a Cardizem drip but Dr. Millan saw the patient in the emergency room and felt that the patient could be controlled with administration of a beta-tash. Patient was admitted to PCU for SVT, he will be placed on metoprolol 25 mg twice daily, he will have an echocardiogram performed tomorrow, and cardiac enzymes will be cycled. Past Medical History Past Medical History (Chronic Problems): Chronic Problems (Last Reviewed 12/10/17 @ 09:38 by Kizzy Sena) Small cell lung cancer (Chronic) 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) Diabetes mellitus, type II (Chronic) COPD (chronic obstructive pulmonary disease) (Chronic) History of tobacco use (Chronic) Migraine (Chronic) Crohns disease (Chronic) History of TIA (transient ischemic attack) (Chronic) Hypothyroidism (Chronic) Allergies morphine Allergy (Severe, Verified 12/12/17 17:17) Swelling hydromorphone [From Dilaudid] Adverse Reaction (Severe, Verified 12/12/17 17:17) Other HEAD-ACHE SEVERE Home Medications: Ambulatory Orders Medication Instructions Recorded Atorvastatin Calcium 40 mg PO QHS 09/16/17 Divalproex Sodium [Depakote ER] 500 mg PO DAILY 09/16/17 Levothyroxine [Synthroid] 25 mcg PO DAILY 09/16/17 Metformin HCl [Glucophage] 1,000 mg PO BID 09/16/17 Albuterol Aerosols [Ventolin 2.5 mg INHALATION Q6H 10/25/17 Aerosols] Divalproex Sodium [Depakote] 1,000 mg PO QHS 10/25/17 Senna [Senokot] 1 tab PO BID 10/25/17 Furosemide [Lasix] 20 mg PO DAILY #30 tab 11/11/17 Ondansetron HCl [Zofran] 4 mg PO Q8H PRN PRN 10 Days #30 tab 12/11/17 Cyanocobalamin (Vitamin B-12) 500 mcg PO DAILY 12/12/17 [Vitamin B-12] Fentanyl [Duragesic] 12 mcg TRANSDERM. Q3D 12/12/17 Hydrocodone/Acetaminophen [[place] 1 each PO BID 12/12/17 5-325 Tablet] Surgical History: - - Cholecystectomy, appendectomy, colonic resection for Crohn's disease as well as for diverticulitis, left thumb surgery, several hernia repairs (8 total noted per patient), LNDx Bx, Port placement. Psychiatric History: Anxiety, Bipolar, Depression Lives: Spouse/ Significant Other Smoking Status: Former smoker Alcohol: None Drugs: None - *Family History Maternal History Items: No pertinent history Paternal History Items: No pertinent history Review of Systems Constitutional: Denies: Anorexia, Chills, Fever, Night Sweats, Malaise, Weakness, Weight Change, Fatigue Eyes: Denies: Blurred vision, Cataracts, Conjunctivae Inflammation, Double vision, Drainage, Pain, Redness HEENT: Denies: Difficulty Hearing, Difficulty Swallowing, Dysphasia, Ear Pain, Eye Pain, Head Aches, Hearing Changes, Nasal bleeding, Nasal Congestion Cardiovascular: Reports: Chest Tightness, Palpitations. Denies: Chest Pain, Claudication, Chest Pressure, Edema, Heaviness, Orthopnea, Paroxysmal Noc. Dyspnea Respiratory: Reports: Shortness of Breath. Denies: Cough, Hemoptysis, Pleuritic Pain, Shortness of breath at rest, Shortness of breath upon exertion, Sputum production, Wheezing Gastrointestinal: Denies: Abdominal Pain, Constipation, Diarrhea, Hematemesis, Hematochezia, Nausea, Melena, Vomiting Genitourinary: Denies: Dysuria, Frequency, Hematuria, Hesitancy, Nocturia, Retention, Urgency Musculoskeletal: Reports: Back Pain - he has chronic left lower back pain. Denies: Foot Pain, Hand Pain, Joint Pain, Joint stiffness, Joint swelling, Joint Tenderness, Leg Pain, Neck Pain, Shoulder Pain Skin: Denies: Dryness, Pruritis, Rash Neurological: Denies: Balance problems, Blurred vision, Double vision, Slurred speech, Difficulty swallowing, Focal weakness, Headaches, Incoordination, Numbness, Tingling, Tremor, Seizures Psychiatric: Denies: Anxiety, Depression, Homicidal Ideations, Suicidal Ideations Endocrine: Denies: Change in Body Habitus, Heat/ Cold Intolerance, Polydipsia, Polyuria Hematologic/ Lymphatic: Denies: Adenopathy, Anemia, Easy Bruising, Easy Bleeding, Petechiae, Purpura VTE Information - Inpt Only VTE Present on Admission: No VTE Mechan Device Prophylaxis: None VTE Pharm Prophylaxis ordered?: Yes Patient Problems: Active and Suspected Problems (Last Reviewed 12/10/17 @ 09:38 by Kizzy Sena) Palpitations (Acute) - Physical Exam General: Alert, Oriented x3, Cooperative, No apparent distress, Well developed, Well nourished HEENT: Atraumatic, PERRLA, EOMI, Normocephalic Oral: Moist Mucosa Neck: Supple, No JVD, Negative Carotid Bruits, No Nuchal Rigidity, Trachea Midline, Thyroid Normal Size and Texture Lungs: Clear to auscultation, Normal air movement, No rhonchi, No wheeze, No rales Cardiovascular: Regular rate, Regular Rhythm, Normal S1, Normal S2, No murmurs, No Ectopic Activity, PMI Normal, No rub noted, No Gallop, Tachycardic Abdomen: Bowel Sounds Present, Soft, Non Tender, Non-Distended, No Hepato-splenomegaly, No hernias noted Extremities: No clubbing, No cyanosis, No edema, Capillary Refill Less than 3 Seconds Skin: No rashes, No breakdown Musculoskeletal: No Tenderness to Palpation of Joints or Extremities Neurological: Cranial nerves II-XII grossly intact, Neuro grossly intact, Muscle tone normal, Sensory exam intact to light touch and pain, Coordination normal Psych/Mental Status: Normal Affect, Appropriate, Alert and oriented to time, place, person, mood and affect Vital Signs Temp Pulse Resp BP Pulse Ox 97 F L 107 H 18 109/59 L 96 12/12/17 21:49 12/12/17 21:49 12/12/17 21:49 12/12/17 22:00 12/12/17 21:49 Oxygen Flow Rate 2 Oxygen Delivery Method Nasal Cannula Assessment/Plan Active and Suspected Problems (Last Reviewed 12/10/17 @ 09:38 by Kizzy Sena) Palpitations (Acute) #1 new onset SVT-converted to sinus tachycardia-patient will be admitted to PCU, metoprolol 25 mg twice daily will be administered, cardiac enzymes will be cycled, patient will have an echocardiogram performed, he will be seen again tomorrow by cardiology. Magnesium level was ordered #2 lung cancer-currently patient is taking oral chemotherapy, his significant other will bring his oral medications in tomorrow #3 type 2 diabetes-patient will be placed on Levemir and blood sugars will be checked and sliding scale insulin will be administered #4 chronic obstructive pulmonary disease-I have elected to place the patient on as needed DuoNeb treatments 4 times a day-patient is only using albuterol aerosol treatments twice a day at home-I think it is probably not providing much benefit for the patient. Code Visit Inpatient E&M: 19974 Init Hosp L3
--- NOTE | 2017-12-12 22:18 | HP.PCM_ITS ---
Problem List (1) Palpitations Status: Acute History of Present Illness Date of Admission: 12/12/17 Chief Complaint: Palpitations The patient is a 62 year old M was seen in the emergency room at [facility] with chief complaint of palpitations. Patient also stated that he had chest tightness and shortness of breath. He noticed that his heart rate was elevated at home and called the squad, when the squad arrived he was noted to be in SVT and was given adenosine with some slowing of his heart rate. Squad noted that shortly thereafter, patient's heart rate did increase again, when he arrived in the emergency room he was noted to be in a sinus tachycardia at approximately 110. Workup in the emergency room included labs which was significant for an elevated d-dimer at 0.55, BUN was 28, and hemoglobin was 10.9. Patient had a CTA of his chest which showed a left upper lobe mass which was known to be present-patient is currently under treatment for small cell lung cancer-but no evidence of PE. Patient had repeat episodes of SVT while in the ER but was able to slow the heart rate down with the Valsalva maneuver. He was finally given 10 mg IV of Cardizem with some slowing of his rate but it caused his blood pressure to drop. Cardiology was contacted, it was planned that the patient would go to the PCU on a Cardizem drip but Dr. Millan saw the patient in the emergency room and felt that the patient could be controlled with administration of a beta-tash. Patient was admitted to PCU for SVT, he will be placed on metoprolol 25 mg twice daily, he will have an echocardiogram performed tomorrow, and cardiac enzymes will be cycled. Past Medical History Past Medical History (Chronic Problems): Chronic Problems (Last Reviewed 12/10/17 @ 09:38 by Kizzy Sena) Small cell lung cancer (Chronic) 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) Diabetes mellitus, type II (Chronic) COPD (chronic obstructive pulmonary disease) (Chronic) History of tobacco use (Chronic) Migraine (Chronic) Crohns disease (Chronic) History of TIA (transient ischemic attack) (Chronic) Hypothyroidism (Chronic) Allergies morphine Allergy (Severe, Verified 12/12/17 17:17) Swelling hydromorphone [From Dilaudid] Adverse Reaction (Severe, Verified 12/12/17 17:17) Other HEAD-ACHE SEVERE Home Medications: Ambulatory Orders Medication Instructions Recorded Atorvastatin Calcium 40 mg PO QHS 09/16/17 Divalproex Sodium [Depakote ER] 500 mg PO DAILY 09/16/17 Levothyroxine [Synthroid] 25 mcg PO DAILY 09/16/17 Metformin HCl [Glucophage] 1,000 mg PO BID 09/16/17 Albuterol Aerosols [Ventolin 2.5 mg INHALATION Q6H 10/25/17 Aerosols] Divalproex Sodium [Depakote] 1,000 mg PO QHS 10/25/17 Senna [Senokot] 1 tab PO BID 10/25/17 Furosemide [Lasix] 20 mg PO DAILY #30 tab 11/11/17 Ondansetron HCl [Zofran] 4 mg PO Q8H PRN PRN 10 Days #30 tab 12/11/17 Cyanocobalamin (Vitamin B-12) 500 mcg PO DAILY 12/12/17 [Vitamin B-12] Fentanyl [Duragesic] 12 mcg TRANSDERM. Q3D 12/12/17 Hydrocodone/Acetaminophen [[place] 1 each PO BID 12/12/17 5-325 Tablet] Surgical History: - - Cholecystectomy, appendectomy, colonic resection for Crohn 's disease as well as for diverticulitis, left thumb surgery, several hernia repairs (8 total noted per patient), LNDx Bx, Port placement. Psychiatric History: Anxiety, Bipolar, Depression Lives: Spouse/ Significant Other Smoking Status: Former smoker Alcohol: None Drugs: None - *Family History Maternal History Items: No pertinent history Paternal History Items: No pertinent history Review of Systems Constitutional: Denies: Anorexia, Chills, Fever, Night Sweats, Malaise, Weakness , Weight Change, Fatigue Eyes: Denies: Blurred vision, Cataracts, Conjunctivae Inflammation, Double vision, Drainage, Pain, Redness HEENT: Denies: Difficulty Hearing, Difficulty Swallowing, Dysphasia, Ear Pain, Eye Pain, Head Aches, Hearing Changes, Nasal bleeding, Nasal Congestion Cardiovascular: Reports: Chest Tightness, Palpitations. Denies: Chest Pain, Claudication, Chest Pressure, Edema, Heaviness, Orthopnea, Paroxysmal Noc. Dyspnea Respiratory: Reports: Shortness of Breath. Denies: Cough, Hemoptysis, Pleuritic Pain, Shortness of breath at rest, Shortness of breath upon exertion, Sputum production, Wheezing Gastrointestinal: Denies: Abdominal Pain, Constipation, Diarrhea, Hematemesis, Hematochezia, Nausea, Melena, Vomiting Genitourinary: Denies: Dysuria, Frequency, Hematuria, Hesitancy, Nocturia, Retention, Urgency Musculoskeletal: Reports: Back Pain - he has chronic left lower back pain. Denies: Foot Pain, Hand Pain, Joint Pain, Joint stiffness, Joint swelling, Joint Tenderness, Leg Pain, Neck Pain, Shoulder Pain Skin: Denies: Dryness, Pruritis, Rash Neurological: Denies: Balance problems, Blurred vision, Double vision, Slurred speech, Difficulty swallowing, Focal weakness, Headaches, Incoordination, Numbness, Tingling, Tremor, Seizures Psychiatric: Denies: Anxiety, Depression, Homicidal Ideations, Suicidal Ideations Endocrine: Denies: Change in Body Habitus, Heat/ Cold Intolerance, Polydipsia, Polyuria Hematologic/ Lymphatic: Denies: Adenopathy, Anemia, Easy Bruising, Easy Bleeding , Petechiae, Purpura VTE Information - Inpt Only VTE Present on Admission: No VTE Mechan Device Prophylaxis: None VTE Pharm Prophylaxis ordered?: Yes Patient Problems: Active and Suspected Problems (Last Reviewed 12/10/17 @ 09:38 by Kizzy Sena) Palpitations (Acute) - Physical Exam General: Alert, Oriented x3, Cooperative, No apparent distress, Well developed, Well nourished HEENT: Atraumatic, PERRLA, EOMI, Normocephalic Oral: Moist Mucosa Neck: Supple, No JVD, Negative Carotid Bruits, No Nuchal Rigidity, Trachea Midline, Thyroid Normal Size and Texture Lungs: Clear to auscultation, Normal air movement, No rhonchi, No wheeze, No rales Cardiovascular: Regular rate, Regular Rhythm, Normal S1, Normal S2, No murmurs, No Ectopic Activity, PMI Normal, No rub noted, No Gallop, Tachycardic Abdomen: Bowel Sounds Present, Soft, Non Tender, Non-Distended, No Hepato- splenomegaly, No hernias noted Extremities: No clubbing, No cyanosis, No edema, Capillary Refill Less than 3 Seconds Skin: No rashes, No breakdown Musculoskeletal: No Tenderness to Palpation of Joints or Extremities Neurological: Cranial nerves II-XII grossly intact, Neuro grossly intact, Muscle tone normal, Sensory exam intact to light touch and pain, Coordination normal Psych/Mental Status: Normal Affect, Appropriate, Alert and oriented to time, place, person, mood and affect Vital Signs Temp Pulse Resp BP Pulse Ox 97 F L 107 H 18 109/59 L 96 12/12/17 21:49 12/12/17 21:49 12/12/17 21:49 12/12/17 22:00 12/12/17 21:49 Oxygen Flow Rate 2 Oxygen Delivery Method Nasal Cannula Assessment/Plan Active and Suspected Problems (Last Reviewed 12/10/17 @ 09:38 by Kizzy Sena) Palpitations (Acute) #1 new onset SVT-converted to sinus tachycardia-patient will be admitted to PCU , metoprolol 25 mg twice daily will be administered, cardiac enzymes will be cycled, patient will have an echocardiogram performed, he will be seen again tomorrow by cardiology. Magnesium level was ordered #2 lung cancer-currently patient is taking oral chemotherapy, his significant other will bring his oral medications in tomorrow #3 type 2 diabetes-patient will be placed on Levemir and blood sugars will be checked and sliding scale insulin will be administered #4 chronic obstructive pulmonary disease-I have elected to place the patient on as needed DuoNeb treatments 4 times a day-patient is only using albuterol aerosol treatments twice a day at home-I think it is probably not providing much benefit for the patient. Code Visit Inpatient E&M: 26633 Init Hosp L3
[2017-12-12 22:56] LABS: Bedside Glucose 137 mg/dL (70-110)
[2017-12-12] MEDS: Senna Tablet 1 TABLET PO (22:57)
[2017-12-12] MEDS: Divalproex Sodium 250 MG Tablet 1000 MG PO (22:57)
[2017-12-12] MEDS: HYDROcodone Bitartrate/Apap 5/325 Tablet PO (22:58)
[2017-12-12] MEDS: Atorvastatin Calcium 40 MG Tablet PO (22:58)
[2017-12-12] MEDS: Metoprolol Tartrate 25 MG Tablet PO (22:58)
[2017-12-12] MEDS: 0.9% Normal Saline 1,000 ML 100 ML IV (23:00)
[2017-12-13 02:00] VITALS: BP 116/67; PULSE 90; RESP 18; TEMP 36.7; O2SAT 95
[2017-12-13] MEDS: Levothyroxine 25 MCG TABLET PO (05:48)
--- NOTE | 2017-12-13 05:55 | EKG12_ITS ---
Test Reason : AM EKG Blood Pressure : / mmHG Vent. Rate : 083 BPM Atrial Rate : 083 BPM P-R Int : 152 ms QRS Dur : 080 ms QT Int : 374 ms P-R-T Axes : 030 003 024 degrees QTc Int : 439 ms Sinus rhythm with Premature atrial complexes Otherwise normal ECG Confirmed by PIOTR CORNELL, JUSTICE ([id number]), editor book ANTHONY TEIXEIRA ([id number]) on 12/17/2017 1:56:33 PM Referred By: DR ZACARIAS Confirmed By:JUSTICE SALDAÑA MD
[2017-12-13 06:26] LABS: Bedside Glucose 85 mg/dL (70-110)
[2017-12-13 07:00] VITALS: PULSE 78
[2017-12-13] MEDS: 0.9% Normal Saline 1,000 ML 100 ML IV (07:02)
--- NOTE | 2017-12-13 07:29 | PCM.PN.CARD ---
Subjectve: Patient was seen and evaluated and appears to be doing well. Did not have any more supraventricular tachyarrhythmias overnight. Objective: Vital Signs Temp Pulse Resp BP Pulse Ox 98.0 F 90 18 116/67 95 12/13/17 02:00 12/13/17 02:00 12/13/17 02:00 12/13/17 02:00 12/13/17 02:00 Oxygen Flow Rate 2 Oxygen Delivery Method Nasal Cannula Weight: 148 lb 5.938 oz Body Mass Index (BMI) 21.9 Intake and Output for Last 24 Hours 12/11/17 12/12/17 12/13/17 23:59 23:59 23:59 Intake Total 1040 / 1040 Balance 1040 / 1040 General: Awake, Alert, Oriented x 3 HEENT: PERRL, EOMI, Sclera Non Icteric Neck: Supple, Good ROM, No Lymph Node Enlargement Lungs: Clear to auscultation Cardiovascular: Regular Rhythm, Normal S1, Normal S2, No Murmurs, No Rubs, No Gallops Vascular: No Carotid Bruits, Normal Femoral Pulses, Normal Radial Pulses, Normal Dorsalis Pedal Pulse, Normal Posterior Tibial Pulses Abdomen: Bowel Sounds Present, Soft, Non Tender, No HSM, No Organomegaly Extremities: No Cyanosis, No Clubbing, No edema Neurological: No Focal Motor or Sensory Deficit 12/12/17 21:15: Troponin I < 0.02 12/13/17 02:10: Troponin I 0.02 Rhythm: EKG: Normal sinus rhythm ECHO: From November of this year demonstrated ejection fraction of 65%. Assessment/Plan 1. 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 It is not clear whether the above is secondary to metastatic disease or intrinsic. Also not sure whether his chemotherapeutic agents may have induced the above though this is unlikely. An echocardiogram in November of this year effectively excluded any evidence of cardiac metastatic disease causing atrial irritation. At this time as he is maintaining sinus rhythm my recommendation would also be to start a beta-tash and keep him hydrated. He can be controlled on the beta-tash without resorting to an invasive approach this would likely be the better mode to undertake. Is to be minimally symptomatic on the above. I will therefore suggest that we watch him to the afternoon if he has had no more arrhythmias then he can probably be discharged with a 24 hour Holter monitor. Thank you for allowing me to participate in the care of your patient. Please don't hesitate to call if any issues arise
[2017-12-13 08:00] VITALS: BP 115/54; PULSE 89; RESP 19; TEMP 36.7; O2SAT 97
[2017-12-13] MEDS: Divalproex (ER) 500 MG Tablet PO (08:04)
[2017-12-13] MEDS: metFORMIN HCl 1,000 MG Tablet 1000 MG PO (08:04)
[2017-12-13] MEDS: Furosemide 20 MG Tablet PO (08:08)
[2017-12-13 08:09] VITALS: PULSE 89
[2017-12-13] MEDS: Senna Tablet 1 TABLET PO (08:09)
[2017-12-13] MEDS: Metoprolol Tartrate 25 MG Tablet PO (08:09)
[2017-12-13] MEDS: Cyanocobalamin 500 MCG Tablet PO (08:10)
[2017-12-13] MEDS: HYDROcodone Bitartrate/Apap 5/325 Tablet PO (08:12)
[2017-12-13 11:00] VITALS: PULSE 95
[2017-12-13 11:26] LABS: Bedside Glucose 167 mg/dL (70-110)
--- NOTE | 2017-12-13 11:53 | DCINST_ITS ---
- Discharge Diagnoses Current Active Problems: Current Active and Chronic Problems (Last Reviewed 12/10/17 @ 09:38 by Kizzy Sena) Palpitations (Acute) You will use the following diet at home:: No restrictions, Cardiac Discharge Activity: Return to Normal Activity Allergies/Adverse Reactions: Allergies morphine Allergy (Severe, Verified 12/12/17 17:17) Swelling hydromorphone [From Dilaudid] Adverse Reaction (Severe, Verified 12/12/17 17:17) Other HEAD-ACHE SEVERE Medications to take at Discharge Atorvastatin Calcium 40 mg PO QHS 09/16/17 Divalproex Sodium [Depakote ER] 500 mg PO DAILY 09/16/17 Levothyroxine [Synthroid] 25 mcg PO DAILY 09/16/17 Metformin HCl [Glucophage] 1,000 mg PO BID 09/16/17 Albuterol Aerosols [Ventolin Aerosols] 2.5 mg INHALATION Q6H 10/25/17 Divalproex Sodium [Depakote] 1,000 mg PO QHS 10/25/17 Senna [Senokot] 1 tab PO BID 10/25/17 Furosemide [Lasix] 20 mg PO DAILY #30 tab 11/11/17 Ondansetron HCl [Zofran] 4 mg PO Q8H PRN PRN 10 Days #30 tab 12/11/17 Cyanocobalamin (Vitamin B-12) [Vitamin B-12] 500 mcg PO DAILY 12/12/17 Fentanyl [Duragesic] 12 mcg TRANSDERM. Q3D 12/12/17 Hydrocodone/Acetaminophen [[place] 5-325 Tablet] 1 each PO BID 12/12/17 Mirtazapine 7.5 mg PO QHS 12/12/17 Metoprolol Tartrate [Lopressor (beta tash)] 25 mg PO BID #60 tablet 12/13/17 The following prescriptions were given: Metoprolol Tartrate [Lopressor (beta tash)] 25 mg PO BID #60 tablet Primary Care Physician: Last Aguilar Chi, MD [Primary Care Provider] - Proposed Discharge Date: 12/13/17
--- NOTE | 2017-12-13 11:53 | DS.PCM_ITS ---
Discharge Date and Diagnosis Date of Admission: 12/12/17 Date of Discharge: 12/13/17 - Primary Discharge Diagnosis Active and Suspected Problems (Last Reviewed 12/10/17 @ 09:38 by Kizzy Sena) Palpitations (Acute) - Secondary Discharge Diagnosis Chronic Problems (Last Reviewed 12/10/17 @ 09:38 by Kizzy Sena) Small cell lung cancer (Chronic) 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) Diabetes mellitus, type II (Chronic) COPD (chronic obstructive pulmonary disease) (Chronic) History of tobacco use (Chronic) Migraine (Chronic) Crohns disease (Chronic) History of TIA (transient ischemic attack) (Chronic) Hypothyroidism (Chronic) Hospital Course and Treatment Operations: None Summary of Care Provided: The patient is a 62 year old male was was recently diagnosed with lung carcinoma receiving chemotherapy. He took his usual oral chemotherapeutic dose and then started feeling funny and warm with a mild tightness in his chest. He has a pulse oximeter which he put on his finger as well as a blood pressure cuff and he noted that his heart rate was going up to the 180s. He got concerned about this and so called the emergency medical squad who brought him to the emergency room. On presentation he was noted to be in a sinus tachycardia with intermittent periods with his heart rate going up to approximately 160 bpm with a narrow complex tachycardia. Had an echocardiogram done last month and that showed no structural heart disease. The patient was diagnosed with SVT and cardiology was consulted, and was placed on beta-blockers and continue to do well he was then discharged home in a stable condition. Physical exam at the time of discharge; vital signs were stable. He was alert and oriented to time place and person. He did not appear to be any form of distress. S1 and S2 heard no murmur or gallop Lung exam was clear to auscultation with no adventitious sounds. Abdomen was soft nontender with normal bowel sounds. extremity exam did not reveal any edema, palpable pulses bilaterally. Neurologic exam was grossly intact. Discharge Diet: No Restrictions Discharge Activity: Return to Normal Activity Home Medications: Medications to take at Discharge Atorvastatin Calcium 40 mg PO QHS 09/16/17 Divalproex Sodium [Depakote ER] 500 mg PO DAILY 09/16/17 Levothyroxine [Synthroid] 25 mcg PO DAILY 09/16/17 Metformin HCl [Glucophage] 1,000 mg PO BID 09/16/17 Albuterol Aerosols [Ventolin Aerosols] 2.5 mg INHALATION Q6H 10/25/17 Divalproex Sodium [Depakote] 1,000 mg PO QHS 10/25/17 Senna [Senokot] 1 tab PO BID 10/25/17 Furosemide [Lasix] 20 mg PO DAILY #30 tab 11/11/17 Ondansetron HCl [Zofran] 4 mg PO Q8H PRN PRN 10 Days #30 tab 12/11/17 Cyanocobalamin (Vitamin B-12) [Vitamin B-12] 500 mcg PO DAILY 12/12/17 Fentanyl [Duragesic] 12 mcg TRANSDERM. Q3D 12/12/17 Hydrocodone/Acetaminophen [[place] 5-325 Tablet] 1 each PO BID 12/12/17 Mirtazapine 7.5 mg PO QHS 12/12/17 Metoprolol Tartrate [Lopressor (beta tash)] 25 mg PO BID #60 tab 12/13/17 Following Prescrptions Were Given to Patient: Metoprolol Tartrate [Lopressor (beta tash)] 25 mg PO BID #60 tab Other Amb Orders: Cardiac Holter Monitor/Day [[facility]] Time Frame: 1 Day, Location: None Selected Primary Care Physician: Last Aguilar Chi, MD [Primary Care Provider] - Meaningful Use Info Meaningful Use Diagnoses (Choose all that apply): None applicable Code Visit OBSV E&M: 05829 Observation care discharge
--- NOTE | 2017-12-13 12:51 | CASEMGMT ---
Face to Face with patient for initial transition planning/care coordination assessment. JANEL ROGERS introduced self and role at [facility], pt voices understanding and consents to assessment at this time. Pt sitting up in bed in no distress at this time. Pt A/O x4 at this time and answers all questions appropriately at this time. Care providers, pharmacy, and demographics verified. See attached link. Pt voices no further concerns/needs at this time. Advised pt to ask for CM if any further questions/concerns/needs arise, voices understanding. [place] JANEL ORGERS
[2017-12-13 13:25] VITALS: BP 117/68; PULSE 87; RESP 16; TEMP 36.7; O2SAT 95
== END 2017-12-13 14:13 | disposition home or self-care (01) | DRG 309 ==
LOC: ED 17:53 → PCU 20:53
PROVIDERS: Admitting Provider Internal Medicine; Emergency Provider Emergency Medicine; Family Provider Family Medicine Geriatric Medicine; PCP Family Medicine Geriatric Medicine; Visit Provider Internal Medicine
DX: I47.1 Supraventricular tachycardia (principal); K50.90 Crohn's disease, unspecified, without complications; C77.1 Secondary and unspecified malignant neoplasm of intrathoracic lymph nodes; C34.12 Malignant neoplasm of upper lobe, left bronchus or lung; C79.70 Secondary malignant neoplasm of unspecified adrenal gland; J44.9 Chronic obstructive pulmonary disease, unspecified; E03.9 Hypothyroidism, unspecified; E11.9 Type 2 diabetes mellitus without complications; Z86.73 Personal history of transient ischemic attack (TIA), and cerebral infarction without residual deficits; Z87.891 Personal history of nicotine dependence; G43.909 Migraine, unspecified, not intractable, without status migrainosus; Z79.899 Other long term (current) drug therapy; Z79.84 Long term (current) use of oral hypoglycemic drugs; I10 Essential (primary) hypertension
CPT/HCPCS: 36591; 71045; 71275; 80048; 80053; 82728; 82962; 83540; 83550; 83735; 84443; 84484; 85025; 85379; 93005; 96367; 96375; 96413; 99285; J7030; J7040; J7050; J9045; Q9967; A4216; J0153; J2469; J3490

== ENCOUNTER → 2017-12-13 13:18 | Outpatient (CLI) | payer MEDICARE, SELFPAY ==
[2017-12-12 21:43] VITALS: BMI 21.9
[2017-12-12 22:00] VITALS: BP 109/59
[2017-12-13 08:00] VITALS: BP 115/54
== END ==
PROVIDERS: Family Provider Family Medicine Geriatric Medicine; PCP Family Medicine Geriatric Medicine; Visit Provider Internal Medicine
DX: R00.2 Palpitations (principal)
CPT/HCPCS: 93225; 93226

== ENCOUNTER → 2017-12-19 12:26 | Outpatient (CLI) | payer MEDICARE, SELFPAY ==
--- NOTE | 2017-12-19 12:28 | RAD_ITS ---
STUDY: X-RAY - ABDOMEN/PELVIS REASON FOR EXAM: Male, 62 years old. Constipation. TECHNIQUE: AP supine and upright views of the abdomen and pelvis. COMPARISON: None. FINDINGS: Normal visualized lung bases. There is an unremarkable bowel gas pattern. There is marked diffuse fecal retention. There is no demonstrated free abdominal air. The visualized liver, spleen and kidneys are grossly normal in size and morphology. Normal soft tissue structures. Normal visualized osseous structures. RAD/Abd Inc Decub and/or Erect IMPRESSION: Marked diffuse fecal retention. No definite obstruction. Electronically Signed: Pilo Huizar MD at 23:09 EST , Service support ,
== END ==
PROVIDERS: Family Provider Family Medicine Geriatric Medicine; PCP Family Medicine Geriatric Medicine; Visit Provider Family Medicine Geriatric Medicine
DX: K59.00 Constipation, unspecified (principal)
CPT/HCPCS: 74019

== ENCOUNTER → 2018-01-14 12:50 | Outpatient (CLI) | payer MEDICARE, SELFPAY ==
--- NOTE | 2018-01-14 13:02 | MRI_ITS ---
STUDY: MRI BRAIN WITH AND WITHOUT CONTRAST REASON FOR EXAM: Male, 62 years old. Lung carcinoma staging. TECHNIQUE: Standardized multiplanar fat and water weighted pulse sequences were obtained. 7 ml of Gadavist contrast material was administered intravenously for the contrast portion of the examination. COMPARISON: 10/10/2017. FINDINGS: Normal size of the ventricles and extra-axial spaces for the patient's age. Subcortical white matter T2 FLAIR hyperintensity foci in the frontal lobes are unchanged. Normal bilateral basal ganglia. Normal thalami. There is no extra-axial fluid accumulation. Normal flow voids within the major intracranial circulation suggesting patency by spin echo criteria. Normal venous enhancement. There is no enhancing intra-axial or extra-axial abnormality. Normal sella turcica, pituitary gland, infundibular stalk, optic chiasm and hypothalamus. Normal tectal plate and pineal gland. Normal midbrain, blu and medulla. Normal cerebellum. Normal basal cisterns. Normal bilateral temporal bones. Normal bilateral internal auditory canals. No demonstrated orbital abnormality, within the constraints of a routine brain study. Normal visualized paranasal sinuses. Normal calvarium and skull base. Normal visualized soft tissue structures. Pronounced disc space height narrowing at C3-C4 disc space level with prominent posterior marginal spurs. MRI/Brain W/WO Contrast IMPRESSION: 1. No MRI evidence of acute or subacute ischemic infarct. 2. No MRI evidence of intracranial metastatic disease. 3. Few chronic subcortical white matter ischemic changes in the frontal lobes. 4. No significant interval changes when compared to 10/10/2017. Electronically Signed: Bentley Dey MD at 16:08 EDT , Service support ,
--- NOTE | 2018-01-14 14:38 | CT_ITS ---
STUDY: CT ABDOMEN WITH CONTRAST REASON FOR EXAM: Male, 62 years old. Long and adrenal CA, appendectomy, cholecystectomy, hernia repair, sigmoid surgery RADIATION DOSAGE (If Supplied By Facility): CTDIvol = ( 14.34 ) mGy, DLP = ( 1195.81 ) mGycm TECHNIQUE: Transaxial images were obtained post I.V. administration of 100CC ml of Isovue 300 contrast, and without oral contrast. Sagittal and coronal images were reconstructed. Individualized dose optimization techniques were used for this CT. COMPARISON: Prior study of November 05, 2017 FINDINGS: There is a minimal left-sided pleural effusion. This is a new interval finding. The visualized portions of the heart are within normal limits. The liver demonstrated 3 subcentimeter hepatic hypodensities indeterminate for solid versus cystic structure on the study but most likely representing cysts. These are stable in the interval. There are surgical clips in the gallbladder fossa consistent with a prior cholecystectomy. Normal spleen. There remains minimal dilatation of the pancreatic duct measuring up to 2 mm. Several calcifications are seen in the proximal pancreatic body. There has been interval resolution of peripancreatic fatty stranding seen on the prior study. There is an ill-defined hypodensity of the pancreatic head measuring 1.2 cm, not appreciated on the prior study. This contains a tiny focus of gas. The pancreatic head presently appears within normal limits in size. The right adrenal is normal. There is a 1.5 cm left adrenal nodule significantly decreased in size from the previous study. There are multiple right renal cysts measuring up to 2.0 cm. There is a hyperdense exophytic nodule of the left kidney measuring 1.6 cm. There are several additional left renal cysts measuring up to 2.6 cm. Normal visualized stomach. Normal small intestine. Normal colon. There are surgical clips in the region of the appendix consistent with a prior appendectomy. There are calcified plaques of the abdominal aorta. Normal inferior vena cava. Normal retroperitoneum. There is a small umbilical hernia containing fat. There are diffuse degenerative changes of the visualized lumbar spine. CT/Abdomen WITH IV Contrast IMPRESSION: 1. Minimal left-sided pleural effusion, new in the interval. 2. Stable low-attenuation hepatic foci most likely representing cysts. 3. There remains minimal dilatation of the pancreatic duct, presently measuring up to 2 mm. There has been interval resolution of peripancreatic fatty stranding and head prominence seen on the previous study. There is currently seen an ill-defined hypodensity of the pancreatic head measuring approximately 1.2 cm containing a tiny air density. 4. 1.5 cm left adrenal nodule significantly decreased in size in the interval. 5. Stable bilateral renal cysts. There is a hyperdense exophytic nodule of the left kidney measuring 1.6 cm, also stable in the interval. 6. Status post appendectomy and cholecystectomy. Electronically Signed: Mehran Morales MD at 16:21 EDT , Service support ,
--- NOTE | 2018-01-14 14:39 | CT_ITS ---
STUDY: CT CHEST WITH CONTRAST REASON FOR EXAM: Male, 62 years old. Lung and adrenal cancer RADIATION DOSAGE (If Supplied By Facility): CTDIvol = ( 14.34 ) mGy, DLP = ( 1195.81 ) mGycm TECHNIQUE: Transaxial imaging was performed following intravenous administration of 100CC ml of Isovue 300 contrast material. Individualized dose optimization techniques were used for this CT. COMPARISON: Prior CT chest of 09/17/2017 FINDINGS: There is a right-sided MediPort with catheter tip in the SVC. There are severe emphysematous changes of the lungs. There is consolidation with air bronchograms of the medial left upper lobe. There is a diffuse coarse prominent interstitial pattern of the remainder of the left upper lobe. There has been interval resolution of a left upper lobe pleural-based mass seen on the prior study. There is an accessory azygos fissure of the right upper lobe representing an anatomical variant. There is a small left-sided pleural effusion. Normal heart and pericardium. There are numerous scattered mediastinal nodes measuring up to 8 mm in short axis in the left paratracheal region. These appear stable in the interval. There has been decrease in size of left hilar adenopathy, presently measuring approximately 1.4 cm in diameter. Normal enhanced pulmonary arteries. Normal aorta arch and descending thoracic aorta. There is diffuse endplate spondylosis of the thoracic spine. No lytic or blastic osseous changes are seen. Abdominal findings are reported separately. CT/Chest WITH Contrast IMPRESSION: 1. Severe emphysematous changes of the lungs. Consolidation with air bronchograms of the medial left upper lobe consistent with atelectasis. This represents a new interval finding. 2. There has been interval resolution of a left upper lobe pleural-based mass seen on the previous study. 3. There is a diffuse coarse prominent interstitial pattern of the remainder of the left upper lobe. 4. Scattered mediastinal adenopathy appearing similar to the previous study. 5. There has been a decrease in size of left hilar mass/adenopathy, presently measuring approximately 1.4 cm in diameter. Electronically Signed: Mehran Morales MD at 16:37 EDT , Service support ,
== END ==
PROVIDERS: Family Provider Family Medicine Geriatric Medicine; PCP Family Medicine Geriatric Medicine
DX: R51 Headache (principal); C34.90 Malignant neoplasm of unspecified part of unspecified bronchus or lung; C77.9 Secondary and unspecified malignant neoplasm of lymph node, unspecified; C79.70 Secondary malignant neoplasm of unspecified adrenal gland; K86.9 Disease of pancreas, unspecified; Z79.899 Other long term (current) drug therapy
CPT/HCPCS: 70553; 71260; 74160; A9585; Q9967; A4216

== ENCOUNTER → 2018-01-24 14:40 | Outpatient (CLI) | payer MEDICARE, SELFPAY ==
--- NOTE | 2018-01-24 14:41 | VDLE_ITS ---
Reason For Study: LEG SWELLING RIGHT LEFT GSV is normal. GSV is normal. CFV is compressible, spontaneous, phasic, CFV is compressible, spontaneous, phasic, competent and demonstrates normal competent, and demonstrates normal augmentation. augmentation. FV is compressible, spontaneous, phasic, FV is compressible, spontaneous, phasic, competent and demonstrates normal competent and demonstrates normal augmentation. augmentation. POP V is compressible, spontaneous, phasic, POP V is compressible, spontaneous, phasic, competent and demonstrates normal competent and demonstrates normal augmentation. augmentation. T/P Trunk is compressible. T/P Trunk is compressible. PTV is compressible. PTV is compressible. RT PerV is compressible. LT PerV is compressible. Gastroc vein is dilated and non- compressible. Procedure Exam performed in department. A preliminary report was called and/or faxed to Dr. Aguilar. Interpretation Summary Acute deep vein thrombosis is noted in the right gastrocnemius vein. The remainder of the right lower extremity deep venous system is patent and compressible. Deep veins of the left lower extremity are patent and compressible segmentally. There is no evidence of left lower extremity deep vein thrombosis. Valvular competence appears intact within the proximal deep venous systems bilaterally. The greater saphenous veins appear bilaterally patent and compressible segmentally. Ordering Physician: Last Aguilar Referring Physician: Bella Aguila Chi Performed By: Johanne Pickett RVT
== END ==
PROVIDERS: Family Provider Family Medicine Geriatric Medicine; PCP Family Medicine Geriatric Medicine; Visit Provider Family Medicine Geriatric Medicine
DX: R60.0 Localized edema (principal)
CPT/HCPCS: 93970

== ENCOUNTER → 2018-02-19 11:10 | Outpatient (CLI) | payer MEDICARE, SELFPAY ==
[2018-02-19 14:11] LABS: Hemoglobin 8.8 g/dl (13.0-16.5)
== END ==
PROVIDERS: Family Provider Family Medicine Geriatric Medicine; PCP Family Medicine Geriatric Medicine; Visit Provider Family Medicine Geriatric Medicine
DX: D64.9 Anemia, unspecified (principal); E86.0 Dehydration
CPT/HCPCS: 36415; 85014; 85018

== ENCOUNTER 2018-02-24 13:07 | Inpatient (IN) | payer MEDICARE, SELFPAY ==
[2018-02-24] VITALS (18 sets, daily range): BP systolic 113–164; BP diastolic 52–153; PULSE 83–101; RESP 18–33; TEMP 36.3–37.1; O2SAT 80–97; BMI 23.8; BMI 22.8; BMI 22.9
--- NOTE | 2018-02-24 13:11 | ED.RN ---
PT PLACED ON NRB
--- NOTE | 2018-02-24 13:24 | EKG12_ITS ---
Test Reason : CHEST PAIN Blood Pressure : / mmHG Vent. Rate : 096 BPM Atrial Rate : 096 BPM P-R Int : 148 ms QRS Dur : 080 ms QT Int : 368 ms P-R-T Axes : 043 015 023 degrees QTc Int : 464 ms Normal sinus rhythm Low voltage QRS Borderline ECG Confirmed by RAUL CORNELL, GM ([id number]), editor publications ANTHONY TEIXEIRA ([id number]) on 02/26/2018 3:29:45 PM Referred By: Confirmed By:GM CARTER MD
--- NOTE | 2018-02-24 13:24 | CT_ITS ---
STUDY: CTA CHEST REASON FOR EXAM: Male, 62 years old. Chest pain. History of metastatic lung cancer. RADIATION DOSAGE (If Supplied By Facility): CTDIvol = ( 12.3 ) mGy, DLP = ( 635.7 ) mGycm TECHNIQUE: The examination was performed with the intravenous administration of 75 ml of Isovue 370 contrast material. Post-processing of the angiographic images was performed, with multiplanar reformation and 3D reconstruction. Individualized dose optimization techniques were used for this CT. COMPARISON: 12/12/2017 FINDINGS: Evaluation limited by patient motion and by streak artifact due to the patient's arms being at his sides. There are no filling defects within the pulmonary arteries to suggest pulmonary embolus. There is no evidence of thoracic aortic aneurysm or dissection. The heart and pericardium are within normal limits. There is stable mediastinal and bilateral hilar (left greater than right) lymphadenopathy. There is a right-sided port with its tip in the superior vena cava. When compared with the prior CT, there is increasing consolidation in the left upper lobe. The patient's known left upper lobe mass is not well evaluated as it is surrounded by consolidated lung parenchyma. There is new bibasilar airspace opacity which is also likely infectious in etiology. There is a new small left pleural effusion. There are stable diffuse changes. There is no pneumothorax. There are no destructive osseous lesions. CT/CTA Chest W/WO Contrast IMPRESSION: No evidence of pulmonary embolus. No evidence of thoracic aortic aneurysm or dissection. Increasing consolidation in the left upper lobe. New bibasilar airspace opacities. This is likely infectious in etiology. The patient's known left upper lobe mass is not well evaluated due to the surrounding consolidated lung parenchyma. New small left pleural effusion. Stable mediastinal lymphadenopathy. Electronically Signed: Suhail Cardona, at 14:52 EDT Tel , Service support ,
[2018-02-24] MEDS: 0.9% Normal Saline 1,000 ML 150 ML IV (13:36)
[2018-02-24 13:41] LABS: Absolute Lymphocyte Count 1.57 X10^3/ul (0.83-4.51); Absolute Neutrophil Count 8.3 X10^3/uL (2.0-7.7); Basophil# 0.02 X10^3/uL; Basophil% 0.2 % (0-1); Hematocrit 20.1 % (40-54); Hemoglobin 6.4 g/dl (13.0-16.5); Lymphocyte # 1.57 X10^3/ul (4.0); Lymphocyte % 14.7 % (19-41); Mean Corp Hgb Conc 31.8 g/gl (32-36); Mean Corpuscular Hgb 31.5 pg (27.0-32.0); Monocyte# 0.73 X10^3/uL; Monocyte% 6.8 % (0-10); Neutrophil # 8.27 X10^3/uL (2.7-7.7); Neutrophil % 77.2 % (47-70); RBC Distribution Width CV 18.5 % (11.6-14.6); RBC Distribution Width SD 57.2 fl (35.1-43.9); Red Blood Count 2.03 M/mm3 (4.6-6.2); White Blood Count 10.7 K/mm3 (4.4-11.0)
[2018-02-24 13:42] LABS: Differential Indicated SCAN CRITERIA MET; POSITIVE COUNT YES; POSITIVE DIFFERENTIAL NO; POSITIVE MORPHOLOGY YES
[2018-02-24 13:56] LABS: Platelet Count 16 K/mm3 (150-450); Platelet Estimate MKD DEC (ADEQ)
[2018-02-24 13:57] LABS: Anisocytosis 2+; Polychromasia 1+
[2018-02-24 13:59] LABS: Anion Gap 9 (5-15); BUN 27 mg/dL (7-18); BUN/Creat Ratio 25.7 RATIO (10-20); Chloride 103 mmol/L (98-107); Creatinine, Serum 1.05 mg/dL (0.70-1.30); EST Glomerular Filtration Rate 76 mL/min (>60); Est Glom Filt Rate - Afr Amer 91 mL/min (>60); Estimated Creatinine Clearance 71.07 ml/min; Glucose 133 mg/dL (74-106); Potassium 4.6 mmol/L (3.5-5.1); Sodium Level 140 mmol/L (136-145)
[2018-02-24] MEDS: fentaNYL 100 MCG/2 ML Ampul 25 MCG IV ×2 (14:37→18:49)
[2018-02-24] MEDS: Piperacil/Tazobactam 4.5 GM in NS100 MBP IV (15:22)
[2018-02-24 15:26] LABS: Lactic Acid 3.9 mmol/L (0.4-2.0)
[2018-02-24] MEDS: fentaNYL 100 MCG/2 ML Ampul 50 MCG IV (15:34)
--- NOTE | 2018-02-24 15:46 | ED.VISSUMM ---
- ER Visit Summary Date of Service: 02/24/18 Chief Complaint: [Chest pain] History of Present Illness: The patient is a 62 M [presents to the emergency department with left-sided chest pain that woke him up from sleep around 2 AM. Vision describes the pain as sharp and stabbing. Patient rates his pain a 10 out of 10. Patient states pain worse with deep breath. Patient denies recent travel or surgery. Patient is a lung cancer patient and his last chemotherapy was a little over a week ago. Patient states he also has a history of adrenal cancer as well as history of diverticulitis. His oncologist is Dr. Gisell Hubbard. Patient denies recent travel or surgery. Patient has no coronary artery disease history.] Physical Examination: [HEENT-PERRLA, EOMI. Cranial nerves II through XII grossly intact. TMs clear. Mucous membranes moist. No adenopathy. Cardiovascular-regular rate and rhythm without murmur or ectopy Lungs-good aeration bilaterally. Patient has some coarse rhonchi bilaterally and some [place] with Katheryn wheezes noted. Patient has mild tachypnea. No accessory muscle use or retractions. Abdomen-normoactive bowel sounds, soft, nontender, no rebound or rigidity, no peritoneal signs. Extremities-intact ?4, normal range of motion, normal pulses, atraumatic] Test Results: [EKG obtained showed a sinus rhythm with a ventricular rate 96 bpm. CBC with differential showed a white count of 10.6, hemoglobin 6.4, hematocrit 20, platelets 16. Chemistries unremarkable. BUN was 27 and creatinine was 1.05. Troponin was less than 0.02. CTA scan of the chest obtained showed no evidence for PE or dissection. Patient had new bibasilar opacities are thought to be infectious.] Emergency Department Course and Treatment: [Patient had blood cultures ordered and was typed and crossed with 2 units of packed red cells. Case was discussed with Dr. Betancourt who agreed with transfusion of packed red cells but did not feel compelled to transfuse platelets at this time being the patient is not actively bleeding.] Treatment Plan: [Patient will be started on IV antibiotics for healthcare acquired pneumonia including Zosyn, vancomycin, and aztreonam. Patient was medicated with fentanyl for pain.] Disposition: [Admit] Impression: [Healthcare acquired pneumonia with hypoxia Anemia Thrombocytopenia] This note was generated with Dragon dictation software. It may contain incorrect words, spelling, and punctuation that were not noted in review of the chart prior to signing ED Disposition - Plan for ED Patient: Chief Complaint: Chest Pain Referrals: Last Aguilar Chi, MD [Primary Care Provider] -
--- NOTE | 2018-02-24 16:08 | PCM.HP.STD ---
Problem List (1) Chest pain Status: Acute (2) Acute blood loss anemia Status: Acute (3) Thrombocytopenia Status: Acute (4) Gram-negative pneumonia Status: Acute (5) Anemia Status: Acute Qualifiers: (6) Mass of pancreas Status: Acute (7) COPD (chronic obstructive pulmonary disease) Status: Chronic Qualifiers: (8) Crohns disease Status: Chronic Qualifiers: (9) Diabetes mellitus, type II Status: Chronic Qualifiers: (10) History of TIA (transient ischemic attack) Status: Chronic (11) Hypothyroidism Status: Chronic Qualifiers: (12) Migraine Status: Chronic Qualifiers: (13) Small cell lung cancer Status: Chronic Comment: ALEC History of Present Illness Date of Admission: 02/24/18 Chief Complaint: chest pain. The patient is a 62 year old M with known h/o SCLC w mets to adrenal gland and possibly to pancreas. He presents with chest pain that began a 0230. Left sided and constant. Never had pain like this before. He underwent a CTA, which did not show PE, but did show infiltrate in ALEC, but unable to differentiate it from the known mass. Pt received aztreonam and vancomycin + IVF. Additionally, pt was noted to be even more anemic and has been ordered 2 units of PRBCs. Platelets were 16k. Dr. Betancourt was notified by ED and agreed w/ PRBCs, but given no active bleeding, recommended no platelet transfusions. 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) Diabetes mellitus, type II (Chronic) COPD (chronic obstructive pulmonary disease) (Chronic) History of tobacco use (Chronic) Migraine (Chronic) Crohns disease (Chronic) History of TIA (transient ischemic attack) (Chronic) Hypothyroidism (Chronic) Allergies morphine Allergy (Severe, Verified 02/24/18 13:21) Swelling hydromorphone [From Dilaudid] Adverse Reaction (Severe, Verified 02/24/18 13:21) SEVERE HEADACHE HEAD-ACHE SEVERE fentanyl Adverse Reaction (Verified 02/24/18 13:34) Other Home Medications: Ambulatory Orders Medication Instructions Recorded Atorvastatin Calcium 40 mg PO QHS 11/12/17 Divalproex Sodium [Depakote ER] 500 mg PO TID 09/16/17 Levothyroxine [Synthroid] 25 mcg PO DAILY 09/16/17 Metformin HCl [Glucophage] 1,000 mg PO BID 09/16/17 Senna [Senokot] 1 tab PO BID 10/25/17 Cyanocobalamin (Vitamin B-12) 1,000 mcg PO DAILY 12/12/17 [Vitamin B-12] Hydrocodone/Acetaminophen [[place] 1 ea PO TID 12/12/17 5-325 Tablet] Mirtazapine 7.5 mg PO QHS 12/12/17 metoprolol tartrate 50 mg tablet 50 mg PO BID 12/19/17 Ondansetron HCl [Zofran] 4 mg PO Q8H PRN PRN 10 Days #30 tab 02/18/18 Alive Mens 1 tab PO DAILY 02/24/18 Folic Acid 1 tab PO DAILY 02/24/18 Rivaroxaban [Xarelto] 1 tab PO DAILY 02/24/18 Vitamin D3 1 tab PO DAILY 02/24/18 Surgical History: - - Cholecystectomy, appendectomy, colonic resection for Crohn's disease as well as for diverticulitis, left thumb surgery, several hernia repairs (8 total noted per patient), LNDx Bx, Port placement. Psychiatric History: Anxiety, Bipolar, Depression Lives: Spouse/ Significant Other Smoking Status: Former smoker Alcohol: None Drugs: Marijuana - *Family History Maternal History Items: No pertinent history Paternal History Items: No pertinent history, - - no lung cancer. Review of Systems Constitutional: Denies: Chills, Fever, Weight Change Eyes: Denies: Blurred vision, Double vision HEENT: Denies: Head Aches, Sinus Congestion, Sinus Drainage Cardiovascular: Reports: Chest Pain, Edema Respiratory: Reports: Cough - productive of phlegm only after he inhales deeply through his nose, then coughs up upper resp phlegm., Shortness of Breath Gastrointestinal: Denies: Abdominal Pain, Nausea, Vomiting Genitourinary: Denies: Dysuria Musculoskeletal: Denies: Joint Pain, Joint Tenderness Skin: Denies: Rash, Wounds Neurological: Denies: Numbness, Tingling, Focal weakness Psychiatric: Denies: Anxiety, Depression Endocrine: Denies: Heat/ Cold Intolerance Hematologic/ Lymphatic: Reports: Easy Bruising, Easy Bleeding. Denies: Hx of blood clot VTE Information - Inpt Only VTE Present on Admission: No VTE Mechan Device Prophylaxis: None VTE Pharm Prophylaxis ordered?: No Patient Problems: Active and Suspected Problems (Last Reviewed 02/11/18 @ 09:28 by Kizzy Sena) Chest pain (Acute) Acute blood loss anemia (Acute) Thrombocytopenia (Acute) Gram-negative pneumonia (Acute) - Physical Exam General: Alert, Cooperative, No apparent distress, - - frail, pale, afebrile. HEENT: Atraumatic, Normocephalic, - - pale conjunctiva. no scleral icterus. Oral: Moist Mucosa, No Gingival or Mucosal Lesions/ Ulcerations Neck: No Nodes, Thyroid Normal Size and Texture Lungs: No rhonchi, No wheeze, Diminished Cardiovascular: Regular rate, Regular Rhythm, Normal S1, Normal S2, No murmurs Abdomen: Bowel Sounds Present, Soft, Non Tender, Non-Distended, No Hepato-splenomegaly Extremities: No edema, No Calf Tenderness Skin: No rashes, No breakdown, - - hematoma of dorsum of left hand from IV attempt. Port in place in right upper chest w/o erythema. Musculoskeletal: No Tenderness to Palpation of Joints or Extremities, No Muscle Wasting Neurological: Sensory exam intact to light touch and pain, - - no clonus Psych/Mental Status: Normal Affect, Appropriate Vital Signs Temp Pulse Resp BP Pulse Ox 36.3 C L 97 24 H 116/69 95 02/24/18 13:07 02/24/18 15:38 02/24/18 15:38 02/24/18 15:38 02/24/18 15:38 Oxygen Flow Rate (L/min) 15 Oxygen Delivery Method Non-Rebreather Weight: 73.3 kg Body Mass Index (BMI) 23.8 Laboratory Tests Past 24 Hrs 02/24/18 02/24/18 02/24/18 13:32 13:32 14:35 WBC 10.7 RBC 2.03 L Hgb 6.4 L Hct 20.1 L MCV 99.0 H MCH 31.5 MCHC 31.8 L RDW 18.5 H RDW Differential 57.2 H Plt Count 16 L* MPV 10.0 Immature Gran % (Auto) 1.100 H Neut % (Auto) 77.2 H Lymph % (Auto) 14.7 L Coleman % (Auto) 6.8 Eos % (Auto) 0.0 Baso % (Auto) 0.2 Absolute Neuts (auto) 8.3 H Absolute Lymphs (auto) 1.57 Total Counted Not Reportable Diff Path Review May foll Platelet Estimate MKD DEC Polychromasia 1+ Anisocytosis 2+ Sodium 140 Potassium 4.6 Chloride 103 Carbon Dioxide 28.0 Anion Gap 9 BUN 27 H Creatinine 1.05 Estim Creat Clear Calc 71.07 Est GFR (MDRD) Af Amer 91 Est GFR (MDRD) Non-Af 76 BUN/Creatinine Ratio 25.7 H Glucose 133 H Lactic Acid Calcium 10.0 Troponin I < 0.02 Blood Type A POSITIVE Antibody Screen NEGATIVE Crossmatch See Detail 02/24/18 14:35 WBC RBC Hgb Hct MCV MCH MCHC RDW RDW Differential Plt Count MPV Immature Gran % (Auto) Neut % (Auto) Lymph % (Auto) Coleman % (Auto) Eos % (Auto) Baso % (Auto) Absolute Neuts (auto) Absolute Lymphs (auto) Total Counted Diff Path Review Platelet Estimate Polychromasia Anisocytosis Sodium Potassium Chloride Carbon Dioxide Anion Gap BUN Creatinine Estim Creat Clear Calc Est GFR (MDRD) Af Amer Est GFR (MDRD) Non-Af BUN/Creatinine Ratio Glucose Lactic Acid 3.9 H Calcium Troponin I Blood Type Antibody Screen Crossmatch Clinical Impression(s) from Imaging Studies Chest CTA 02/24/18 13:24 IMPRESSION: No evidence of pulmonary embolus. No evidence of thoracic aortic aneurysm or dissection. Increasing consolidation in the left upper lobe. New bibasilar airspace opacities. This is likely infectious in etiology. The patient's known left upper lobe mass is not well evaluated due to the surrounding consolidated lung parenchyma. New small left pleural effusion. Stable mediastinal lymphadenopathy. Electronically Signed: Suhail Cardona, at 14:52 EDT Tel , Service support , Assessment/Plan Active and Suspected Problems (Last Reviewed 02/11/18 @ 09:28 by Kizzy Sena) Chest pain (Acute) Acute blood loss anemia (Acute) Thrombocytopenia (Acute) Gram-negative pneumonia (Acute) 1. acute blood loss anemia suspected chemo-induced. pt denies hematochezia nor melena. to be transfused 2 units PRBCs 2. suspected gram negative pneumonia: may be post obstructive on my view, essentially unchanged from January will have Yessica pulm toilet consult pulm for input (though thrombocytopenia is prohibitive for bronch at this time) 3. thrombocytopenia likely chemo-induced monitor no transfusion unless less than 10k or active bleeding observed 4. Stage 4 SCLC: completed 5/6 cycles of carboplatin/etopside consult oncology for input goals of care poor long-term prognosis. 5. DM2 hold metformin given CTA (can restart 03/01) SSI 6. DVT proph: no chemical proph given anemia and thrombocytopenia. no SCDs while profoundly thrombocytopenic. Advanced Care Planning: Spent an additional 30 minutes outside of the history and physical discussing ACP with patient and his . Addressed code status, and pt wishes to be FULL CODE at this time. I recommended to him DNRCCA. Addressed long-term prognosis with stage 4 SCLC and reinforced that he is on palliate chemo, not curative. Code Visit Inpatient E&M: 71799 Init Hosp L3 Procedures: 85468 Advncd Care Plan 30 Min
--- NOTE | 2018-02-24 16:25 | HP.PCM_ITS ---
Problem List (1) Chest pain Status: Acute (2) Acute blood loss anemia Status: Acute (3) Thrombocytopenia Status: Acute (4) Gram-negative pneumonia Status: Acute (5) Anemia Status: Acute Qualifiers: (6) Mass of pancreas Status: Acute (7) COPD (chronic obstructive pulmonary disease) Status: Chronic Qualifiers: (8) Crohns disease Status: Chronic Qualifiers: (9) Diabetes mellitus, type II Status: Chronic Qualifiers: (10) History of TIA (transient ischemic attack) Status: Chronic (11) Hypothyroidism Status: Chronic Qualifiers: (12) Migraine Status: Chronic Qualifiers: (13) Small cell lung cancer Status: Chronic Comment: ALEC History of Present Illness Date of Admission: 02/24/18 Chief Complaint: chest pain. The patient is a 62 year old M with known h/o SCLC w mets to adrenal gland and possibly to pancreas. He presents with chest pain that began a 0230. Left sided and constant. Never had pain like this before. He underwent a CTA, which did not show PE, but did show infiltrate in ALEC, but unable to differentiate it from the known mass. Pt received aztreonam and vancomycin + IVF. Additionally, pt was noted to be even more anemic and has been ordered 2 units of PRBCs. Platelets were 16k. Dr. Betancourt was notified by ED and agreed w/ PRBCs, but given no active bleeding, recommended no platelet transfusions. 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) Diabetes mellitus, type II (Chronic) COPD (chronic obstructive pulmonary disease) (Chronic) History of tobacco use (Chronic) Migraine (Chronic) Crohns disease (Chronic) History of TIA (transient ischemic attack) (Chronic) Hypothyroidism (Chronic) Allergies morphine Allergy (Severe, Verified 02/24/18 13:21) Swelling hydromorphone [From Dilaudid] Adverse Reaction (Severe, Verified 02/24/18 13:21) SEVERE HEADACHE HEAD-ACHE SEVERE fentanyl Adverse Reaction (Verified 02/24/18 13:34) Other Home Medications: Ambulatory Orders Medication Instructions Recorded Atorvastatin Calcium 40 mg PO QHS 11/12/17 Divalproex Sodium [Depakote ER] 500 mg PO TID 09/16/17 Levothyroxine [Synthroid] 25 mcg PO DAILY 09/16/17 Metformin HCl [Glucophage] 1,000 mg PO BID 09/16/17 Senna [Senokot] 1 tab PO BID 10/25/17 Cyanocobalamin (Vitamin B-12) 1,000 mcg PO DAILY 12/12/17 [Vitamin B-12] Hydrocodone/Acetaminophen [[place] 1 ea PO TID 12/12/17 5-325 Tablet] Mirtazapine 7.5 mg PO QHS 12/12/17 metoprolol tartrate 50 mg tablet 50 mg PO BID 12/19/17 Ondansetron HCl [Zofran] 4 mg PO Q8H PRN PRN 10 Days #30 tab 02/18/18 Alive Mens 1 tab PO DAILY 02/24/18 Folic Acid 1 tab PO DAILY 02/24/18 Rivaroxaban [Xarelto] 1 tab PO DAILY 02/24/18 Vitamin D3 1 tab PO DAILY 02/24/18 Surgical History: - - Cholecystectomy, appendectomy, colonic resection for Crohn 's disease as well as for diverticulitis, left thumb surgery, several hernia repairs (8 total noted per patient), LNDx Bx, Port placement. Psychiatric History: Anxiety, Bipolar, Depression Lives: Spouse/ Significant Other Smoking Status: Former smoker Alcohol: None Drugs: Marijuana - *Family History Maternal History Items: No pertinent history Paternal History Items: No pertinent history, - - no lung cancer. Review of Systems Constitutional: Denies: Chills, Fever, Weight Change Eyes: Denies: Blurred vision, Double vision HEENT: Denies: Head Aches, Sinus Congestion, Sinus Drainage Cardiovascular: Reports: Chest Pain, Edema Respiratory: Reports: Cough - productive of phlegm only after he inhales deeply through his nose, then coughs up upper resp phlegm., Shortness of Breath Gastrointestinal: Denies: Abdominal Pain, Nausea, Vomiting Genitourinary: Denies: Dysuria Musculoskeletal: Denies: Joint Pain, Joint Tenderness Skin: Denies: Rash, Wounds Neurological: Denies: Numbness, Tingling, Focal weakness Psychiatric: Denies: Anxiety, Depression Endocrine: Denies: Heat/ Cold Intolerance Hematologic/ Lymphatic: Reports: Easy Bruising, Easy Bleeding. Denies: Hx of blood clot VTE Information - Inpt Only VTE Present on Admission: No VTE Mechan Device Prophylaxis: None VTE Pharm Prophylaxis ordered?: No Patient Problems: Active and Suspected Problems (Last Reviewed 02/11/18 @ 09:28 by Kizzy Sena) Chest pain (Acute) Acute blood loss anemia (Acute) Thrombocytopenia (Acute) Gram-negative pneumonia (Acute) - Physical Exam General: Alert, Cooperative, No apparent distress, - - frail, pale, afebrile. HEENT: Atraumatic, Normocephalic, - - pale conjunctiva. no scleral icterus. Oral: Moist Mucosa, No Gingival or Mucosal Lesions/ Ulcerations Neck: No Nodes, Thyroid Normal Size and Texture Lungs: No rhonchi, No wheeze, Diminished Cardiovascular: Regular rate, Regular Rhythm, Normal S1, Normal S2, No murmurs Abdomen: Bowel Sounds Present, Soft, Non Tender, Non-Distended, No Hepato- splenomegaly Extremities: No edema, No Calf Tenderness Skin: No rashes, No breakdown, - - hematoma of dorsum of left hand from IV attempt. Port in place in right upper chest w/o erythema. Musculoskeletal: No Tenderness to Palpation of Joints or Extremities, No Muscle Wasting Neurological: Sensory exam intact to light touch and pain, - - no clonus Psych/Mental Status: Normal Affect, Appropriate Vital Signs Temp Pulse Resp BP Pulse Ox 36.3 C L 97 24 H 116/69 95 02/24/18 13:07 02/24/18 15:38 02/24/18 15:38 02/24/18 15:38 02/24/18 15:38 Oxygen Flow Rate (L/min) 15 Oxygen Delivery Method Non-Rebreather Weight: 73.3 kg Body Mass Index (BMI) 23.8 Laboratory Tests Past 24 Hrs 02/24/18 02/24/18 02/24/18 13:32 13:32 14:35 WBC 10.7 RBC 2.03 L Hgb 6.4 L Hct 20.1 L MCV 99.0 H MCH 31.5 MCHC 31.8 L RDW 18.5 H RDW Differential 57.2 H Plt Count 16 L* MPV 10.0 Immature Gran % (Auto) 1.100 H Neut % (Auto) 77.2 H Lymph % (Auto) 14.7 L [place] % (Auto) 6.8 Eos % (Auto) 0.0 Baso % (Auto) 0.2 Absolute Neuts (auto) 8.3 H Absolute Lymphs (auto) 1.57 Total Counted Not Reportable Diff Path Review May foll Platelet Estimate MKD DEC Polychromasia 1+ Anisocytosis 2+ Sodium 140 Potassium 4.6 Chloride 103 Carbon Dioxide 28.0 Anion Gap 9 BUN 27 H Creatinine 1.05 Estim Creat Clear Calc 71.07 Est GFR (MDRD) Af Amer 91 Est GFR (MDRD) Non-Af 76 BUN/Creatinine Ratio 25.7 H Glucose 133 H Lactic Acid Calcium 10.0 Troponin I < 0.02 Blood Type A POSITIVE Antibody Screen NEGATIVE Crossmatch See Detail 02/24/18 14:35 WBC RBC Hgb Hct MCV MCH MCHC RDW RDW Differential Plt Count MPV Immature Gran % (Auto) Neut % (Auto) Lymph % (Auto) [place] % (Auto) Eos % (Auto) Baso % (Auto) Absolute Neuts (auto) Absolute Lymphs (auto) Total Counted Diff Path Review Platelet Estimate Polychromasia Anisocytosis Sodium Potassium Chloride Carbon Dioxide Anion Gap BUN Creatinine Estim Creat Clear Calc Est GFR (MDRD) Af Amer Est GFR (MDRD) Non-Af BUN/Creatinine Ratio Glucose Lactic Acid 3.9 H Calcium Troponin I Blood Type Antibody Screen Crossmatch Clinical Impression(s) from Imaging Studies Chest CTA 02/24/18 13:24 IMPRESSION: No evidence of pulmonary embolus. No evidence of thoracic aortic aneurysm or dissection. Increasing consolidation in the left upper lobe. New bibasilar airspace opacities. This is likely infectious in etiology. The patient's known left upper lobe mass is not well evaluated due to the surrounding consolidated lung parenchyma. New small left pleural effusion. Stable mediastinal lymphadenopathy. Electronically Signed: Suhail Cardona, at 14:52 EDT Tel , Service support , Assessment/Plan Active and Suspected Problems (Last Reviewed 02/11/18 @ 09:28 by Kizzy Sena) Chest pain (Acute) Acute blood loss anemia (Acute) Thrombocytopenia (Acute) Gram-negative pneumonia (Acute) 1. acute blood loss anemia * suspected chemo-induced. pt denies hematochezia nor melena. * to be transfused 2 units PRBCs 2. suspected gram negative pneumonia: * may be post obstructive * on my view, essentially unchanged from January * will have Zosyn and Vanc * pulm toilet * consult pulm for input (though thrombocytopenia is prohibitive for bronch at this time) 3. thrombocytopenia * likely chemo-induced * monitor * no transfusion unless less than 10k or active bleeding observed 4. Stage 4 SCLC: * completed 5/6 cycles of carboplatin/etopside * consult oncology for input * goals of care * poor long-term prognosis. 5. DM2 * hold metformin given CTA (can restart 03/01) * SSI 6. DVT proph: no chemical proph given anemia and thrombocytopenia. no SCDs while profoundly thrombocytopenic. Advanced Care Planning: Spent an additional 30 minutes outside of the history and physical discussing ACP with patient and his . Addressed code status, and pt wishes to be FULL CODE at this time. I recommended to him DNRCCA. Addressed long-term prognosis with stage 4 SCLC and reinforced that he is on palliate chemo, not curative. Code Visit Inpatient E&M: 55260 Init Hosp L3 Procedures: 87181 Advncd Care Plan 30 Min
[2018-02-24 18:48] LABS: Reflex Lactate? Y
--- NOTE | 2018-02-24 19:55 | PCM.RX.CS ---
Consult Pharmacy has been consulted to manage selected antiobiotic: Vancomycin Type of Consult: New start Suspected Infection: Pneumonia Prior Doses of Antibiotics Received/Current Regimen: Medications Vancomycin HCl (Vancomycin) 1,000 mg in 200 mls @ 200 mls/hr IV Q12H VICKIE Discontinued Medications Vancomycin HCl (Vancomycin) 1,000 mg in 200 mls @ 200 mls/hr IV X1 ONE Stop: 02/24/18 16:29 Last Admin: 02/24/18 18:37 Dose: 200 mls/hr Labs: Sodium 140 mmol/L (136-145) 02/24/18 13:32 Potassium 4.6 mmol/L (3.5-5.1) 02/24/18 13:32 Chloride 103 mmol/L (98-107) 02/24/18 13:32 Carbon Dioxide 28.0 mmol/L (21.0-32.0) 02/24/18 13:32 Anion Gap 9 (5-15) 02/24/18 13:32 BUN 27 mg/dL (7-18) H 02/24/18 13:32 Creatinine 1.05 mg/dL (0.70-1.30) 02/24/18 13:32 Est GFR (MDRD) Af Amer 91 mL/min (>60) 02/24/18 13:32 Est GFR (MDRD) Non-Af 76 mL/min (>60) 02/24/18 13:32 BUN/Creatinine Ratio 25.7 RATIO (10-20) H 02/24/18 13:32 Glucose 133 mg/dL (74-106) H 02/24/18 13:32 Weight used for dosin.4 kg Estimated Creatinine Clearance: 71 Goal Trough: 15-20 mcg/mL Pharmacy Plan for Drug Dosing: Pharmacy Service will continue to monitor and adjust dosing as required. Follow-Up Labs: Trough Vancomycin Labs to be done on [date and time ordered]: 02/26/18 @0600
[2018-02-24 20:39] LABS: Lactic Acid 4.1 mmol/L (0.4-2.0)
[2018-02-24] MEDS: 0.9% NaCl VAD Flush 10 ML IV (21:04)
[2018-02-24] MEDS: 0.9% Normal Saline 1,000 ML 999 ML IV ×2 (21:04→22:09)
[2018-02-24] MEDS: oxyCODONE 5 MG Tablet PO (21:45)
[2018-02-24] MEDS: Mirtazapine 15 MG Tablet 7.5 MG PO (21:45)
[2018-02-24] MEDS: Metoprolol Tartrate 50 MG Tablet PO (21:45)
[2018-02-24] MEDS: Atorvastatin Calcium 40 MG Tablet PO (21:45)
[2018-02-24] MEDS: Divalproex Sodium 250 MG Tablet 500 MG PO (21:53)
[2018-02-24 22:15] LABS: Bedside Glucose 192 mg/dL (70-110)
[2018-02-24] MEDS: Piperacil/Tazobactam 3.375 GM/50 ML ML IV (22:41)
[2018-02-25] VITALS (24 sets, daily range): BP systolic 103–125; BP diastolic 65–89; PULSE 80–98; RESP 18–28; TEMP 36.2–36.7; O2SAT 90–95
[2018-02-25] MEDS: 0.9% NaCl VAD Flush 10 ML IV ×4 (00:54→10:01)
[2018-02-25] MEDS: fentaNYL 100 MCG/2 ML Ampul 25 MCG IV (00:54)
[2018-02-25] MEDS: oxyCODONE 5 MG Tablet PO ×5 (03:22→21:41)
[2018-02-25 04:47] LABS: Hematocrit 25.1 % (40-54); Hemoglobin 8.2 g/dl (13.0-16.5); Mean Corp Hgb Conc 32.7 g/gl (32-36); Mean Corpuscular Hgb 31.4 pg (27.0-32.0); Mean Corpuscular Volume 96.2 fL (80-94); Mean Platelet Vol. 9.8 fl (6.2-12.0); RBC Distribution Width CV 17.8 % (11.6-14.6); RBC Distribution Width SD 54.8 fl (35.1-43.9); Red Blood Count 2.61 M/mm3 (4.6-6.2)
[2018-02-25 04:48] LABS: Anion Gap 9 (5-15); BUN 15 mg/dL (7-18); BUN/Creat Ratio 19.4 RATIO (10-20); Calcium,Total 8.2 mg/dL (8.5-10.1); Chloride 105 mmol/L (98-107); Creatinine, Serum 0.77 mg/dL (0.70-1.30); EST Glomerular Filtration Rate 108 mL/min (>60); Est Glom Filt Rate - Afr Amer 130 mL/min (>60); Estimated Creatinine Clearance 96.51 ml/min; Glucose 190 mg/dL (74-106); Potassium 4.4 mmol/L (3.5-5.1); Sodium Level 143 mmol/L (136-145)
[2018-02-25 05:20] LABS: Differential Indicated MANUAL DIFF; POSITIVE COUNT YES; POSITIVE DIFFERENTIAL NO; POSITIVE MORPHOLOGY YES; Platelet Count 19 K/mm3 (150-450)
[2018-02-25 05:22] LABS: Blast 0 % (0-0); Lymphocyte 7 % (19-41); Monocyte 8 % (0-10); Myelocyte 2 (0-0); Neutrophil-Band 4 % (0-5); Neutrophil-Segmented 79 % (47-70); Nucleated Red Bld Cells,Manual 2 % (0-5); Total Cells Counted 100 (MANUAL DIFF)
[2018-02-25 05:23] LABS: Platelet Estimate MKD DEC (ADEQ); Red Cell Morphology NORM C+C NORMAL (NORM C&C); Toxic Granulation 2+
[2018-02-25 05:26] LABS: Absolute Lymphocyte Count 1.05 X10^3/ul (0.83-4.51); Absolute Neutrophil Count 12.4 X10^3/uL (2.0-7.7); Lymphocyte # 1.05 X10^3/ul (4.0); Neutrophil # 12.42 X10^3/uL (2.7-7.7)
[2018-02-25 05:27] LABS: Absolute Nucleated RBC Count 0.16 10^3/uL (0-5); NRBC Flagged by Analyzer 1.1 % (0-5)
[2018-02-25] MEDS: Piperacil/Tazobactam 3.375 GM/50 ML ML IV ×3 (05:40→21:39)
[2018-02-25] MEDS: Divalproex Sodium 250 MG Tablet 500 MG PO ×3 (05:42→21:38)
[2018-02-25] MEDS: Levothyroxine 25 MCG TABLET PO (05:42)
[2018-02-25 05:56] LABS: Lactic Acid 2.1 mmol/L (0.4-2.0)
[2018-02-25 06:45] LABS: Bedside Glucose 238 mg/dL (70-110)
--- NOTE | 2018-02-25 07:12 | PCM.CONS.GEN ---
Reason for Consult Date of Consultation: 02/25/18 Reason for Consultation: Pneumonia/small cell lung cancer History of Present Illness: The patient is a 62-year-old male, with a history as outlined below, who presented to the emergency department on February 24 with pleuritic type chest pain. The patient does have a history of mild COPD and is a prior heavy smoker, having quit completely in 2015. The patient was hospitalized in September, during which time, a CT chest was obtained and revealed a left upper lobe lung mass. The patient subsequently underwent a CT-guided lung biopsy in September which confirmed the presence of small cell lung cancer. As part of his staging process, a PET CT was completed which revealed a left adrenal mass. This lesion was also later biopsied in October and was positive for metastatic small cell carcinoma. The patient is currently being followed by oncology. Pulmonary function testing last completed in October 2017 revealed evidence of an irreversible mild large airways obstructive ventilatory defect with a disproportionate moderate reduction in diffusing capacity. The patient was last seen in the oncology office at the beginning of February. The patient is currently amidst treatment with carboplatin/etoposide for stage IV small cell lung cancer. On presentation to the emergency department, the patient was noted to be afebrile hemodynamically stable. He was documented to be hypoxic, saturating 80% on room air. Laboratory evaluation revealed no evidence for leukocytosis. The patient was anemic with a hemoglobin of 6.4. He was also thrombocytopenic with a platelet count of 16,000. Chemistry profile revealed evidence of acute kidney injury. Lactate was elevated initially to 3.9. Troponin was negative. CTA chest was obtained and revealed no evidence of pulmonary embolism. There is evidence of increasing left upper lobe consolidation along with new bilateral basilar airspace opacities. There was also background fibrotic and extensive emphysematous changes bilaterally. The patient was started on broad-spectrum antibiotics and subsequently transferred to the progressive care unit for ongoing management. 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) Diabetes mellitus, type II (Chronic) COPD (chronic obstructive pulmonary disease) (Chronic) History of tobacco use (Chronic) Migraine (Chronic) Crohns disease (Chronic) History of TIA (transient ischemic attack) (Chronic) Hypothyroidism (Chronic) Allergies morphine Allergy (Severe, Verified 02/24/18 13:21) Swelling hydromorphone [From Dilaudid] Adverse Reaction (Severe, Verified 02/24/18 13:21) SEVERE HEADACHE HEAD-ACHE SEVERE Home Medications: Ambulatory Orders Medication Instructions Recorded Atorvastatin Calcium 40 mg PO QHS 09/16/17 Divalproex Sodium [Depakote ER] 500 mg PO TID 09/16/17 Levothyroxine [Synthroid] 25 mcg PO DAILY 09/16/17 Metformin HCl [Glucophage] 1,000 mg PO BID 09/16/17 Senna [Senokot] 1 tab PO BID PRN 10/25/17 Cyanocobalamin (Vitamin B-12) 1,000 mcg PO DAILY 12/12/17 [Vitamin B-12] Hydrocodone/Acetaminophen [[place] 1 ea PO TID PRN 12/12/17 5-325 Tablet] Mirtazapine 7.5 mg PO QHS 12/12/17 metoprolol tartrate 50 mg tablet 50 mg PO BID 12/19/17 Ondansetron HCl [Zofran] 4 mg PO Q8H PRN PRN 10 Days #30 tab 02/18/18 Alive Mens 1 tab PO DAILY 02/24/18 Ferrous Sulfate 325 mg PO DAILY@0800 02/24/18 Folic Acid 1 tab PO DAILY 02/24/18 Rivaroxaban [Xarelto] 1 tab PO DAILY 02/24/18 Vitamin D3 2 tab PO DAILY 02/24/18 Surgical History: - - Cholecystectomy, appendectomy, colonic resection for Crohn's disease as well as for diverticulitis, left thumb surgery, several hernia repairs (8 total noted per patient), LNDx Bx, Port placement. Psychiatric History: Anxiety, Bipolar, Depression Lives: Spouse/ Significant Other Smoking Status: Former smoker Alcohol: None Drugs: Marijuana - *Family History Maternal History Items: No pertinent history Paternal History Items: No pertinent history, - - no lung cancer. Review of Systems Constitutional: Reports: Weakness, Fatigue Eyes: Denies: Blurred vision, Double vision HEENT: Denies: Head Aches, Sinus Congestion, Sinus Drainage Cardiovascular: Reports: Chest Pain Respiratory: Reports: Shortness of Breath. Denies: Sputum production Gastrointestinal: Denies: Abdominal Pain, Nausea, Vomiting Genitourinary: Denies: Dysuria Musculoskeletal: Denies: Joint Pain, Joint Tenderness Skin: Denies: Rash, Wounds Neurological: Denies: Numbness, Tingling, Focal weakness Psychiatric: Reports: Anxiety Hematologic/ Lymphatic: Reports: Anemia Patient Problems: Active and Suspected Problems (Last Reviewed 02/11/18 @ 09:28 by Kizzy Sena) Pneumonia (Acute) DVT (deep venous thrombosis) (Acute) Chest pain (Acute) Acute blood loss anemia (Acute) Thrombocytopenia (Acute) Gram-negative pneumonia (Acute) Objective: The patient's most recent lab work, culture data and imaging studies have all been personally reviewed. Blood cultures are currently pending. Strep and urine Legionella antigens were both negative. Sputum culture is also pending. Surface echocardiogram dated November 2017 revealed normal size and thickness of the LV with an ejection fraction of 65%. Right ventricular systolic pressure was estimated to be 43 mmHg. - Physical Exam General: Alert, Cooperative HEENT: Atraumatic, PERRLA, Normocephalic Oral: Dry Mucosa Neck: Supple, No Nodes, Trachea Midline Lungs: Diminished, Rales, Rhonchi, Short of Breath, Tachypneic, - - Currently utilizing a nonrebreather Cardiovascular: Regular rate, Regular Rhythm, Normal S1, Normal S2, No murmurs Abdomen: Bowel Sounds Present, Soft, Non Tender Extremities: No clubbing, No cyanosis, No edema Skin: No breakdown Musculoskeletal: No Tenderness to Palpation of Joints or Extremities Lymphatic: No Cervical, Supraclavicular, or Inguinal Adenopathy Neurological: Neuro grossly intact Psych/Mental Status: Normal Affect, Appropriate Vital Signs Temp Pulse Resp BP Pulse Ox 97.3 F L 88 18 108/65 95 02/25/18 03:21 02/25/18 03:21 02/25/18 03:21 02/25/18 03:21 02/25/18 03:21 Oxygen Flow Rate (L/min) 15 Oxygen Delivery Method Non-Rebreather Weight: 155 lb 3.287 oz Body Mass Index (BMI) 22.8 Intake and Output for Last 24 Hours 02/23/18 02/24/18 02/25/18 23:59 23:59 23:59 Intake Total 1200 / 1200 1537 / 1537 Output Total 300 / 300 550 / 550 Balance 900 / 900 987 / 987 Microbiology Past 72 Hours 02/24/18 21:27 Gram Stain - Preliminary Sputum, Expectorated/Coughed 02/24/18 19:00 Streptococcus pneumoniae Antigen (M - Final Urine, Clean Catch 02/24/18 19:00 Legionella Antigen - Final Urine, Clean Catch Laboratory Tests Past 24 Hrs 02/24/18 02/25/18 02/25/18 19:40 04:25 04:25 WBC 15.0 H RBC 2.61 L Hgb 8.2 L Hct 25.1 L MCV 96.2 H MCH 31.4 MCHC 32.7 RDW 17.8 H RDW Differential 54.8 H Plt Count 19 L* MPV 9.8 Neut % (Auto) Not Reportable Absolute Neuts (auto) 12.4 H Absolute Lymphs (auto) 1.05 Total Counted 100 Neutrophils % (Manual) 79 H Band Neutrophils % 4 Lymphocytes % (Manual) 7 L Monocytes % (Manual) 8 Myelocytes % 2 H Blast Cells % 0 Nucleated RBC % 1.1 Nucleated RBCs/100 WBC 2 Differential Comment TF Toxic Granulation 2+ Platelet Estimate MKD DEC RBC Morphology NORM C+C Absolute Retic 0.16 Sodium 143 Potassium 4.4 Chloride 105 Carbon Dioxide 29.0 Anion Gap 9 BUN 15 Creatinine 0.77 Estim Creat Clear Calc 96.51 Est GFR (MDRD) Af Amer 130 Est GFR (MDRD) Non-Af 108 BUN/Creatinine Ratio 19.4 Glucose 190 H Lactic Acid 4.1 H* Calcium 8.2 L 02/25/18 05:10 WBC RBC Hgb Hct MCV MCH MCHC RDW RDW Differential Plt Count MPV Neut % (Auto) Absolute Neuts (auto) Absolute Lymphs (auto) Total Counted Neutrophils % (Manual) Band Neutrophils % Lymphocytes % (Manual) Monocytes % (Manual) Myelocytes % Blast Cells % Nucleated RBC % Nucleated RBCs/100 WBC Differential Comment Toxic Granulation Platelet Estimate RBC Morphology Absolute Retic Sodium Potassium Chloride Carbon Dioxide Anion Gap BUN Creatinine Estim Creat Clear Calc Est GFR (MDRD) Af Amer Est GFR (MDRD) Non-Af BUN/Creatinine Ratio Glucose Lactic Acid 2.1 H Calcium POC Glucose 02/25/18 02/24/18 06:41 22:05 POC Glucose 238 H 192 H Clinical Impression(s) from Imaging Studies Chest CTA 02/24/18 13:24 IMPRESSION: No evidence of pulmonary embolus. No evidence of thoracic aortic aneurysm or dissection. Increasing consolidation in the left upper lobe. New bibasilar airspace opacities. This is likely infectious in etiology. The patient's known left upper lobe mass is not well evaluated due to the surrounding consolidated lung parenchyma. New small left pleural effusion. Stable mediastinal lymphadenopathy. Electronically Signed: Suhail Cardona, at 14:52 EDT Tel , Service support , Assessment/Plan Active and Suspected Problems (Last Reviewed 02/11/18 @ 09:28 by Kizzy Sena) Pneumonia (Acute) DVT (deep venous thrombosis) (Acute) Chest pain (Acute) Acute blood loss anemia (Acute) Thrombocytopenia (Acute) Gram-negative pneumonia (Acute) RECOMMENDATIONS: 1. Continue broad-spectrum antimicrobials, pending infectious workup. 2. Continue aerosol treatments as ordered. 3. Consider starting steroids if the patient does not improve clinically over the next 24 hours 4. Check respiratory viral panel 5. Wean supplemental oxygen to maintain saturations at or above 90% 6. Monitor H&H. Transfuse to maintain a hemoglobin at or above 8 g/dL. 7. Awaiting oncology evaluation. 8. Consider palliative care consultation IMPRESSIONS: 1. Acute hypoxemic respiratory failure secondary to underlying small cell lung cancer and superimposed healthcare associated pneumonia Broad-spectrum antibiotics will be continued, pending infectious workup. Continue scheduled aerosol treatments, as the patient does have a mild obstructive ventilatory impairment on his last PFTs. There is no clinical improvement over the next 24 hours, would consider empiric initiation of corticosteroids. Will await evaluation by oncology accordingly. Wean supplemental oxygen as tolerated. Check full respiratory viral panel and obtain and send sputum for culture. 2. Anemia/thrombocytopenia secondary to chemotherapy The patient was transfused 2 units of packed red blood cells. Monitor H&H. Goal to maintain a hemoglobin at or above 8 g/dL. 3. Personal history of extensive stage small cell lung cancer The patient is currently on chemotherapy and being managed by oncology. Consultation to oncology is currently pending. Awaiting input regarding prognosis and goals of care. 4. History of bilateral lower extremity DVTs Xarelto is currently on hold, given thrombocytopenia. Continue to monitor platelet count and resume once greater than 50,000. This note was generated with [employer] software. It may contain incorrect words, spelling, and punctuation that were not noted in checking the note before signing. Code Visit Inpatient E&M: 61756 Init Hosp L3
[2018-02-25] MEDS: Folic Acid 1 MG Tablet PO (09:09)
[2018-02-25] MEDS: Metoprolol Tartrate 50 MG Tablet PO ×2 (09:13→21:38)
[2018-02-25] MEDS: Senna Tablet 1 TABLET PO (09:14)
[2018-02-25 09:17] LABS: Reflex Lactate? Y
[2018-02-25 10:08] LABS: Pathologist Review Reviewed
[2018-02-25 10:10] LABS: Pathologist Review Reviewed
--- NOTE | 2018-02-25 10:19 | CPS ---
patient continues to decline aerosols. patient says his oncologist told him not to take aerosols.
[2018-02-25 10:29] LABS: Lactic Acid 1.9 mmol/L (0.4-2.0)
--- NOTE | 2018-02-25 10:44 | PCM.PN.HOSP ---
Patient Problems: Active and Suspected Problems (Last Reviewed 02/11/18 @ 09:28 by Kizzy Sena) Chest pain (Acute) Acute blood loss anemia (Acute) Thrombocytopenia (Acute) Gram-negative pneumonia (Acute) Subjective: Patient is a 62-year-old gentleman with stage IV small cell lung CA on chemotherapy presented with progressive generalized weakness. Found to be anemic on admission with hemoglobin of 6.4. He was also thrombocytopenic with platelet count of 16 imaging studies was questionable for suspected pneumonia admitted to a monitored bed where patient has since been managed Objective: GENERAL: Dyspneic at rest HEENT: Clear conjunctiva, NECK; supple, normal thyroid, CHEST: Diminished to auscultation bilaterally, HEART: Regular S1 S2, no audible murmurs ABDOMEN: soft, non-tender, normoactive bowel sounds, RECTAL: deferred EXTREMITIES: No edema, no clubbing, no cyanosis. 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 SKIN: No rash Vitals/I&O's: Vital Signs Temp Pulse Resp BP Pulse Ox 97.2 F L 89 24 H 117/71 92 02/25/18 09:58 02/25/18 09:58 02/25/18 09:58 02/25/18 09:58 02/25/18 09:58 Oxygen Flow Rate (L/min) 15 Oxygen Delivery Method Non-Rebreather Weight: 70.4 kg Body Mass Index (BMI) 22.8 Intake and Output for Last 24 Hours 02/23/18 02/24/18 02/25/18 23:59 23:59 23:59 Intake Total 1200 / 1200 1537 / 1537 Output Total 300 / 300 550 / 550 Balance 900 / 900 987 / 987 Microbiology Past 72 Hours 02/24/18 21:27 Sputum, Expectorated/Coughed Gram Stain - Preliminary 02/24/18 19:00 Urine, Clean Catch Streptococcus pneumoniae Antigen (M - Final 02/24/18 19:00 Urine, Clean Catch Legionella Antigen - Final Laboratory Results 02/24/18 19:40: Lactic Acid 4.1 H* 02/24/18 22:05: POC Glucose 192 H 02/25/18 04:25: WBC 15.0 H, RBC 2.61 L, Hgb 8.2 L, Hct 25.1 L, MCV 96.2 H, MCH 31.4, MCHC 32.7, RDW 17.8 H, RDW Differential 54.8 H, Plt Count 19 L*, MPV 9.8, Neut % (Auto) Not Reportable, Absolute Neuts (auto) 12.4 H, Absolute Lymphs (auto) 1.05, Total Counted 100, Neutrophils % (Manual) 79 H, Band Neutrophils % 4, Lymphocytes % (Manual) 7 L, Monocytes % (Manual) 8, Myelocytes % 2 H, Blast Cells % 0, Nucleated RBC % 1.1, Nucleated RBCs/100 WBC 2, Differential Comment TF, Diff Path Review Reviewed, Toxic Granulation 2+, Platelet Estimate MKD DEC, RBC Morphology NORM C+C, Absolute Retic 0.16 02/25/18 04:25: Sodium 143, Potassium 4.4, Chloride 105, Carbon Dioxide 29.0, Anion Gap 9, BUN 15, Creatinine 0.77, Estim Creat Clear Calc 96.51, Est GFR (MDRD) Af Amer 130, Est GFR (MDRD) Non-Af 108, BUN/Creatinine Ratio 19.4, Glucose 190 H, Calcium 8.2 L 02/25/18 05:10: Lactic Acid 2.1 H 02/25/18 06:41: POC Glucose 238 H 02/25/18 09:45: MRSA (PCR) Pending 02/25/18 10:00: Lactic Acid 1.9 Current Medications Acetaminophen (Tylenol) 650 mg PO Q4H PRN PRN PRN Reason: FEVER Albuterol Sulfate (Ventolin Aerosols) 2.5 mg INHALATION Q2H PRN PRN PRN Reason: SHORTNESS OF BREATH Albuterol/Ipratropium (Duoneb) 3 ml INHALATION Q4H.RT [facility] Last Admin: 02/25/18 07:25 Dose: Not Given Atorvastatin Calcium (Lipitor) 40 mg PO QHS [facility] Last Admin: 02/24/18 21:45 Dose: 40 mg Cholecalciferol (Vitamin D) 2,000 unit PO DAILY [facility] Last Admin: 02/25/18 09:14 Dose: 2,000 unit Dextrose (D50w Syringe) 0 gm IV X1 PRN; Protocol PRN Reason: Hypoglycemia Divalproex Sodium (Depakote) 500 mg PO TID [facility] Last Admin: 02/25/18 05:42 Dose: 500 mg Fentanyl Citrate (Sublimaze (100mcg Ampule)) 25 mcg IV Q6H PRN PRN Reason: BREAKTHROUGH PAIN (>4/10) Last Admin: 02/25/18 00:54 Dose: 25 mcg Folic Acid (Folic Acid) 1 mg PO DAILY@0800 [facility] Last Admin: 02/25/18 09:09 Dose: 1 mg Glucagon () 1 mg IM .X1 PRN PRN Reason: Hypoglycemia Heparin Sodium (Beef Lung) (Heparin 500 Unit/5 Ml (100/Ml)) 500 unit IV UD PRN PRN Reason: HEPARIN FLUSH Piperacillin Sod/Tazobactam Sod (Zosyn) 3.375 gm in 50 mls @ 12.5 mls/hr IV Q8 [facility] Last Admin: 02/25/18 05:40 Dose: 12.5 mls/hr Vancomycin HCl (Vancomycin) 1,000 mg in 200 mls @ 200 mls/hr IV Q12H [facility] Last Admin: 02/25/18 06:43 Dose: 200 mls/hr Sodium Chloride () 250 mls @ 15 mls/hr IV .[id number] PRN PRN Reason: SALINE FLUSH Insulin Aspart (Novolog Flexpen (Bkc)) 0 units SC TIDAC [facility] PRN Reason: Protocol Last Admin: 02/25/18 09:08 Dose: 3 units Levothyroxine Sodium (Synthroid) 25 mcg PO DAILY@0600 [facility] Last Admin: 02/25/18 05:42 Dose: 25 mcg Magnesium Hydroxide (Milk Of Magnesia) 30 ml PO DAILY PRN PRN PRN Reason: Constipation Metoprolol Tartrate (Lopressor (Beta Raina)) 50 mg PO BID [facility] Last Admin: 02/25/18 09:13 Dose: 50 mg Mirtazapine (Remeron) 7.5 mg PO QHS [facility] Last Admin: 02/24/18 21:45 Dose: 7.5 mg Nutritional Formula (Lactose Free) (Glucerna Shake) 120 ml PO 4X/DAY [facility] Last Admin: 02/25/18 09:13 Dose: Not Given Ondansetron HCl (Zofran) 4 mg IV Q8H PRN PRN PRN Reason: NAUSEA Ondansetron HCl (Zofran Odt) 4 mg PO Q8H PRN PRN Reason: NAUSEA Oxycodone HCl (Oxyir) 5 - 10 mg PO Q4H PRN PRN PRN Reason: SEVERE PAIN (6-10/10) Last Admin: 02/25/18 07:34 Dose: 10 mg Senna (Senokot) 1 tablet PO BID [facility] Last Admin: 02/25/18 09:14 Dose: 1 tablet Sodium Chloride () 10 ml IV UD PRN PRN Reason: VAD FLUSH Last Admin: 02/25/18 10:01 Dose: 10 ml Medical Necessity - Tobacco Use Smoking Status: Former smoker Assessment/Plan Active and Suspected Problems (Last Reviewed 02/11/18 @ 09:28 by Kizzy Sena) Chest pain (Acute) Acute blood loss anemia (Acute) Thrombocytopenia (Acute) Gram-negative pneumonia (Acute) Patient is a 62-year-old gentleman with stage IV small cell lung CA on chemotherapy presented with progressive generalized weakness. Found to be anemic on admission with hemoglobin of 6.4. He was also thrombocytopenic with platelet count of 16 imaging studies was questionable for suspected pneumonia admitted to a monitored bed where patient has since been managed 1. Acute hypoxic respiratory failure secondary to patient underlying lung CA as well as his suspected pneumonia with gram-negative organisms. Patient managed with Zosyn as well as vancomycin in addition to high flow oxygen with consultation placed a pulmonary medicine 2. Anemia secondary to chemotherapy-induced anemia patient was transfused 2 units PRBC since he was significantly symptomatic on admission. 3. Thrombocytopenia again secondary to his recent chemotherapy monitoring with plans to transfuse if patient starts bleeding or platelet count falls below 10,000 4. Stage 4 SCLC: completed 5/6 cycles of carboplatin/etopside 5. Diabetes mellitus type 2 patient oral agents held on admission please and Accu-Cheks before meals and at bedtime with sliding scale coverage 6. DVT prophylaxis: no chemical prophylaxis given his profound anemia and thrombocytopenia; no SCDs because of plt count of 16K Code Visit Inpatient E&M: 04422 Subs Hosp L3
--- NOTE | 2018-02-25 10:53 | PN_ITS ---
Patient Problems: Active and Suspected Problems (Last Reviewed 02/11/18 @ 09:28 by Kizzy Sena) Chest pain (Acute) Acute blood loss anemia (Acute) Thrombocytopenia (Acute) Gram-negative pneumonia (Acute) Subjective: Patient is a 62-year-old gentleman with stage IV small cell lung CA on chemotherapy presented with progressive generalized weakness. Found to be anemic on admission with hemoglobin of 6.4. He was also thrombocytopenic with platelet count of 16 imaging studies was questionable for suspected pneumonia admitted to a monitored bed where patient has since been managed Objective: GENERAL: Dyspneic at rest HEENT: Clear conjunctiva, NECK; supple, normal thyroid, CHEST: Diminished to auscultation bilaterally, HEART: Regular S1 S2, no audible murmurs ABDOMEN: soft, non-tender, normoactive bowel sounds, RECTAL: deferred EXTREMITIES: No edema, no clubbing, no cyanosis. 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 SKIN: No rash Vitals/I&O's: Vital Signs Temp Pulse Resp BP Pulse Ox 97.2 F L 89 24 H 117/71 92 02/25/18 09:58 02/25/18 09:58 02/25/18 09:58 02/25/18 09:58 02/25/18 09:58 Oxygen Flow Rate (L/min) 15 Oxygen Delivery Method Non-Rebreather Weight: 70.4 kg Body Mass Index (BMI) 22.8 Intake and Output for Last 24 Hours 02/23/18 02/24/18 02/25/18 23:59 23:59 23:59 Intake Total 1200 / 1200 1537 / 1537 Output Total 300 / 300 550 / 550 Balance 900 / 900 987 / 987 Microbiology Past 72 Hours 02/24/18 21:27 Sputum, Expectorated/Coughed Gram Stain - Preliminary 02/24/18 19:00 Urine, Clean Catch Streptococcus pneumoniae Antigen (M - Final 02/24/18 19:00 Urine, Clean Catch Legionella Antigen - Final Laboratory Results 02/24/18 19:40: Lactic Acid 4.1 H* 02/24/18 22:05: POC Glucose 192 H 02/25/18 04:25: WBC 15.0 H, RBC 2.61 L, Hgb 8.2 L, Hct 25.1 L, MCV 96.2 H, MCH 31.4, MCHC 32.7, RDW 17.8 H, RDW Differential 54.8 H, Plt Count 19 L*, MPV 9.8, Neut % (Auto) Not Reportable, Absolute Neuts (auto) 12.4 H, Absolute Lymphs ( auto) 1.05, Total Counted 100, Neutrophils % (Manual) 79 H, Band Neutrophils % 4 , Lymphocytes % (Manual) 7 L, Monocytes % (Manual) 8, Myelocytes % 2 H, Blast Cells % 0, Nucleated RBC % 1.1, Nucleated RBCs/100 WBC 2, Differential Comment TF, Diff Path Review Reviewed, Toxic Granulation 2+, Platelet Estimate MKD DEC, RBC Morphology NORM C+C, Absolute Retic 0.16 02/25/18 04:25: Sodium 143, Potassium 4.4, Chloride 105, Carbon Dioxide 29.0, Anion Gap 9, BUN 15, Creatinine 0.77, Estim Creat Clear Calc 96.51, Est GFR ( MDRD) Af Amer 130, Est GFR (MDRD) Non-Af 108, BUN/Creatinine Ratio 19.4, Glucose 190 H, Calcium 8.2 L 02/25/18 05:10: Lactic Acid 2.1 H 02/25/18 06:41: POC Glucose 238 H 02/25/18 09:45: MRSA (PCR) Pending 02/25/18 10:00: Lactic Acid 1.9 Current Medications Acetaminophen (Tylenol) 650 mg PO Q4H PRN PRN PRN Reason: FEVER Albuterol Sulfate (Ventolin Aerosols) 2.5 mg INHALATION Q2H PRN PRN PRN Reason: SHORTNESS OF BREATH Albuterol/Ipratropium (Duoneb) 3 ml INHALATION Q4H.RT [facility] Last Admin: 02/25/18 07:25 Dose: Not Given Atorvastatin Calcium (Lipitor) 40 mg PO QHS [facility] Last Admin: 02/24/18 21:45 Dose: 40 mg Cholecalciferol (Vitamin D) 2,000 unit PO DAILY [facility] Last Admin: 02/25/18 09:14 Dose: 2,000 unit Dextrose (D50w Syringe) 0 gm IV X1 PRN; Protocol PRN Reason: Hypoglycemia Divalproex Sodium (Depakote) 500 mg PO TID [facility] Last Admin: 02/25/18 05:42 Dose: 500 mg Fentanyl Citrate (Sublimaze (100mcg Ampule)) 25 mcg IV Q6H PRN PRN Reason: BREAKTHROUGH PAIN (>4/10) Last Admin: 02/25/18 00:54 Dose: 25 mcg Folic Acid (Folic Acid) 1 mg PO DAILY@0800 [facility] Last Admin: 02/25/18 09:09 Dose: 1 mg Glucagon () 1 mg IM .X1 PRN PRN Reason: Hypoglycemia Heparin Sodium (Beef Lung) (Heparin 500 Unit/5 Ml (100/Ml)) 500 unit IV UD PRN PRN Reason: HEPARIN FLUSH Piperacillin Sod/Tazobactam Sod (Zosyn) 3.375 gm in 50 mls @ 12.5 mls/hr IV Q8 [facility] Last Admin: 02/25/18 05:40 Dose: 12.5 mls/hr Vancomycin HCl (Vancomycin) 1,000 mg in 200 mls @ 200 mls/hr IV Q12H [facility] Last Admin: 02/25/18 06:43 Dose: 200 mls/hr Sodium Chloride () 250 mls @ 15 mls/hr IV .[id number] PRN PRN Reason: SALINE FLUSH Insulin Aspart (Novolog Flexpen (Bkc)) 0 units SC TIDAC [facility] PRN Reason: Protocol Last Admin: 02/25/18 09:08 Dose: 3 units Levothyroxine Sodium (Synthroid) 25 mcg PO DAILY@0600 [facility] Last Admin: 02/25/18 05:42 Dose: 25 mcg Magnesium Hydroxide (Milk Of Magnesia) 30 ml PO DAILY PRN PRN PRN Reason: Constipation Metoprolol Tartrate (Lopressor (Beta Raina)) 50 mg PO BID [facility] Last Admin: 02/25/18 09:13 Dose: 50 mg Mirtazapine (Remeron) 7.5 mg PO QHS [facility] Last Admin: 02/24/18 21:45 Dose: 7.5 mg Nutritional Formula (Lactose Free) (Glucerna Shake) 120 ml PO 4X/DAY [facility] Last Admin: 02/25/18 09:13 Dose: Not Given Ondansetron HCl (Zofran) 4 mg IV Q8H PRN PRN PRN Reason: NAUSEA Ondansetron HCl (Zofran Odt) 4 mg PO Q8H PRN PRN Reason: NAUSEA Oxycodone HCl (Oxyir) 5 - 10 mg PO Q4H PRN PRN PRN Reason: SEVERE PAIN (6-10/10) Last Admin: 02/25/18 07:34 Dose: 10 mg Senna (Senokot) 1 tablet PO BID [facility] Last Admin: 02/25/18 09:14 Dose: 1 tablet Sodium Chloride () 10 ml IV UD PRN PRN Reason: VAD FLUSH Last Admin: 02/25/18 10:01 Dose: 10 ml Medical Necessity - Tobacco Use Smoking Status: Former smoker Assessment/Plan Active and Suspected Problems (Last Reviewed 02/11/18 @ 09:28 by Kizzy Sena) Chest pain (Acute) Acute blood loss anemia (Acute) Thrombocytopenia (Acute) Gram-negative pneumonia (Acute) Patient is a 62-year-old gentleman with stage IV small cell lung CA on chemotherapy presented with progressive generalized weakness. Found to be anemic on admission with hemoglobin of 6.4. He was also thrombocytopenic with platelet count of 16 imaging studies was questionable for suspected pneumonia admitted to a monitored bed where patient has since been managed 1. Acute hypoxic respiratory failure secondary to patient underlying lung CA as well as his suspected pneumonia with gram-negative organisms. Patient managed with Zosyn as well as vancomycin in addition to high flow oxygen with consultation placed a pulmonary medicine 2. Anemia secondary to chemotherapy-induced anemia patient was transfused 2 units PRBC since he was significantly symptomatic on admission. 3. Thrombocytopenia again secondary to his recent chemotherapy monitoring with plans to transfuse if patient starts bleeding or platelet count falls below 10, 000 4. Stage 4 SCLC: completed 5/6 cycles of carboplatin/etopside 5. Diabetes mellitus type 2 patient oral agents held on admission please and Accu-Cheks before meals and at bedtime with sliding scale coverage 6. DVT prophylaxis: no chemical prophylaxis given his profound anemia and thrombocytopenia; no SCDs because of plt count of 16K Code Visit Inpatient E&M: 33531 Subs Hosp L3
[2018-02-25] MEDS: Ipratropium/Albuterol Sulfate 3 ML AMPUL.NEB INHALATION ×2 (11:00→18:52)
--- NOTE | 2018-02-25 11:23 | PCM.RX.CS ---
Consult Pharmacy has been consulted to manage selected antiobiotic: Vancomycin Type of Consult: Follow-up Suspected Infection: Pneumonia Prior Doses of Antibiotics Received/Current Regimen: Medications Vancomycin HCl (Vancomycin) 1,000 mg in 200 mls @ 200 mls/hr IV Q12H [facility] Last Admin: 02/25/18 06:43 Dose: 200 mls/hr Labs: Sodium 143 mmol/L (136-145) 02/25/18 04:25 Potassium 4.4 mmol/L (3.5-5.1) 02/25/18 04:25 Chloride 105 mmol/L (98-107) 02/25/18 04:25 Carbon Dioxide 29.0 mmol/L (21.0-32.0) 02/25/18 04:25 Anion Gap 9 (5-15) 02/25/18 04:25 BUN 15 mg/dL (7-18) 02/25/18 04:25 Creatinine 0.77 mg/dL (0.70-1.30) 02/25/18 04:25 Est GFR (MDRD) Af Amer 130 mL/min (>60) 02/25/18 04:25 Est GFR (MDRD) Non-Af 108 mL/min (>60) 02/25/18 04:25 BUN/Creatinine Ratio 19.4 RATIO (10-20) 02/25/18 04:25 Glucose 190 mg/dL (74-106) H 02/25/18 04:25 Microbiology: Microbiology 02/24/18 21:27 Sputum, Expectorated/Coughed Gram Stain - Preliminary 02/24/18 19:00 Urine, Clean Catch Streptococcus pneumoniae Antigen (M - Final 02/24/18 19:00 Urine, Clean Catch Legionella Antigen - Final Weight used for dosin kg Estimated Creatinine Clearance: 90 mL/min Goal Trough: 15-20 mcg/mL Pharmacy Plan for Drug Dosing: SCr worsened, now improved. Recommend to increase vancomycin to 1250mg IV q12h. Check trough prior to 5th dose. Pharmacy Service will continue to monitor and adjust dosing as required. Follow-Up Labs: Trough Vancomycin - 02/27/18 @ 0500
--- NOTE | 2018-02-25 11:44 | CASEMGMT ---
SW met with patient and his significant other, Martha. They live in a mobile home with 2 entry steps. Patient is normally independent with all activities. Lately his significant other has been driving him. He has a cane, but he does not use it. He sees Dr Betancourt for oncology. A nurse from [facility] visits him once a month. They do not anticipate any d/c needs, however they are aware SW/JANEL CM is available if needed. Daja KNIGHT OUTCOMES MANAGER
[2018-02-25 11:57] LABS: M R Staph aureus DNA By PCR Negative (Negative); Probe Check PASS; Specimen Processing Control PASS
[2018-02-25 12:01] LABS: Bedside Glucose 127 mg/dL (70-110)
--- NOTE | 2018-02-25 14:51 | ONC.CON.INP2 ---
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 Anemia and thrombocytopenia Subjective Date of Service:: 02/25/18 Chief Complaint: Thrombocytopenia, chest pain History of Present Illness: Patient is a 62-year-old male with extensive stage IV SCLC admitted with chest pain and respiratory tract infection. He's an ex-smoker who quit in 2015, who was hospitalized at [facility] in September 2017 with his acute abdominal pain and diagnosed with pancreatitis. During hospitalization a chest x-ray revealed a left lung mass. CT scan showed a malignant-looking left upper lobe mass and a CT-guided biopsy on September 18, 2017 confirmed small cell lung cancer. PET CT October 08, 2017 showed abnormal uptake consistent with a malignant process involving the left lung mass, hilar adenopathy and a newly evolving left adrenal mass was not visualized on his CT scan of the abdomen in March 2017. CT-guided biopsy of the adrenal mass confirmed metastatic small cell cancer. MRI of the brain showed no evidence of metastatic disease. Of note patient developed 2 episodes of acute pancreatitis the first was September 2017, the second was November [address] scan of the abdomen and PET/CT showed indeterminate abnormality in the area of the pancreatic head that could not be further characterized but an underlying neoplastic process could not be excluded. Current Treatment: Carbo-etoposide since 11/13/2017- Last treatment 02/11/2018 Developed bilateral LE DVTs 01/2018 and has been on xarelto. Past Medical History: Chronic Problems (Last Reviewed 02/11/18 @ 09:28 by Kizzy Sena) Cancer-related pain (Chronic) Stage 1 mild COPD by GOLD classification (Chronic) Small cell lung cancer (Chronic) ALEC 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) Diabetes mellitus, type II (Chronic) COPD (chronic obstructive pulmonary disease) (Chronic) History of tobacco use (Chronic) Migraine (Chronic) Crohns disease (Chronic) History of TIA (transient ischemic attack) (Chronic) Hypothyroidism (Chronic) Past Medical/Surgical History: Past Medical History - Most Recent Inpatient Visit Past Medical History Start: 02/24/18 17:52 Text: Status: Complete Freq: ONCE Protocol: Document 02/24/18 17:52 [facility] (Rec: 02/24/18 18:20 EAS [id number]) BMI Required to complete PMH What is Patient's BMI 22.9 Past Medical History Unable History Recalled No Query Text:Pt Unable/Family Not Present Neurologic Medical History Hx Stroke/TIA Yes: 2000 Hx Dementia/Alzheimer's No Hx Parkinson's Disease No Hx Seizures Yes: 2000 with stroke Hx Multiple Sclerosis No Hx Migraines Yes Cardiac Medical History VTE Present on Admission No Hx of Deep Vein Thrombosis/VTE/PE Yes: right leg found out a couple weeks ago Hx Hypertension No Hx Chest Pain/Angina Yes Hx Heart Attack No Hx Cardiac Surgery/Stents/Etc. No: stress test Oct 2017 Hx Heart Failure No Hx Pacemaker/AICD No Hx Irregular Heartbeat and/or Afib No Hx Anticoagulant Therapy No Query Text:(Coumadin, Aspirin, Plavix, Xarelto, etc.) Hx Pain in Legs when Walking/Leg Cramps No Respiratory Medical History Hx COPD Yes Hx Emphysema No Hx Smoking Yes Smoking Status Former smoker Years Smoking 50 Packs Smoked per Day 1.5 Hx Smoking Cessation Counseling Yes Hx Smoking Exposure Yes Hx Tobacco Use in last 12 months No Hx of Pipe Smoking No Hx Sleep Apnea No Do you snore loudly (louder than talking Yes or can be heard through closed doors)? Do you often feel tired/ fatigued/ Yes sleepy during daytime? Has anyone observed you stop breathing Yes during sleep? STOP Results Positive Comments does think patient has sleep apnea GI Medical History Hx Ulcer No Hx Hepatitis No Hx Cirrhosis No Hx GI Bleed No Hx Unplanned Weight Loss No Genitourinary Medical History Indwelling Catheter in Place on Arrival/ No Admission Hx Renal Disease No Hx Dialysis No Musculoskeletal History Hx Arthritis Yes: hands Hx Rheumatoid Arthritis No Endocrine Medical History Hx Diabetes Yes Hx Thyroid Disease Yes Hematologic Medical History Hx of Blood Transfusion Yes Hx of Transfusion in last 3 Months Yes Date of Last Transfusion (if within last 02/24/17 3 months) Ever experience any problems with No transfusion(s)? 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 No Methicillin Resistant Staphylococcus aureus Screening Active MRSA No Risk for Readmission Number of Risk Factors 7 At Risk for Readmission Patient is At Risk For Readmission Patient is eligible for Call Back Y Past Medical History (Last Reviewed 02/11/18 @ 09:28 by Kizzy Sena) Palpitations (Acute) Anemia (Acute) Small cell lung cancer (Chronic) 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) Mass of pancreas (Acute) DVT prophylaxis (Acute) Anemia (Acute) Chest pain (Acute) Diabetes mellitus, type II (Chronic) COPD (chronic obstructive pulmonary disease) (Chronic) History of tobacco use (Chronic) Migraine (Chronic) Crohns disease (Chronic) History of TIA (transient ischemic attack) (Chronic) Hypothyroidism (Chronic) Abdominal pain (Acute) Acute Crohn's disease (Acute) Cervical radiculopathy (Acute) 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) Depression (Acute) Diabetes (Acute) Diverticulitis (Acute) Dyspnea (Acute) Heart murmur (Acute) Hernia (Acute) Impingement syndrome, shoulder, left (Acute) Inguinal hernia (Acute) Marijuana use (Acute) Pneumonia (Acute) Rotator cuff syndrome (Acute) Small cell lung cancer (Acute) Stroke (Acute) s/p port placement (Acute ~11/01/17) Past Surgical History (Last Reviewed 02/11/18 @ 09:28 by Kizzy Sena) History of right inguinal hernia repair (Resolved) History of cholecystectomy (Resolved) History of laparotomy (Resolved) FHx: cholecystectomy (Acute) H/O colectomy (Acute) History of appendectomy (Acute) RIGHT HERNIA REPAIR WITH KUGEL PATCH (Acute) SIGMOIDECTOMY W/ COLORECTAL ANASTAMOSIS (Acute) Maternal Family History: Family History (Last Reviewed 02/11/18 @ 09:28 by Kizzy Sena) Father CAD (coronary artery disease) Mesothelioma Grandfather Leukemia Brother Throat cancer Family History: No pertinent history Paternal Family History: Family History (Last Reviewed 02/11/18 @ 09:28 by Kizzy Sena) Father CAD (coronary artery disease) Mesothelioma Grandfather Leukemia Brother Throat cancer Family History: No pertinent history, - - no lung cancer. - Social History Lives: Spouse/ Significant Other Smoking Status: Former smoker Alcohol: None Drugs: Marijuana Allergies/Adverse Reactions: Allergy/AdvReac Type Severity Reaction Status Date / Time morphine Allergy Severe Swelling Verified 02/24/18 13:21 hydromorphone [From Dilaudid] AdvReac Severe SEVERE Verified 02/24/18 13:21 HEADACHE Home Medications Medication Instructions Recorded Atorvastatin Calcium 40 mg PO QHS 09/16/17 Divalproex Sodium [Depakote ER] 500 mg PO TID 09/16/17 Levothyroxine [Synthroid] 25 mcg PO DAILY 09/16/17 Metformin HCl [Glucophage] 1,000 mg PO BID 09/16/17 Senna [Senokot] 1 tab PO BID PRN 10/25/17 Cyanocobalamin (Vitamin B-12) 1,000 mcg PO DAILY 12/12/17 [Vitamin B-12] Hydrocodone/Acetaminophen [Watson 1 ea PO TID PRN 12/12/17 5-325 Tablet] Mirtazapine 7.5 mg PO QHS 12/12/17 metoprolol tartrate 50 mg tablet 50 mg PO BID 12/19/17 Ondansetron HCl [Zofran] 4 mg PO Q8H PRN PRN 10 Days #30 tab 02/18/18 Alive Mens 1 tab PO DAILY 02/24/18 Ferrous Sulfate 325 mg PO DAILY@0800 02/24/18 Folic Acid 1 tab PO DAILY 02/24/18 Rivaroxaban [Xarelto] 1 tab PO DAILY 02/24/18 Vitamin D3 2 tab PO DAILY 02/24/18 Review of Systems Constitutional:: Reports: Weakness, Fatigue, Weight loss, Weight gain, Appetite change - fluctuationg. Denies: Fever, Sweats, Chills Cardiovascular:: Reports: Chest pain - unrelated to exertion, Dyspnea on exertion. Denies: Palpitations, Orthopnea, PND, Shortness of breath Respiratory: Reports: Cough, Sputum production. Denies: Hemoptysis, Shortness of Breath, Wheezing Gastrointestinal:: Reports: Abdominal pain - LUQ, chronic. Denies: Nausea, Vomiting, Diarrhea, Constipation, Hematochezia Genitourinary: Denies: Dysuria, Hematuria, 15, Flank pain Musculoskeletal:: Denies: Back pain, Myalgia, Arthralgia Skin: Denies: Rash, Skin Changes, Wounds Neurological:: Denies: Headache, Dizziness, Visual changes, Tinnitus, Hearing loss Psychiatric: Denies: Anxiety, Depression, Homicidal Ideations, Suicidal Ideations Vital Signs Height 5 ft 9 in Weight: 70.4 kg Weight in Pounds 155.2 lbs Pulse Ox 92 Temperature 97.5 F Pulse Rate 90 Respiratory Rate 28 Blood Pressure 106/69 Blood Pressure Position Semi-Fowlers - Physical Exam General: Alert, Oriented x3, No apparent distress, - - chronic ill look, ECOG 2-3 HEENT: Atraumatic, PERRLA, EOMI, Normocephalic Oropharynx:: Dry mucosa Neck:: Supple, Trachea midline. Negative for: JVD, bilateral Cardiac:: Regular rate, Regular rhythm, Normal S1, Normal S2. Negative for: Murmur Lungs: Clear to auscultation, Rhonchi, Wheezes, Diminished, Excusion symmetrical Abdomen:: Soft, Non-tender, Non-distended. Negative for: Hepatosplenomegaly Extremities:: Negative for: Cyanosis, Edema Neurological: Neuro grossly intact Skin:: Negative for: Lesions, Rash, Petechiae, Ecchymosis Psychiatric:: Appropriate affect, Euthymic Lymphatics:: Negative for: Cervical lymphadenopathy, Supraclavicular lymphadenopathy, Axillary lymphadenopathy Laboratory Data: Microbiology 02/24/18 21:27 Gram Stain - Preliminary Sputum, Expectorated/Coughed Respiratory Culture - Preliminary Staphylococcus aureus 02/24/18 19:00 Streptococcus pneumoniae Antigen (M - Final Urine, Clean Catch 02/24/18 19:00 Legionella Antigen - Final Urine, Clean Catch Laboratory Tests 02/25/18 02/25/18 02/25/18 Range/Units 11:45 10:00 09:45 WBC (4.4-11.0) K/mm3 RBC (4.6-6.2) M/mm3 Hgb (13.0-16.5) g/dl Hct (40-54) % MCV (80-94) fL MCH (27.0-32.0) pg MCHC (32-36) g/gl RDW (11.6-14.6) % RDW Differential (35.1-43.9) fl Plt Count (150-450) K/mm3 MPV (6.2-12.0) fl Neut % (Auto) Absolute Neuts (auto) (2.0-7.7) X10^3/uL Absolute Lymphs (auto) (0.83-4.51) X10^3/ul Total Counted (MANUAL DIFF) Neutrophils % (Manual) (47-70) % Band Neutrophils % (0-5) % Lymphocytes % (Manual) (19-41) % Monocytes % (Manual) (0-10) % Myelocytes % (0-0) Blast Cells % (0-0) % Nucleated RBC % (0-5) % Nucleated RBCs/100 WBC (0-5) % Differential Comment Diff Path Review Toxic Granulation Platelet Estimate (ADEQ) RBC Morphology (NORM C&C) NORMAL Absolute Retic (0-5) 10^3/uL Sodium (136-145) mmol/L Potassium (3.5-5.1) mmol/L Chloride (98-107) mmol/L Carbon Dioxide (21.0-32.0) mmol/L Anion Gap (5-15) BUN (7-18) mg/dL Creatinine (0.70-1.30) mg/dL Estim Creat Clear Calc ml/min Est GFR (MDRD) Af Amer (>60) mL/min Est GFR (MDRD) Non-Af (>60) mL/min BUN/Creatinine Ratio (10-20) RATIO Glucose (74-106) mg/dL Lactic Acid 1.9 (0.4-2.0) mmol/L Calcium (8.5-10.1) mg/dL MRSA (PCR) Negative (Negative) POC Glucose 127 H (70-110) mg/dL 02/25/18 02/25/18 02/25/18 Range/Units 06:41 05:10 04:25 WBC (4.4-11.0) K/mm3 RBC (4.6-6.2) M/mm3 Hgb (13.0-16.5) g/dl Hct (40-54) % MCV (80-94) fL MCH (27.0-32.0) pg MCHC (32-36) g/gl RDW (11.6-14.6) % RDW Differential (35.1-43.9) fl Plt Count (150-450) K/mm3 MPV (6.2-12.0) fl Neut % (Auto) Absolute Neuts (auto) (2.0-7.7) X10^3/uL Absolute Lymphs (auto) (0.83-4.51) X10^3/ul Total Counted (MANUAL DIFF) Neutrophils % (Manual) (47-70) % Band Neutrophils % (0-5) % Lymphocytes % (Manual) (19-41) % Monocytes % (Manual) (0-10) % Myelocytes % (0-0) Blast Cells % (0-0) % Nucleated RBC % (0-5) % Nucleated RBCs/100 WBC (0-5) % Differential Comment Diff Path Review Toxic Granulation Platelet Estimate (ADEQ) RBC Morphology (NORM C&C) NORMAL Absolute Retic (0-5) 10^3/uL Sodium 143 (136-145) mmol/L Potassium 4.4 (3.5-5.1) mmol/L Chloride 105 (98-107) mmol/L Carbon Dioxide 29.0 (21.0-32.0) mmol/L Anion Gap 9 (5-15) BUN 15 (7-18) mg/dL Creatinine 0.77 (0.70-1.30) mg/dL Estim Creat Clear Calc 96.51 ml/min Est GFR (MDRD) Af Amer 130 (>60) mL/min Est GFR (MDRD) Non-Af 108 (>60) mL/min BUN/Creatinine Ratio 19.4 (10-20) RATIO Glucose 190 H (74-106) mg/dL Lactic Acid 2.1 H (0.4-2.0) mmol/L Calcium 8.2 L (8.5-10.1) mg/dL MRSA (PCR) (Negative) POC Glucose 238 H (70-110) mg/dL 02/25/18 02/24/18 02/24/18 Range/Units 04:25 22:05 19:40 WBC 15.0 H (4.4-11.0) K/mm3 RBC 2.61 L (4.6-6.2) M/mm3 Hgb 8.2 L (13.0-16.5) g/dl Hct 25.1 L (40-54) % MCV 96.2 H (80-94) fL MCH 31.4 (27.0-32.0) pg MCHC 32.7 (32-36) g/gl RDW 17.8 H (11.6-14.6) % RDW Differential 54.8 H (35.1-43.9) fl Plt Count 19 L* (150-450) K/mm3 MPV 9.8 (6.2-12.0) fl Neut % (Auto) Not Reportable Absolute Neuts (auto) 12.4 H (2.0-7.7) X10^3/uL Absolute Lymphs (auto) 1.05 (0.83-4.51) X10^3/ul Total Counted 100 (MANUAL DIFF) Neutrophils % (Manual) 79 H (47-70) % Band Neutrophils % 4 (0-5) % Lymphocytes % (Manual) 7 L (19-41) % Monocytes % (Manual) 8 (0-10) % Myelocytes % 2 H (0-0) Blast Cells % 0 (0-0) % Nucleated RBC % 1.1 (0-5) % Nucleated RBCs/100 WBC 2 (0-5) % Differential Comment TF Diff Path Review Reviewed Toxic Granulation 2+ Platelet Estimate MKD DEC (ADEQ) RBC Morphology NORM C+C (NORM C&C) NORMAL Absolute Retic 0.16 (0-5) 10^3/uL Sodium (136-145) mmol/L Potassium (3.5-5.1) mmol/L Chloride (98-107) mmol/L Carbon Dioxide (21.0-32.0) mmol/L Anion Gap (5-15) BUN (7-18) mg/dL Creatinine (0.70-1.30) mg/dL Estim Creat Clear Calc ml/min Est GFR (MDRD) Af Amer (>60) mL/min Est GFR (MDRD) Non-Af (>60) mL/min BUN/Creatinine Ratio (10-20) RATIO Glucose (74-106) mg/dL Lactic Acid 4.1 H* (0.4-2.0) mmol/L Calcium (8.5-10.1) mg/dL MRSA (PCR) (Negative) POC Glucose 192 H (70-110) mg/dL Diagnostic Data: Diagnostic Data Chest CTA 02/24/18 13:24 IMPRESSION: No evidence of pulmonary embolus. No evidence of thoracic aortic aneurysm or dissection. Increasing consolidation in the left upper lobe. New bibasilar airspace opacities. This is likely infectious in etiology. The patient's known left upper lobe mass is not well evaluated due to the surrounding consolidated lung parenchyma. New small left pleural effusion. Stable mediastinal lymphadenopathy. Electronically Signed: Suhail Cardona, at 14:52 EDT Tel , Service support , Assessment and Plan 62-year-old male smoker till 2016 with stage IV small cell lung cancer. Patient presented with significant weight and has left upper abdominal pain most likely related to a rapidly growing metastatic lesion (pathologically confirmed) in the left adrenal gland. #1 Systemic chemotherapy with carboplatin etoposide patient is status post 5/6 cycles with partial remission of his disease and planned to continue to a total of 6 cycles depending on response. Last cycle was 02/11/2018 and received neulasta 02/14/2018 #2 Anemia of cancer and chemotherapy, transfuse qwith PRBCS to target HB > 8 g/dl #3 Thrombocytopenia, 2ry to recent chemo +/- infection. Hold xarelto till PLT >50K. Prophylactic PLT transfusion if <10K. #4 Pain control as per pain management consulted recommendations #5 Indeterminate abnormality in the pancreatic head area possibilities are post pancreatitis, metastatic small cell lung cancer to pancreas, or a second primary cancer of the pancreas. Pursuing this abnormality with biopsy is of academic interest only and may only cause delay in initiating treatment for the aggressive small cell lung cancer. His prognosis and survival are more dependent on the extensive stage small cell lung cancer and active treatment will have to be redirected again assess life-threatening, and inevitably fatal disease. On recent CT these abnormalities are not progressive. I discussed this finding with the patient and significant other in detail and an earlier visit. #6 Malignancy hypercoagulability with bilateral LE DVT, hold xarelto till PLT >50K then resume. Use non-pharmacologic DVT prophylaxis and encourage ambulation. #7 horpitalized acutely with respiratory infection on antibiotics as per 1ry service. Comorbid conditions: Diabetes, neuropathy, dyslipidemia, COPD, hypothyroidism Medications: Prescriptions This Visit Medication Instructions Recorded Alive Mens 1 tab PO DAILY 02/24/18 Ferrous Sulfate 325 mg PO DAILY@0800 02/24/18 Folic Acid 1 tab PO DAILY 02/24/18 Rivaroxaban [Xarelto] 1 tab PO DAILY 02/24/18 Vitamin D3 2 tab PO DAILY 02/24/18 Medications Added to Medication List This Visit Category Date Time Status Insulin Aspart [Novolog Flexpen (BKC)] Med 02/25/18 07:00 Active See Protocol SC TIDAC Vancomycin 1,250 mg Med 02/25/18 17:00 Active 0.9% Normal Saline 250 ml IV Q12H Primary Care Provider: Last Aguilar Referring Provider:
--- NOTE | 2018-02-25 15:02 | CON.PCM_ITS ---
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 Anemia and thrombocytopenia Subjective Date of Service:: 02/25/18 Chief Complaint: Thrombocytopenia, chest pain History of Present Illness: Patient is a 62-year-old male with extensive stage IV SCLC admitted with chest pain and respiratory tract infection. He's an ex-smoker who quit in 2015, who was hospitalized at [facility] in September 2017 with his acute abdominal pain and diagnosed with pancreatitis. During hospitalization a chest x-ray revealed a left lung mass. CT scan showed a malignant-looking left upper lobe mass and a CT-guided biopsy on September 18, 2017 confirmed small cell lung cancer. PET CT October 08, 2017 showed abnormal uptake consistent with a malignant process involving the left lung mass, hilar adenopathy and a newly evolving left adrenal mass was not visualized on his CT scan of the abdomen in March 2017. CT-guided biopsy of the adrenal mass confirmed metastatic small cell cancer. MRI of the brain showed no evidence of metastatic disease. Of note patient developed 2 episodes of acute pancreatitis the first was September 2017, the second was November [address] scan of the abdomen and PET/CT showed indeterminate abnormality in the area of the pancreatic head that could not be further characterized but an underlying neoplastic process could not be excluded. Current Treatment: Carbo-etoposide since 11/13/2017- Last treatment 02/11/2018 Developed bilateral LE DVTs 01/2018 and has been on xarelto. Past Medical History: Chronic Problems (Last Reviewed 02/11/18 @ 09:28 by Kizzy Sena) Cancer-related pain (Chronic) Stage 1 mild COPD by GOLD classification (Chronic) Small cell lung cancer (Chronic) ALEC 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) Diabetes mellitus, type II (Chronic) COPD (chronic obstructive pulmonary disease) (Chronic) History of tobacco use (Chronic) Migraine (Chronic) Crohns disease (Chronic) History of TIA (transient ischemic attack) (Chronic) Hypothyroidism (Chronic) Past Medical/Surgical History: Past Medical History - Most Recent Inpatient Visit Past Medical History Start: 02/24/18 17: 52 Text: Status: Complete Freq: ONCE Protocol: Document 02/24/18 17:52 [facility] (Rec: 02/24/18 18:20 EAS [id number]) BMI Required to complete PMH What is Patient's BMI 22.9 Past Medical History Unable History Recalled No Query Text:Pt Unable/Family Not Present Neurologic Medical History Hx Stroke/TIA Yes: 2000 Hx Dementia/Alzheimer's No Hx Parkinson's Disease No Hx Seizures Yes: 2000 with stroke Hx Multiple Sclerosis No Hx Migraines Yes Cardiac Medical History VTE Present on Admission No Hx of Deep Vein Thrombosis/VTE/PE Yes: right leg found out a couple weeks ago Hx Hypertension No Hx Chest Pain/Angina Yes Hx Heart Attack No Hx Cardiac Surgery/Stents/Etc. No: stress test Oct 2017 Hx Heart Failure No Hx Pacemaker/AICD No Hx Irregular Heartbeat and/or Afib No Hx Anticoagulant Therapy No Query Text:(Coumadin, Aspirin, Plavix, Xarelto, etc.) Hx Pain in Legs when Walking/Leg Cramps No Respiratory Medical History Hx COPD Yes Hx Emphysema No Hx Smoking Yes Smoking Status Former smoker Years Smoking 50 Packs Smoked per Day 1.5 Hx Smoking Cessation Counseling Yes Hx Smoking Exposure Yes Hx Tobacco Use in last 12 months No Hx of Pipe Smoking No Hx Sleep Apnea No Do you snore loudly (louder than talking Yes or can be heard through closed doors)? Do you often feel tired/ fatigued/ Yes sleepy during daytime? Has anyone observed you stop breathing Yes during sleep? STOP Results Positive Comments does think patient has sleep apnea GI Medical History Hx Ulcer No Hx Hepatitis No Hx Cirrhosis No Hx GI Bleed No Hx Unplanned Weight Loss No Genitourinary Medical History Indwelling Catheter in Place on Arrival/ No Admission Hx Renal Disease No Hx Dialysis No Musculoskeletal History Hx Arthritis Yes: hands Hx Rheumatoid Arthritis No Endocrine Medical History Hx Diabetes Yes Hx Thyroid Disease Yes Hematologic Medical History Hx of Blood Transfusion Yes Hx of Transfusion in last 3 Months Yes Date of Last Transfusion (if within last 02/24/17 3 months) Ever experience any problems with No transfusion(s)? 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 No Methicillin Resistant Staphylococcus aureus Screening Active MRSA No Risk for Readmission Number of Risk Factors 7 At Risk for Readmission Patient is At Risk For Readmission Patient is eligible for Call Back Y Past Medical History (Last Reviewed 02/11/18 @ 09:28 by Kizzy Sena) Palpitations (Acute) Anemia (Acute) Small cell lung cancer (Chronic) 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) Mass of pancreas (Acute) DVT prophylaxis (Acute) Anemia (Acute) Chest pain (Acute) Diabetes mellitus, type II (Chronic) COPD (chronic obstructive pulmonary disease) (Chronic) History of tobacco use (Chronic) Migraine (Chronic) Crohns disease (Chronic) History of TIA (transient ischemic attack) (Chronic) Hypothyroidism (Chronic) Abdominal pain (Acute) Acute Crohn's disease (Acute) Cervical radiculopathy (Acute) 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) Depression (Acute) Diabetes (Acute) Diverticulitis (Acute) Dyspnea (Acute) Heart murmur (Acute) Hernia (Acute) Impingement syndrome, shoulder, left (Acute) Inguinal hernia (Acute) Marijuana use (Acute) Pneumonia (Acute) Rotator cuff syndrome (Acute) Small cell lung cancer (Acute) Stroke (Acute) s/p port placement (Acute ~11/01/17) Past Surgical History (Last Reviewed 02/11/18 @ 09:28 by Kizzy Sena) History of right inguinal hernia repair (Resolved) History of cholecystectomy (Resolved) History of laparotomy (Resolved) FHx: cholecystectomy (Acute) H/O colectomy (Acute) History of appendectomy (Acute) RIGHT HERNIA REPAIR WITH KUGEL PATCH (Acute) SIGMOIDECTOMY W/ COLORECTAL ANASTAMOSIS (Acute) Maternal Family History: Family History (Last Reviewed 02/11/18 @ 09:28 by Kizzy Sena) Father CAD (coronary artery disease) Mesothelioma Grandfather Leukemia Brother Throat cancer Family History: No pertinent history Paternal Family History: Family History (Last Reviewed 02/11/18 @ 09:28 by Kizzy Sena) Father CAD (coronary artery disease) Mesothelioma Grandfather Leukemia Brother Throat cancer Family History: No pertinent history, - - no lung cancer. - Social History Lives: Spouse/ Significant Other Smoking Status: Former smoker Alcohol: None Drugs: Marijuana Allergies/Adverse Reactions: Allergy/AdvReac Type Severity Reaction Status Date / Time morphine Allergy Severe Swelling Verified 02/24/18 13:21 hydromorphone [From Dilaudid] AdvReac Severe SEVERE Verified 02/24/18 13:21 HEADACHE Home Medications Medication Instructions Recorded Atorvastatin Calcium 40 mg PO QHS 09/16/17 Divalproex Sodium [Depakote ER] 500 mg PO TID 09/16/17 Levothyroxine [Synthroid] 25 mcg PO DAILY 09/16/17 Metformin HCl [Glucophage] 1,000 mg PO BID 09/16/17 Senna [Senokot] 1 tab PO BID PRN 10/25/17 Cyanocobalamin (Vitamin B-12) 1,000 mcg PO DAILY 12/12/17 [Vitamin B-12] Hydrocodone/Acetaminophen [Pinon 1 ea PO TID PRN 12/12/17 5-325 Tablet] Mirtazapine 7.5 mg PO QHS 12/12/17 metoprolol tartrate 50 mg tablet 50 mg PO BID 12/19/17 Ondansetron HCl [Zofran] 4 mg PO Q8H PRN PRN 10 Days #30 tab 02/18/18 Alive Mens 1 tab PO DAILY 02/24/18 Ferrous Sulfate 325 mg PO DAILY@0800 02/24/18 Folic Acid 1 tab PO DAILY 02/24/18 Rivaroxaban [Xarelto] 1 tab PO DAILY 02/24/18 Vitamin D3 2 tab PO DAILY 02/24/18 Review of Systems Constitutional:: Reports: Weakness, Fatigue, Weight loss, Weight gain, Appetite change - fluctuationg. Denies: Fever, Sweats, Chills Cardiovascular:: Reports: Chest pain - unrelated to exertion, Dyspnea on exertion. Denies: Palpitations, Orthopnea, PND, Shortness of breath Respiratory: Reports: Cough, Sputum production. Denies: Hemoptysis, Shortness of Breath, Wheezing Gastrointestinal:: Reports: Abdominal pain - LUQ, chronic. Denies: Nausea, Vomiting, Diarrhea, Constipation, Hematochezia Genitourinary: Denies: Dysuria, Hematuria, 15, Flank pain Musculoskeletal:: Denies: Back pain, Myalgia, Arthralgia Skin: Denies: Rash, Skin Changes, Wounds Neurological:: Denies: Headache, Dizziness, Visual changes, Tinnitus, Hearing loss Psychiatric: Denies: Anxiety, Depression, Homicidal Ideations, Suicidal Ideations Vital Signs Height 5 ft 9 in Weight: 70.4 kg Weight in Pounds 155.2 lbs Pulse Ox 92 Temperature 97.5 F Pulse Rate 90 Respiratory Rate 28 Blood Pressure 106/69 Blood Pressure Position Semi-Fowlers - Physical Exam General: Alert, Oriented x3, No apparent distress, - - chronic ill look, ECOG 2- 3 HEENT: Atraumatic, PERRLA, EOMI, Normocephalic Oropharynx:: Dry mucosa Neck:: Supple, Trachea midline. Negative for: JVD, bilateral Cardiac:: Regular rate, Regular rhythm, Normal S1, Normal S2. Negative for: Murmur Lungs: Clear to auscultation, Rhonchi, Wheezes, Diminished, Excusion symmetrical Abdomen:: Soft, Non-tender, Non-distended. Negative for: Hepatosplenomegaly Extremities:: Negative for: Cyanosis, Edema Neurological: Neuro grossly intact Skin:: Negative for: Lesions, Rash, Petechiae, Ecchymosis Psychiatric:: Appropriate affect, Euthymic Lymphatics:: Negative for: Cervical lymphadenopathy, Supraclavicular lymphadenopathy, Axillary lymphadenopathy Laboratory Data: Microbiology 02/24/18 21:27 Gram Stain - Preliminary Sputum, Expectorated/Coughed Respiratory Culture - Preliminary Staphylococcus aureus 02/24/18 19:00 Streptococcus pneumoniae Antigen (M - Final Urine, Clean Catch 02/24/18 19:00 Legionella Antigen - Final Urine, Clean Catch Laboratory Tests 3 02/25/18 02/25/18 02/25/18 Range/Units 11:45 10:00 09:45 WBC (4.4-11.0) K/mm3 RBC (4.6-6.2) M/mm3 Hgb (13.0-16.5) g/dl Hct (40-54) % MCV (80-94) fL MCH (27.0-32.0) pg MCHC (32-36) g/gl RDW (11.6-14.6) % RDW Differential (35.1-43.9) fl Plt Count (150-450) K/mm3 MPV (6.2-12.0) fl Neut % (Auto) Absolute Neuts (auto) (2.0-7.7) X10^3/uL Absolute Lymphs (auto) (0.83-4.51) X10^3/ul Total Counted (MANUAL DIFF) Neutrophils % (Manual) (47-70) % Band Neutrophils % (0-5) % Lymphocytes % (Manual) (19-41) % Monocytes % (Manual) (0-10) % Myelocytes % (0-0) Blast Cells % (0-0) % Nucleated RBC % (0-5) % Nucleated RBCs/100 WBC (0-5) % Differential Comment Diff Path Review Toxic Granulation Platelet Estimate (ADEQ) RBC Morphology (NORM C&C) NORMAL Absolute Retic (0-5) 10^3/uL Sodium (136-145) mmol/L Potassium (3.5-5.1) mmol/L Chloride (98-107) mmol/L Carbon Dioxide (21.0-32.0) mmol/L Anion Gap (5-15) BUN (7-18) mg/dL Creatinine (0.70-1.30) mg/dL Estim Creat Clear Calc ml/min Est GFR (MDRD) Af Amer (>60) mL/min Est GFR (MDRD) Non-Af (>60) mL/min BUN/Creatinine Ratio (10-20) RATIO Glucose (74-106) mg/dL Lactic Acid 1.9 (0.4-2.0) mmol/L Calcium (8.5-10.1) mg/dL MRSA (PCR) Negative (Negative) POC Glucose 127 H (70-110) mg/dL 3 02/25/18 02/25/18 02/25/18 Range/Units 06:41 05:10 04:25 WBC (4.4-11.0) K/mm3 RBC (4.6-6.2) M/mm3 Hgb (13.0-16.5) g/dl Hct (40-54) % MCV (80-94) fL MCH (27.0-32.0) pg MCHC (32-36) g/gl RDW (11.6-14.6) % RDW Differential (35.1-43.9) fl Plt Count (150-450) K/mm3 MPV (6.2-12.0) fl Neut % (Auto) Absolute Neuts (auto) (2.0-7.7) X10^3/uL Absolute Lymphs (auto) (0.83-4.51) X10^3/ul Total Counted (MANUAL DIFF) Neutrophils % (Manual) (47-70) % Band Neutrophils % (0-5) % Lymphocytes % (Manual) (19-41) % Monocytes % (Manual) (0-10) % Myelocytes % (0-0) Blast Cells % (0-0) % Nucleated RBC % (0-5) % Nucleated RBCs/100 WBC (0-5) % Differential Comment Diff Path Review Toxic Granulation Platelet Estimate (ADEQ) RBC Morphology (NORM C&C) NORMAL Absolute Retic (0-5) 10^3/uL Sodium 143 (136-145) mmol/L Potassium 4.4 (3.5-5.1) mmol/L Chloride 105 (98-107) mmol/L Carbon Dioxide 29.0 (21.0-32.0) mmol/L Anion Gap 9 (5-15) BUN 15 (7-18) mg/dL Creatinine 0.77 (0.70-1.30) mg/dL Estim Creat Clear Calc 96.51 ml/min Est GFR (MDRD) Af Amer 130 (>60) mL/min Est GFR (MDRD) Non-Af 108 (>60) mL/min BUN/Creatinine Ratio 19.4 (10-20) RATIO Glucose 190 H (74-106) mg/dL Lactic Acid 2.1 H (0.4-2.0) mmol/L Calcium 8.2 L (8.5-10.1) mg/dL MRSA (PCR) (Negative) POC Glucose 238 H (70-110) mg/dL 3 02/25/18 02/24/18 02/24/18 Range/Units 04:25 22:05 19:40 WBC 15.0 H (4.4-11.0) K/mm3 RBC 2.61 L (4.6-6.2) M/mm3 Hgb 8.2 L (13.0-16.5) g/dl Hct 25.1 L (40-54) % MCV 96.2 H (80-94) fL MCH 31.4 (27.0-32.0) pg MCHC 32.7 (32-36) g/gl RDW 17.8 H (11.6-14.6) % RDW Differential 54.8 H (35.1-43.9) fl Plt Count 19 L* (150-450) K/mm3 MPV 9.8 (6.2-12.0) fl Neut % (Auto) Not Reportable Absolute Neuts (auto) 12.4 H (2.0-7.7) X10^3/uL Absolute Lymphs (auto) 1.05 (0.83-4.51) X10^3/ul Total Counted 100 (MANUAL DIFF) Neutrophils % (Manual) 79 H (47-70) % Band Neutrophils % 4 (0-5) % Lymphocytes % (Manual) 7 L (19-41) % Monocytes % (Manual) 8 (0-10) % Myelocytes % 2 H (0-0) Blast Cells % 0 (0-0) % Nucleated RBC % 1.1 (0-5) % Nucleated RBCs/100 WBC 2 (0-5) % Differential Comment TF Diff Path Review Reviewed Toxic Granulation 2+ Platelet Estimate MKD DEC (ADEQ) RBC Morphology NORM C+C (NORM C&C) NORMAL Absolute Retic 0.16 (0-5) 10^3/uL Sodium (136-145) mmol/L Potassium (3.5-5.1) mmol/L Chloride (98-107) mmol/L Carbon Dioxide (21.0-32.0) mmol/L Anion Gap (5-15) BUN (7-18) mg/dL Creatinine (0.70-1.30) mg/dL Estim Creat Clear Calc ml/min Est GFR (MDRD) Af Amer (>60) mL/min Est GFR (MDRD) Non-Af (>60) mL/min BUN/Creatinine Ratio (10-20) RATIO Glucose (74-106) mg/dL Lactic Acid 4.1 H* (0.4-2.0) mmol/L Calcium (8.5-10.1) mg/dL MRSA (PCR) (Negative) POC Glucose 192 H (70-110) mg/dL Diagnostic Data: Diagnostic Data Chest CTA 02/24/18 13:24 IMPRESSION: No evidence of pulmonary embolus. No evidence of thoracic aortic aneurysm or dissection. Increasing consolidation in the left upper lobe. New bibasilar airspace opacities. This is likely infectious in etiology. The patient's known left upper lobe mass is not well evaluated due to the surrounding consolidated lung parenchyma. New small left pleural effusion. Stable mediastinal lymphadenopathy. Electronically Signed: Suhail Cardona, at 14:52 EDT Tel , Service support , Assessment and Plan 62-year-old male smoker till 2016 with stage IV small cell lung cancer. Patient presented with significant weight and has left upper abdominal pain most likely related to a rapidly growing metastatic lesion (pathologically confirmed) in the left adrenal gland. #1 Systemic chemotherapy with carboplatin etoposide patient is status post 5/6 cycles with partial remission of his disease and planned to continue to a total of 6 cycles depending on response. Last cycle was 02/11/2018 and received neulasta 02/14/2018 #2 Anemia of cancer and chemotherapy, transfuse qwith PRBCS to target HB > 8 g/ dl #3 Thrombocytopenia, 2ry to recent chemo +/- infection. Hold xarelto till PLT > 50K. Prophylactic PLT transfusion if <10K. #4 Pain control as per pain management consulted recommendations #5 Indeterminate abnormality in the pancreatic head area possibilities are post pancreatitis, metastatic small cell lung cancer to pancreas, or a second primary cancer of the pancreas. Pursuing this abnormality with biopsy is of academic interest only and may only cause delay in initiating treatment for the aggressive small cell lung cancer. His prognosis and survival are more dependent on the extensive stage small cell lung cancer and active treatment will have to be redirected again assess life-threatening, and inevitably fatal disease. On recent CT these abnormalities are not progressive. I discussed this finding with the patient and significant other in detail and an earlier visit. #6 Malignancy hypercoagulability with bilateral LE DVT, hold xarelto till PLT > 50K then resume. Use non-pharmacologic DVT prophylaxis and encourage ambulation. #7 horpitalized acutely with respiratory infection on antibiotics as per 1ry service. Comorbid conditions: Diabetes, neuropathy, dyslipidemia, COPD, hypothyroidism Medications: Prescriptions This Visit Medication Instructions Recorded Alive Mens 1 tab PO DAILY 02/24/18 Ferrous Sulfate 325 mg PO DAILY@0800 02/24/18 Folic Acid 1 tab PO DAILY 02/24/18 Rivaroxaban [Xarelto] 1 tab PO DAILY 02/24/18 Vitamin D3 2 tab PO DAILY 02/24/18 Medications Added to Medication List This Visit Category Date Time Status Insulin Aspart [Novolog Flexpen (BKC)] Med 02/25/18 07:00 Active See Protocol SC TIDAC Vancomycin 1,250 mg Med 02/25/18 17:00 Active 0.9% Normal Saline 250 ml IV Q12H Primary Care Provider: Last Aguilar Referring Provider:
--- NOTE | 2018-02-25 15:02 | CHAPLAIN ---
Type of Pastoral Visit _x__ Initial Visit ___ Follow-up Visit ___ On-call Visit ___ General Patient Visit ___ Spiritual Assessment ___ Family Conference ___ Bereavement ___ Rapid Response ___ Code Blue ___ Other (describe below) Pastoral Care Referral From _x__ Patient ___ Family ___ Nurse ___ Physician ___ Manager Regional ___ Millinery Teacher ___ Other (describe below) Sacrament/Intervention _x__ Active listening ___ Anointing ___ Islam ___ Bereavement ___ Communion _x__ Tonya exploration ___ _x__ Life review _x__ Prayer ___ Reconciliation ___ Sacrament of Sick _x__ Supportive presence ___ Wedding ___ Other (describe below) Pastoral Comments patient remembered this senior clinical consultant from a previous admission; pt has had new developments on health and possible outcomes of treatments; pt speaks of possibility; pt concern is how to tell his children and grandchildren and how to help them handle his illness; pt is also wanting to address his financial obligations while he is able; pt has spiritual questions about forgiveness; SO is his support; SO has questions about their lives as a couple; prayer welcomed; future visits are encouraged
[2018-02-25 16:41] LABS: Bedside Glucose 180 mg/dL (70-110)
[2018-02-25] MEDS: Glucerna Shake 120 ML LIQUID PO ×2 (17:20→21:37)
--- NOTE | 2018-02-25 20:39 | CPS ---
Pt only given partial d/t SpO2 85% when switched from NRB mask to nebulizer mask on 8L O2. Pt placed back on NRB mask, SpO2 increased to 97%.
[2018-02-25] MEDS: Atorvastatin Calcium 40 MG Tablet PO (21:38)
[2018-02-25] MEDS: guaiFENesin 1,200 MG Tablet 1200 MG PO (21:38)
[2018-02-25] MEDS: Mirtazapine 15 MG Tablet 7.5 MG PO (21:39)
[2018-02-25 22:01] LABS: Bedside Glucose 166 mg/dL (70-110)
[2018-02-26] VITALS (46 sets, daily range): BP systolic 92–133; BP diastolic 58–88; PULSE 79–167; RESP 12–26; TEMP 36.6–37.6; O2SAT 89–919
[2018-02-26] MEDS: Ipratropium/Albuterol Sulfate 3 ML AMPUL.NEB INHALATION ×6 (02:26→22:40)
[2018-02-26] MEDS: Piperacil/Tazobactam 3.375 GM/50 ML ML IV ×3 (06:01→21:07)
[2018-02-26 07:00] LABS: Bedside Glucose 145 mg/dL (70-110)
[2018-02-26] MEDS: 0.9% NaCl VAD Flush 10 ML IV ×2 (07:08→17:31)
[2018-02-26] MEDS: LORazepam 2 MG/ML Syringe 0.5 MG IV ×2 (07:08→20:49)
--- NOTE | 2018-02-26 07:12 | RAD_ITS ---
STUDY: X-RAY CHEST REASON FOR EXAM: Male, 62 years old. Short of breath, pneumonia, anemia. Patient receiving chemotherapy. TECHNIQUE: Single AP chest. COMPARISON: December 12, 2017. FINDINGS: There is stable appearance and positioning of the right Port-A-Cath with the tip of the catheter in the mid to distal superior vena cava. Diffuse alveolar opacification is seen bilaterally sparing only the right upper lobe. There is no pneumothorax. Normal size heart. Normal mediastinum and rubina. Normal visualized pulmonary arteries. Normal visualized aortic arch and descending thoracic aorta. There are diffuse degenerative changes of the visualized thoracic spine. There is no acute osseous abnormality. There is no demonstrated abnormality of the visualized soft tissue structures of the upper abdomen. RAD/Chest 1 View (Portable) IMPRESSION: Multifocal pneumonia, sparing only the right upper lobe. Left basilar pleural effusion. Stable appearance and positioning of the right Port-A-Cath. No pneumothorax. Electronically Signed: Akin Smith MD at 9:03 EDT , Service support ,
[2018-02-26] MEDS: guaiFENesin 1,200 MG Tablet 1200 MG PO ×2 (09:17→20:52)
[2018-02-26] MEDS: Folic Acid 1 MG Tablet PO (09:17)
[2018-02-26] MEDS: Metoprolol Tartrate 50 MG Tablet PO ×2 (09:17→20:51)
[2018-02-26] MEDS: Senna Tablet 1 TABLET PO (09:17)
--- NOTE | 2018-02-26 09:53 | PCM.PN.HOSP ---
Patient Problems: Active and Suspected Problems (Last Reviewed 02/11/18 @ 09:28 by Kizzy Sena) Pneumonia (Acute) DVT (deep venous thrombosis) (Acute) Chest pain (Acute) Acute blood loss anemia (Acute) Thrombocytopenia (Acute) Gram-negative pneumonia (Acute) Subjective: Patient is a 62-year-old gentleman with stage IV small cell lung CA on chemotherapy presented with progressive generalized weakness. Found to be anemic on admission with hemoglobin of 6.4. He was also thrombocytopenic with platelet count of 16; imaging studies was questionable for suspected pneumonia admitted to a monitored bed where patient has since been managed 02/26/2018: Patient seen remains significantly dyspneic at rest dependent on BiPAP. Sputum cultures came back positive for staph aureus. Consultation placed to ID Objective: GENERAL: Dyspneic at rest HEENT: Clear conjunctiva, NECK; supple, normal thyroid, CHEST: Diminished to auscultation bilaterally, HEART: Regular S1 S2, no audible murmurs ABDOMEN: soft, non-tender, normoactive bowel sounds, RECTAL: deferred EXTREMITIES: No edema, no clubbing, no cyanosis. 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 SKIN: No rash Vitals/I&O's: Vital Signs Temp Pulse Resp BP Pulse Ox 97.9 F 94 24 H 114/76 94 02/26/18 08:01 02/26/18 09:17 02/26/18 09:10 02/26/18 09:17 02/26/18 09:10 Oxygen Flow Rate (L/min) 15 Oxygen Delivery Method Bi-pap Weight: 70.4 kg Body Mass Index (BMI) 22.8 Intake and Output for Last 24 Hours 02/24/18 02/25/18 02/26/18 23:59 23:59 23:59 Intake Total 1200 / 1200 3400 / 3400 348 / 348 Output Total 300 / 300 1150 / 1150 Balance 900 / 900 2250 / 2250 348 / 348 Microbiology Past 72 Hours 02/24/18 21:27 Sputum, Expectorated/Coughed Gram Stain - Final 02/24/18 21:27 Sputum, Expectorated/Coughed Respiratory Culture - Final Staphylococcus aureus 02/24/18 19:00 Urine, Clean Catch Streptococcus pneumoniae Antigen (M - Final 02/24/18 19:00 Urine, Clean Catch Legionella Antigen - Final Laboratory Results 02/25/18 04:25: Diff Path Review Reviewed 02/25/18 09:45: MRSA (PCR) Negative 02/25/18 10:00: Lactic Acid 1.9 02/25/18 11:45: POC Glucose 127 H 02/25/18 16:34: POC Glucose 180 H 02/25/18 21:48: POC Glucose 166 H 02/26/18 06:55: POC Glucose 145 H Current Medications Acetaminophen (Tylenol) 650 mg PO Q4H PRN PRN PRN Reason: FEVER Albuterol Sulfate (Ventolin Aerosols) 2.5 mg INHALATION Q2H PRN PRN PRN Reason: SHORTNESS OF BREATH Albuterol/Ipratropium (Duoneb) 3 ml INHALATION Q4H.RT [facility] Last Admin: 02/26/18 06:50 Dose: 3 ml Atorvastatin Calcium (Lipitor) 40 mg PO QHS [facility] Last Admin: 02/25/18 21:38 Dose: 40 mg Cholecalciferol (Vitamin D) 2,000 unit PO DAILY [facility] Last Admin: 02/26/18 09:19 Dose: 2,000 unit Dextrose (D50w Syringe) 0 gm IV X1 PRN; Protocol PRN Reason: Hypoglycemia Divalproex Sodium (Depakote) 500 mg PO TID [facility] Last Admin: 02/26/18 06:57 Dose: Not Given Fentanyl Citrate (Sublimaze (100mcg Ampule)) 25 mcg IV Q6H PRN PRN Reason: BREAKTHROUGH PAIN (>4/10) Last Admin: 02/25/18 00:54 Dose: 25 mcg Folic Acid (Folic Acid) 1 mg PO DAILY@0800 [facility] Last Admin: 02/26/18 09:17 Dose: 1 mg Glucagon () 1 mg IM .X1 PRN PRN Reason: Hypoglycemia Guaifenesin (Mucinex) 1,200 mg PO BID [facility] Last Admin: 02/26/18 09:17 Dose: 1,200 mg Heparin Sodium (Beef Lung) (Heparin 500 Unit/5 Ml (100/Ml)) 500 unit IV UD PRN PRN Reason: HEPARIN FLUSH Piperacillin Sod/Tazobactam Sod (Zosyn) 3.375 gm in 50 mls @ 12.5 mls/hr IV Q8 [facility] Last Admin: 02/26/18 06:01 Dose: 12.5 mls/hr Sodium Chloride () 250 mls @ 15 mls/hr IV .[id number] PRN PRN Reason: SALINE FLUSH Insulin Aspart (Novolog Flexpen (Bkc)) 0 units SC TIDAC VICKIE PRN Reason: Protocol Last Admin: 02/26/18 06:57 Dose: Not Given Levothyroxine Sodium (Synthroid) 25 mcg PO DAILY@0600 [facility] Last Admin: 02/26/18 06:57 Dose: Not Given Magnesium Hydroxide (Milk Of Magnesia) 30 ml PO DAILY PRN PRN PRN Reason: Constipation Metoprolol Tartrate (Lopressor (Beta Raina)) 50 mg PO BID [facility] Last Admin: 02/26/18 09:17 Dose: 50 mg Mirtazapine (Remeron) 7.5 mg PO QHS [facility] Last Admin: 02/25/18 21:39 Dose: 7.5 mg Nutritional Formula (Lactose Free) (Glucerna Shake) 120 ml PO 4X/DAY [facility] Last Admin: 02/26/18 09:10 Dose: Not Given Ondansetron HCl (Zofran) 4 mg IV Q8H PRN PRN PRN Reason: NAUSEA Ondansetron HCl (Zofran Odt) 4 mg PO Q8H PRN PRN Reason: NAUSEA Oxycodone HCl (Oxyir) 5 - 10 mg PO Q4H PRN PRN PRN Reason: SEVERE PAIN (6-10/10) Last Admin: 02/25/18 21:41 Dose: 10 mg Senna (Senokot) 1 tablet PO BID [facility] Last Admin: 02/26/18 09:17 Dose: 1 tablet Sodium Chloride () 10 ml IV UD PRN PRN Reason: VAD FLUSH Last Admin: 02/26/18 07:08 Dose: 10 ml Medical Necessity - Tobacco Use Smoking Status: Former smoker Assessment/Plan Active and Suspected Problems (Last Reviewed 02/11/18 @ 09:28 by Kizzy Sena) Pneumonia (Acute) DVT (deep venous thrombosis) (Acute) Chest pain (Acute) Acute blood loss anemia (Acute) Thrombocytopenia (Acute) Gram-negative pneumonia (Acute) Patient is a 62-year-old gentleman with stage IV small cell lung CA on chemotherapy presented with progressive generalized weakness. Found to be anemic on admission with hemoglobin of 6.4. He was also thrombocytopenic with platelet count of 16; imaging studies was questionable for suspected pneumonia admitted to a monitored bed where patient has since been managed 1. Acute hypoxic respiratory failure secondary to patient underlying lung CA as well as his pneumonia with staph aureus patient managed with Zosyn as well as vancomycin in addition to high flow oxygen with consultation placed a pulmonary medicine and ID consultation on 02/26/2018 2. Anemia secondary to chemotherapy-induced anemia patient was transfused 2 units PRBC since he was significantly symptomatic on admission. 3. Thrombocytopenia again secondary to his recent chemotherapy monitoring with plans to transfuse if patient starts bleeding or platelet count falls below 10,000 4. Stage 4 SCLC: completed 5/6 cycles of carboplatin/etopside 5. Diabetes mellitus type 2 patient oral agents held on admission please and Accu-Cheks before meals and at bedtime with sliding scale coverage 6. DVT prophylaxis: no chemical prophylaxis given his profound anemia and thrombocytopenia; no SCDs because of plt count of 16K Advanced planning'; discussion with patient regarding his prognosis and current medical status. Patient still wants to remain full code he plans after a discussion with his significant other prior to make final decision.; Time spent in discussion 18 minutes Code Visit Inpatient E&M: 68523 Subs Hosp L3 Procedures: 90976 Advncd Care Plan 30 Min
--- NOTE | 2018-02-26 10:03 | PN_ITS ---
Patient Problems: Active and Suspected Problems (Last Reviewed 02/11/18 @ 09:28 by Kizzy Sena) Pneumonia (Acute) DVT (deep venous thrombosis) (Acute) Chest pain (Acute) Acute blood loss anemia (Acute) Thrombocytopenia (Acute) Gram-negative pneumonia (Acute) Subjective: Patient is a 62-year-old gentleman with stage IV small cell lung CA on chemotherapy presented with progressive generalized weakness. Found to be anemic on admission with hemoglobin of 6.4. He was also thrombocytopenic with platelet count of 16; imaging studies was questionable for suspected pneumonia admitted to a monitored bed where patient has since been managed 02/26/2018: Patient seen remains significantly dyspneic at rest dependent on BiPAP. Sputum cultures came back positive for staph aureus. Consultation placed to ID Objective: GENERAL: Dyspneic at rest HEENT: Clear conjunctiva, NECK; supple, normal thyroid, CHEST: Diminished to auscultation bilaterally, HEART: Regular S1 S2, no audible murmurs ABDOMEN: soft, non-tender, normoactive bowel sounds, RECTAL: deferred EXTREMITIES: No edema, no clubbing, no cyanosis. 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 SKIN: No rash Vitals/I&O's: Vital Signs Temp Pulse Resp BP Pulse Ox 97.9 F 94 24 H 114/76 94 02/26/18 08:01 02/26/18 09:17 02/26/18 09:10 02/26/18 09:17 02/26/18 09:10 Oxygen Flow Rate (L/min) 15 Oxygen Delivery Method Bi-pap Weight: 70.4 kg Body Mass Index (BMI) 22.8 Intake and Output for Last 24 Hours 02/24/18 02/25/18 02/26/18 23:59 23:59 23:59 Intake Total 1200 / 1200 3400 / 3400 348 / 348 Output Total 300 / 300 1150 / 1150 Balance 900 / 900 2250 / 2250 348 / 348 Microbiology Past 72 Hours 02/24/18 21:27 Sputum, Expectorated/Coughed Gram Stain - Final 02/24/18 21:27 Sputum, Expectorated/Coughed Respiratory Culture - Final Staphylococcus aureus 02/24/18 19:00 Urine, Clean Catch Streptococcus pneumoniae Antigen (M - Final 02/24/18 19:00 Urine, Clean Catch Legionella Antigen - Final Laboratory Results 02/25/18 04:25: Diff Path Review Reviewed 02/25/18 09:45: MRSA (PCR) Negative 02/25/18 10:00: Lactic Acid 1.9 02/25/18 11:45: POC Glucose 127 H 02/25/18 16:34: POC Glucose 180 H 02/25/18 21:48: POC Glucose 166 H 02/26/18 06:55: POC Glucose 145 H Current Medications Acetaminophen (Tylenol) 650 mg PO Q4H PRN PRN PRN Reason: FEVER Albuterol Sulfate (Ventolin Aerosols) 2.5 mg INHALATION Q2H PRN PRN PRN Reason: SHORTNESS OF BREATH Albuterol/Ipratropium (Duoneb) 3 ml INHALATION Q4H.RT [facility] Last Admin: 02/26/18 06:50 Dose: 3 ml Atorvastatin Calcium (Lipitor) 40 mg PO QHS [facility] Last Admin: 02/25/18 21:38 Dose: 40 mg Cholecalciferol (Vitamin D) 2,000 unit PO DAILY [facility] Last Admin: 02/26/18 09:19 Dose: 2,000 unit Dextrose (D50w Syringe) 0 gm IV X1 PRN; Protocol PRN Reason: Hypoglycemia Divalproex Sodium (Depakote) 500 mg PO TID [facility] Last Admin: 02/26/18 06:57 Dose: Not Given Fentanyl Citrate (Sublimaze (100mcg Ampule)) 25 mcg IV Q6H PRN PRN Reason: BREAKTHROUGH PAIN (>4/10) Last Admin: 02/25/18 00:54 Dose: 25 mcg Folic Acid (Folic Acid) 1 mg PO DAILY@0800 [facility] Last Admin: 02/26/18 09:17 Dose: 1 mg Glucagon () 1 mg IM .X1 PRN PRN Reason: Hypoglycemia Guaifenesin (Mucinex) 1,200 mg PO BID [facility] Last Admin: 02/26/18 09:17 Dose: 1,200 mg Heparin Sodium (Beef Lung) (Heparin 500 Unit/5 Ml (100/Ml)) 500 unit IV UD PRN PRN Reason: HEPARIN FLUSH Piperacillin Sod/Tazobactam Sod (Zosyn) 3.375 gm in 50 mls @ 12.5 mls/hr IV Q8 [facility] Last Admin: 02/26/18 06:01 Dose: 12.5 mls/hr Sodium Chloride () 250 mls @ 15 mls/hr IV .[id number] PRN PRN Reason: SALINE FLUSH Insulin Aspart (Novolog Flexpen (Bkc)) 0 units SC TIDAC VICKIE PRN Reason: Protocol Last Admin: 02/26/18 06:57 Dose: Not Given Levothyroxine Sodium (Synthroid) 25 mcg PO DAILY@0600 [facility] Last Admin: 02/26/18 06:57 Dose: Not Given Magnesium Hydroxide (Milk Of Magnesia) 30 ml PO DAILY PRN PRN PRN Reason: Constipation Metoprolol Tartrate (Lopressor (Beta Raina)) 50 mg PO BID [facility] Last Admin: 02/26/18 09:17 Dose: 50 mg Mirtazapine (Remeron) 7.5 mg PO QHS [facility] Last Admin: 02/25/18 21:39 Dose: 7.5 mg Nutritional Formula (Lactose Free) (Glucerna Shake) 120 ml PO 4X/DAY [facility] Last Admin: 02/26/18 09:10 Dose: Not Given Ondansetron HCl (Zofran) 4 mg IV Q8H PRN PRN PRN Reason: NAUSEA Ondansetron HCl (Zofran Odt) 4 mg PO Q8H PRN PRN Reason: NAUSEA Oxycodone HCl (Oxyir) 5 - 10 mg PO Q4H PRN PRN PRN Reason: SEVERE PAIN (6-10/10) Last Admin: 02/25/18 21:41 Dose: 10 mg Senna (Senokot) 1 tablet PO BID [facility] Last Admin: 02/26/18 09:17 Dose: 1 tablet Sodium Chloride () 10 ml IV UD PRN PRN Reason: VAD FLUSH Last Admin: 02/26/18 07:08 Dose: 10 ml Medical Necessity - Tobacco Use Smoking Status: Former smoker Assessment/Plan Active and Suspected Problems (Last Reviewed 02/11/18 @ 09:28 by Kizzy Sena) Pneumonia (Acute) DVT (deep venous thrombosis) (Acute) Chest pain (Acute) Acute blood loss anemia (Acute) Thrombocytopenia (Acute) Gram-negative pneumonia (Acute) Patient is a 62-year-old gentleman with stage IV small cell lung CA on chemotherapy presented with progressive generalized weakness. Found to be anemic on admission with hemoglobin of 6.4. He was also thrombocytopenic with platelet count of 16; imaging studies was questionable for suspected pneumonia admitted to a monitored bed where patient has since been managed 1. Acute hypoxic respiratory failure secondary to patient underlying lung CA as well as his pneumonia with staph aureus patient managed with Zosyn as well as vancomycin in addition to high flow oxygen with consultation placed a pulmonary medicine and ID consultation on 02/26/2018 2. Anemia secondary to chemotherapy-induced anemia patient was transfused 2 units PRBC since he was significantly symptomatic on admission. 3. Thrombocytopenia again secondary to his recent chemotherapy monitoring with plans to transfuse if patient starts bleeding or platelet count falls below 10, 000 4. Stage 4 SCLC: completed 5/6 cycles of carboplatin/etopside 5. Diabetes mellitus type 2 patient oral agents held on admission please and Accu-Cheks before meals and at bedtime with sliding scale coverage 6. DVT prophylaxis: no chemical prophylaxis given his profound anemia and thrombocytopenia; no SCDs because of plt count of 16K Advanced planning'; discussion with patient regarding his prognosis and current medical status. Patient still wants to remain full code he plans after a discussion with his significant other prior to make final decision.; Time spent in discussion 18 minutes Code Visit Inpatient E&M: 44140 Subs Hosp L3 Procedures: 98710 Advncd Care Plan 30 Min
[2018-02-26 10:16] LABS: Anion Gap 7 (5-15); BUN 15 mg/dL (7-18); BUN/Creat Ratio 17.6 RATIO (10-20); Calcium,Total 8.5 mg/dL (8.5-10.1); Chloride 105 mmol/L (98-107); Creatinine, Serum 0.85 mg/dL (0.70-1.30); EST Glomerular Filtration Rate 96 mL/min (>60); Est Glom Filt Rate - Afr Amer 117 mL/min (>60); Estimated Creatinine Clearance 87.42 ml/min; Glucose 162 mg/dL (74-106); Magnesium 1.7 mg/dL (1.6-2.6); Potassium 4.3 mmol/L (3.5-5.1); Sodium Level 143 mmol/L (136-145)
[2018-02-26 10:20] LABS: Hematocrit 24.4 % (40-54); Hemoglobin 7.8 g/dl (13.0-16.5); Mean Corpuscular Hgb 31.2 pg (27.0-32.0); Mean Corpuscular Volume 97.6 fL (80-94); Mean Platelet Vol. 10.2 fl (6.2-12.0); RBC Distribution Width CV 18.1 % (11.6-14.6); RBC Distribution Width SD 57.2 fl (35.1-43.9); White Blood Count 11.3 K/mm3 (4.4-11.0)
[2018-02-26 10:22] LABS: Differential Indicated MANUAL DIFF; POSITIVE COUNT YES; POSITIVE DIFFERENTIAL NO; POSITIVE MORPHOLOGY YES
[2018-02-26 10:23] LABS: Platelet Count 21 K/mm3 (150-450)
[2018-02-26 10:28] LABS: BNP,B-Type NATRIURETIC PEPTIDE 153.1 pg/mL (0-100)
--- NOTE | 2018-02-26 10:43 | PN_ITS ---
Patient Problems: Active and Suspected Problems (Last Reviewed 02/11/18 @ 09:28 by Kizzy Sena) Pneumonia (Acute) DVT (deep venous thrombosis) (Acute) Chest pain (Acute) Acute blood loss anemia (Acute) Thrombocytopenia (Acute) Gram-negative pneumonia (Acute) Subjective: The patient was seen and examined. He is upset that he has to wear the BiPAP. States he does not understand why, despite multiple conversations with multiple providers and nursing staff. Education provided, however patient became very agitated and would not respond during conversation. Objective: Recent lab and culture data reviewed. Sputum is growing Staph aureus. Urine strep/Legionella antigens and respiratory viral panel were negative. Blood cultures are pending. Chest x-ray 02/26 showing multifocal pneumonia, sparing only the right upper lobe, left basilar pleural effusion. - Physical Exam General: Alert, Oriented x3, - - On BiPAP. Angry HEENT: Atraumatic Oral: - - did not assess, on BiPAP Neck: Supple, Trachea Midline Lungs: Diminished, Rales, Rhonchi, Wheezes, - - only auscultated anteriorly, patient upset and refusing further exam. Port R chest Cardiovascular: Regular rate, Regular Rhythm, Normal S1, Normal S2 Abdomen: Bowel Sounds Present, Soft, Non Tender, Non-Distended Extremities: No clubbing, No cyanosis, No edema Skin: No rashes, No breakdown Musculoskeletal: No Tenderness to Palpation of Joints or Extremities Lymphatic: - - no adenopathy Neurological: Neuro grossly intact Psych/Mental Status: Agitated, Restless, - Vital Signs Temp Pulse Resp BP Pulse Ox 97.9 F 94 24 H 114/76 94 02/26/18 08:01 02/26/18 09:17 02/26/18 09:10 02/26/18 09:17 02/26/18 09:10 Oxygen Flow Rate (L/min) 15 Oxygen Delivery Method Bi-pap Weight: 155 lb 3.287 oz Body Mass Index (BMI) 22.8 Intake and Output for Last 24 Hours 02/24/18 02/25/18 02/26/18 23:59 23:59 23:59 Intake Total 1200 / 1200 3400 / 3400 348 / 348 Output Total 300 / 300 1150 / 1150 Balance 900 / 900 2250 / 2250 348 / 348 Microbiology Past 72 Hours 02/25/18 14:36 Respiratory Panel (PCR) - Final Mucosa - Nasopharyngeal 02/24/18 21:27 Gram Stain - Final Sputum, Expectorated/Coughed Respiratory Culture - Final Staphylococcus aureus 02/24/18 19:00 Streptococcus pneumoniae Antigen (M - Final Urine, Clean Catch 02/24/18 19:00 Legionella Antigen - Final Urine, Clean Catch Laboratory Tests Past 24 Hrs 02/25/18 02/26/18 02/26/18 09:45 09:50 09:50 WBC 11.3 H RBC 2.50 L Hgb 7.8 L Hct 24.4 L MCV 97.6 H MCH 31.2 MCHC 32.0 RDW 18.1 H RDW Differential 57.2 H Plt Count 21 L* MPV 10.2 Neut % (Auto) Not Reportable Absolute Neuts (auto) Not Reportable Total Counted Pending Sodium Potassium Chloride Carbon Dioxide Anion Gap BUN Creatinine Estim Creat Clear Calc Est GFR (MDRD) Af Amer Est GFR (MDRD) Non-Af BUN/Creatinine Ratio Glucose Calcium Magnesium B-Natriuretic Peptide 153.1 H MRSA (PCR) Negative 02/26/18 09:50 WBC RBC Hgb Hct MCV MCH MCHC RDW RDW Differential Plt Count MPV Neut % (Auto) Absolute Neuts (auto) Total Counted Sodium 143 Potassium 4.3 Chloride 105 Carbon Dioxide 31.0 Anion Gap 7 BUN 15 Creatinine 0.85 Estim Creat Clear Calc 87.42 Est GFR (MDRD) Af Amer 117 Est GFR (MDRD) Non-Af 96 BUN/Creatinine Ratio 17.6 Glucose 162 H Calcium 8.5 Magnesium 1.7 B-Natriuretic Peptide MRSA (PCR) POC Glucose 02/26/18 02/25/18 02/25/18 06:55 21:48 16:34 POC Glucose 145 H 166 H 180 H 02/25/18 11:45 POC Glucose 127 H Medical Necessity - Tobacco Use Smoking Status: Former smoker Assessment/Plan Active and Suspected Problems (Last Reviewed 02/11/18 @ 09:28 by Kizzy Sena) Pneumonia (Acute) DVT (deep venous thrombosis) (Acute) Chest pain (Acute) Acute blood loss anemia (Acute) Thrombocytopenia (Acute) Gram-negative pneumonia (Acute) RECOMMENDATIONS: 1. Continue broad-spectrum antimicrobials, pending infectious workup. 2. Continue aerosol treatments as ordered. 3. Consider starting steroids since no improvement 4. Await respiratory viral panel 5. Wean supplemental oxygen to maintain saturations at or above 90%. BiPAP continuous for now with breaks as tolerated 6. Monitor H&H. Transfuse to maintain a hemoglobin at or above 8 g/dL. 7. Consider palliative care consultation 8. Await decision from patient regarding code status and intubation IMPRESSIONS: 1. Acute hypoxemic respiratory failure secondary to underlying small cell lung cancer and superimposed healthcare associated pneumonia Broad-spectrum antibiotics will be continued, pending infectious workup. Continue scheduled aerosol treatments, as the patient does have a mild obstructive ventilatory impairment on his last PFTs. There is no clinical improvement over the next 24 hours, would consider empiric initiation of corticosteroids. Wean supplemental oxygen as tolerated. Sputum growing staph aureus. Patient currently on BiPAP, will give 24 hours to see if improves but has had multiple conversations with primary MD and pulmonology regarding poor prognosis, code status, and goals of treatment. Waiting for significant other to arrive in order to decide how to proceed, especially given extensiveness of pneumonia, need for high FiO2/BiPAP, and comorbidities. 2. Anemia/thrombocytopenia secondary to chemotherapy The patient was transfused 2 units of packed red blood cells. Monitor H&H. Goal to maintain a hemoglobin at or above 8 g/dL. 3. Personal history of extensive stage small cell lung cancer The patient is currently on chemotherapy and being managed by oncology. Oncology following. Awaiting input regarding prognosis and goals of care. 4. History of bilateral lower extremity DVTs Xarelto is currently on hold, given thrombocytopenia. Continue to monitor platelet count and resume once greater than 50,000. This note was generated with [employer] dictation software. It may contain incorrect words, spelling, and punctuation that were not noted in checking the note before signing.
--- NOTE | 2018-02-26 11:02 | PCM.HP.ID ---
Problem List (1) Pneumonia Status: Acute Reason for Consult: pneumonia Consulted by: Dr. Harris History of Present Illness: The patient is a 62 year old M with metastatic small cell lung cancer on chemo who presented 02/24 with two days of rapidly progressive cough, SOB, and L sided chest pain. He thought he was having a heart attack. No fever, no sick contacts, no sputum. No abd pain. no issues with R chest port. Came to ED, given vanc/aztreonam, changed to zosyn. Now feeling worse with increased SOB on NIPPV. No fever here. Onc and pulm following. Full ROS performed and neg except as noted above. - Medical History Past Medical History (Chronic Problems): Chronic Problems (Last Reviewed 02/11/18 @ 09:28 by Kizzy Sena) Cancer-related pain (Chronic) Stage 1 mild COPD by GOLD classification (Chronic) Small cell lung cancer (Chronic) ALEC 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) Diabetes mellitus, type II (Chronic) COPD (chronic obstructive pulmonary disease) (Chronic) History of tobacco use (Chronic) Migraine (Chronic) Crohns disease (Chronic) History of TIA (transient ischemic attack) (Chronic) Hypothyroidism (Chronic) Allergies/Adverse Reactions: Allergies morphine Allergy (Severe, Verified 02/24/18 13:21) Swelling hydromorphone [From Dilaudid] Adverse Reaction (Severe, Verified 02/24/18 13:21) SEVERE HEADACHE HEAD-ACHE SEVERE Home Medications: Ambulatory Orders Medication Instructions Recorded Atorvastatin Calcium 40 mg PO QHS 09/16/17 Divalproex Sodium [Depakote ER] 500 mg PO TID 09/16/17 Levothyroxine [Synthroid] 25 mcg PO DAILY 09/16/17 Metformin HCl [Glucophage] 1,000 mg PO BID 09/16/17 Senna [Senokot] 1 tab PO BID PRN 10/25/17 Cyanocobalamin (Vitamin B-12) 1,000 mcg PO DAILY 12/12/17 [Vitamin B-12] Hydrocodone/Acetaminophen [[place] 1 ea PO TID PRN 12/12/17 5-325 Tablet] Mirtazapine 7.5 mg PO QHS 12/12/17 metoprolol tartrate 50 mg tablet 50 mg PO BID 12/19/17 Ondansetron HCl [Zofran] 4 mg PO Q8H PRN PRN 10 Days #30 tab 02/18/18 Alive Mens 1 tab PO DAILY 02/24/18 Ferrous Sulfate 325 mg PO DAILY@0800 02/24/18 Folic Acid 1 tab PO DAILY 02/24/18 Rivaroxaban [Xarelto] 1 tab PO DAILY 02/24/18 Vitamin D3 2 tab PO DAILY 02/24/18 - Social History SMOKING STATUS:: Former smoker Vital Signs Temp Pulse Resp BP Pulse Ox 98.3 F 85 14 122/81 H 99 02/26/18 10:00 02/26/18 10:00 02/26/18 10:00 02/26/18 10:00 02/26/18 10:00 Oxygen Flow Rate (L/min) 15 Oxygen Delivery Method Bi-pap Weight: 70.4 kg Body Mass Index (BMI) 22.8 Microbiology Past 72 Hours 02/25/18 14:36 Respiratory Panel (PCR) - Final Mucosa - Nasopharyngeal 02/24/18 21:27 Gram Stain - Final Sputum, Expectorated/Coughed Respiratory Culture - Final Staphylococcus aureus 02/24/18 19:00 Streptococcus pneumoniae Antigen (M - Final Urine, Clean Catch 02/24/18 19:00 Legionella Antigen - Final Urine, Clean Catch Laboratory Tests Past 24 Hrs 02/25/18 02/26/18 02/26/18 09:45 09:50 09:50 WBC 11.3 H RBC 2.50 L Hgb 7.8 L Hct 24.4 L MCV 97.6 H MCH 31.2 MCHC 32.0 RDW 18.1 H RDW Differential 57.2 H Plt Count 21 L* MPV 10.2 Neut % (Auto) Not Reportable Absolute Neuts (auto) Not Reportable Total Counted Pending Sodium Potassium Chloride Carbon Dioxide Anion Gap BUN Creatinine Estim Creat Clear Calc Est GFR (MDRD) Af Amer Est GFR (MDRD) Non-Af BUN/Creatinine Ratio Glucose Calcium Magnesium B-Natriuretic Peptide 153.1 H MRSA (PCR) Negative 02/26/18 09:50 WBC RBC Hgb Hct MCV MCH MCHC RDW RDW Differential Plt Count MPV Neut % (Auto) Absolute Neuts (auto) Total Counted Sodium 143 Potassium 4.3 Chloride 105 Carbon Dioxide 31.0 Anion Gap 7 BUN 15 Creatinine 0.85 Estim Creat Clear Calc 87.42 Est GFR (MDRD) Af Amer 117 Est GFR (MDRD) Non-Af 96 BUN/Creatinine Ratio 17.6 Glucose 162 H Calcium 8.5 Magnesium 1.7 B-Natriuretic Peptide MRSA (PCR) - Other Studies Radiology: [] reviewed Other Studies: [] Route of nutrition/ use of supplements: [] Nutritional Intake: [] IV Site: [] Flowers Catheter: [] - Physical Exam General: Alert, Oriented x3, Cooperative HEENT: Atraumatic, PERRLA, EOMI Neck: Supple, No Nodes Lungs: Rhonchi - coarse bilat Cardiovascular: No murmurs, Tachycardic Abdomen: Soft, Non Tender, Non-Distended Extremities: No edema Skin: No rashes IV Site: Central Line, without redness Musculoskeletal: No Tenderness to Palpation of Joints or Extremities Neurological: Cranial nerves II-XII grossly intact - Assessment/Plan Antibiotics: [] Assessment/Plan: [] Active and Suspected Problems (Last Reviewed 02/11/18 @ 09:28 by Kizzy Sena) Pneumonia (Acute) DVT (deep venous thrombosis) (Acute) Chest pain (Acute) Acute blood loss anemia (Acute) Thrombocytopenia (Acute) Gram-negative pneumonia (Acute) MSSA and GNR pneumonia with possible aspiration in pt with stage 4 small cell lung cancer on chemo - resp viral panel neg, so ok to d/c droplet isolation. Onc and pulm following. Agree with zosyn. Would recommend code status re-evaluation and discussion of goals of care given resp status and poor longterm prognosis. Thank you, will follow, d/w Dr. Bhat.
[2018-02-26 11:07] LABS: NRBC Flagged by Analyzer 1.8 % (0-5)
[2018-02-26 11:11] LABS: Basophil 1 % (0-1); Lymphocyte 12 % (19-41); Metamyelocyte 1 % (0-1); Monocyte 8 % (0-10); Neutrophil-Segmented 76 % (47-70); Promyelocyte 2 (0-0); Total Cells Counted 100 (MANUAL DIFF)
[2018-02-26 11:12] LABS: Platelet Estimate MKD DEC (ADEQ); Red Cell Morphology NORM C+C NORMAL (NORM C&C)
[2018-02-26 11:13] LABS: Absolute Lymphocyte Count 1.36 X10^3/ul (0.83-4.51); Absolute Neutrophil Count 8.6 X10^3/uL (2.0-7.7)
--- NOTE | 2018-02-26 12:40 | ONC.PN.INPT ---
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 He's an ex-smoker who quit in 2015, who was hospitalized at [facility] in September 2017 with his acute abdominal pain and diagnosed with pancreatitis. During hospitalization a chest x-ray revealed a left lung mass. CT scan showed a malignant-looking left upper lobe mass and a CT-guided biopsy on September 18, 2017 confirmed small cell lung cancer. PET CT October 08, 2017 showed abnormal uptake consistent with a malignant process involving the left lung mass, hilar adenopathy and a newly evolving left adrenal mass was not visualized on his CT scan of the abdomen in March 2017. CT-guided biopsy of the adrenal mass confirmed metastatic small cell cancer. MRI of the brain showed no evidence of metastatic disease. Of note patient developed 2 episodes of acute pancreatitis the first was September 2017, the second was November [address] scan of the abdomen and PET/CT showed indeterminate abnormality in the area of the pancreatic head that could not be further characterized but an underlying neoplastic process could not be excluded. Current Treatment: Carbo-etoposide since 11/13/2017- Last treatment 02/11/2018 Developed bilateral LE DVTs 01/2018 and has been on xarelto. Over the past few hours and notable decline in respiratory status required placement on BiPAP. Past Medical History: Chronic Problems (Last Reviewed 02/11/18 @ 09:28 by Kizzy Sena) Cancer-related pain (Chronic) Stage 1 mild COPD by GOLD classification (Chronic) Small cell lung cancer (Chronic) ALEC 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) Diabetes mellitus, type II (Chronic) COPD (chronic obstructive pulmonary disease) (Chronic) History of tobacco use (Chronic) Migraine (Chronic) Crohns disease (Chronic) History of TIA (transient ischemic attack) (Chronic) Hypothyroidism (Chronic) Past Medical History - Most Recent Inpatient Visit Past Medical History Start: 02/24/18 17:52 Text: Status: Complete Freq: ONCE Protocol: Document 02/24/18 17:52 [facility] (Rec: 02/24/18 18:20 EAS [id number]) BMI Required to complete PMH What is Patient's BMI 22.9 Past Medical History Unable History Recalled No Query Text:Pt Unable/Family Not Present Neurologic Medical History Hx Stroke/TIA Yes: 2000 Hx Dementia/Alzheimer's No Hx Parkinson's Disease No Hx Seizures Yes: 2000 with stroke Hx Multiple Sclerosis No Hx Migraines Yes Cardiac Medical History VTE Present on Admission No Hx of Deep Vein Thrombosis/VTE/PE Yes: right leg found out a couple weeks ago Hx Hypertension No Hx Chest Pain/Angina Yes Hx Heart Attack No Hx Cardiac Surgery/Stents/Etc. No: stress test Oct 2017 Hx Heart Failure No Hx Pacemaker/AICD No Hx Irregular Heartbeat and/or Afib No Hx Anticoagulant Therapy No Query Text:(Coumadin, Aspirin, Plavix, Xarelto, etc.) Hx Pain in Legs when Walking/Leg Cramps No Respiratory Medical History Hx COPD Yes Hx Emphysema No Hx Smoking Yes Smoking Status Former smoker Years Smoking 50 Packs Smoked per Day 1.5 Hx Smoking Cessation Counseling Yes Hx Smoking Exposure Yes Hx Tobacco Use in last 12 months No Hx of Pipe Smoking No Hx Sleep Apnea No Do you snore loudly (louder than talking Yes or can be heard through closed doors)? Do you often feel tired/ fatigued/ Yes sleepy during daytime? Has anyone observed you stop breathing Yes during sleep? STOP Results Positive Comments does think patient has sleep apnea GI Medical History Hx Ulcer No Hx Hepatitis No Hx Cirrhosis No Hx GI Bleed No Hx Unplanned Weight Loss No Genitourinary Medical History Indwelling Catheter in Place on Arrival/ No Admission Hx Renal Disease No Hx Dialysis No Musculoskeletal History Hx Arthritis Yes: hands Hx Rheumatoid Arthritis No Endocrine Medical History Hx Diabetes Yes Hx Thyroid Disease Yes Hematologic Medical History Hx of Blood Transfusion Yes Hx of Transfusion in last 3 Months Yes Date of Last Transfusion (if within last 02/24/17 3 months) Ever experience any problems with No transfusion(s)? Hx of Preganancy in last 3 Months N/A Nurse Filling Out Transfusion & ESTEINER Questions: Date: 02/24/18 Time: 18:18 Psycho/Social Medical History Hx Depression Yes Hx Anxiety No Hx Behavior Disorder Yes: bipolar disorder Hx Alcohol Use No Hx Substance Use No Comments stopped torie september 2017 Other Medical History Hx Blood Disorders No Hx Anemia No Hx Cancer Yes: lung, adrenal gland, lymph nodes Hx Drug Resistant Organism No Wound/Pressure Injury Present on Arrival No /Admission Query Text:If yes, chart assessment in Shift/Clinical Findings Central Line/PICC/VAD Present on Arrival Yes /Admission Antibiotics within last 7 days? No Methicillin Resistant Staphylococcus aureus Screening Active MRSA No Risk for Readmission Number of Risk Factors 7 At Risk for Readmission Patient is At Risk For Readmission Patient is eligible for Call Back Y Past Medical History (Last Reviewed 02/11/18 @ 09:28 by Kizzy Sena) Palpitations (Acute) Anemia (Acute) Small cell lung cancer (Chronic) 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) Mass of pancreas (Acute) DVT prophylaxis (Acute) Anemia (Acute) Chest pain (Acute) Diabetes mellitus, type II (Chronic) COPD (chronic obstructive pulmonary disease) (Chronic) History of tobacco use (Chronic) Migraine (Chronic) Crohns disease (Chronic) History of TIA (transient ischemic attack) (Chronic) Hypothyroidism (Chronic) Abdominal pain (Acute) Acute Crohn's disease (Acute) Cervical radiculopathy (Acute) 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) Depression (Acute) Diabetes (Acute) Diverticulitis (Acute) Dyspnea (Acute) Heart murmur (Acute) Hernia (Acute) Impingement syndrome, shoulder, left (Acute) Inguinal hernia (Acute) Marijuana use (Acute) Pneumonia (Acute) Rotator cuff syndrome (Acute) Small cell lung cancer (Acute) Stroke (Acute) s/p port placement (Acute ~11/01/17) Past Surgical History (Last Reviewed 02/11/18 @ 09:28 by Kizzy Sena) History of right inguinal hernia repair (Resolved) History of cholecystectomy (Resolved) History of laparotomy (Resolved) FHx: cholecystectomy (Acute) H/O colectomy (Acute) History of appendectomy (Acute) RIGHT HERNIA REPAIR WITH KUGEL PATCH (Acute) SIGMOIDECTOMY W/ COLORECTAL ANASTAMOSIS (Acute) Maternal Family History: Family History (Last Reviewed 02/11/18 @ 09:28 by Kizzy Sena) Father CAD (coronary artery disease) Mesothelioma Grandfather Leukemia Brother Throat cancer Family History: No pertinent history Paternal Family History: Family History (Last Reviewed 02/11/18 @ 09:28 by Kizzy Sena) Father CAD (coronary artery disease) Mesothelioma Grandfather Leukemia Brother Throat cancer Family History: No pertinent history, - - no lung cancer. - Social History Lives: Spouse/ Significant Other Smoking Status: Former smoker Alcohol: None Drugs: Marijuana Review of Systems Constitutional:: Reports: Weakness, Fatigue Cardiovascular:: Reports: Dyspnea on exertion, Orthopnea, Shortness of breath. Denies: Chest pain, Palpitations, PND Respiratory: Reports: Shortness of Breath, Shortness of breath at rest - On BiPAP is very uncomfortable to keep on, Shortness of breath upon exertion, Sputum production, Wheezing. Denies: Cough, Hemoptysis Gastrointestinal:: Reports: Abdominal pain - Left lower quadrant abdominal pain is controlled. Denies: Nausea, Vomiting, Diarrhea, Constipation, Hematochezia Genitourinary: Denies: Dysuria, Hematuria, 15, Flank pain Musculoskeletal:: Denies: Back pain, Myalgia, Arthralgia Skin: Denies: Rash, Skin Changes, Wounds Neurological:: Denies: Headache, Dizziness, Visual changes, Tinnitus, Hearing loss Psychiatric: Reports: Anxiety Vital Signs Height 5 ft 9 in Weight: 70.4 kg Weight in Pounds 155.2 lbs Pulse Ox 98 Temperature 98.5 F Pulse Rate 85 Respiratory Rate 16 Blood Pressure 100/66 Blood Pressure Position Semi-Fowlers - Physical Exam General: Alert, Oriented x3, Cooperative, - - On BiPAP Complaining of the discomfort with the mask ECOG 4 HEENT: Atraumatic, PERRLA, EOMI, Normocephalic Oropharynx:: Dry mucosa Neck:: Supple, Trachea midline. Negative for: JVD, bilateral Cardiac:: Regular rhythm, Normal S1, Normal S2, Tachycardia. Negative for: Murmur Lungs: Diminished, Excusion symmetrical. Negative for: Rhonchi, Wheezes Abdomen:: Soft, Non-tender, Non-distended. Negative for: Hepatosplenomegaly Extremities:: Edema - Minimal ankles edema. Negative for: Cyanosis Neurological: Neuro grossly intact Skin:: Ecchymosis. Negative for: Lesions, Rash, Petechiae Psychiatric:: Anxious Lymphatics:: Negative for: Cervical lymphadenopathy, Supraclavicular lymphadenopathy Laboratory Data: Microbiology 02/25/18 14:36 Respiratory Panel (PCR) - Final Mucosa - Nasopharyngeal 02/24/18 21:27 Gram Stain - Final Sputum, Expectorated/Coughed Respiratory Culture - Final Staphylococcus aureus 02/24/18 19:00 Streptococcus pneumoniae Antigen (M - Final Urine, Clean Catch 02/24/18 19:00 Legionella Antigen - Final Urine, Clean Catch Laboratory Tests 02/26/18 02/26/18 02/26/18 Range/Units 09:50 09:50 09:50 WBC 11.3 H (4.4-11.0) K/mm3 RBC 2.50 L (4.6-6.2) M/mm3 Hgb 7.8 L (13.0-16.5) g/dl Hct 24.4 L (40-54) % MCV 97.6 H (80-94) fL MCH 31.2 (27.0-32.0) pg MCHC 32.0 (32-36) g/gl RDW 18.1 H (11.6-14.6) % RDW Differential 57.2 H (35.1-43.9) fl Plt Count 21 L* (150-450) K/mm3 MPV 10.2 (6.2-12.0) fl Neut % (Auto) Not Reportable Absolute Neuts (auto) 8.6 H (2.0-7.7) X10^3/uL Absolute Lymphs (auto) 1.36 (0.83-4.51) X10^3/ul Total Counted 100 (MANUAL DIFF) Neutrophils % (Manual) 76 H (47-70) % Lymphocytes % (Manual) 12 L (19-41) % Monocytes % (Manual) 8 (0-10) % Basophils % (Manual) 1 (0-1) % Metamyelocytes % 1 (0-1) % Promyelocytes % 2 H (0-0) Nucleated RBC % 1.8 (0-5) % Diff Path Review May foll Platelet Estimate MKD DEC (ADEQ) RBC Morphology NORM C+C (NORM C&C) NORMAL Absolute Retic 0.20 (0-5) 10^3/uL Sodium 143 (136-145) mmol/L Potassium 4.3 (3.5-5.1) mmol/L Chloride 105 (98-107) mmol/L Carbon Dioxide 31.0 (21.0-32.0) mmol/L Anion Gap 7 (5-15) BUN 15 (7-18) mg/dL Creatinine 0.85 (0.70-1.30) mg/dL Estim Creat Clear Calc 87.42 ml/min Est GFR (MDRD) Af Amer 117 (>60) mL/min Est GFR (MDRD) Non-Af 96 (>60) mL/min BUN/Creatinine Ratio 17.6 (10-20) RATIO Glucose 162 H (74-106) mg/dL Calcium 8.5 (8.5-10.1) mg/dL Magnesium 1.7 (1.6-2.6) mg/dL B-Natriuretic Peptide 153.1 H (0-100) pg/mL POC Glucose (70-110) mg/dL 02/26/18 02/25/18 02/25/18 Range/Units 06:55 21:48 16:34 WBC (4.4-11.0) K/mm3 RBC (4.6-6.2) M/mm3 Hgb (13.0-16.5) g/dl Hct (40-54) % MCV (80-94) fL MCH (27.0-32.0) pg MCHC (32-36) g/gl RDW (11.6-14.6) % RDW Differential (35.1-43.9) fl Plt Count (150-450) K/mm3 MPV (6.2-12.0) fl Neut % (Auto) Absolute Neuts (auto) (2.0-7.7) X10^3/uL Absolute Lymphs (auto) (0.83-4.51) X10^3/ul Total Counted (MANUAL DIFF) Neutrophils % (Manual) (47-70) % Lymphocytes % (Manual) (19-41) % Monocytes % (Manual) (0-10) % Basophils % (Manual) (0-1) % Metamyelocytes % (0-1) % Promyelocytes % (0-0) Nucleated RBC % (0-5) % Diff Path Review Platelet Estimate (ADEQ) RBC Morphology (NORM C&C) NORMAL Absolute Retic (0-5) 10^3/uL Sodium (136-145) mmol/L Potassium (3.5-5.1) mmol/L Chloride (98-107) mmol/L Carbon Dioxide (21.0-32.0) mmol/L Anion Gap (5-15) BUN (7-18) mg/dL Creatinine (0.70-1.30) mg/dL Estim Creat Clear Calc ml/min Est GFR (MDRD) Af Amer (>60) mL/min Est GFR (MDRD) Non-Af (>60) mL/min BUN/Creatinine Ratio (10-20) RATIO Glucose (74-106) mg/dL Calcium (8.5-10.1) mg/dL Magnesium (1.6-2.6) mg/dL B-Natriuretic Peptide (0-100) pg/mL POC Glucose 145 H 166 H 180 H (70-110) mg/dL Diagnostic Data: Diagnostic Data Chest CTA 02/24/18 13:24 IMPRESSION: No evidence of pulmonary embolus. No evidence of thoracic aortic aneurysm or dissection. Increasing consolidation in the left upper lobe. New bibasilar airspace opacities. This is likely infectious in etiology. The patient's known left upper lobe mass is not well evaluated due to the surrounding consolidated lung parenchyma. New small left pleural effusion. Stable mediastinal lymphadenopathy. Electronically Signed: Suhail Cardona at 14:52 EDT Tel , Service support , Chest X-Ray 02/26/18 07:12 IMPRESSION: Multifocal pneumonia, sparing only the right upper lobe. Left basilar pleural effusion. Stable appearance and positioning of the right Port-A-Cath. No pneumothorax. Electronically Signed: Akin Smith MD at 9:03 EDT , Service support , Assessment and Plan 62-year-old male smoker till 2016 with #1 Stage IV small cell lung cancer. Patient presented with significant weight and has left upper abdominal pain most likely related to a rapidly growing metastatic lesion (pathologically confirmed) in the left adrenal gland. Systemic chemotherapy with carboplatin etoposide patient is status post 5/6 cycles with partial remission of his disease . Last cycle was 02/11/2018 and received neulasta 02/14/2018 #2 Anemia of cancer and chemotherapy, transfuse qwith PRBCS to target HB > 8 g/dl #3 Thrombocytopenia, 2ry to recent chemo +/- infection. Hold xarelto till PLT >50K. Prophylactic PLT transfusion if <10K. Platelets count slowly recovering #4 Pain control adequate as per pain management consulted recommendations #5 Indeterminate abnormality in the pancreatic head area possibilities are post pancreatitis, metastatic small cell lung cancer to pancreas, or a second primary cancer of the pancreas. Pursuing this abnormality with biopsy is of academic interest only and may only cause delay in initiating treatment for the aggressive small cell lung cancer. His prognosis and survival are more dependent on the extensive stage small cell lung cancer and active treatment will have to be redirected again assess life-threatening, and inevitably fatal disease. On recent CT these abnormalities are not progressive. I discussed this finding with the patient and significant other in detail and an earlier visit. #6 Malignancy hypercoagulability with bilateral LE DVT, hold xarelto till PLT >50K then resume. Use non-pharmacologic DVT prophylaxis and encourage ambulation. #7 Acute hospitalization with a bilateral pneumonia and acute on chronic respiratory failure patient appears to be decompensating despite maximum efforts at treating his pneumonia and airways disease requiring BiPAP this morning. #8 CODE STATUS discussed with patient, significant other and son. Due to his underlying lung disease (COPD complicated with metastatic incurable malignancy) debility superadded acute pneumonia prognosis is very poor. DNR discussed with patient and is consistent with his wishes. We will continue maximum supportive efforts and antibiotics and bronchodilator treatment but if he were to undergo cardiac or respiratory arrest will not subject him to resuscitative efforts or artificial ventilation. Discussed with Mariano Bhat and ICU staff. Comorbid conditions: Diabetes, neuropathy, dyslipidemia, COPD, hypothyroidism Medications: Prescriptions This Visit Medication Instructions Recorded Alive Mens 1 tab PO DAILY 02/24/18 Ferrous Sulfate 325 mg PO DAILY@0800 02/24/18 Folic Acid 1 tab PO DAILY 02/24/18 Rivaroxaban [Xarelto] 1 tab PO DAILY 02/24/18 Vitamin D3 2 tab PO DAILY 02/24/18 Primary Care Provider: Last Aguilar Referring Provider:
--- NOTE | 2018-02-26 12:50 | PN_ITS ---
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 He's an ex-smoker who quit in 2015, who was hospitalized at [facility] in September 2017 with his acute abdominal pain and diagnosed with pancreatitis. During hospitalization a chest x-ray revealed a left lung mass. CT scan showed a malignant-looking left upper lobe mass and a CT-guided biopsy on September 18, 2017 confirmed small cell lung cancer. PET CT October 08, 2017 showed abnormal uptake consistent with a malignant process involving the left lung mass, hilar adenopathy and a newly evolving left adrenal mass was not visualized on his CT scan of the abdomen in March 2017. CT-guided biopsy of the adrenal mass confirmed metastatic small cell cancer. MRI of the brain showed no evidence of metastatic disease. Of note patient developed 2 episodes of acute pancreatitis the first was September 2017, the second was November [address] scan of the abdomen and PET/CT showed indeterminate abnormality in the area of the pancreatic head that could not be further characterized but an underlying neoplastic process could not be excluded. Current Treatment: Carbo-etoposide since 11/13/2017- Last treatment 02/11/2018 Developed bilateral LE DVTs 01/2018 and has been on xarelto. Over the past few hours and notable decline in respiratory status required placement on BiPAP. Past Medical History: Chronic Problems (Last Reviewed 02/11/18 @ 09:28 by Kizzy Sena) Cancer-related pain (Chronic) Stage 1 mild COPD by GOLD classification (Chronic) Small cell lung cancer (Chronic) ALEC 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) Diabetes mellitus, type II (Chronic) COPD (chronic obstructive pulmonary disease) (Chronic) History of tobacco use (Chronic) Migraine (Chronic) Crohns disease (Chronic) History of TIA (transient ischemic attack) (Chronic) Hypothyroidism (Chronic) Past Medical History - Most Recent Inpatient Visit Past Medical History Start: 02/24/18 17: 52 Text: Status: Complete Freq: ONCE Protocol: Document 02/24/18 17:52 [facility] (Rec: 02/24/18 18:20 EAS [id number]) BMI Required to complete PMH What is Patient's BMI 22.9 Past Medical History Unable History Recalled No Query Text:Pt Unable/Family Not Present Neurologic Medical History Hx Stroke/TIA Yes: 2000 Hx Dementia/Alzheimer's No Hx Parkinson's Disease No Hx Seizures Yes: 2000 with stroke Hx Multiple Sclerosis No Hx Migraines Yes Cardiac Medical History VTE Present on Admission No Hx of Deep Vein Thrombosis/VTE/PE Yes: right leg found out a couple weeks ago Hx Hypertension No Hx Chest Pain/Angina Yes Hx Heart Attack No Hx Cardiac Surgery/Stents/Etc. No: stress test Oct 2017 Hx Heart Failure No Hx Pacemaker/AICD No Hx Irregular Heartbeat and/or Afib No Hx Anticoagulant Therapy No Query Text:(Coumadin, Aspirin, Plavix, Xarelto, etc.) Hx Pain in Legs when Walking/Leg Cramps No Respiratory Medical History Hx COPD Yes Hx Emphysema No Hx Smoking Yes Smoking Status Former smoker Years Smoking 50 Packs Smoked per Day 1.5 Hx Smoking Cessation Counseling Yes Hx Smoking Exposure Yes Hx Tobacco Use in last 12 months No Hx of Pipe Smoking No Hx Sleep Apnea No Do you snore loudly (louder than talking Yes or can be heard through closed doors)? Do you often feel tired/ fatigued/ Yes sleepy during daytime? Has anyone observed you stop breathing Yes during sleep? STOP Results Positive Comments does think patient has sleep apnea GI Medical History Hx Ulcer No Hx Hepatitis No Hx Cirrhosis No Hx GI Bleed No Hx Unplanned Weight Loss No Genitourinary Medical History Indwelling Catheter in Place on Arrival/ No Admission Hx Renal Disease No Hx Dialysis No Musculoskeletal History Hx Arthritis Yes: hands Hx Rheumatoid Arthritis No Endocrine Medical History Hx Diabetes Yes Hx Thyroid Disease Yes Hematologic Medical History Hx of Blood Transfusion Yes Hx of Transfusion in last 3 Months Yes Date of Last Transfusion (if within last 02/24/17 3 months) Ever experience any problems with No transfusion(s)? Hx of Preganancy in last 3 Months N/A Nurse Filling Out Transfusion & ESTEINER Questions: Date: 02/24/18 Time: 18:18 Psycho/Social Medical History Hx Depression Yes Hx Anxiety No Hx Behavior Disorder Yes: bipolar disorder Hx Alcohol Use No Hx Substance Use No Comments stopped torie september 2017 Other Medical History Hx Blood Disorders No Hx Anemia No Hx Cancer Yes: lung, adrenal gland, lymph nodes Hx Drug Resistant Organism No Wound/Pressure Injury Present on Arrival No /Admission Query Text:If yes, chart assessment in Shift/Clinical Findings Central Line/PICC/VAD Present on Arrival Yes /Admission Antibiotics within last 7 days? No Methicillin Resistant Staphylococcus aureus Screening Active MRSA No Risk for Readmission Number of Risk Factors 7 At Risk for Readmission Patient is At Risk For Readmission Patient is eligible for Call Back Y Past Medical History (Last Reviewed 02/11/18 @ 09:28 by Kizzy Sena) Palpitations (Acute) Anemia (Acute) Small cell lung cancer (Chronic) 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) Mass of pancreas (Acute) DVT prophylaxis (Acute) Anemia (Acute) Chest pain (Acute) Diabetes mellitus, type II (Chronic) COPD (chronic obstructive pulmonary disease) (Chronic) History of tobacco use (Chronic) Migraine (Chronic) Crohns disease (Chronic) History of TIA (transient ischemic attack) (Chronic) Hypothyroidism (Chronic) Abdominal pain (Acute) Acute Crohn's disease (Acute) Cervical radiculopathy (Acute) 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) Depression (Acute) Diabetes (Acute) Diverticulitis (Acute) Dyspnea (Acute) Heart murmur (Acute) Hernia (Acute) Impingement syndrome, shoulder, left (Acute) Inguinal hernia (Acute) Marijuana use (Acute) Pneumonia (Acute) Rotator cuff syndrome (Acute) Small cell lung cancer (Acute) Stroke (Acute) s/p port placement (Acute ~11/01/17) Past Surgical History (Last Reviewed 02/11/18 @ 09:28 by Kizzy Sena) History of right inguinal hernia repair (Resolved) History of cholecystectomy (Resolved) History of laparotomy (Resolved) FHx: cholecystectomy (Acute) H/O colectomy (Acute) History of appendectomy (Acute) RIGHT HERNIA REPAIR WITH KUGEL PATCH (Acute) SIGMOIDECTOMY W/ COLORECTAL ANASTAMOSIS (Acute) Maternal Family History: Family History (Last Reviewed 02/11/18 @ 09:28 by Kizzy Sena) Father CAD (coronary artery disease) Mesothelioma Grandfather Leukemia Brother Throat cancer Family History: No pertinent history Paternal Family History: Family History (Last Reviewed 02/11/18 @ 09:28 by Kizzy Sena) Father CAD (coronary artery disease) Mesothelioma Grandfather Leukemia Brother Throat cancer Family History: No pertinent history, - - no lung cancer. - Social History Lives: Spouse/ Significant Other Smoking Status: Former smoker Alcohol: None Drugs: Marijuana Review of Systems Constitutional:: Reports: Weakness, Fatigue Cardiovascular:: Reports: Dyspnea on exertion, Orthopnea, Shortness of breath. Denies: Chest pain, Palpitations, PND Respiratory: Reports: Shortness of Breath, Shortness of breath at rest - On BiPAP is very uncomfortable to keep on, Shortness of breath upon exertion, Sputum production, Wheezing. Denies: Cough, Hemoptysis Gastrointestinal:: Reports: Abdominal pain - Left lower quadrant abdominal pain is controlled. Denies: Nausea, Vomiting, Diarrhea, Constipation, Hematochezia Genitourinary: Denies: Dysuria, Hematuria, 15, Flank pain Musculoskeletal:: Denies: Back pain, Myalgia, Arthralgia Skin: Denies: Rash, Skin Changes, Wounds Neurological:: Denies: Headache, Dizziness, Visual changes, Tinnitus, Hearing loss Psychiatric: Reports: Anxiety Vital Signs Height 5 ft 9 in Weight: 70.4 kg Weight in Pounds 155.2 lbs Pulse Ox 98 Temperature 98.5 F Pulse Rate 85 Respiratory Rate 16 Blood Pressure 100/66 Blood Pressure Position Semi-Fowlers - Physical Exam General: Alert, Oriented x3, Cooperative, - - On BiPAP Complaining of the discomfort with the mask ECOG 4 HEENT: Atraumatic, PERRLA, EOMI, Normocephalic Oropharynx:: Dry mucosa Neck:: Supple, Trachea midline. Negative for: JVD, bilateral Cardiac:: Regular rhythm, Normal S1, Normal S2, Tachycardia. Negative for: Murmur Lungs: Diminished, Excusion symmetrical. Negative for: Rhonchi, Wheezes Abdomen:: Soft, Non-tender, Non-distended. Negative for: Hepatosplenomegaly Extremities:: Edema - Minimal ankles edema. Negative for: Cyanosis Neurological: Neuro grossly intact Skin:: Ecchymosis. Negative for: Lesions, Rash, Petechiae Psychiatric:: Anxious Lymphatics:: Negative for: Cervical lymphadenopathy, Supraclavicular lymphadenopathy Laboratory Data: Microbiology 02/25/18 14:36 Respiratory Panel (PCR) - Final Mucosa - Nasopharyngeal 02/24/18 21:27 Gram Stain - Final Sputum, Expectorated/Coughed Respiratory Culture - Final Staphylococcus aureus 02/24/18 19:00 Streptococcus pneumoniae Antigen (M - Final Urine, Clean Catch 02/24/18 19:00 Legionella Antigen - Final Urine, Clean Catch Laboratory Tests 3 02/26/18 02/26/18 02/26/18 Range/Units 09:50 09:50 09:50 WBC 11.3 H (4.4-11.0) K/mm3 RBC 2.50 L (4.6-6.2) M/mm3 Hgb 7.8 L (13.0-16.5) g/dl Hct 24.4 L (40-54) % MCV 97.6 H (80-94) fL MCH 31.2 (27.0-32.0) pg MCHC 32.0 (32-36) g/gl RDW 18.1 H (11.6-14.6) % RDW Differential 57.2 H (35.1-43.9) fl Plt Count 21 L* (150-450) K/mm3 MPV 10.2 (6.2-12.0) fl Neut % (Auto) Not Reportable Absolute Neuts (auto) 8.6 H (2.0-7.7) X10^3/uL Absolute Lymphs (auto) 1.36 (0.83-4.51) X10^3/ul Total Counted 100 (MANUAL DIFF) Neutrophils % (Manual) 76 H (47-70) % Lymphocytes % (Manual) 12 L (19-41) % Monocytes % (Manual) 8 (0-10) % Basophils % (Manual) 1 (0-1) % Metamyelocytes % 1 (0-1) % Promyelocytes % 2 H (0-0) Nucleated RBC % 1.8 (0-5) % Diff Path Review May foll Platelet Estimate MKD DEC (ADEQ) RBC Morphology NORM C+C (NORM C&C) NORMAL Absolute Retic 0.20 (0-5) 10^3/uL Sodium 143 (136-145) mmol/L Potassium 4.3 (3.5-5.1) mmol/L Chloride 105 (98-107) mmol/L Carbon Dioxide 31.0 (21.0-32.0) mmol/L Anion Gap 7 (5-15) BUN 15 (7-18) mg/dL Creatinine 0.85 (0.70-1.30) mg/dL Estim Creat Clear Calc 87.42 ml/min Est GFR (MDRD) Af Amer 117 (>60) mL/min Est GFR (MDRD) Non-Af 96 (>60) mL/min BUN/Creatinine Ratio 17.6 (10-20) RATIO Glucose 162 H (74-106) mg/dL Calcium 8.5 (8.5-10.1) mg/dL Magnesium 1.7 (1.6-2.6) mg/dL B-Natriuretic Peptide 153.1 H (0-100) pg/mL POC Glucose (70-110) mg/dL 3 02/26/18 02/25/18 02/25/18 Range/Units 06:55 21:48 16:34 WBC (4.4-11.0) K/mm3 RBC (4.6-6.2) M/mm3 Hgb (13.0-16.5) g/dl Hct (40-54) % MCV (80-94) fL MCH (27.0-32.0) pg MCHC (32-36) g/gl RDW (11.6-14.6) % RDW Differential (35.1-43.9) fl Plt Count (150-450) K/mm3 MPV (6.2-12.0) fl Neut % (Auto) Absolute Neuts (auto) (2.0-7.7) X10^3/uL Absolute Lymphs (auto) (0.83-4.51) X10^3/ul Total Counted (MANUAL DIFF) Neutrophils % (Manual) (47-70) % Lymphocytes % (Manual) (19-41) % Monocytes % (Manual) (0-10) % Basophils % (Manual) (0-1) % Metamyelocytes % (0-1) % Promyelocytes % (0-0) Nucleated RBC % (0-5) % Diff Path Review Platelet Estimate (ADEQ) RBC Morphology (NORM C&C) NORMAL Absolute Retic (0-5) 10^3/uL Sodium (136-145) mmol/L Potassium (3.5-5.1) mmol/L Chloride (98-107) mmol/L Carbon Dioxide (21.0-32.0) mmol/L Anion Gap (5-15) BUN (7-18) mg/dL Creatinine (0.70-1.30) mg/dL Estim Creat Clear Calc ml/min Est GFR (MDRD) Af Amer (>60) mL/min Est GFR (MDRD) Non-Af (>60) mL/min BUN/Creatinine Ratio (10-20) RATIO Glucose (74-106) mg/dL Calcium (8.5-10.1) mg/dL Magnesium (1.6-2.6) mg/dL B-Natriuretic Peptide (0-100) pg/mL POC Glucose 145 H 166 H 180 H (70-110) mg/dL Diagnostic Data: Diagnostic Data Chest CTA 02/24/18 13:24 IMPRESSION: No evidence of pulmonary embolus. No evidence of thoracic aortic aneurysm or dissection. Increasing consolidation in the left upper lobe. New bibasilar airspace opacities. This is likely infectious in etiology. The patient's known left upper lobe mass is not well evaluated due to the surrounding consolidated lung parenchyma. New small left pleural effusion. Stable mediastinal lymphadenopathy. Electronically Signed: Suhail Cardona, at 14:52 EDT Tel , Service support , Chest X-Ray 02/26/18 07:12 IMPRESSION: Multifocal pneumonia, sparing only the right upper lobe. Left basilar pleural effusion. Stable appearance and positioning of the right Port-A-Cath. No pneumothorax. Electronically Signed: Akin Smith MD at 9:03 EDT , Service support , Assessment and Plan 62-year-old male smoker till 2016 with #1 Stage IV small cell lung cancer. Patient presented with significant weight and has left upper abdominal pain most likely related to a rapidly growing metastatic lesion (pathologically confirmed) in the left adrenal gland. Systemic chemotherapy with carboplatin etoposide patient is status post 5/6 cycles with partial remission of his disease . Last cycle was 02/11/2018 and received neulasta 02/14/2018 #2 Anemia of cancer and chemotherapy, transfuse qwith PRBCS to target HB > 8 g/ dl #3 Thrombocytopenia, 2ry to recent chemo +/- infection. Hold xarelto till PLT > 50K. Prophylactic PLT transfusion if <10K. Platelets count slowly recovering #4 Pain control adequate as per pain management consulted recommendations #5 Indeterminate abnormality in the pancreatic head area possibilities are post pancreatitis, metastatic small cell lung cancer to pancreas, or a second primary cancer of the pancreas. Pursuing this abnormality with biopsy is of academic interest only and may only cause delay in initiating treatment for the aggressive small cell lung cancer. His prognosis and survival are more dependent on the extensive stage small cell lung cancer and active treatment will have to be redirected again assess life-threatening, and inevitably fatal disease. On recent CT these abnormalities are not progressive. I discussed this finding with the patient and significant other in detail and an earlier visit. #6 Malignancy hypercoagulability with bilateral LE DVT, hold xarelto till PLT > 50K then resume. Use non-pharmacologic DVT prophylaxis and encourage ambulation. #7 Acute hospitalization with a bilateral pneumonia and acute on chronic respiratory failure patient appears to be decompensating despite maximum efforts at treating his pneumonia and airways disease requiring BiPAP this morning. #8 CODE STATUS discussed with patient, significant other and son. Due to his underlying lung disease (COPD complicated with metastatic incurable malignancy) debility superadded acute pneumonia prognosis is very poor. DNR discussed with patient and is consistent with his wishes. We will continue maximum supportive efforts and antibiotics and bronchodilator treatment but if he were to undergo cardiac or respiratory arrest will not subject him to resuscitative efforts or artificial ventilation. Discussed with Mariano Bhat and ICU staff. Comorbid conditions: Diabetes, neuropathy, dyslipidemia, COPD, hypothyroidism Medications: Prescriptions This Visit Medication Instructions Recorded Alive Mens 1 tab PO DAILY 02/24/18 Ferrous Sulfate 325 mg PO DAILY@0800 02/24/18 Folic Acid 1 tab PO DAILY 02/24/18 Rivaroxaban [Xarelto] 1 tab PO DAILY 02/24/18 Vitamin D3 2 tab PO DAILY 02/24/18 Primary Care Provider: Last Aguilar Referring Provider:
[2018-02-26 12:56] LABS: Bedside Glucose 154 mg/dL (70-110)
[2018-02-26] MEDS: Divalproex Sodium 250 MG Tablet 500 MG PO ×2 (13:46→20:50)
[2018-02-26] MEDS: Glucerna Shake 120 ML LIQUID PO ×3 (13:46→20:50)
[2018-02-26 13:49] LABS: M R Staph aureus DNA By PCR Negative (Negative); Probe Check PASS; Specimen Processing Control PASS
[2018-02-26] MEDS: oxyCODONE 5 MG Tablet PO (13:49)
[2018-02-26] MEDS: fentaNYL 100 MCG/2 ML Ampul 25 MCG IV (17:31)
[2018-02-26 17:36] LABS: Bedside Glucose 192 mg/dL (70-110)
[2018-02-26] MEDS: Atorvastatin Calcium 40 MG Tablet PO (20:51)
[2018-02-26] MEDS: Mirtazapine 15 MG Tablet 7.5 MG PO (20:54)
[2018-02-26 22:31] LABS: Bedside Glucose 173 mg/dL (70-110)
--- NOTE | 2018-02-26 23:05 | NURSING ---
Pt's HR 160-170s. Pt asymptomatic, denies CP/discomfort, palpitations, or dizziness. BP stable. Pt instructed to bare down, which is unsuccessful x3 attempts.
--- NOTE | 2018-02-26 23:07 | EKG12_ITS ---
Test Reason : Blood Pressure : / mmHG Vent. Rate : 164 BPM Atrial Rate : 178 BPM P-R Int : 000 ms QRS Dur : 072 ms QT Int : 280 ms P-R-T Axes : 000 052 026 degrees QTc Int : 462 ms Atrial fibrillation Low voltage QRS Nonspecific ST and T wave abnormality Abnormal ECG When compared with ECG of 24-FEB-2018 13:10, Atrial fibrillation has replaced Sinus rhythm Vent. rate has increased BY [address] now depressed in Anterior leads Nonspecific T wave abnormality now evident in Anterior leads Confirmed by RAUL CORNELL, GM ([id number]), offline editor ANTHONY TEIXEIRA ([id number]) on 03/01/2018 1:32:27 PM Referred By: Confirmed By:GM CARTER MD
[2018-02-27] VITALS (46 sets, daily range): BP systolic 86–125; BP diastolic 46–75; PULSE 70–143; RESP 12–32; TEMP 36.3–37.3; O2SAT 82–100
--- NOTE | 2018-02-27 02:58 | CPS ---
fio2 decreased to 60%-nurse aware-no aero tx given at this time due to increased hr
[2018-02-27] MEDS: Piperacil/Tazobactam 3.375 GM/50 ML ML IV (05:05)
[2018-02-27] MEDS: Levothyroxine 25 MCG TABLET PO (05:06)
[2018-02-27] MEDS: Divalproex Sodium 250 MG Tablet 500 MG PO ×3 (05:06→21:02)
[2018-02-27 05:46] LABS: Anion Gap 7 (5-15); BUN 19 mg/dL (7-18); BUN/Creat Ratio 17.6 RATIO (10-20); Calcium,Total 8.4 mg/dL (8.5-10.1); Chloride 105 mmol/L (98-107); Creatinine, Serum 1.08 mg/dL (0.70-1.30); EST Glomerular Filtration Rate 73 mL/min (>60); Est Glom Filt Rate - Afr Amer 88 mL/min (>60); Estimated Creatinine Clearance 68.81 ml/min; Glucose 164 mg/dL (74-106); Magnesium 2.2 mg/dL (1.6-2.6); Potassium 4.1 mmol/L (3.5-5.1); Sodium Level 144 mmol/L (136-145)
[2018-02-27 05:59] LABS: Hematocrit 23.3 % (40-54); Hemoglobin 7.3 g/dl (13.0-16.5); Mean Corp Hgb Conc 31.3 g/gl (32-36); Mean Corpuscular Hgb 31.7 pg (27.0-32.0); Mean Corpuscular Volume 101.3 fL (80-94); Mean Platelet Vol. 10.4 fl (6.2-12.0); RBC Distribution Width CV 17.8 % (11.6-14.6); RBC Distribution Width SD 52.8 fl (35.1-43.9); White Blood Count 12.5 K/mm3 (4.4-11.0)
[2018-02-27 06:01] LABS: Platelet Count 31 K/mm3 (150-450); Scan Indicated on CBC? Y/N YES- FLAGS NOTED
[2018-02-27 06:48] LABS: Differential Comment SCAN
--- NOTE | 2018-02-27 06:50 | PN_ITS ---
Subjective: The patient was seen and examined at the bedside this morning. Events from the last 24 hours have been reviewed. The patient is currently afebrile, hemodynamically stable and maintaining appropriate oxygen saturations on BiPAP with an FiO2 requirement of 60%. Overnight, the patient was noted to go into atrial fibrillation with a rapid ventricular rate. He was bolused amiodarone and subsequently started on a drip. At some point overnight, the patient converted back into normal sinus rhythm. Objective: The patient's most recent lab work, culture data and imaging studies have all been personally reviewed. Sputum culture is growing staph aureus. Strep and urine Legionella antigens were both negative. Respiratory viral panel was negative. Surface echocardiogram from November 2017 revealed normal LV size and thickness with an ejection fraction of 65%. Right ventricular systolic pressure was estimated to be 43 mmHg. General: Alert, Cooperative, No apparent distress HEENT: Atraumatic, PERRLA, Normocephalic Oral: Dry Mucosa Neck: Supple, No Nodes, Trachea Midline Lungs: Diminished, Rales, Rhonchi, Short of Breath Cardiovascular: Normal S1, Normal S2, No murmurs, Tachycardic Abdomen: Bowel Sounds Present, Soft, Non Tender Extremities: No clubbing, No cyanosis, No edema Skin: No breakdown Musculoskeletal: No Muscle Wasting Lymphatic: No Cervical, Supraclavicular, or Inguinal Adenopathy Neurological: Neuro grossly intact Psych/Mental Status: Flat Affect Vital Signs Temp Pulse Resp BP Pulse Ox 97.7 F L 78 15 98/70 100 02/27/18 04:00 02/27/18 06:00 02/27/18 06:00 02/27/18 06:00 02/27/18 06:00 Oxygen Flow Rate (L/min) 15 Oxygen Delivery Method Bi-pap Weight: 166 lb 3.657 oz Body Mass Index (BMI) 22.8 Intake and Output for Last 24 Hours 02/25/18 02/26/18 02/27/18 23:59 23:59 23:59 Intake Total 3400 / 3400 957 / 957 602 / 602 Output Total 1150 / 1150 650 / 650 Balance 2250 / 2250 307 / 307 602 / 602 Labs (Last 48 Hours) 02/25/18 02/25/18 02/25/18 04:25 09:45 10:00 WBC RBC Hgb Hct MCV MCH MCHC RDW RDW Differential Plt Count MPV Neut % (Auto) Absolute Neuts (auto) Absolute Lymphs (auto) Total Counted Neutrophils % (Manual) Lymphocytes % (Manual) Monocytes % (Manual) Basophils % (Manual) Metamyelocytes % Promyelocytes % Nucleated RBC % Differential Comment Diff Path Review Reviewed Platelet Estimate RBC Morphology Absolute Retic Sodium Potassium Chloride Carbon Dioxide Anion Gap BUN Creatinine Estim Creat Clear Calc Est GFR (MDRD) Af Amer Est GFR (MDRD) Non-Af BUN/Creatinine Ratio Glucose Lactic Acid 1.9 Calcium Magnesium B-Natriuretic Peptide MRSA (PCR) Negative POC Glucose 02/25/18 02/25/18 02/25/18 11:45 16:34 21:48 WBC RBC Hgb Hct MCV MCH MCHC RDW RDW Differential Plt Count MPV Neut % (Auto) Absolute Neuts (auto) Absolute Lymphs (auto) Total Counted Neutrophils % (Manual) Lymphocytes % (Manual) Monocytes % (Manual) Basophils % (Manual) Metamyelocytes % Promyelocytes % Nucleated RBC % Differential Comment Diff Path Review Platelet Estimate RBC Morphology Absolute Retic Sodium Potassium Chloride Carbon Dioxide Anion Gap BUN Creatinine Estim Creat Clear Calc Est GFR (MDRD) Af Amer Est GFR (MDRD) Non-Af BUN/Creatinine Ratio Glucose Lactic Acid Calcium Magnesium B-Natriuretic Peptide MRSA (PCR) POC Glucose 127 H 180 H 166 H 02/26/18 02/26/18 02/26/18 06:55 09:50 09:50 WBC 11.3 H RBC 2.50 L Hgb 7.8 L Hct 24.4 L MCV 97.6 H MCH 31.2 MCHC 32.0 RDW 18.1 H RDW Differential 57.2 H Plt Count 21 L* MPV 10.2 Neut % (Auto) Not Reportable Absolute Neuts (auto) 8.6 H Absolute Lymphs (auto) 1.36 Total Counted 100 Neutrophils % (Manual) 76 H Lymphocytes % (Manual) 12 L Monocytes % (Manual) 8 Basophils % (Manual) 1 Metamyelocytes % 1 Promyelocytes % 2 H Nucleated RBC % 1.8 Differential Comment Diff Path Review May foll Platelet Estimate MKD DEC RBC Morphology NORM C+C Absolute Retic 0.20 Sodium Potassium Chloride Carbon Dioxide Anion Gap BUN Creatinine Estim Creat Clear Calc Est GFR (MDRD) Af Amer Est GFR (MDRD) Non-Af BUN/Creatinine Ratio Glucose Lactic Acid Calcium Magnesium B-Natriuretic Peptide 153.1 H MRSA (PCR) POC Glucose 145 H 02/26/18 02/26/18 02/26/18 09:50 12:00 12:46 WBC RBC Hgb Hct MCV MCH MCHC RDW RDW Differential Plt Count MPV Neut % (Auto) Absolute Neuts (auto) Absolute Lymphs (auto) Total Counted Neutrophils % (Manual) Lymphocytes % (Manual) Monocytes % (Manual) Basophils % (Manual) Metamyelocytes % Promyelocytes % Nucleated RBC % Differential Comment Diff Path Review Platelet Estimate RBC Morphology Absolute Retic Sodium 143 Potassium 4.3 Chloride 105 Carbon Dioxide 31.0 Anion Gap 7 BUN 15 Creatinine 0.85 Estim Creat Clear Calc 87.42 Est GFR (MDRD) Af Amer 117 Est GFR (MDRD) Non-Af 96 BUN/Creatinine Ratio 17.6 Glucose 162 H Lactic Acid Calcium 8.5 Magnesium 1.7 B-Natriuretic Peptide MRSA (PCR) Negative POC Glucose 154 H 02/26/18 02/26/18 02/27/18 17:27 21:53 05:05 WBC 12.5 H RBC 2.30 L Hgb 7.3 L Hct 23.3 L MCV 101.3 H MCH 31.7 MCHC 31.3 L RDW 17.8 H RDW Differential 52.8 H Plt Count 31 L* MPV 10.4 Neut % (Auto) Absolute Neuts (auto) Absolute Lymphs (auto) Total Counted Neutrophils % (Manual) Lymphocytes % (Manual) Monocytes % (Manual) Basophils % (Manual) Metamyelocytes % Promyelocytes % Nucleated RBC % Differential Comment SCAN Diff Path Review May foll Platelet Estimate RBC Morphology Absolute Retic Sodium Potassium Chloride Carbon Dioxide Anion Gap BUN Creatinine Estim Creat Clear Calc Est GFR (MDRD) Af Amer Est GFR (MDRD) Non-Af BUN/Creatinine Ratio Glucose Lactic Acid Calcium Magnesium B-Natriuretic Peptide MRSA (PCR) POC Glucose 192 H 173 H 02/27/18 05:05 WBC RBC Hgb Hct MCV MCH MCHC RDW RDW Differential Plt Count MPV Neut % (Auto) Absolute Neuts (auto) Absolute Lymphs (auto) Total Counted Neutrophils % (Manual) Lymphocytes % (Manual) Monocytes % (Manual) Basophils % (Manual) Metamyelocytes % Promyelocytes % Nucleated RBC % Differential Comment Diff Path Review Platelet Estimate RBC Morphology Absolute Retic Sodium 144 Potassium 4.1 Chloride 105 Carbon Dioxide 32.0 Anion Gap 7 BUN 19 H Creatinine 1.08 Estim Creat Clear Calc 68.81 Est GFR (MDRD) Af Amer 88 Est GFR (MDRD) Non-Af 73 BUN/Creatinine Ratio 17.6 Glucose 164 H Lactic Acid Calcium 8.4 L Magnesium 2.2 B-Natriuretic Peptide MRSA (PCR) POC Glucose Microbiology 02/25/18 14:36 Mucosa - Nasopharyngeal Respiratory Panel (PCR) - Final 02/24/18 21:27 Sputum, Expectorated/Coughed Gram Stain - Final 02/24/18 21:27 Sputum, Expectorated/Coughed Respiratory Culture - Final Staphylococcus aureus Clinical Impression(s) from Imaging Studies Chest CTA 02/24/18 13:24 IMPRESSION: No evidence of pulmonary embolus. No evidence of thoracic aortic aneurysm or dissection. Increasing consolidation in the left upper lobe. New bibasilar airspace opacities. This is likely infectious in etiology. The patient's known left upper lobe mass is not well evaluated due to the surrounding consolidated lung parenchyma. New small left pleural effusion. Stable mediastinal lymphadenopathy. Electronically Signed: Suhail Cardoan at 14:52 EDT Tel , Service support , Chest X-Ray 02/26/18 07:12 IMPRESSION: Multifocal pneumonia, sparing only the right upper lobe. Left basilar pleural effusion. Stable appearance and positioning of the right Port-A-Cath. No pneumothorax. Electronically Signed: Akin Smith MD at 9:03 EDT , Service support , Medical Necessity - Tobacco Use Smoking Status: Former smoker Assessment/Plan Active and Suspected Problems (Last Reviewed 02/11/18 @ 09:28 by Kizzy Sena) Pneumonia (Acute) DVT (deep venous thrombosis) (Acute) Chest pain (Acute) Acute blood loss anemia (Acute) Thrombocytopenia (Acute) Gram-negative pneumonia (Acute) RECOMMENDATIONS: 1. Continue antibiotics per ID recommendations. 2. Continue aerosol treatments as ordered. 3. Wean supplemental oxygen to maintain saturations 88-92%. 4. Monitor H&H. Transfuse to maintain a hemoglobin at or above 8 g/dL. 5. Palliative care consultation pending. 6. Continue amiodarone 7. Encourage incentive spirometer use and mobilize patient as tolerated. IMPRESSIONS: 1. Acute hypoxemic respiratory failure secondary to underlying small cell lung cancer and superimposed healthcare associated pneumonia The patient has baseline underlying fibrotic changes and emphysema noted on CT scan. In addition, he has extensive stage small cell lung cancer. All of this is being exacerbated by his current multilobar pneumonia. Sputum culture is revealing of staph aureus and gram negatives. He will be maintained on Zosyn, per infectious diseases recommendations. Continue scheduled aerosol treatments, as the patient does have a mild obstructive ventilatory impairment on his last PFTs. Wean supplemental oxygen as tolerated. Encourage incentive parameter use and mobilize patient as tolerated. 2. Anemia/thrombocytopenia secondary to chemotherapy The patient was transfused 2 units of packed red blood cells. Monitor H&H. Goal to maintain a hemoglobin at or above 8 g/dL. 3. Personal history of extensive stage small cell lung cancer The patient is currently on chemotherapy and being managed by oncology. 4. History of bilateral lower extremity DVTs Xarelto is currently on hold, given thrombocytopenia. Continue to monitor platelet count and resume once greater than 50,000. 5. CODE STATUS DNR CCA without intubation. Palliative care consultation is pending. This note was generated with [employer] dictation software. It may contain incorrect words, spelling, and punctuation that were not noted in checking the note before signing. Code Visit Inpatient E&M: 70721 [facility] Hosp L3
--- NOTE | 2018-02-27 07:04 | PCA ---
Call placed to Dr. Brown in regards to consult for pt. VM left on voice mail for a return phone call.
[2018-02-27] MEDS: 0.9% NaCl VAD Flush 10 ML IV ×4 (07:25→23:25)
[2018-02-27] MEDS: Ipratropium/Albuterol Sulfate 3 ML AMPUL.NEB INHALATION ×3 (07:34→23:02)
--- NOTE | 2018-02-27 07:51 | PN_ITS ---
Patient Problems: Active and Suspected Problems (Last Reviewed 02/11/18 @ 09:28 by Kizzy Sena) Pneumonia (Acute) DVT (deep venous thrombosis) (Acute) Chest pain (Acute) Acute blood loss anemia (Acute) Thrombocytopenia (Acute) Gram-negative pneumonia (Acute) Subjective: Patient is a 62-year-old gentleman with stage IV small cell lung CA on chemotherapy presented with progressive generalized weakness. Found to be anemic on admission with hemoglobin of 6.4. He was also thrombocytopenic with platelet count of 16; imaging studies was questionable for suspected pneumonia admitted to a monitored bed where patient has since been managed 02/26/2018: Patient seen remains significantly dyspneic at rest dependent on BiPAP. Sputum cultures came back positive for staph aureus. Consultation placed to ID 02/27/2018: Patient was transferred to the intensive care unit as a result of worsening respiratory status and the fact that patient to remain full code. After family discussion patient change his mind and agreed to be DNR CCA. Awaiting palliative care consultation Objective: GENERAL: Dyspneic at rest HEENT: Clear conjunctiva, NECK; supple, normal thyroid, CHEST: Diminished to auscultation bilaterally, HEART: Regular S1 S2, no audible murmurs ABDOMEN: soft, non-tender, normoactive bowel sounds, RECTAL: deferred EXTREMITIES: No edema, no clubbing, no cyanosis. NUTRITION CONSULTANT: Awake, no lateralizing signs. SKIN: No rash Vitals/I&O's: Vital Signs Temp Pulse Resp BP Pulse Ox 97.7 F L 75 18 93/68 100 02/27/18 04:00 02/27/18 07:04 02/27/18 07:00 02/27/18 07:00 02/27/18 07:00 Oxygen Flow Rate (L/min) 15 Oxygen Delivery Method Non-Rebreather Weight: 75.4 kg Body Mass Index (BMI) 22.8 Intake and Output for Last 24 Hours 02/25/18 02/26/18 02/27/18 23:59 23:59 23:59 Intake Total 3400 / 3400 957 / 957 602 / 602 Output Total 1150 / 1150 650 / 650 Balance 2250 / 2250 307 / 307 602 / 602 Microbiology Past 72 Hours 02/25/18 14:36 Mucosa - Nasopharyngeal Respiratory Panel (PCR) - Final 02/24/18 21:27 Sputum, Expectorated/Coughed Gram Stain - Final 02/24/18 21:27 Sputum, Expectorated/Coughed Respiratory Culture - Final Staphylococcus aureus 02/24/18 19:00 Urine, Clean Catch Streptococcus pneumoniae Antigen (M - Final 02/24/18 19:00 Urine, Clean Catch Legionella Antigen - Final Laboratory Results 02/26/18 09:50: WBC 11.3 H, RBC 2.50 L, Hgb 7.8 L, Hct 24.4 L, MCV 97.6 H, MCH 31.2, MCHC 32.0, RDW 18.1 H, RDW Differential 57.2 H, Plt Count 21 L*, MPV 10.2 , Neut % (Auto) Not Reportable, Absolute Neuts (auto) 8.6 H, Absolute Lymphs ( auto) 1.36, Total Counted 100, Neutrophils % (Manual) 76 H, Lymphocytes % ( Manual) 12 L, Monocytes % (Manual) 8, Basophils % (Manual) 1, Metamyelocytes % 1 , Promyelocytes % 2 H, Nucleated RBC % 1.8, Diff Path Review May foll, Platelet Estimate MKD DEC, RBC Morphology NORM C+C, Absolute Retic 0.20 02/26/18 09:50: B-Natriuretic Peptide 153.1 H 02/26/18 09:50: Sodium 143, Potassium 4.3, Chloride 105, Carbon Dioxide 31.0, Anion Gap 7, BUN 15, Creatinine 0.85, Estim Creat Clear Calc 87.42, Est GFR ( MDRD) Af Amer 117, Est GFR (MDRD) Non-Af 96, BUN/Creatinine Ratio 17.6, Glucose 162 H, Calcium 8.5, Magnesium 1.7 02/26/18 12:00: MRSA (PCR) Negative 02/26/18 12:46: POC Glucose 154 H 02/26/18 17:27: POC Glucose 192 H 02/26/18 21:53: POC Glucose 173 H 02/27/18 05:05: WBC 12.5 H, RBC 2.30 L, Hgb 7.3 L, Hct 23.3 L, MCV 101.3 H, MCH 31.7, MCHC 31.3 L, RDW 17.8 H, RDW Differential 52.8 H, Plt Count 31 L*, MPV 10.4, Differential Comment SCAN, Diff Path Review March02/27/18 05:05: Sodium 144, Potassium 4.1, Chloride 105, Carbon Dioxide 32.0, Anion Gap 7, BUN 19 H, Creatinine 1.08, Estim Creat Clear Calc 68.81, Est GFR ( MDRD) Af Amer 88, Est GFR (MDRD) Non-Af 73, BUN/Creatinine Ratio 17.6, Glucose 164 H, Calcium 8.4 L, Magnesium 2.2 Current Medications Acetaminophen (Tylenol) 650 mg PO Q4H PRN PRN PRN Reason: FEVER Albuterol Sulfate (Ventolin Aerosols) 2.5 mg INHALATION Q2H PRN PRN PRN Reason: SHORTNESS OF BREATH Albuterol/Ipratropium (Duoneb) 3 ml INHALATION Q4H.RT [facility] Last Admin: 02/27/18 07:34 Dose: 3 ml Atorvastatin Calcium (Lipitor) 40 mg PO QHS [facility] Last Admin: 02/26/18 20:51 Dose: 40 mg Cholecalciferol (Vitamin D) 2,000 unit PO DAILY [facility] Last Admin: 02/26/18 09:19 Dose: 2,000 unit Dextrose (D50w Syringe) 0 gm IV X1 PRN; Protocol PRN Reason: Hypoglycemia Divalproex Sodium (Depakote) 500 mg PO TID [facility] Last Admin: 02/27/18 05:06 Dose: 500 mg Fentanyl Citrate (Sublimaze (100mcg Ampule)) 25 mcg IV Q6H PRN PRN Reason: BREAKTHROUGH PAIN (>4/10) Last Admin: 02/26/18 17:31 Dose: 25 mcg Folic Acid (Folic Acid) 1 mg PO DAILY@0800 [facility] Last Admin: 02/26/18 09:17 Dose: 1 mg Glucagon () 1 mg IM .X1 PRN PRN Reason: Hypoglycemia Guaifenesin (Mucinex) 1,200 mg PO BID [facility] Last Admin: 02/26/18 20:52 Dose: 1,200 mg Heparin Sodium (Beef Lung) (Heparin 500 Unit/5 Ml (100/Ml)) 500 unit IV UD PRN PRN Reason: HEPARIN FLUSH Piperacillin Sod/Tazobactam Sod (Zosyn) 3.375 gm in 50 mls @ 12.5 mls/hr IV Q8 [facility] Last Admin: 02/27/18 05:05 Dose: 12.5 mls/hr Sodium Chloride () 250 mls @ 15 mls/hr IV .[id number] PRN PRN Reason: SALINE FLUSH Last Admin: 02/26/18 13:46 Dose: 15 mls/hr Amiodarone HCl 360 mg/ (Dextrose) 200 mls @ 16.66 mls/hr CONT INF .Q12H1M [facility] PRN Reason: 0.5 MG/MIN Stop: 02/28/18 00:30 Last Admin: 02/27/18 07:24 Dose: 16.66 mls/hr Insulin Aspart (Novolog Flexpen (Bkc)) 0 units SC TIDAC [facility] PRN Reason: Protocol Last Admin: 02/26/18 17:29 Dose: 2 units Levothyroxine Sodium (Synthroid) 25 mcg PO DAILY@0600 [facility] Last Admin: 02/27/18 05:06 Dose: 25 mcg Magnesium Hydroxide (Milk Of Magnesia) 30 ml PO DAILY PRN PRN PRN Reason: Constipation Metoprolol Tartrate (Lopressor (Beta Raina)) 50 mg PO BID [facility] Last Admin: 02/26/18 20:51 Dose: 50 mg Mirtazapine (Remeron) 7.5 mg PO QHS [facility] Last Admin: 02/26/18 20:54 Dose: 7.5 mg Nutritional Formula (Lactose Free) (Glucerna Shake) 120 ml PO 4X/DAY [facility] Last Admin: 02/26/18 20:50 Dose: 120 ml Ondansetron HCl (Zofran) 4 mg IV Q8H PRN PRN PRN Reason: NAUSEA Ondansetron HCl (Zofran Odt) 4 mg PO Q8H PRN PRN Reason: NAUSEA Oxycodone HCl (Oxyir) 5 - 10 mg PO Q4H PRN PRN PRN Reason: SEVERE PAIN (6-10/10) Last Admin: 02/26/18 13:49 Dose: 10 mg Senna (Senokot) 1 tablet PO BID [facility] Last Admin: 02/26/18 20:52 Dose: Not Given Sodium Chloride () 10 ml IV UD PRN PRN Reason: VAD FLUSH Last Admin: 02/27/18 07:25 Dose: 10 ml Medical Necessity - Tobacco Use Smoking Status: Former smoker Assessment/Plan Active and Suspected Problems (Last Reviewed 02/11/18 @ 09:28 by Kizzy Sena) Pneumonia (Acute) DVT (deep venous thrombosis) (Acute) Chest pain (Acute) Acute blood loss anemia (Acute) Thrombocytopenia (Acute) Gram-negative pneumonia (Acute) Patient is a 62-year-old gentleman with stage IV small cell lung CA on chemotherapy presented with progressive generalized weakness. Found to be anemic on admission with hemoglobin of 6.4. He was also thrombocytopenic with platelet count of 16; imaging studies was questionable for suspected pneumonia admitted to a monitored bed where patient has since been managed 1. Acute hypoxic respiratory failure secondary to patient underlying lung CA as well as his pneumonia with staph aureus patient managed with Zosyn as well as vancomycin in addition to high flow oxygen with consultation placed a pulmonary medicine and ID consultation on 02/26/2018 2. Anemia secondary to chemotherapy-induced anemia patient was transfused 2 units PRBC since he was significantly symptomatic on admission. 3. Thrombocytopenia again secondary to his recent chemotherapy monitoring with plans to transfuse if patient starts bleeding or platelet count falls below 10, 000 4. Stage 4 SCLC: completed 5/6 cycles of carboplatin/etopside 5. Diabetes mellitus type 2 patient oral agents held on admission please and Accu-Cheks before meals and at bedtime with sliding scale coverage 6. DVT prophylaxis: no chemical prophylaxis given his profound anemia and thrombocytopenia; no SCDs because of plt count of 16K CODE STATUS: DNR CCA Code Visit Inpatient E&M: 95780 Subs Hosp L3
[2018-02-27] MEDS: Folic Acid 1 MG Tablet PO (07:52)
[2018-02-27 08:06] LABS: Bedside Glucose 158 mg/dL (70-110)
--- NOTE | 2018-02-27 08:15 | NURSING ---
Spoke w/ Neil, at [facility]. Update on pt status give.
--- NOTE | 2018-02-27 08:55 | NURSING ---
Pt w/ noted tachcardia 130s-140s and variable SPO2 in 70s-80s while on 6L and eating breakfast. Denies feeling symptomatic. Tachycardia resolves spontaneously into 80s. SPO2 also returns to upper 80s, low 90s w/ rest between eating. Declines wanting to put bipap back on states I'll just wear that softer mask if I have to referring to NRB.
--- NOTE | 2018-02-27 09:23 | NURSING ---
hospital liaison at bedside for family meeting. Antonio Thomas and son present.
[2018-02-27 09:32] LABS: Pathologist Review Reviewed
[2018-02-27 09:36] LABS: Pathologist Review Reviewed
--- NOTE | 2018-02-27 09:47 | CASEMGMT ---
Per Oni with [facility], pt declined Palliative Care and Hospice at this time. Plan is for transfer to PCU today. Remigio DE LA TORREN RN ACM
[2018-02-27] MEDS: Metoprolol Tartrate 50 MG Tablet PO ×2 (09:48→21:04)
[2018-02-27] MEDS: Senna Tablet 1 TABLET PO ×2 (09:50→21:04)
[2018-02-27] MEDS: guaiFENesin 1,200 MG Tablet 1200 MG PO ×2 (09:50→21:04)
--- NOTE | 2018-02-27 09:55 | NURSING ---
Pt placed back on bipap after medications given. 60% FIO2.
--- NOTE | 2018-02-27 11:07 | CASEMGMT ---
SW spoke w/pt and son in room regarding POA. Pt states he does not want to fill out the papers, but that his son here, his older son and his significant other have all talked about it. Son in room confirms they have had a family discussion and know the pt's wishes. SW explained without papers in place, it would be up to the sons to make decisions if that was ever needed. SW explained the son can speak to the significant other of course but the decision would be up to the children. Pt nodded in agreement, son in room also states understanding. Son states this is not the first time they have been through this, so have had discussions. SW let pt and son know if they have any questions or if pt changes his mind, SW is available to assist. SOPHIE Sun, DIGITAL PRINTER OPERATOR
[2018-02-27 12:01] LABS: Bedside Glucose 160 mg/dL (70-110)
--- NOTE | 2018-02-27 12:19 | PCM.PN.ID ---
Patient Problems: Active and Suspected Problems (Last Reviewed 02/11/18 @ 09:28 by Kizzy Sena) Pneumonia (Acute) DVT (deep venous thrombosis) (Acute) Chest pain (Acute) Acute blood loss anemia (Acute) Thrombocytopenia (Acute) Gram-negative pneumonia (Acute) Subjective: Afib overnight with some chest pain. In icu, feeling better this AM, breathing easier. No fever. - Physical Exam General: Alert, Cooperative Lungs: Rhonchi - bilat Cardiovascular: Tachycardic Abdomen: Soft, Non Tender, Non-Distended Skin: No rashes Vital Signs Temp Pulse Resp BP Pulse Ox 97.3 F L 81 21 H 89/53 L 100 02/27/18 12:00 02/27/18 12:00 02/27/18 12:00 02/27/18 12:00 02/27/18 12:00 Oxygen Flow Rate (L/min) 15 Oxygen Delivery Method Non-Rebreather Weight: 75.4 kg Body Mass Index (BMI) 22.8 Intake and Output for Last 24 Hours 02/25/18 02/26/18 02/27/18 23:59 23:59 23:59 Intake Total 3400 / 3400 957 / 957 1023 / 1023 Output Total 1150 / 1150 650 / 650 325 / 325 Balance 2250 / 2250 307 / 307 698 / 698 Microbiology Past 72 Hours 02/25/18 14:36 Respiratory Panel (PCR) - Final Mucosa - Nasopharyngeal 02/24/18 21:27 Gram Stain - Final Sputum, Expectorated/Coughed Respiratory Culture - Final Staphylococcus aureus 02/24/18 19:00 Streptococcus pneumoniae Antigen (M - Final Urine, Clean Catch 02/24/18 19:00 Legionella Antigen - Final Urine, Clean Catch Laboratory Tests Past 24 Hrs 02/26/18 02/26/18 02/27/18 09:50 12:00 05:05 WBC 12.5 H RBC 2.30 L Hgb 7.3 L Hct 23.3 L MCV 101.3 H MCH 31.7 MCHC 31.3 L RDW 17.8 H RDW Differential 52.8 H Plt Count 31 L* MPV 10.4 Differential Comment SCAN Diff Path Review Reviewed Reviewed Sodium Potassium Chloride Carbon Dioxide Anion Gap BUN Creatinine Estim Creat Clear Calc Est GFR (MDRD) Af Amer Est GFR (MDRD) Non-Af BUN/Creatinine Ratio Glucose Calcium Magnesium MRSA (PCR) Negative 02/27/18 05:05 WBC RBC Hgb Hct MCV MCH MCHC RDW RDW Differential Plt Count MPV Differential Comment Diff Path Review Sodium 144 Potassium 4.1 Chloride 105 Carbon Dioxide 32.0 Anion Gap 7 BUN 19 H Creatinine 1.08 Estim Creat Clear Calc 68.81 Est GFR (MDRD) Af Amer 88 Est GFR (MDRD) Non-Af 73 BUN/Creatinine Ratio 17.6 Glucose 164 H Calcium 8.4 L Magnesium 2.2 MRSA (PCR) POC Glucose 02/27/18 02/27/18 02/26/18 11:51 07:38 21:53 POC Glucose 160 H 158 H 173 H 02/26/18 02/26/18 17:27 12:46 POC Glucose 192 H 154 H Medical Necessity - Tobacco Use Smoking Status: Former smoker Route of nutrition/ use of supplements: [] Nutritional Intake: [] IV Site: [] Flowers Catheter: [] - Assessment/Plan Antibiotics: [] Assessment/Plan: [] Active and Suspected Problems (Last Reviewed 02/11/18 @ 09:28 by Kizzy Sena) Pneumonia (Acute) DVT (deep venous thrombosis) (Acute) Chest pain (Acute) Acute blood loss anemia (Acute) Thrombocytopenia (Acute) Gram-negative pneumonia (Acute) MSSA pneumonia with possible aspiration in pt with stage 4 small cell lung cancer on chemo - resp viral panel neg. Onc and pulm following. Sputum cx with 2+ GNR on gram stain, but only MSSA grew. Will narrow zosyn to unasyn. will follow
--- NOTE | 2018-02-27 12:57 | ONC.PN.INPT ---
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 He's an ex-smoker who quit in 2015, who was hospitalized at [facility] in September 2017 with his acute abdominal pain and diagnosed with pancreatitis. During hospitalization a chest x-ray revealed a left lung mass. CT scan showed a malignant-looking left upper lobe mass and a CT-guided biopsy on September 18, 2017 confirmed small cell lung cancer. PET CT October 08, 2017 showed abnormal uptake consistent with a malignant process involving the left lung mass, hilar adenopathy and a newly evolving left adrenal mass was not visualized on his CT scan of the abdomen in March 2017. CT-guided biopsy of the adrenal mass confirmed metastatic small cell cancer. MRI of the brain showed no evidence of metastatic disease. Of note patient developed 2 episodes of acute pancreatitis the first was September 2017, the second was November [address] scan of the abdomen and PET/CT showed indeterminate abnormality in the area of the pancreatic head that could not be further characterized but an underlying neoplastic process could not be excluded. Current Treatment: Carbo-etoposide since 11/13/2017- Last treatment 02/11/2018 Developed bilateral LE DVTs 01/2018 and has been on xarelto. Past Medical History: Chronic Problems (Last Reviewed 02/11/18 @ 09:28 by Kizzy Sena) Cancer-related pain (Chronic) Stage 1 mild COPD by GOLD classification (Chronic) Small cell lung cancer (Chronic) ALEC 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) Diabetes mellitus, type II (Chronic) COPD (chronic obstructive pulmonary disease) (Chronic) History of tobacco use (Chronic) Migraine (Chronic) Crohns disease (Chronic) History of TIA (transient ischemic attack) (Chronic) Hypothyroidism (Chronic) Past Medical History - Most Recent Inpatient Visit Past Medical History Start: 02/24/18 17:52 Text: Status: Complete Freq: ONCE Protocol: Document 02/24/18 17:52 [facility] (Rec: 02/24/18 18:20 [facility] [id number]) BMI Required to complete PMH What is Patient's BMI 22.9 Past Medical History Unable History Recalled No Query Text:Pt Unable/Family Not Present Neurologic Medical History Hx Stroke/TIA Yes: 2000 Hx Dementia/Alzheimer's No Hx Parkinson's Disease No Hx Seizures Yes: 2000 with stroke Hx Multiple Sclerosis No Hx Migraines Yes Cardiac Medical History VTE Present on Admission No Hx of Deep Vein Thrombosis/VTE/PE Yes: right leg found out a couple weeks ago Hx Hypertension No Hx Chest Pain/Angina Yes Hx Heart Attack No Hx Cardiac Surgery/Stents/Etc. No: stress test Oct 2017 Hx Heart Failure No Hx Pacemaker/AICD No Hx Irregular Heartbeat and/or Afib No Hx Anticoagulant Therapy No Query Text:(Coumadin, Aspirin, Plavix, Xarelto, etc.) Hx Pain in Legs when Walking/Leg Cramps No Respiratory Medical History Hx COPD Yes Hx Emphysema No Hx Smoking Yes Smoking Status Former smoker Years Smoking 50 Packs Smoked per Day 1.5 Hx Smoking Cessation Counseling Yes Hx Smoking Exposure Yes Hx Tobacco Use in last 12 months No Hx of Pipe Smoking No Hx Sleep Apnea No Do you snore loudly (louder than talking Yes or can be heard through closed doors)? Do you often feel tired/ fatigued/ Yes sleepy during daytime? Has anyone observed you stop breathing Yes during sleep? STOP Results Positive Comments does think patient has sleep apnea GI Medical History Hx Ulcer No Hx Hepatitis No Hx Cirrhosis No Hx GI Bleed No Hx Unplanned Weight Loss No Genitourinary Medical History Indwelling Catheter in Place on Arrival/ No Admission Hx Renal Disease No Hx Dialysis No Musculoskeletal History Hx Arthritis Yes: hands Hx Rheumatoid Arthritis No Endocrine Medical History Hx Diabetes Yes Hx Thyroid Disease Yes Hematologic Medical History Hx of Blood Transfusion Yes Hx of Transfusion in last 3 Months Yes Date of Last Transfusion (if within last 02/24/17 3 months) Ever experience any problems with No transfusion(s)? 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 No Methicillin Resistant Staphylococcus aureus Screening Active MRSA No Risk for Readmission Number of Risk Factors 7 At Risk for Readmission Patient is At Risk For Readmission Patient is eligible for Call Back Y Past Medical History (Last Reviewed 02/11/18 @ 09:28 by Kizzy Sena) Palpitations (Acute) Anemia (Acute) Small cell lung cancer (Chronic) 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) Mass of pancreas (Acute) DVT prophylaxis (Acute) Anemia (Acute) Chest pain (Acute) Diabetes mellitus, type II (Chronic) COPD (chronic obstructive pulmonary disease) (Chronic) History of tobacco use (Chronic) Migraine (Chronic) Crohns disease (Chronic) History of TIA (transient ischemic attack) (Chronic) Hypothyroidism (Chronic) Abdominal pain (Acute) Acute Crohn's disease (Acute) Cervical radiculopathy (Acute) 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) Depression (Acute) Diabetes (Acute) Diverticulitis (Acute) Dyspnea (Acute) Heart murmur (Acute) Hernia (Acute) Impingement syndrome, shoulder, left (Acute) Inguinal hernia (Acute) Marijuana use (Acute) Pneumonia (Acute) Rotator cuff syndrome (Acute) Small cell lung cancer (Acute) Stroke (Acute) s/p port placement (Acute ~11/01/17) Past Surgical History (Last Reviewed 02/11/18 @ 09:28 by Kizzy Sena) History of right inguinal hernia repair (Resolved) History of cholecystectomy (Resolved) History of laparotomy (Resolved) FHx: cholecystectomy (Acute) H/O colectomy (Acute) History of appendectomy (Acute) RIGHT HERNIA REPAIR WITH KUGEL PATCH (Acute) SIGMOIDECTOMY W/ COLORECTAL ANASTAMOSIS (Acute) Maternal Family History: Family History (Last Reviewed 02/11/18 @ 09:28 by Kizzy Sena) Father CAD (coronary artery disease) Mesothelioma Grandfather Leukemia Brother Throat cancer Family History: No pertinent history Paternal Family History: Family History (Last Reviewed 02/11/18 @ 09:28 by Kizzy Sena) Father CAD (coronary artery disease) Mesothelioma Grandfather Leukemia Brother Throat cancer Family History: No pertinent history, - - no lung cancer. - Social History Lives: Spouse/ Significant Other Smoking Status: Former smoker Alcohol: None Drugs: Marijuana Review of Systems Constitutional:: Reports: Weakness, Fatigue, - - I feel a little bit better today. Denies: Fever, Sweats, Weight loss, Appetite change, Chills Cardiovascular:: Reports: Palpitations - last p.m. when my heart went fast, Dyspnea on exertion, Orthopnea, Peripheral edema, Shortness of breath. Denies: Chest pain, PND Respiratory: Reports: Cough, Hemoptysis, Shortness of Breath, Shortness of breath at rest - A bit better today, more comfortable on the nonrebreather mask compared to the BiPAP mask. Denies: Wheezing Gastrointestinal:: Reports: Abdominal pain - Left upper quadrant pain is controlled. Denies: Nausea, Vomiting, Diarrhea, Constipation, Hematochezia Genitourinary: Denies: Dysuria, Hematuria, 15, Flank pain Musculoskeletal:: Denies: Back pain, Myalgia, Arthralgia Skin: Denies: Rash, Skin Changes, Wounds Neurological:: Denies: Headache, Dizziness, Visual changes, Tinnitus, Hearing loss Psychiatric: Denies: Anxiety, Depression, Homicidal Ideations, Suicidal Ideations Vital Signs Height 5 ft 9 in Weight: 75.4 kg Weight in Pounds 166.2 lbs Pulse Ox 100 Temperature 97.3 F Pulse Rate 81 Respiratory Rate 21 Blood Pressure [BP] 91/46 Blood Pressure 89/53 Blood Pressure Position [BP] Semi-Fowlers Blood Pressure Position Sitting - Physical Exam General: Alert, Oriented x3, - - ECOG 3-4 On nonrebreather oxygen mask Pale HEENT: Atraumatic, PERRLA, EOMI, Normocephalic Oropharynx:: Dry mucosa Neck:: Supple, Trachea midline. Negative for: JVD, bilateral Cardiac:: Regular rate, Regular rhythm, Normal S1, Normal S2. Negative for: Murmur Lungs: Clear to auscultation, Rhonchi, Wheezes, Diminished, Tachypneic, Excusion symmetrical Abdomen:: Soft, Non-tender, Non-distended. Negative for: Hepatosplenomegaly Extremities:: Edema - 1+ bilateral ankles. Negative for: Cyanosis Neurological: Neuro grossly intact Skin:: Ecchymosis. Negative for: Lesions, Rash, Petechiae Psychiatric:: Appropriate affect, Euthymic Lymphatics:: Negative for: Cervical lymphadenopathy, Supraclavicular lymphadenopathy Laboratory Data: Microbiology 02/25/18 14:36 Respiratory Panel (PCR) - Final Mucosa - Nasopharyngeal 02/24/18 21:27 Gram Stain - Final Sputum, Expectorated/Coughed Respiratory Culture - Final Staphylococcus aureus 02/24/18 19:00 Streptococcus pneumoniae Antigen (M - Final Urine, Clean Catch 02/24/18 19:00 Legionella Antigen - Final Urine, Clean Catch Laboratory Tests 02/27/18 02/27/18 02/27/18 Range/Units 11:51 07:38 05:05 WBC (4.4-11.0) K/mm3 RBC (4.6-6.2) M/mm3 Hgb (13.0-16.5) g/dl Hct (40-54) % MCV (80-94) fL MCH (27.0-32.0) pg MCHC (32-36) g/gl RDW (11.6-14.6) % RDW Differential (35.1-43.9) fl Plt Count (150-450) K/mm3 MPV (6.2-12.0) fl Differential Comment Diff Path Review Sodium 144 (136-145) mmol/L Potassium 4.1 (3.5-5.1) mmol/L Chloride 105 (98-107) mmol/L Carbon Dioxide 32.0 (21.0-32.0) mmol/L Anion Gap 7 (5-15) BUN 19 H (7-18) mg/dL Creatinine 1.08 (0.70-1.30) mg/dL Estim Creat Clear Calc 68.81 ml/min Est GFR (MDRD) Af Amer 88 (>60) mL/min Est GFR (MDRD) Non-Af 73 (>60) mL/min BUN/Creatinine Ratio 17.6 (10-20) RATIO Glucose 164 H (74-106) mg/dL Calcium 8.4 L (8.5-10.1) mg/dL Magnesium 2.2 (1.6-2.6) mg/dL MRSA (PCR) (Negative) POC Glucose 160 H 158 H (70-110) mg/dL 02/27/18 02/26/18 02/26/18 Range/Units 05:05 21:53 17:27 WBC 12.5 H (4.4-11.0) K/mm3 RBC 2.30 L (4.6-6.2) M/mm3 Hgb 7.3 L (13.0-16.5) g/dl Hct 23.3 L (40-54) % MCV 101.3 H (80-94) fL MCH 31.7 (27.0-32.0) pg MCHC 31.3 L (32-36) g/gl RDW 17.8 H (11.6-14.6) % RDW Differential 52.8 H (35.1-43.9) fl Plt Count 31 L* (150-450) K/mm3 MPV 10.4 (6.2-12.0) fl Differential Comment SCAN Diff Path Review Reviewed Sodium (136-145) mmol/L Potassium (3.5-5.1) mmol/L Chloride (98-107) mmol/L Carbon Dioxide (21.0-32.0) mmol/L Anion Gap (5-15) BUN (7-18) mg/dL Creatinine (0.70-1.30) mg/dL Estim Creat Clear Calc ml/min Est GFR (MDRD) Af Amer (>60) mL/min Est GFR (MDRD) Non-Af (>60) mL/min BUN/Creatinine Ratio (10-20) RATIO Glucose (74-106) mg/dL Calcium (8.5-10.1) mg/dL Magnesium (1.6-2.6) mg/dL MRSA (PCR) (Negative) POC Glucose 173 H 192 H (70-110) mg/dL 02/26/18 02/26/18 Range/Units 12:00 09:50 WBC (4.4-11.0) K/mm3 RBC (4.6-6.2) M/mm3 Hgb (13.0-16.5) g/dl Hct (40-54) % MCV (80-94) fL MCH (27.0-32.0) pg MCHC (32-36) g/gl RDW (11.6-14.6) % RDW Differential (35.1-43.9) fl Plt Count (150-450) K/mm3 MPV (6.2-12.0) fl Differential Comment Diff Path Review Reviewed Sodium (136-145) mmol/L Potassium (3.5-5.1) mmol/L Chloride (98-107) mmol/L Carbon Dioxide (21.0-32.0) mmol/L Anion Gap (5-15) BUN (7-18) mg/dL Creatinine (0.70-1.30) mg/dL Estim Creat Clear Calc ml/min Est GFR (MDRD) Af Amer (>60) mL/min Est GFR (MDRD) Non-Af (>60) mL/min BUN/Creatinine Ratio (10-20) RATIO Glucose (74-106) mg/dL Calcium (8.5-10.1) mg/dL Magnesium (1.6-2.6) mg/dL MRSA (PCR) Negative (Negative) POC Glucose (70-110) mg/dL Diagnostic Data: Diagnostic Data Chest CTA 02/24/18 13:24 IMPRESSION: No evidence of pulmonary embolus. No evidence of thoracic aortic aneurysm or dissection. Increasing consolidation in the left upper lobe. New bibasilar airspace opacities. This is likely infectious in etiology. The patient's known left upper lobe mass is not well evaluated due to the surrounding consolidated lung parenchyma. New small left pleural effusion. Stable mediastinal lymphadenopathy. Electronically Signed: Suhail Cardona at 14:52 EDT Tel , Service support , Chest X-Ray 02/26/18 07:12 IMPRESSION: Multifocal pneumonia, sparing only the right upper lobe. Left basilar pleural effusion. Stable appearance and positioning of the right Port-A-Cath. No pneumothorax. Electronically Signed: Akin Smith MD at 9:03 EDT , Service support , Assessment and Plan 62-year-old male smoker till 2016 with #1 Stage IV small cell lung cancer. Patient presented with significant weight loss and left upper abdominal pain most likely related to a rapidly growing metastatic lesion (pathologically confirmed) in the left adrenal gland. Systemic chemotherapy with carboplatin etoposide patient is status post 5/6 cycles with partial remission of his disease . Last cycle was 02/11/2018 and received neulasta 02/14/2018 #2 Anemia of cancer and chemotherapy, transfuse with PRBCS to target HB > 8 g/dl #3 Thrombocytopenia, 2ry to recent chemo +/- infection. Hold xarelto till PLT >50K. Prophylactic PLT transfusion if <10K. Platelets count slowly recovering #4 Pain control adequate as per pain management consulted recommendations #5 Indeterminate abnormality in the pancreatic head area possibilities are post pancreatitis, metastatic small cell lung cancer to pancreas, or a second primary cancer of the pancreas. Pursuing this abnormality with biopsy is of academic interest only and may only cause delay in initiating treatment for the aggressive small cell lung cancer. His prognosis and survival are more dependent on the extensive stage small cell lung cancer and active treatment will have to be redirected again assess life-threatening, and inevitably fatal disease. On recent CT these abnormalities are not progressive. I discussed this finding with the patient and significant other in detail and an earlier visit. #6 Malignancy hypercoagulability with bilateral LE DVT, hold xarelto till PLT >50K then resume. Use non-pharmacologic DVT prophylaxis and encourage ambulation. #7 Acute hospitalization with a bilateral staph pneumonia and acute on chronic respiratory failure patient appears to be a bit better this morning and comparison to yesterday when he was decompensating despite maximum efforts at treating his pneumonia and airways disease. He continues to be in serious condition #8 CODE STATUS : DNR. #9 Patient and family met with the hospice team, services declined at the present time but this is a backup plan if he were to decompensate and wished to go home with hospice services. Discussed with patient, significant other and his 2 sons. Comorbid conditions: Diabetes, neuropathy, dyslipidemia, COPD, hypothyroidism Medications: Prescriptions This Visit Medication Instructions Recorded Alive Mens 1 tab PO DAILY 02/24/18 Ferrous Sulfate 325 mg PO DAILY@0800 02/24/18 Folic Acid 1 tab PO DAILY 02/24/18 Rivaroxaban [Xarelto] 1 tab PO DAILY 02/24/18 Vitamin D3 2 tab PO DAILY 02/24/18 Medications Added to Medication List This Visit Category Date Time Status Ampicillin/Sulbactam [Unasyn] 3 gm Med 02/27/18 12:30 Active 0.9% Normal Saline 100 ml IV Q6 Dextrose 5% Shawna Bag 192.8 ml Med 02/27/18 06:30 Active Amiodarone [Cordarone (G)] 360 mg CONT INF 0.5 mg/min Primary Care Provider: Last Aguilar Referring Provider:
--- NOTE | 2018-02-27 13:00 | CHAPLAIN ---
Type of Pastoral Visit ___ Initial Visit _x__ Follow-up Visit ___ On-call Visit ___ General Patient Visit ___ Spiritual Assessment ___ Family Conference ___ Bereavement ___ Rapid Response ___ Code Blue ___ Other (describe below) Pastoral Care Referral From _x__ Patient ___ Family ___ Nurse ___ Physician ___ Hole Digger ___ Multiple Slide Operator ___ Other (describe below) Sacrament/Intervention _x__ Active listening ___ Anointing ___ Faith ___ Bereavement ___ Communion _x__ Tonya exploration ___ ___ Life review _x__ Prayer ___ Reconciliation ___ Sacrament of Sick _x__ Supportive presence ___ Wedding ___ Other (describe below) Pastoral Comments
--- NOTE | 2018-02-27 13:08 | PN_ITS ---
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 He's an ex-smoker who quit in 2015, who was hospitalized at [facility] in September 2017 with his acute abdominal pain and diagnosed with pancreatitis. During hospitalization a chest x-ray revealed a left lung mass. CT scan showed a malignant-looking left upper lobe mass and a CT-guided biopsy on September 18, 2017 confirmed small cell lung cancer. PET CT October 08, 2017 showed abnormal uptake consistent with a malignant process involving the left lung mass, hilar adenopathy and a newly evolving left adrenal mass was not visualized on his CT scan of the abdomen in March 2017. CT-guided biopsy of the adrenal mass confirmed metastatic small cell cancer. MRI of the brain showed no evidence of metastatic disease. Of note patient developed 2 episodes of acute pancreatitis the first was September 2017, the second was November [address] scan of the abdomen and PET/CT showed indeterminate abnormality in the area of the pancreatic head that could not be further characterized but an underlying neoplastic process could not be excluded. Current Treatment: Carbo-etoposide since 11/13/2017- Last treatment 02/11/2018 Developed bilateral LE DVTs 01/2018 and has been on xarelto. Past Medical History: Chronic Problems (Last Reviewed 02/11/18 @ 09:28 by Kizzy Sena) Cancer-related pain (Chronic) Stage 1 mild COPD by GOLD classification (Chronic) Small cell lung cancer (Chronic) ALEC 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) Diabetes mellitus, type II (Chronic) COPD (chronic obstructive pulmonary disease) (Chronic) History of tobacco use (Chronic) Migraine (Chronic) Crohns disease (Chronic) History of TIA (transient ischemic attack) (Chronic) Hypothyroidism (Chronic) Past Medical History - Most Recent Inpatient Visit Past Medical History Start: 02/24/18 17: 52 Text: Status: Complete Freq: ONCE Protocol: Document 02/24/18 17:52 [facility] (Rec: 02/24/18 18:20 [facility] [id number]) BMI Required to complete PMH What is Patient's BMI 22.9 Past Medical History Unable History Recalled No Query Text:Pt Unable/Family Not Present Neurologic Medical History Hx Stroke/TIA Yes: 2000 Hx Dementia/Alzheimer's No Hx Parkinson's Disease No Hx Seizures Yes: 2000 with stroke Hx Multiple Sclerosis No Hx Migraines Yes Cardiac Medical History VTE Present on Admission No Hx of Deep Vein Thrombosis/VTE/PE Yes: right leg found out a couple weeks ago Hx Hypertension No Hx Chest Pain/Angina Yes Hx Heart Attack No Hx Cardiac Surgery/Stents/Etc. No: stress test Oct 2017 Hx Heart Failure No Hx Pacemaker/AICD No Hx Irregular Heartbeat and/or Afib No Hx Anticoagulant Therapy No Query Text:(Coumadin, Aspirin, Plavix, Xarelto, etc.) Hx Pain in Legs when Walking/Leg Cramps No Respiratory Medical History Hx COPD Yes Hx Emphysema No Hx Smoking Yes Smoking Status Former smoker Years Smoking 50 Packs Smoked per Day 1.5 Hx Smoking Cessation Counseling Yes Hx Smoking Exposure Yes Hx Tobacco Use in last 12 months No Hx of Pipe Smoking No Hx Sleep Apnea No Do you snore loudly (louder than talking Yes or can be heard through closed doors)? Do you often feel tired/ fatigued/ Yes sleepy during daytime? Has anyone observed you stop breathing Yes during sleep? STOP Results Positive Comments does think patient has sleep apnea GI Medical History Hx Ulcer No Hx Hepatitis No Hx Cirrhosis No Hx GI Bleed No Hx Unplanned Weight Loss No Genitourinary Medical History Indwelling Catheter in Place on Arrival/ No Admission Hx Renal Disease No Hx Dialysis No Musculoskeletal History Hx Arthritis Yes: hands Hx Rheumatoid Arthritis No Endocrine Medical History Hx Diabetes Yes Hx Thyroid Disease Yes Hematologic Medical History Hx of Blood Transfusion Yes Hx of Transfusion in last 3 Months Yes Date of Last Transfusion (if within last 02/24/17 3 months) Ever experience any problems with No transfusion(s)? 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 No Methicillin Resistant Staphylococcus aureus Screening Active MRSA No Risk for Readmission Number of Risk Factors 7 At Risk for Readmission Patient is At Risk For Readmission Patient is eligible for Call Back Y Past Medical History (Last Reviewed 02/11/18 @ 09:28 by Kizzy Sena) Palpitations (Acute) Anemia (Acute) Small cell lung cancer (Chronic) 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) Mass of pancreas (Acute) DVT prophylaxis (Acute) Anemia (Acute) Chest pain (Acute) Diabetes mellitus, type II (Chronic) COPD (chronic obstructive pulmonary disease) (Chronic) History of tobacco use (Chronic) Migraine (Chronic) Crohns disease (Chronic) History of TIA (transient ischemic attack) (Chronic) Hypothyroidism (Chronic) Abdominal pain (Acute) Acute Crohn's disease (Acute) Cervical radiculopathy (Acute) 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) Depression (Acute) Diabetes (Acute) Diverticulitis (Acute) Dyspnea (Acute) Heart murmur (Acute) Hernia (Acute) Impingement syndrome, shoulder, left (Acute) Inguinal hernia (Acute) Marijuana use (Acute) Pneumonia (Acute) Rotator cuff syndrome (Acute) Small cell lung cancer (Acute) Stroke (Acute) s/p port placement (Acute ~11/01/17) Past Surgical History (Last Reviewed 02/11/18 @ 09:28 by Kizzy Sena) History of right inguinal hernia repair (Resolved) History of cholecystectomy (Resolved) History of laparotomy (Resolved) FHx: cholecystectomy (Acute) H/O colectomy (Acute) History of appendectomy (Acute) RIGHT HERNIA REPAIR WITH KUGEL PATCH (Acute) SIGMOIDECTOMY W/ COLORECTAL ANASTAMOSIS (Acute) Maternal Family History: Family History (Last Reviewed 02/11/18 @ 09:28 by Kizzy Sena) Father CAD (coronary artery disease) Mesothelioma Grandfather Leukemia Brother Throat cancer Family History: No pertinent history Paternal Family History: Family History (Last Reviewed 02/11/18 @ 09:28 by Kizzy Sena) Father CAD (coronary artery disease) Mesothelioma Grandfather Leukemia Brother Throat cancer Family History: No pertinent history, - - no lung cancer. - Social History Lives: Spouse/ Significant Other Smoking Status: Former smoker Alcohol: None Drugs: Marijuana Review of Systems Constitutional:: Reports: Weakness, Fatigue, - - I feel a little bit better today. Denies: Fever, Sweats, Weight loss, Appetite change, Chills Cardiovascular:: Reports: Palpitations - last p.m. when my heart went fast, Dyspnea on exertion, Orthopnea, Peripheral edema, Shortness of breath. Denies: Chest pain, PND Respiratory: Reports: Cough, Hemoptysis, Shortness of Breath, Shortness of breath at rest - A bit better today, more comfortable on the nonrebreather mask compared to the BiPAP mask. Denies: Wheezing Gastrointestinal:: Reports: Abdominal pain - Left upper quadrant pain is controlled. Denies: Nausea, Vomiting, Diarrhea, Constipation, Hematochezia Genitourinary: Denies: Dysuria, Hematuria, 15, Flank pain Musculoskeletal:: Denies: Back pain, Myalgia, Arthralgia Skin: Denies: Rash, Skin Changes, Wounds Neurological:: Denies: Headache, Dizziness, Visual changes, Tinnitus, Hearing loss Psychiatric: Denies: Anxiety, Depression, Homicidal Ideations, Suicidal Ideations Vital Signs Height 5 ft 9 in Weight: 75.4 kg Weight in Pounds 166.2 lbs Pulse Ox 100 Temperature 97.3 F Pulse Rate 81 Respiratory Rate 21 Blood Pressure [BP] 91/46 Blood Pressure 89/53 Blood Pressure Position [BP] Semi-Fowlers Blood Pressure Position Sitting - Physical Exam General: Alert, Oriented x3, - - ECOG 3-4 On nonrebreather oxygen mask Pale HEENT: Atraumatic, PERRLA, EOMI, Normocephalic Oropharynx:: Dry mucosa Neck:: Supple, Trachea midline. Negative for: JVD, bilateral Cardiac:: Regular rate, Regular rhythm, Normal S1, Normal S2. Negative for: Murmur Lungs: Clear to auscultation, Rhonchi, Wheezes, Diminished, Tachypneic, Excusion symmetrical Abdomen:: Soft, Non-tender, Non-distended. Negative for: Hepatosplenomegaly Extremities:: Edema - 1+ bilateral ankles. Negative for: Cyanosis Neurological: Neuro grossly intact Skin:: Ecchymosis. Negative for: Lesions, Rash, Petechiae Psychiatric:: Appropriate affect, Euthymic Lymphatics:: Negative for: Cervical lymphadenopathy, Supraclavicular lymphadenopathy Laboratory Data: Microbiology 02/25/18 14:36 Respiratory Panel (PCR) - Final Mucosa - Nasopharyngeal 02/24/18 21:27 Gram Stain - Final Sputum, Expectorated/Coughed Respiratory Culture - Final Staphylococcus aureus 02/24/18 19:00 Streptococcus pneumoniae Antigen (M - Final Urine, Clean Catch 02/24/18 19:00 Legionella Antigen - Final Urine, Clean Catch Laboratory Tests 3 02/27/18 02/27/18 02/27/18 Range/Units 11:51 07:38 05:05 WBC (4.4-11.0) K/mm3 RBC (4.6-6.2) M/mm3 Hgb (13.0-16.5) g/dl Hct (40-54) % MCV (80-94) fL MCH (27.0-32.0) pg MCHC (32-36) g/gl RDW (11.6-14.6) % RDW Differential (35.1-43.9) fl Plt Count (150-450) K/mm3 MPV (6.2-12.0) fl Differential Comment Diff Path Review Sodium 144 (136-145) mmol/L Potassium 4.1 (3.5-5.1) mmol/L Chloride 105 (98-107) mmol/L Carbon Dioxide 32.0 (21.0-32.0) mmol/L Anion Gap 7 (5-15) BUN 19 H (7-18) mg/dL Creatinine 1.08 (0.70-1.30) mg/dL Estim Creat Clear Calc 68.81 ml/min Est GFR (MDRD) Af Amer 88 (>60) mL/min Est GFR (MDRD) Non-Af 73 (>60) mL/min BUN/Creatinine Ratio 17.6 (10-20) RATIO Glucose 164 H (74-106) mg/dL Calcium 8.4 L (8.5-10.1) mg/dL Magnesium 2.2 (1.6-2.6) mg/dL MRSA (PCR) (Negative) POC Glucose 160 H 158 H (70-110) mg/dL 3 02/27/18 02/26/18 02/26/18 Range/Units 05:05 21:53 17:27 WBC 12.5 H (4.4-11.0) K/mm3 RBC 2.30 L (4.6-6.2) M/mm3 Hgb 7.3 L (13.0-16.5) g/dl Hct 23.3 L (40-54) % MCV 101.3 H (80-94) fL MCH 31.7 (27.0-32.0) pg MCHC 31.3 L (32-36) g/gl RDW 17.8 H (11.6-14.6) % RDW Differential 52.8 H (35.1-43.9) fl Plt Count 31 L* (150-450) K/mm3 MPV 10.4 (6.2-12.0) fl Differential Comment SCAN Diff Path Review Reviewed Sodium (136-145) mmol/L Potassium (3.5-5.1) mmol/L Chloride (98-107) mmol/L Carbon Dioxide (21.0-32.0) mmol/L Anion Gap (5-15) BUN (7-18) mg/dL Creatinine (0.70-1.30) mg/dL Estim Creat Clear Calc ml/min Est GFR (MDRD) Af Amer (>60) mL/min Est GFR (MDRD) Non-Af (>60) mL/min BUN/Creatinine Ratio (10-20) RATIO Glucose (74-106) mg/dL Calcium (8.5-10.1) mg/dL Magnesium (1.6-2.6) mg/dL MRSA (PCR) (Negative) POC Glucose 173 H 192 H (70-110) mg/dL 3 02/26/18 02/26/18 Range/Units 12:00 09:50 WBC (4.4-11.0) K/mm3 RBC (4.6-6.2) M/mm3 Hgb (13.0-16.5) g/dl Hct (40-54) % MCV (80-94) fL MCH (27.0-32.0) pg MCHC (32-36) g/gl RDW (11.6-14.6) % RDW Differential (35.1-43.9) fl Plt Count (150-450) K/mm3 MPV (6.2-12.0) fl Differential Comment Diff Path Review Reviewed Sodium (136-145) mmol/L Potassium (3.5-5.1) mmol/L Chloride (98-107) mmol/L Carbon Dioxide (21.0-32.0) mmol/L Anion Gap (5-15) BUN (7-18) mg/dL Creatinine (0.70-1.30) mg/dL Estim Creat Clear Calc ml/min Est GFR (MDRD) Af Amer (>60) mL/min Est GFR (MDRD) Non-Af (>60) mL/min BUN/Creatinine Ratio (10-20) RATIO Glucose (74-106) mg/dL Calcium (8.5-10.1) mg/dL Magnesium (1.6-2.6) mg/dL MRSA (PCR) Negative (Negative) POC Glucose (70-110) mg/dL Diagnostic Data: Diagnostic Data Chest CTA 02/24/18 13:24 IMPRESSION: No evidence of pulmonary embolus. No evidence of thoracic aortic aneurysm or dissection. Increasing consolidation in the left upper lobe. New bibasilar airspace opacities. This is likely infectious in etiology. The patient's known left upper lobe mass is not well evaluated due to the surrounding consolidated lung parenchyma. New small left pleural effusion. Stable mediastinal lymphadenopathy. Electronically Signed: Suhail Cardona at 14:52 EDT Tel , Service support , Chest X-Ray 02/26/18 07:12 IMPRESSION: Multifocal pneumonia, sparing only the right upper lobe. Left basilar pleural effusion. Stable appearance and positioning of the right Port-A-Cath. No pneumothorax. Electronically Signed: Akin Smith MD at 9:03 EDT , Service support , Assessment and Plan 62-year-old male smoker till 2016 with #1 Stage IV small cell lung cancer. Patient presented with significant weight loss and left upper abdominal pain most likely related to a rapidly growing metastatic lesion (pathologically confirmed) in the left adrenal gland. Systemic chemotherapy with carboplatin etoposide patient is status post 5/6 cycles with partial remission of his disease . Last cycle was 02/11/2018 and received neulasta 02/14/2018 #2 Anemia of cancer and chemotherapy, transfuse with PRBCS to target HB > 8 g/dl #3 Thrombocytopenia, 2ry to recent chemo +/- infection. Hold xarelto till PLT > 50K. Prophylactic PLT transfusion if <10K. Platelets count slowly recovering #4 Pain control adequate as per pain management consulted recommendations #5 Indeterminate abnormality in the pancreatic head area possibilities are post pancreatitis, metastatic small cell lung cancer to pancreas, or a second primary cancer of the pancreas. Pursuing this abnormality with biopsy is of academic interest only and may only cause delay in initiating treatment for the aggressive small cell lung cancer. His prognosis and survival are more dependent on the extensive stage small cell lung cancer and active treatment will have to be redirected again assess life-threatening, and inevitably fatal disease. On recent CT these abnormalities are not progressive. I discussed this finding with the patient and significant other in detail and an earlier visit. #6 Malignancy hypercoagulability with bilateral LE DVT, hold xarelto till PLT > 50K then resume. Use non-pharmacologic DVT prophylaxis and encourage ambulation. #7 Acute hospitalization with a bilateral staph pneumonia and acute on chronic respiratory failure patient appears to be a bit better this morning and comparison to yesterday when he was decompensating despite maximum efforts at treating his pneumonia and airways disease. He continues to be in serious condition #8 CODE STATUS : DNR. #9 Patient and family met with the hospice team, services declined at the present time but this is a backup plan if he were to decompensate and wished to go home with hospice services. Discussed with patient, significant other and his 2 sons. Comorbid conditions: Diabetes, neuropathy, dyslipidemia, COPD, hypothyroidism Medications: Prescriptions This Visit Medication Instructions Recorded Alive Mens 1 tab PO DAILY 02/24/18 Ferrous Sulfate 325 mg PO DAILY@0800 02/24/18 Folic Acid 1 tab PO DAILY 02/24/18 Rivaroxaban [Xarelto] 1 tab PO DAILY 02/24/18 Vitamin D3 2 tab PO DAILY 02/24/18 Medications Added to Medication List This Visit Category Date Time Status Ampicillin/Sulbactam [Unasyn] 3 gm Med 02/27/18 12:30 Active 0.9% Normal Saline 100 ml IV Q6 Dextrose 5% Shawna Bag 192.8 ml Med 02/27/18 06:30 Active Amiodarone [Cordarone (G)] 360 mg CONT INF 0.5 mg/min Primary Care Provider: Last Aguilar Referring Provider:
[2018-02-27] MEDS: Glucerna Shake 120 ML LIQUID PO ×3 (13:17→21:11)
[2018-02-27] MEDS: oxyCODONE 5 MG Tablet PO ×2 (14:32→21:10)
[2018-02-27 15:56] LABS: Bedside Glucose 130 mg/dL (70-110)
--- NOTE | 2018-02-27 17:15 | NURSING ---
pt assisted to sit up in the chair at the bedside. chair alarm placed on for safety. call light in reach.
[2018-02-27] MEDS: Atorvastatin Calcium 40 MG Tablet PO (21:03)
[2018-02-27] MEDS: Mirtazapine 15 MG Tablet 7.5 MG PO (21:05)
[2018-02-28] VITALS (34 sets, daily range): BP systolic 92–123; BP diastolic 54–77; PULSE 75–157; RESP 12–33; TEMP 35.9–37.4; O2SAT 84–100
[2018-02-28] MEDS: 0.9% NaCl VAD Flush 10 ML IV ×9 (00:19→11:31)
[2018-02-28] MEDS: Ipratropium/Albuterol Sulfate 3 ML AMPUL.NEB INHALATION ×6 (02:57→22:12)
[2018-02-28] MEDS: Metoprolol Tartrate 5 MG/5 ML Vial 2.5 MG IV (04:13)
--- NOTE | 2018-02-28 04:46 | EKG12_ITS ---
Test Reason : HR Blood Pressure : / mmHG Vent. Rate : 148 BPM Atrial Rate : 148 BPM P-R Int : 160 ms QRS Dur : 078 ms QT Int : 268 ms P-R-T Axes : -13 073 061 degrees QTc Int : [address] & T wave abnormality, consider anterior ischemia Abnormal ECG When compared with ECG of 26-FEB-2018 23:03, MANUAL COMPARISON REQUIRED, DATA IS UNCONFIRMED Confirmed by RAUL CORNELL, GM ([id number]), editor & co founder ANTHONY TEIXEIRA ([id number]) on 03/01/2018 1:24:41 PM Referred By: LINDA Confirmed By:MG CARTER MD
[2018-02-28] MEDS: Divalproex Sodium 250 MG Tablet 500 MG PO ×3 (05:34→21:58)
[2018-02-28] MEDS: Levothyroxine 25 MCG TABLET PO (05:34)
[2018-02-28 06:11] LABS: Hematocrit 23.8 % (40-54); Hemoglobin 7.4 g/dl (13.0-16.5); Mean Corp Hgb Conc 31.1 g/gl (32-36); Mean Corpuscular Hgb 31.9 pg (27.0-32.0); Mean Corpuscular Volume 102.6 fL (80-94); Mean Platelet Vol. 10.7 fl (6.2-12.0); RBC Distribution Width CV 18.2 % (11.6-14.6); RBC Distribution Width SD 54.3 fl (35.1-43.9); Red Blood Count 2.32 M/mm3 (4.6-6.2); White Blood Count 12.4 K/mm3 (4.4-11.0)
[2018-02-28 06:13] LABS: Platelet Count 40 K/mm3 (150-450); Scan Indicated on CBC? Y/N YES- FLAGS NOTED
[2018-02-28 06:17] LABS: Anion Gap 7 (5-15); BUN 19 mg/dL (7-18); BUN/Creat Ratio 19.2 RATIO (10-20); Calcium,Total 8.8 mg/dL (8.5-10.1); Chloride 105 mmol/L (98-107); Creatinine, Serum 0.99 mg/dL (0.70-1.30); EST Glomerular Filtration Rate 81 mL/min (>60); Est Glom Filt Rate - Afr Amer 98 mL/min (>60); Estimated Creatinine Clearance 75.38 ml/min; Glucose 137 mg/dL (74-106); Sodium Level 143 mmol/L (136-145)
--- NOTE | 2018-02-28 06:39 | PCM.HOSP.N ---
Hospitalist Note Patient has arrhythmia: Earlier he had paroxysmal A. fib with RVR in ICU for which she was given amiodarone on 03/28 and later he was converted to normal sinus rhythm. Today early in the morning patient went into sinus tachycardia, heart rate in 140s. Metoprolol 2.5 mg IV was given heart rate is still in the 130s and 140. Patient also had low blood pressure in 90s. 150 mg IV amiodarone was ordered and given an heart rate 117/min. Patient heart rate has slowed down but is still in 120/M. Consider oral loading dose of amiodarone although high risk in view of his stage IV small cell cancer and poor respiratory reserve
[2018-02-28 06:56] LABS: Bedside Glucose 119 mg/dL (70-110)
[2018-02-28 07:00] LABS: Differential Comment SCAN
--- NOTE | 2018-02-28 07:15 | EKG12_ITS ---
Test Reason : DYSRHYTHMIA Blood Pressure : / mmHG Vent. Rate : 138 BPM Atrial Rate : 276 BPM P-R Int : 000 ms QRS Dur : 074 ms QT Int : 282 ms P-R-T Axes : 270 044 013 degrees QTc Int : 427 ms Atrial flutter Low voltage QRS Abnormal ECG When compared with ECG of 28-FEB-2018 04:07, MANUAL COMPARISON REQUIRED, DATA IS UNCONFIRMED Confirmed by RAUL CORNELL, GM ([id number]), film editor supervisor ANTHONY TEIXEIRA ([id number]) on 03/01/2018 1:19:23 PM Referred By: LINDA Confirmed By:GM CARTER MD
--- NOTE | 2018-02-28 08:34 | PCM.PROGNOTE ---
Patient Problems: Active and Suspected Problems (Last Reviewed 02/11/18 @ 09:28 by Kizzy Sena) Pneumonia (Acute) Chest pain (Acute) Acute blood loss anemia (Acute) Thrombocytopenia (Acute) Gram-negative pneumonia (Acute) Subjective: Patient was seen and examined. He is sitting up in bed eating his breakfast, does not appear to be in any acute distress. Respiratory therapy in the room, checked a pulse ox on 4 L and he was 85% on the left hand, however rechecked on the right 1st finger and he was 100%. Reports his dyspnea is improved today. Minimal cough. Objective: Recent lab and culture data reviewed. Sputum culture growing staph aureus. Strep and Legionella urine antigens negative. Viral respiratory panel is negative. Echocardiogram from November 2017 showed normal LV size and thickness with an EF of 65%, RVSP estimated at 43 mmHg. Chest x-ray 02/26 showed multifocal pneumonia, sparing only the right upper lobe, left basilar pleural effusion. - Physical Exam General: Alert, Oriented x3, Cooperative, No apparent distress HEENT: Atraumatic, Normocephalic Oral: Moist Mucosa Neck: Supple, No Nodes, Trachea Midline Lungs: Diminished, Rales, Rhonchi, - - Minimal wheeze, overall improved LS. Cardiovascular: Normal S1, Normal S2, No murmurs, Tachycardic Abdomen: Bowel Sounds Present, Soft, Non Tender Extremities: No clubbing, No cyanosis, No edema Skin: No rashes, No breakdown Musculoskeletal: No Tenderness to Palpation of Joints or Extremities, No Muscle Wasting Lymphatic: No Cervical, Supraclavicular, or Inguinal Adenopathy Neurological: Cranial nerves II-XII grossly intact, Neuro grossly intact, Motor Exam 5/5 strength throughout Psych/Mental Status: Alert and oriented to time, place, person, mood and affect Vital Signs Temp Pulse Resp BP Pulse Ox 98.3 F 136 H 18 98/59 L 95 02/28/18 08:24 02/28/18 08:24 02/28/18 08:24 02/28/18 08:24 02/28/18 08:24 Oxygen Flow Rate (L/min) 4 Oxygen Delivery Method Nasal Cannula Weight: 167 lb 12.348 oz Body Mass Index (BMI) 22.8 Intake and Output for Last 24 Hours 02/26/18 02/27/18 02/28/18 23:59 23:59 23:59 Intake Total 957 / 957 1699 / 1699 218.7 / 218.7 Output Total 650 / 650 1175 / 1175 475 / 475 Balance 307 / 307 524 / 524 -256.3 / -256.3 Microbiology Past 72 Hours 02/25/18 14:36 Respiratory Panel (PCR) - Final Mucosa - Nasopharyngeal 02/24/18 21:27 Gram Stain - Final Sputum, Expectorated/Coughed Respiratory Culture - Final Staphylococcus aureus Laboratory Tests Past 24 Hrs 02/26/18 02/27/18 02/28/18 09:50 05:05 05:50 WBC 12.4 H RBC 2.32 L Hgb 7.4 L Hct 23.8 L MCV 102.6 H MCH 31.9 MCHC 31.1 L RDW 18.2 H RDW Differential 54.3 H Plt Count 40 L* MPV 10.7 Differential Comment SCAN Diff Path Review Reviewed Reviewed March Sodium Potassium Chloride Carbon Dioxide Anion Gap BUN Creatinine Estim Creat Clear Calc Est GFR (MDRD) Af Amer Est GFR (MDRD) Non-Af BUN/Creatinine Ratio Glucose Calcium 02/28/18 05:50 WBC RBC Hgb Hct MCV MCH MCHC RDW RDW Differential Plt Count MPV Differential Comment Diff Path Review Sodium 143 Potassium 4.0 Chloride 105 Carbon Dioxide 31.0 Anion Gap 7 BUN 19 H Creatinine 0.99 Estim Creat Clear Calc 75.38 Est GFR (MDRD) Af Amer 98 Est GFR (MDRD) Non-Af 81 BUN/Creatinine Ratio 19.2 Glucose 137 H Calcium 8.8 POC Glucose 02/28/18 02/27/18 02/27/18 06:48 15:34 11:51 POC Glucose 119 H 130 H 160 H Medical Necessity - Tobacco Use Smoking Status: Former smoker Assessment/Plan Active and Suspected Problems (Last Reviewed 02/11/18 @ 09:28 by Kizzy Sena) Pneumonia (Acute) Chest pain (Acute) Acute blood loss anemia (Acute) Thrombocytopenia (Acute) Gram-negative pneumonia (Acute) RECOMMENDATIONS: 1. Continue antibiotics per ID recommendations. 2. Continue aerosol treatments as ordered. 3. Wean supplemental oxygen to maintain saturations 88-92%. 4. Monitor H&H. Give unit of blood today. Transfuse if < 8 5. Encourage incentive spirometer use and mobilize patient as tolerated. 6. Potential discharge tomorrow IMPRESSIONS: 1. Acute hypoxemic respiratory failure secondary to underlying small cell lung cancer and superimposed healthcare associated pneumonia The patient has baseline underlying fibrotic changes and emphysema noted on CT scan. In addition, he has extensive stage small cell lung cancer. All of this is being exacerbated by his current multilobar pneumonia. Sputum culture is revealing of staph aureus and gram negatives. Continue Unasyn, per infectious diseases recommendations. Continue scheduled aerosol treatments, as the patient does have a mild obstructive ventilatory impairment on his last PFTs. Wean supplemental oxygen as tolerated. Encourage incentive parameter use and mobilize patient as tolerated. 2. Anemia/thrombocytopenia secondary to chemotherapy The patient was transfused 2 units of packed red blood cells. Monitor H&H. Goal to maintain a hemoglobin at or above 8 g/dL. He may benefit from an additional unit of blood today, this may help with his tachycardia. 3. Personal history of extensive stage small cell lung cancer The patient is currently on chemotherapy and being managed by oncology. 4. History of bilateral lower extremity DVTs Xarelto is currently on hold, given thrombocytopenia. Continue to monitor platelet count and resume once greater than 50,000 per oncology recommendations. 5. CODE STATUS DNR CCA without intubation. Patient is declining Hospice/Palliative care services at this time, despite clinically not doing well and with poor prognosis. This has been conveyed to the patient and his family several times. Plan for home on discharge with . This note was generated with [employer] dictation software. It may contain incorrect words, spelling, and punctuation that were not noted in checking the note before signing.
--- NOTE | 2018-02-28 08:49 | PN_ITS ---
Patient Problems: Active and Suspected Problems (Last Reviewed 02/11/18 @ 09:28 by Kizzy Sena) Pneumonia (Acute) Chest pain (Acute) Acute blood loss anemia (Acute) Thrombocytopenia (Acute) Gram-negative pneumonia (Acute) Subjective: Patient is a 62-year-old gentleman with stage IV small cell lung CA on chemotherapy presented with progressive generalized weakness. Found to be anemic on admission with hemoglobin of 6.4. He was also thrombocytopenic with platelet count of 16; imaging studies was questionable for suspected pneumonia admitted to a monitored bed where patient has since been managed 02/26/2018: Patient seen remains significantly dyspneic at rest dependent on BiPAP. Sputum cultures came back positive for staph aureus. Consultation placed to ID 02/27/2018: Patient was transferred to the intensive care unit as a result of worsening respiratory status and the fact that patient to remain full code. After family discussion patient change his mind and agreed to be DNR CCA. Awaiting palliative care consultation 02/28/2018: Had discussion with patient and his significant half patient still not interested in pursuing any palliative hospice care at this point. Patient has had episodes of A. fib with RVR did not tolerate beta-blockers channel blockers in view of his low blood pressure Objective: GENERAL: Dyspneic at rest HEENT: Clear conjunctiva, NECK; supple, normal thyroid, CHEST: Diminished to auscultation bilaterally, HEART: Regular S1 S2, no audible murmurs ABDOMEN: soft, non-tender, normoactive bowel sounds, RECTAL: deferred EXTREMITIES: No edema, no clubbing, no cyanosis. 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 SKIN: No rash Vitals/I&O's: Vital Signs Temp Pulse Resp BP Pulse Ox 98.3 F 136 H 18 98/59 L 95 02/28/18 08:24 02/28/18 08:24 02/28/18 08:24 02/28/18 08:24 02/28/18 08:24 Oxygen Flow Rate (L/min) 4 Oxygen Delivery Method Nasal Cannula Weight: 76.1 kg Body Mass Index (BMI) 22.8 Intake and Output for Last 24 Hours 02/26/18 02/27/18 02/28/18 23:59 23:59 23:59 Intake Total 957 / 957 1699 / 1699 218.7 / 218.7 Output Total 650 / 650 1175 / 1175 475 / 475 Balance 307 / 307 524 / 524 -256.3 / -256.3 Microbiology Past 72 Hours 02/25/18 14:36 Mucosa - Nasopharyngeal Respiratory Panel (PCR) - Final 02/24/18 21:27 Sputum, Expectorated/Coughed Gram Stain - Final 02/24/18 21:27 Sputum, Expectorated/Coughed Respiratory Culture - Final Staphylococcus aureus Laboratory Results 02/26/18 09:50: Diff Path Review Reviewed 02/27/18 05:05: Diff Path Review Reviewed 02/27/18 11:51: POC Glucose 160 H 02/27/18 15:34: POC Glucose 130 H 02/28/18 05:50: WBC 12.4 H, RBC 2.32 L, Hgb 7.4 L, Hct 23.8 L, MCV 102.6 H, MCH 31.9, MCHC 31.1 L, RDW 18.2 H, RDW Differential 54.3 H, Plt Count 40 L*, MPV 10.7, Differential Comment SCAN, Diff Path Review May 02/28/18 05:50: Sodium 143, Potassium 4.0, Chloride 105, Carbon Dioxide 31.0, Anion Gap 7, BUN 19 H, Creatinine 0.99, Estim Creat Clear Calc 75.38, Est GFR ( MDRD) Af Amer 98, Est GFR (MDRD) Non-Af 81, BUN/Creatinine Ratio 19.2, Glucose 137 H, Calcium 8.8 02/28/18 06:48: POC Glucose 119 H Current Medications Acetaminophen (Tylenol) 650 mg PO Q4H PRN PRN PRN Reason: FEVER Albuterol Sulfate (Ventolin Aerosols) 2.5 mg INHALATION Q2H PRN PRN PRN Reason: SHORTNESS OF BREATH Albuterol/Ipratropium (Duoneb) 3 ml INHALATION Q4H.RT VICKIE Last Admin: 02/28/18 06:43 Dose: 3 ml Atorvastatin Calcium (Lipitor) 40 mg PO QHS VICKIE Last Admin: 02/27/18 21:03 Dose: 40 mg Dextrose (D50w Syringe) 0 gm IV X1 PRN; Protocol PRN Reason: Hypoglycemia Divalproex Sodium (Depakote) 500 mg PO TID [facility] Last Admin: 02/28/18 05:34 Dose: 500 mg Folic Acid (Folic Acid) 1 mg PO DAILY@0800 [facility] Last Admin: 02/27/18 07:52 Dose: 1 mg Glucagon () 1 mg IM .X1 PRN PRN Reason: Hypoglycemia Guaifenesin (Mucinex) 1,200 mg PO BID [facility] Last Admin: 02/27/18 21:04 Dose: 1,200 mg Heparin Sodium (Beef Lung) (Heparin 500 Unit/5 Ml (100/Ml)) 500 unit IV UD PRN PRN Reason: HEPARIN FLUSH Sodium Chloride () 250 mls @ 15 mls/hr IV .[id number] PRN PRN Reason: SALINE FLUSH Last Admin: 02/26/18 13:46 Dose: 15 mls/hr Ampicillin Sodium/Sulbactam (Sodium 3 gm/ Sodium Chloride) 112 mls @ 150 mls/ hr IV Q6 [facility] Last Admin: 02/28/18 05:32 Dose: 150 mls/hr Insulin Aspart (Novolog Flexpen (Bkc)) 0 units SC TIDAC [facility] PRN Reason: Protocol Last Admin: 02/28/18 07:16 Dose: Not Given Levothyroxine Sodium (Synthroid) 25 mcg PO DAILY@0600 [facility] Last Admin: 02/28/18 05:34 Dose: 25 mcg Magnesium Hydroxide (Milk Of Magnesia) 30 ml PO DAILY PRN PRN PRN Reason: Constipation Metoprolol Tartrate (Lopressor (Beta Raina)) 50 mg PO BID [facility] Last Admin: 02/27/18 21:04 Dose: 50 mg Mirtazapine (Remeron) 7.5 mg PO QHS [facility] Last Admin: 02/27/18 21:05 Dose: 7.5 mg Nutritional Formula (Lactose Free) (Glucerna Shake) 120 ml PO 4X/DAY [facility] Last Admin: 02/27/18 21:11 Dose: 120 ml Ondansetron HCl (Zofran) 4 mg IV Q8H PRN PRN PRN Reason: NAUSEA Ondansetron HCl (Zofran Odt) 4 mg PO Q8H PRN PRN Reason: NAUSEA Oxycodone HCl (Oxyir) 5 - 10 mg PO Q4H PRN PRN PRN Reason: SEVERE PAIN (6-10/10) Last Admin: 02/27/18 21:10 Dose: 5 mg Senna (Senokot) 1 tablet PO BID [facility] Last Admin: 02/27/18 21:04 Dose: 1 tablet Sodium Chloride () 10 ml IV UD PRN PRN Reason: VAD FLUSH Last Admin: 02/28/18 05:51 Dose: 10 ml Medical Necessity - Tobacco Use Smoking Status: Former smoker Assessment/Plan Active and Suspected Problems (Last Reviewed 02/11/18 @ 09:28 by Kizzy Sena) Pneumonia (Acute) Chest pain (Acute) Acute blood loss anemia (Acute) Thrombocytopenia (Acute) Gram-negative pneumonia (Acute) Patient is a 62-year-old gentleman with stage IV small cell lung CA on chemotherapy presented with progressive generalized weakness. Found to be anemic on admission with hemoglobin of 6.4. He was also thrombocytopenic with platelet count of 16; imaging studies was questionable for suspected pneumonia admitted to a monitored bed where patient has since been managed 1. Acute hypoxic respiratory failure secondary to patient underlying lung CA as well as his pneumonia with staph aureus patient managed with Zosyn as well as vancomycin in addition to high flow oxygen with consultation placed a pulmonary medicine and ID consultation on 02/26/2018 2. Anemia secondary to chemotherapy-induced anemia patient was transfused 2 units PRBC since he was significantly symptomatic on admission. 3. Thrombocytopenia again secondary to his recent chemotherapy monitoring with plans to transfuse if patient starts bleeding or platelet count falls below 10, 000 4. Stage 4 SCLC: completed 5/6 cycles of carboplatin/etopside 5. Diabetes mellitus type 2 patient oral agents held on admission please and Accu-Cheks before meals and at bedtime with sliding scale coverage 6. Paroxysmal A. fib with RVR patient was loaded with digoxin 7. DVT prophylaxis: no chemical prophylaxis given his profound anemia and thrombocytopenia; no SCDs because of plt count of 16K CODE STATUS: DNR CCA Code Visit Inpatient E&M: 15917 Subs Hosp L3
[2018-02-28] MEDS: guaiFENesin 1,200 MG Tablet 1200 MG PO ×2 (09:20→21:55)
[2018-02-28] MEDS: Metoprolol Tartrate 50 MG Tablet PO ×2 (09:20→22:00)
[2018-02-28] MEDS: Folic Acid 1 MG Tablet PO (09:20)
[2018-02-28] MEDS: Senna Tablet 1 TABLET PO ×2 (09:21→22:02)
[2018-02-28] MEDS: Digoxin 250 MCG Tablet 500 MCG PO (09:21)
[2018-02-28] MEDS: Glucerna Shake 120 ML LIQUID PO ×2 (09:24→21:55)
[2018-02-28] MEDS: oxyCODONE 5 MG Tablet PO ×3 (09:24→22:07)
--- NOTE | 2018-02-28 09:47 | ONC.PN.INPT ---
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 He's an ex-smoker who quit in 2015, who was hospitalized at [facility] in September 2017 with his acute abdominal pain and diagnosed with pancreatitis. During hospitalization a chest x-ray revealed a left lung mass. CT scan showed a malignant-looking left upper lobe mass and a CT-guided biopsy on September 18, 2017 confirmed small cell lung cancer. PET CT October 08, 2017 showed abnormal uptake consistent with a malignant process involving the left lung mass, hilar adenopathy and a newly evolving left adrenal mass was not visualized on his CT scan of the abdomen in March 2017. CT-guided biopsy of the adrenal mass confirmed metastatic small cell cancer. MRI of the brain showed no evidence of metastatic disease. Of note patient developed 2 episodes of acute pancreatitis the first was September 2017, the second was November [address] scan of the abdomen and PET/CT showed indeterminate abnormality in the area of the pancreatic head that could not be further characterized but an underlying neoplastic process could not be excluded. Current Treatment: Carbo-etoposide since 11/13/2017- Last treatment 02/11/2018 Developed bilateral LE DVTs 01/2018 and has been on xarelto. I feel better today Past Medical History: Chronic Problems (Last Reviewed 02/11/18 @ 09:28 by Kizzy Sena) Cancer-related pain (Chronic) Stage 1 mild COPD by GOLD classification (Chronic) Small cell lung cancer (Chronic) ALEC 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) Diabetes mellitus, type II (Chronic) COPD (chronic obstructive pulmonary disease) (Chronic) History of tobacco use (Chronic) Migraine (Chronic) Crohns disease (Chronic) History of TIA (transient ischemic attack) (Chronic) Hypothyroidism (Chronic) Past Medical History - Most Recent Inpatient Visit Past Medical History Start: 02/24/18 17:52 Text: Status: Complete Freq: ONCE Protocol: Document 02/24/18 17:52 [facility] (Rec: 02/24/18 18:20 [facility] [id number]) BMI Required to complete PMH What is Patient's BMI 22.9 Past Medical History Unable History Recalled No Query Text:Pt Unable/Family Not Present Neurologic Medical History Hx Stroke/TIA Yes: 2000 Hx Dementia/Alzheimer's No Hx Parkinson's Disease No Hx Seizures Yes: 2000 with stroke Hx Multiple Sclerosis No Hx Migraines Yes Cardiac Medical History VTE Present on Admission No Hx of Deep Vein Thrombosis/VTE/PE Yes: right leg found out a couple weeks ago Hx Hypertension No Hx Chest Pain/Angina Yes Hx Heart Attack No Hx Cardiac Surgery/Stents/Etc. No: stress test Oct 2017 Hx Heart Failure No Hx Pacemaker/AICD No Hx Irregular Heartbeat and/or Afib No Hx Anticoagulant Therapy No Query Text:(Coumadin, Aspirin, Plavix, Xarelto, etc.) Hx Pain in Legs when Walking/Leg Cramps No Respiratory Medical History Hx COPD Yes Hx Emphysema No Hx Smoking Yes Smoking Status Former smoker Years Smoking 50 Packs Smoked per Day 1.5 Hx Smoking Cessation Counseling Yes Hx Smoking Exposure Yes Hx Tobacco Use in last 12 months No Hx of Pipe Smoking No Hx Sleep Apnea No Do you snore loudly (louder than talking Yes or can be heard through closed doors)? Do you often feel tired/ fatigued/ Yes sleepy during daytime? Has anyone observed you stop breathing Yes during sleep? STOP Results Positive Comments does think patient has sleep apnea GI Medical History Hx Ulcer No Hx Hepatitis No Hx Cirrhosis No Hx GI Bleed No Hx Unplanned Weight Loss No Genitourinary Medical History Indwelling Catheter in Place on Arrival/ No Admission Hx Renal Disease No Hx Dialysis No Musculoskeletal History Hx Arthritis Yes: hands Hx Rheumatoid Arthritis No Endocrine Medical History Hx Diabetes Yes Hx Thyroid Disease Yes Hematologic Medical History Hx of Blood Transfusion Yes Hx of Transfusion in last 3 Months Yes Date of Last Transfusion (if within last 02/24/17 3 months) Ever experience any problems with No transfusion(s)? 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 No Methicillin Resistant Staphylococcus aureus Screening Active MRSA No Risk for Readmission Number of Risk Factors 7 At Risk for Readmission Patient is At Risk For Readmission Patient is eligible for Call Back Y Past Medical History (Last Reviewed 02/11/18 @ 09:28 by Kizzy Sena) Palpitations (Acute) Anemia (Acute) Small cell lung cancer (Chronic) 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) Mass of pancreas (Acute) DVT prophylaxis (Acute) Anemia (Acute) Chest pain (Acute) Diabetes mellitus, type II (Chronic) COPD (chronic obstructive pulmonary disease) (Chronic) History of tobacco use (Chronic) Migraine (Chronic) Crohns disease (Chronic) History of TIA (transient ischemic attack) (Chronic) Hypothyroidism (Chronic) Abdominal pain (Acute) Acute Crohn's disease (Acute) Cervical radiculopathy (Acute) 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) Depression (Acute) Diabetes (Acute) Diverticulitis (Acute) Dyspnea (Acute) Heart murmur (Acute) Hernia (Acute) Impingement syndrome, shoulder, left (Acute) Inguinal hernia (Acute) Marijuana use (Acute) Pneumonia (Acute) Rotator cuff syndrome (Acute) Small cell lung cancer (Acute) Stroke (Acute) s/p port placement (Acute ~11/01/17) Past Surgical History (Last Reviewed 02/11/18 @ 09:28 by Kizzy Sena) History of right inguinal hernia repair (Resolved) History of cholecystectomy (Resolved) History of laparotomy (Resolved) FHx: cholecystectomy (Acute) H/O colectomy (Acute) History of appendectomy (Acute) RIGHT HERNIA REPAIR WITH KUGEL PATCH (Acute) SIGMOIDECTOMY W/ COLORECTAL ANASTAMOSIS (Acute) Maternal Family History: Family History (Last Reviewed 02/11/18 @ 09:28 by Kizzy Sena) Father CAD (coronary artery disease) Mesothelioma Grandfather Leukemia Brother Throat cancer Family History: No pertinent history Paternal Family History: Family History (Last Reviewed 02/11/18 @ 09:28 by Kizzy Sena) Father CAD (coronary artery disease) Mesothelioma Grandfather Leukemia Brother Throat cancer Family History: No pertinent history, - - no lung cancer. - Social History Lives: Spouse/ Significant Other Smoking Status: Former smoker Alcohol: None Drugs: Marijuana Review of Systems Constitutional:: Reports: Weakness, Fatigue. Denies: Fever, Sweats, Weight loss, Appetite change, Chills Cardiovascular:: Reports: Ankle swelling, Dyspnea on exertion, Orthopnea, Shortness of breath. Denies: Chest pain, Palpitations, PND Respiratory: Reports: Cough, Shortness of Breath, Shortness of breath at rest - But improving each day,, Shortness of breath upon exertion, Sputum production. Denies: Hemoptysis, Wheezing Gastrointestinal:: Reports: Constipation. Denies: Abdominal pain, Nausea, Vomiting, Diarrhea, Hematochezia Genitourinary: Denies: Dysuria, Hematuria, 15, Flank pain Musculoskeletal:: Denies: Back pain, Myalgia, Arthralgia Skin: Denies: Rash, Skin Changes, Wounds Neurological:: Denies: Headache, Dizziness, Visual changes, Tinnitus, Hearing loss Psychiatric: Denies: Anxiety, Depression, Homicidal Ideations, Suicidal Ideations Vital Signs Height 5 ft 9 in Weight: 76.1 kg Weight in Pounds 167.8 lbs Pulse Ox 96 Temperature 98.3 F Pulse Rate 144 Respiratory Rate 18 Blood Pressure [BP] 92/58 Blood Pressure 98/59 Blood Pressure Position [BP] Semi-Fowlers Blood Pressure Position Semi-Fowlers - Physical Exam General: Alert, Oriented x3, No apparent distress, - - ECOG 3 On oxygen by nasal cannula HEENT: Atraumatic, PERRLA, EOMI, Normocephalic Oropharynx:: Dry mucosa Neck:: Supple, Trachea midline. Negative for: JVD, bilateral Cardiac:: Regular rhythm, Normal S1, Normal S2, Tachycardia. Negative for: Murmur Lungs: Clear to auscultation, Rhonchi, Diminished, Excusion symmetrical. Negative for: Wheezes Abdomen:: Soft, Non-tender, Non-distended. Negative for: Hepatosplenomegaly Extremities:: Edema - 1+ ankles edema. Negative for: Cyanosis Neurological: Neuro grossly intact Skin:: Ecchymosis. Negative for: Lesions, Rash, Petechiae Psychiatric:: Appropriate affect, Euthymic Lymphatics:: Negative for: Cervical lymphadenopathy, Supraclavicular lymphadenopathy Laboratory Data: Microbiology 02/25/18 14:36 Respiratory Panel (PCR) - Final Mucosa - Nasopharyngeal 02/24/18 21:27 Gram Stain - Final Sputum, Expectorated/Coughed Respiratory Culture - Final Staphylococcus aureus Laboratory Tests 02/28/18 02/28/18 02/28/18 Range/Units 06:48 05:50 05:50 WBC 12.4 H (4.4-11.0) K/mm3 RBC 2.32 L (4.6-6.2) M/mm3 Hgb 7.4 L (13.0-16.5) g/dl Hct 23.8 L (40-54) % MCV 102.6 H (80-94) fL MCH 31.9 (27.0-32.0) pg MCHC 31.1 L (32-36) g/gl RDW 18.2 H (11.6-14.6) % RDW Differential 54.3 H (35.1-43.9) fl Plt Count 40 L* (150-450) K/mm3 MPV 10.7 (6.2-12.0) fl Differential Comment SCAN Diff Path Review March Sodium 143 (136-145) mmol/L Potassium 4.0 (3.5-5.1) mmol/L Chloride 105 (98-107) mmol/L Carbon Dioxide 31.0 (21.0-32.0) mmol/L Anion Gap 7 (5-15) BUN 19 H (7-18) mg/dL Creatinine 0.99 (0.70-1.30) mg/dL Estim Creat Clear Calc 75.38 ml/min Est GFR (MDRD) Af Amer 98 (>60) mL/min Est GFR (MDRD) Non-Af 81 (>60) mL/min BUN/Creatinine Ratio 19.2 (10-20) RATIO Glucose 137 H (74-106) mg/dL Calcium 8.8 (8.5-10.1) mg/dL POC Glucose 119 H (70-110) mg/dL 04/25/18 04/25/18 Range/Units 15:34 11:51 WBC (4.4-11.0) K/mm3 RBC (4.6-6.2) M/mm3 Hgb (13.0-16.5) g/dl Hct (40-54) % MCV (80-94) fL MCH (27.0-32.0) pg MCHC (32-36) g/gl RDW (11.6-14.6) % RDW Differential (35.1-43.9) fl Plt Count (150-450) K/mm3 MPV (6.2-12.0) fl Differential Comment Diff Path Review Sodium (136-145) mmol/L Potassium (3.5-5.1) mmol/L Chloride (98-107) mmol/L Carbon Dioxide (21.0-32.0) mmol/L Anion Gap (5-15) BUN (7-18) mg/dL Creatinine (0.70-1.30) mg/dL Estim Creat Clear Calc ml/min Est GFR (MDRD) Af Amer (>60) mL/min Est GFR (MDRD) Non-Af (>60) mL/min BUN/Creatinine Ratio (10-20) RATIO Glucose (74-106) mg/dL Calcium (8.5-10.1) mg/dL POC Glucose 130 H 160 H (70-110) mg/dL Diagnostic Data: Diagnostic Data Chest CTA 02/24/18 13:24 IMPRESSION: No evidence of pulmonary embolus. No evidence of thoracic aortic aneurysm or dissection. Increasing consolidation in the left upper lobe. New bibasilar airspace opacities. This is likely infectious in etiology. The patient's known left upper lobe mass is not well evaluated due to the surrounding consolidated lung parenchyma. New small left pleural effusion. Stable mediastinal lymphadenopathy. Electronically Signed: Suhail Cardona, at 14:52 EDT Tel , Service support , Chest X-Ray 02/26/18 07:12 IMPRESSION: Multifocal pneumonia, sparing only the right upper lobe. Left basilar pleural effusion. Stable appearance and positioning of the right Port-A-Cath. No pneumothorax. Electronically Signed: Akin Smith MD at 9:03 EDT , Service support , Assessment and Plan 62-year-old male smoker till 2016 with #1 Stage IV small cell lung cancer. Patient presented with significant weight loss and left upper abdominal pain most likely related to a rapidly growing metastatic lesion (pathologically confirmed) in the left adrenal gland. Systemic chemotherapy with carboplatin etoposide patient is status post 5/6 cycles with partial remission of his disease . Last cycle was 02/11/2018 and received neulasta 02/14/2018 #2 Anemia of cancer and chemotherapy, transfuse with PRBCS to target HB > 8 g/dl #3 Thrombocytopenia, 2ry to recent chemo +/- infection. Hold xarelto till PLT >50K. Prophylactic PLT transfusion if <10K. Platelets count slowly recovering #4 Pain control adequate. #5 Indeterminate abnormality in the pancreatic head area possibilities are post pancreatitis, metastatic small cell lung cancer to pancreas, or a second primary cancer of the pancreas. Pursuing this abnormality with biopsy is of academic interest only and may only cause delay in initiating treatment for the aggressive small cell lung cancer. His prognosis and survival are more dependent on the extensive stage small cell lung cancer and active treatment will have to be redirected again assess life-threatening, and inevitably fatal disease. On recent CT these abnormalities are not progressive. I discussed this finding with the patient and significant other in detail and an earlier visit. #6 Malignancy hypercoagulability with bilateral LE DVT, hold xarelto till PLT >50K then resume. Use non-pharmacologic DVT prophylaxis and encourage ambulation. #7 Acute hospitalization with a bilateral staph pneumonia and acute on chronic respiratory failure. There appears to be continued slow improvement this morning and comparison to yesterday when he was decompensating despite maximum efforts at treating his pneumonia and airways disease. Now out of the ICU. #8 Paroxysms of SVT and/or A. fib on medical treatment. #9 CODE STATUS : DNR. #10 Patient and family met with the hospice team, services declined at the present time but this is a backup plan if he were to decompensate and wished to go home with hospice services. Discussed with patient, significant other. Comorbid conditions: Diabetes, neuropathy, dyslipidemia, COPD, hypothyroidism Medications: Prescriptions This Visit Medication Instructions Recorded Alive Mens 1 tab PO DAILY 02/24/18 Ferrous Sulfate 325 mg PO DAILY@0800 02/24/18 Folic Acid 1 tab PO DAILY 02/24/18 Rivaroxaban [Xarelto] 1 tab PO DAILY 02/24/18 Vitamin D3 2 tab PO DAILY 02/24/18 Medications Added to Medication List This Visit Category Date Time Status Digoxin [Lanoxin] Med 03/01/18 10:00 Active 125 mcg PO DAILY Digoxin [Lanoxin] Med 02/28/18 16:00 Once 250 mcg PO X1 ONE Digoxin [Lanoxin] Med 02/28/18 23:55 Once 250 mcg PO X1 ONE Primary Care Provider: Last Aguilar Referring Provider:
--- NOTE | 2018-02-28 09:54 | PN_ITS ---
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 He's an ex-smoker who quit in 2015, who was hospitalized at [facility] in September 2017 with his acute abdominal pain and diagnosed with pancreatitis. During hospitalization a chest x-ray revealed a left lung mass. CT scan showed a malignant-looking left upper lobe mass and a CT-guided biopsy on September 18, 2017 confirmed small cell lung cancer. PET CT October 08, 2017 showed abnormal uptake consistent with a malignant process involving the left lung mass, hilar adenopathy and a newly evolving left adrenal mass was not visualized on his CT scan of the abdomen in March 2017. CT-guided biopsy of the adrenal mass confirmed metastatic small cell cancer. MRI of the brain showed no evidence of metastatic disease. Of note patient developed 2 episodes of acute pancreatitis the first was September 2017, the second was November [address] scan of the abdomen and PET/CT showed indeterminate abnormality in the area of the pancreatic head that could not be further characterized but an underlying neoplastic process could not be excluded. Current Treatment: Carbo-etoposide since 11/13/2017- Last treatment 02/11/2018 Developed bilateral LE DVTs 01/2018 and has been on xarelto. I feel better today Past Medical History: Chronic Problems (Last Reviewed 02/11/18 @ 09:28 by Kizzy Sena) Cancer-related pain (Chronic) Stage 1 mild COPD by GOLD classification (Chronic) Small cell lung cancer (Chronic) ALEC 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) Diabetes mellitus, type II (Chronic) COPD (chronic obstructive pulmonary disease) (Chronic) History of tobacco use (Chronic) Migraine (Chronic) Crohns disease (Chronic) History of TIA (transient ischemic attack) (Chronic) Hypothyroidism (Chronic) Past Medical History - Most Recent Inpatient Visit Past Medical History Start: 02/24/18 17: 52 Text: Status: Complete Freq: ONCE Protocol: Document 02/24/18 17:52 [facility] (Rec: 02/24/18 18:20 [facility] [id number]) BMI Required to complete PMH What is Patient's BMI 22.9 Past Medical History Unable History Recalled No Query Text:Pt Unable/Family Not Present Neurologic Medical History Hx Stroke/TIA Yes: 2000 Hx Dementia/Alzheimer's No Hx Parkinson's Disease No Hx Seizures Yes: 2000 with stroke Hx Multiple Sclerosis No Hx Migraines Yes Cardiac Medical History VTE Present on Admission No Hx of Deep Vein Thrombosis/VTE/PE Yes: right leg found out a couple weeks ago Hx Hypertension No Hx Chest Pain/Angina Yes Hx Heart Attack No Hx Cardiac Surgery/Stents/Etc. No: stress test Oct 2017 Hx Heart Failure No Hx Pacemaker/AICD No Hx Irregular Heartbeat and/or Afib No Hx Anticoagulant Therapy No Query Text:(Coumadin, Aspirin, Plavix, Xarelto, etc.) Hx Pain in Legs when Walking/Leg Cramps No Respiratory Medical History Hx COPD Yes Hx Emphysema No Hx Smoking Yes Smoking Status Former smoker Years Smoking 50 Packs Smoked per Day 1.5 Hx Smoking Cessation Counseling Yes Hx Smoking Exposure Yes Hx Tobacco Use in last 12 months No Hx of Pipe Smoking No Hx Sleep Apnea No Do you snore loudly (louder than talking Yes or can be heard through closed doors)? Do you often feel tired/ fatigued/ Yes sleepy during daytime? Has anyone observed you stop breathing Yes during sleep? STOP Results Positive Comments does think patient has sleep apnea GI Medical History Hx Ulcer No Hx Hepatitis No Hx Cirrhosis No Hx GI Bleed No Hx Unplanned Weight Loss No Genitourinary Medical History Indwelling Catheter in Place on Arrival/ No Admission Hx Renal Disease No Hx Dialysis No Musculoskeletal History Hx Arthritis Yes: hands Hx Rheumatoid Arthritis No Endocrine Medical History Hx Diabetes Yes Hx Thyroid Disease Yes Hematologic Medical History Hx of Blood Transfusion Yes Hx of Transfusion in last 3 Months Yes Date of Last Transfusion (if within last 02/24/17 3 months) Ever experience any problems with No transfusion(s)? 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 No Methicillin Resistant Staphylococcus aureus Screening Active MRSA No Risk for Readmission Number of Risk Factors 7 At Risk for Readmission Patient is At Risk For Readmission Patient is eligible for Call Back Y Past Medical History (Last Reviewed 02/11/18 @ 09:28 by Kizzy Sena) Palpitations (Acute) Anemia (Acute) Small cell lung cancer (Chronic) 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) Mass of pancreas (Acute) DVT prophylaxis (Acute) Anemia (Acute) Chest pain (Acute) Diabetes mellitus, type II (Chronic) COPD (chronic obstructive pulmonary disease) (Chronic) History of tobacco use (Chronic) Migraine (Chronic) Crohns disease (Chronic) History of TIA (transient ischemic attack) (Chronic) Hypothyroidism (Chronic) Abdominal pain (Acute) Acute Crohn's disease (Acute) Cervical radiculopathy (Acute) 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) Depression (Acute) Diabetes (Acute) Diverticulitis (Acute) Dyspnea (Acute) Heart murmur (Acute) Hernia (Acute) Impingement syndrome, shoulder, left (Acute) Inguinal hernia (Acute) Marijuana use (Acute) Pneumonia (Acute) Rotator cuff syndrome (Acute) Small cell lung cancer (Acute) Stroke (Acute) s/p port placement (Acute ~11/01/17) Past Surgical History (Last Reviewed 02/11/18 @ 09:28 by Kizzy Sena) History of right inguinal hernia repair (Resolved) History of cholecystectomy (Resolved) History of laparotomy (Resolved) FHx: cholecystectomy (Acute) H/O colectomy (Acute) History of appendectomy (Acute) RIGHT HERNIA REPAIR WITH KUGEL PATCH (Acute) SIGMOIDECTOMY W/ COLORECTAL ANASTAMOSIS (Acute) Maternal Family History: Family History (Last Reviewed 02/11/18 @ 09:28 by Kizzy Sena) Father CAD (coronary artery disease) Mesothelioma Grandfather Leukemia Brother Throat cancer Family History: No pertinent history Paternal Family History: Family History (Last Reviewed 02/11/18 @ 09:28 by Kizzy Sena) Father CAD (coronary artery disease) Mesothelioma Grandfather Leukemia Brother Throat cancer Family History: No pertinent history, - - no lung cancer. - Social History Lives: Spouse/ Significant Other Smoking Status: Former smoker Alcohol: None Drugs: Marijuana Review of Systems Constitutional:: Reports: Weakness, Fatigue. Denies: Fever, Sweats, Weight loss , Appetite change, Chills Cardiovascular:: Reports: Ankle swelling, Dyspnea on exertion, Orthopnea, Shortness of breath. Denies: Chest pain, Palpitations, PND Respiratory: Reports: Cough, Shortness of Breath, Shortness of breath at rest - But improving each day,, Shortness of breath upon exertion, Sputum production. Denies: Hemoptysis, Wheezing Gastrointestinal:: Reports: Constipation. Denies: Abdominal pain, Nausea, Vomiting, Diarrhea, Hematochezia Genitourinary: Denies: Dysuria, Hematuria, 15, Flank pain Musculoskeletal:: Denies: Back pain, Myalgia, Arthralgia Skin: Denies: Rash, Skin Changes, Wounds Neurological:: Denies: Headache, Dizziness, Visual changes, Tinnitus, Hearing loss Psychiatric: Denies: Anxiety, Depression, Homicidal Ideations, Suicidal Ideations Vital Signs Height 5 ft 9 in Weight: 76.1 kg Weight in Pounds 167.8 lbs Pulse Ox 96 Temperature 98.3 F Pulse Rate 144 Respiratory Rate 18 Blood Pressure [BP] 92/58 Blood Pressure 98/59 Blood Pressure Position [BP] Semi-Fowlers Blood Pressure Position Semi-Fowlers - Physical Exam General: Alert, Oriented x3, No apparent distress, - - ECOG 3 On oxygen by nasal cannula HEENT: Atraumatic, PERRLA, EOMI, Normocephalic Oropharynx:: Dry mucosa Neck:: Supple, Trachea midline. Negative for: JVD, bilateral Cardiac:: Regular rhythm, Normal S1, Normal S2, Tachycardia. Negative for: Murmur Lungs: Clear to auscultation, Rhonchi, Diminished, Excusion symmetrical. Negative for: Wheezes Abdomen:: Soft, Non-tender, Non-distended. Negative for: Hepatosplenomegaly Extremities:: Edema - 1+ ankles edema. Negative for: Cyanosis Neurological: Neuro grossly intact Skin:: Ecchymosis. Negative for: Lesions, Rash, Petechiae Psychiatric:: Appropriate affect, Euthymic Lymphatics:: Negative for: Cervical lymphadenopathy, Supraclavicular lymphadenopathy Laboratory Data: Microbiology 02/25/18 14:36 Respiratory Panel (PCR) - Final Mucosa - Nasopharyngeal 02/24/18 21:27 Gram Stain - Final Sputum, Expectorated/Coughed Respiratory Culture - Final Staphylococcus aureus Laboratory Tests 3 02/28/18 02/28/18 02/28/18 Range/Units 06:48 05:50 05:50 WBC 12.4 H (4.4-11.0) K/mm3 RBC 2.32 L (4.6-6.2) M/mm3 Hgb 7.4 L (13.0-16.5) g/dl Hct 23.8 L (40-54) % MCV 102.6 H (80-94) fL MCH 31.9 (27.0-32.0) pg MCHC 31.1 L (32-36) g/gl RDW 18.2 H (11.6-14.6) % RDW Differential 54.3 H (35.1-43.9) fl Plt Count 40 L* (150-450) K/mm3 MPV 10.7 (6.2-12.0) fl Differential Comment SCAN Diff Path Review March foll Sodium 143 (136-145) mmol/L Potassium 4.0 (3.5-5.1) mmol/L Chloride 105 (98-107) mmol/L Carbon Dioxide 31.0 (21.0-32.0) mmol/L Anion Gap 7 (5-15) BUN 19 H (7-18) mg/dL Creatinine 0.99 (0.70-1.30) mg/dL Estim Creat Clear Calc 75.38 ml/min Est GFR (MDRD) Af Amer 98 (>60) mL/min Est GFR (MDRD) Non-Af 81 (>60) mL/min BUN/Creatinine Ratio 19.2 (10-20) RATIO Glucose 137 H (74-106) mg/dL Calcium 8.8 (8.5-10.1) mg/dL POC Glucose 119 H (70-110) mg/dL 3 04/25/18 04/25/18 Range/Units 15:34 11:51 WBC (4.4-11.0) K/mm3 RBC (4.6-6.2) M/mm3 Hgb (13.0-16.5) g/dl Hct (40-54) % MCV (80-94) fL MCH (27.0-32.0) pg MCHC (32-36) g/gl RDW (11.6-14.6) % RDW Differential (35.1-43.9) fl Plt Count (150-450) K/mm3 MPV (6.2-12.0) fl Differential Comment Diff Path Review Sodium (136-145) mmol/L Potassium (3.5-5.1) mmol/L Chloride (98-107) mmol/L Carbon Dioxide (21.0-32.0) mmol/L Anion Gap (5-15) BUN (7-18) mg/dL Creatinine (0.70-1.30) mg/dL Estim Creat Clear Calc ml/min Est GFR (MDRD) Af Amer (>60) mL/min Est GFR (MDRD) Non-Af (>60) mL/min BUN/Creatinine Ratio (10-20) RATIO Glucose (74-106) mg/dL Calcium (8.5-10.1) mg/dL POC Glucose 130 H 160 H (70-110) mg/dL Diagnostic Data: Diagnostic Data Chest CTA 02/24/18 13:24 IMPRESSION: No evidence of pulmonary embolus. No evidence of thoracic aortic aneurysm or dissection. Increasing consolidation in the left upper lobe. New bibasilar airspace opacities. This is likely infectious in etiology. The patient's known left upper lobe mass is not well evaluated due to the surrounding consolidated lung parenchyma. New small left pleural effusion. Stable mediastinal lymphadenopathy. Electronically Signed: Suhail Cardona, at 14:52 EDT Tel , Service support , Chest X-Ray 02/26/18 07:12 IMPRESSION: Multifocal pneumonia, sparing only the right upper lobe. Left basilar pleural effusion. Stable appearance and positioning of the right Port-A-Cath. No pneumothorax. Electronically Signed: Akin Smith MD at 9:03 EDT , Service support , Assessment and Plan 62-year-old male smoker till 2016 with #1 Stage IV small cell lung cancer. Patient presented with significant weight loss and left upper abdominal pain most likely related to a rapidly growing metastatic lesion (pathologically confirmed) in the left adrenal gland. Systemic chemotherapy with carboplatin etoposide patient is status post 5/6 cycles with partial remission of his disease . Last cycle was 02/11/2018 and received neulasta 02/14/2018 #2 Anemia of cancer and chemotherapy, transfuse with PRBCS to target HB > 8 g/dl #3 Thrombocytopenia, 2ry to recent chemo +/- infection. Hold xarelto till PLT > 50K. Prophylactic PLT transfusion if <10K. Platelets count slowly recovering #4 Pain control adequate. #5 Indeterminate abnormality in the pancreatic head area possibilities are post pancreatitis, metastatic small cell lung cancer to pancreas, or a second primary cancer of the pancreas. Pursuing this abnormality with biopsy is of academic interest only and may only cause delay in initiating treatment for the aggressive small cell lung cancer. His prognosis and survival are more dependent on the extensive stage small cell lung cancer and active treatment will have to be redirected again assess life-threatening, and inevitably fatal disease. On recent CT these abnormalities are not progressive. I discussed this finding with the patient and significant other in detail and an earlier visit. #6 Malignancy hypercoagulability with bilateral LE DVT, hold xarelto till PLT > 50K then resume. Use non-pharmacologic DVT prophylaxis and encourage ambulation. #7 Acute hospitalization with a bilateral staph pneumonia and acute on chronic respiratory failure. There appears to be continued slow improvement this morning and comparison to yesterday when he was decompensating despite maximum efforts at treating his pneumonia and airways disease. Now out of the ICU. #8 Paroxysms of SVT and/or A. fib on medical treatment. #9 CODE STATUS : DNR. #10 Patient and family met with the hospice team, services declined at the present time but this is a backup plan if he were to decompensate and wished to go home with hospice services. Discussed with patient, significant other. Comorbid conditions: Diabetes, neuropathy, dyslipidemia, COPD, hypothyroidism Medications: Prescriptions This Visit Medication Instructions Recorded Alive Mens 1 tab PO DAILY 02/24/18 Ferrous Sulfate 325 mg PO DAILY@0800 02/24/18 Folic Acid 1 tab PO DAILY 02/24/18 Rivaroxaban [Xarelto] 1 tab PO DAILY 02/24/18 Vitamin D3 2 tab PO DAILY 02/24/18 Medications Added to Medication List This Visit Category Date Time Status Digoxin [Lanoxin] Med 03/01/18 10:00 Active 125 mcg PO DAILY Digoxin [Lanoxin] Med 02/28/18 16:00 Once 250 mcg PO X1 ONE Digoxin [Lanoxin] Med 02/28/18 23:55 Once 250 mcg PO X1 ONE Primary Care Provider: Last Aguilar Referring Provider:
--- NOTE | 2018-02-28 10:57 | PCM.PN.ID ---
Patient Problems: Active and Suspected Problems (Last Reviewed 02/11/18 @ 09:28 by Kizzy Sena) Pneumonia (Acute) Chest pain (Acute) Acute blood loss anemia (Acute) Thrombocytopenia (Acute) Gram-negative pneumonia (Acute) Subjective: Feeling better, mild SOB, no fever. - Physical Exam General: Alert, Cooperative Lungs: Rhonchi - improved Cardiovascular: Tachycardic Abdomen: Soft, Non Tender, Non-Distended Skin: No rashes Vital Signs Temp Pulse Resp BP Pulse Ox 98.3 F 139 H 18 98/59 L 96 02/28/18 08:24 02/28/18 10:30 02/28/18 10:30 02/28/18 08:24 02/28/18 09:07 Oxygen Flow Rate (L/min) 4 Oxygen Delivery Method Nasal Cannula Weight: 76.1 kg Body Mass Index (BMI) 22.8 Intake and Output for Last 24 Hours 02/26/18 02/27/18 02/28/18 23:59 23:59 23:59 Intake Total 957 / 957 1699 / 1699 218.7 / 218.7 Output Total 650 / 650 1175 / 1175 475 / 475 Balance 307 / 307 524 / 524 -256.3 / -256.3 Microbiology Past 72 Hours 02/25/18 14:36 Respiratory Panel (PCR) - Final Mucosa - Nasopharyngeal 02/24/18 21:27 Gram Stain - Final Sputum, Expectorated/Coughed Respiratory Culture - Final Staphylococcus aureus Laboratory Tests Past 24 Hrs 02/28/18 02/28/18 05:50 05:50 WBC 12.4 H RBC 2.32 L Hgb 7.4 L Hct 23.8 L MCV 102.6 H MCH 31.9 MCHC 31.1 L RDW 18.2 H RDW Differential 54.3 H Plt Count 40 L* MPV 10.7 Differential Comment SCAN Diff Path Review May foll Sodium 143 Potassium 4.0 Chloride 105 Carbon Dioxide 31.0 Anion Gap 7 BUN 19 H Creatinine 0.99 Estim Creat Clear Calc 75.38 Est GFR (MDRD) Af Amer 98 Est GFR (MDRD) Non-Af 81 BUN/Creatinine Ratio 19.2 Glucose 137 H Calcium 8.8 POC Glucose 02/28/18 02/27/18 02/27/18 06:48 15:34 11:51 POC Glucose 119 H 130 H 160 H Medical Necessity - Tobacco Use Smoking Status: Former smoker Route of nutrition/ use of supplements: [] Nutritional Intake: [] IV Site: [] Flowers Catheter: [] - Assessment/Plan Antibiotics: [] Assessment/Plan: [] Active and Suspected Problems (Last Reviewed 02/11/18 @ 09:28 by Kizzy Sena) Pneumonia (Acute) DVT (deep venous thrombosis) (Acute) Chest pain (Acute) Acute blood loss anemia (Acute) Thrombocytopenia (Acute) Gram-negative pneumonia (Acute) MSSA pneumonia with possible aspiration in pt with stage 4 small cell lung cancer on chemo - resp viral panel neg. Onc and pulm following. Sputum cx with 2+ GNR on gram stain, but only MSSA grew. Cont unasyn. Day 5 of abx, plan on 8-10 day course. Plan will be for him to go home on po abx, either augmentin or keflex with flagyl. He is concerned about potential cost. will follow
--- NOTE | 2018-02-28 10:58 | CASEMGMT ---
Social Work SW met with pt to discuss home health services. SW offered home health to pt and explained how they can assist pt at home and how often they would be visiting. Pt stating that his girlfriend lives with him and is present in the home 28/05 and will assist with all needs. SW explained that RN will check on medical condition at home and PT will assist with strengthening. Pt continues to deny needs or acceptance of home health services. SW informed pt that if he changes mind, SW will assist with setting up. Phone call received from JOSE Valles at [facility] ([phone]). She states that pt is enrolled in palliative care with their company and has been seeing pt since January. Nurse Practitioner has been making home visits and SW has been following up with phone calls to pt and girlfriend. JOSE informed Igor that family or pt has made no mention of this throughout hospital stay. [facility] plans to continue to follow once pt is discharged from the hospital. REGINA Byrne
[2018-02-28 11:25] LABS: Bedside Glucose 208 mg/dL (70-110)
[2018-02-28 12:17] LABS: Pathologist Review Reviewed
[2018-02-28] MEDS: Digoxin 250 MCG Tablet PO (15:44)
[2018-02-28 16:51] LABS: Bedside Glucose 258 mg/dL (70-110)
[2018-02-28] MEDS: Mirtazapine 15 MG Tablet 7.5 MG PO (21:55)
[2018-02-28] MEDS: Atorvastatin Calcium 40 MG Tablet PO (21:57)
[2018-02-28 22:26] LABS: Bedside Glucose 177 mg/dL (70-110)
--- NOTE | 2018-02-28 22:30 | CPS ---
Per pt, Duoderm was applied but peeled skin off. Pt wanted mask on without it.
[2018-03-01] VITALS (29 sets, daily range): BP systolic 102–134; BP diastolic 60–86; PULSE 83–163; RESP 12–29; TEMP 36.5–36.9; O2SAT 74–96
[2018-03-01] MEDS: Digoxin 250 MCG Tablet PO (00:24)
[2018-03-01] MEDS: oxyCODONE 5 MG Tablet PO ×2 (02:13→17:33)
[2018-03-01] MEDS: Ipratropium/Albuterol Sulfate 3 ML AMPUL.NEB INHALATION ×3 (03:26→10:49)
--- NOTE | 2018-03-01 04:15 | CPS ---
pt refusing to wear the Bipap. Hurting bridge of nose even with Duoderm applied.
[2018-03-01] MEDS: 0.9% NaCl VAD Flush 10 ML IV ×2 (04:16→04:18)
--- NOTE | 2018-03-01 04:35 | CPS ---
8L high flow NC added. SpO2 92%
[2018-03-01 04:54] LABS: Hematocrit 26.5 % (40-54); Hemoglobin 8.2 g/dl (13.0-16.5); Mean Corp Hgb Conc 30.9 g/gl (32-36); Mean Corpuscular Hgb 30.7 pg (27.0-32.0); Mean Corpuscular Volume 99.3 fL (80-94); Mean Platelet Vol. 9.9 fl (6.2-12.0); Platelet Count 58 K/mm3 (150-450); RBC Distribution Width CV 18.5 % (11.6-14.6); RBC Distribution Width SD 57.8 fl (35.1-43.9); Red Blood Count 2.67 M/mm3 (4.6-6.2); White Blood Count 18.8 K/mm3 (4.4-11.0)
[2018-03-01 04:55] LABS: Anion Gap 7 (5-15); BUN 19 mg/dL (7-18); BUN/Creat Ratio 19.8 RATIO (10-20); Calcium,Total 8.8 mg/dL (8.5-10.1); Chloride 107 mmol/L (98-107); Creatinine, Serum 0.96 mg/dL (0.70-1.30); EST Glomerular Filtration Rate 84 mL/min (>60); Est Glom Filt Rate - Afr Amer 101 mL/min (>60); Estimated Creatinine Clearance 77.74 ml/min; Glucose 163 mg/dL (74-106); Sodium Level 146 mmol/L (136-145)
[2018-03-01] MEDS: Divalproex Sodium 250 MG Tablet 500 MG PO ×3 (05:29→20:45)
[2018-03-01] MEDS: Levothyroxine 25 MCG TABLET PO (05:29)
[2018-03-01 05:39] LABS: Lymphocyte 12 % (19-41); Monocyte 4 % (0-10); Myelocyte 1 (0-0); Neutrophil-Band 5 % (0-5); Neutrophil-Segmented 78 % (47-70); Nucleated Red Bld Cells,Manual 1 % (0-5); Total Cells Counted 100 (MANUAL DIFF)
[2018-03-01 05:40] LABS: Differential Indicated MANUAL DIFF; POSITIVE COUNT YES; POSITIVE DIFFERENTIAL YES; POSITIVE MORPHOLOGY YES
[2018-03-01 05:41] LABS: Absolute Neutrophil Count 15.6 X10^3/uL (2.0-7.7)
[2018-03-01 05:42] LABS: Absolute Lymphocyte Count 2.25 X10^3/ul (0.83-4.51)
[2018-03-01 05:46] LABS: NRBC Flagged by Analyzer 1.1 % (0-5)
[2018-03-01 07:01] LABS: Bedside Glucose 167 mg/dL (70-110)
--- NOTE | 2018-03-01 07:03 | NURSING ---
This RN agrees with charting completed by [employer] Caty Oliva.
[2018-03-01] MEDS: Digoxin 125 MCG Tablet PO (08:19)
[2018-03-01] MEDS: Furosemide 20 MG/2 ML VIAL IV (08:19)
[2018-03-01] MEDS: Metoprolol Tartrate 50 MG Tablet PO ×2 (08:19→20:46)
[2018-03-01] MEDS: Folic Acid 1 MG Tablet PO (08:20)
[2018-03-01] MEDS: Senna Tablet 1 TABLET PO ×2 (08:20→20:45)
[2018-03-01] MEDS: guaiFENesin 1,200 MG Tablet 1200 MG PO ×2 (08:20→20:44)
--- NOTE | 2018-03-01 08:25 | PCM.PROGNOTE ---
Patient Problems: Active and Suspected Problems (Last Updated 03/01/18 @ 08:24 by Zarina Godoy, CARROTING MACHINE OPERATOR-C) Chest pain (Acute) Acute blood loss anemia (Acute) Thrombocytopenia (Acute) Gram-negative pneumonia (Acute) Pneumonia (Acute) Subjective: The patient was seen and examined. He is sitting up in the chair preparing for breakfast, his is at the bedside. Patient remains persistently tachycardic in the 130s-150s, reports he feels palpitations but otherwise he is asymptomatic. His breathing has not worsened. Had a low-grade temp of 99.4?F last evening, otherwise afebrile. He is hemodynamically stable. No bowel movement in 6 days, on Senokot and will try prune juice today. Objective: Recent lab and culture data reviewed. No new imaging to review. Sputum culture growing staph aureus. Strep and Legionella urine antigens negative. Viral respiratory panel is negative. Echocardiogram from November 2017 showed normal LV size and thickness with an EF of 65%, RVSP estimated at 43 mmHg. Chest x-ray 02/26 showed multifocal pneumonia, sparing only the right upper lobe, left basilar pleural effusion. - Physical Exam General: Alert, Oriented x3, Cooperative, No apparent distress HEENT: Atraumatic, Normocephalic Oral: Moist Mucosa Neck: Supple, Trachea Midline Lungs: No wheeze, Diminished, - - minimal rhonchi, few bibasilar rales Cardiovascular: Regular Rhythm, Normal S1, Normal S2, No murmurs, No rub noted, No Gallop, Tachycardic Abdomen: Bowel Sounds Present, Soft, Non Tender, Passing Flatus Extremities: No clubbing, No cyanosis, No edema Skin: - - L hand ecchymotic and edematous, tender to touch--old IV site Neurological: Neuro grossly intact Psych/Mental Status: Alert and oriented to time, place, person, mood and affect Vital Signs Temp Pulse Resp BP Pulse Ox 97.8 F 152 H 16 114/73 93 03/01/18 06:08 03/01/18 08:19 03/01/18 06:33 03/01/18 06:08 03/01/18 06:33 Oxygen Flow Rate (L/min) 8 Oxygen Delivery Method Nasal Cannula Weight: 172 lb 2.896 oz Body Mass Index (BMI) 22.8 Intake and Output for Last 24 Hours 02/27/18 02/28/18 03/01/18 23:59 23:59 23:59 Intake Total 1699 / 1699 1013.7 / 1013.7 1189 / 1189 Output Total 1175 / 1175 675 / 675 375 / 375 Balance 524 / 524 338.7 / 338.7 814 / 814 Microbiology Past 72 Hours 02/25/18 14:36 Respiratory Panel (PCR) - Final Mucosa - Nasopharyngeal 02/24/18 21:27 Gram Stain - Final Sputum, Expectorated/Coughed Respiratory Culture - Final Staphylococcus aureus Laboratory Tests Past 24 Hrs 02/28/18 02/28/18 03/01/18 05:50 10:30 04:15 WBC RBC Hgb Hct MCV MCH MCHC RDW RDW Differential Plt Count MPV Neut % (Auto) Absolute Neuts (auto) Absolute Lymphs (auto) Total Counted Neutrophils % (Manual) Band Neutrophils % Lymphocytes % (Manual) Monocytes % (Manual) Myelocytes % Nucleated RBC % Nucleated RBCs/100 WBC Diff Path Review Reviewed Absolute Retic Sodium 146 H Potassium 4.0 Chloride 107 Carbon Dioxide 32.0 Anion Gap 7 BUN 19 H Creatinine 0.96 Estim Creat Clear Calc 77.74 Est GFR (MDRD) Af Amer 101 Est GFR (MDRD) Non-Af 84 BUN/Creatinine Ratio 19.8 Glucose 163 H Calcium 8.8 Blood Type A POSITIVE Antibody Screen NEGATIVE Crossmatch See Detail 03/01/18 04:15 WBC 18.8 H RBC 2.67 L Hgb 8.2 L Hct 26.5 L MCV 99.3 H MCH 30.7 MCHC 30.9 L RDW 18.5 H RDW Differential 57.8 H Plt Count 58 L MPV 9.9 Neut % (Auto) Not Reportable Absolute Neuts (auto) 15.6 H Absolute Lymphs (auto) 2.25 Total Counted 100 Neutrophils % (Manual) 78 H Band Neutrophils % 5 Lymphocytes % (Manual) 12 L Monocytes % (Manual) 4 Myelocytes % 1 H Nucleated RBC % 1.1 Nucleated RBCs/100 WBC 1 Diff Path Review May foll Absolute Retic 0.20 Sodium Potassium Chloride Carbon Dioxide Anion Gap BUN Creatinine Estim Creat Clear Calc Est GFR (MDRD) Af Amer Est GFR (MDRD) Non-Af BUN/Creatinine Ratio Glucose Calcium Blood Type Antibody Screen Crossmatch POC Glucose 03/01/18 02/28/18 02/28/18 06:54 22:11 16:40 POC Glucose 167 H 177 H 258 H 02/28/18 11:19 POC Glucose 208 H Medical Necessity - Tobacco Use Smoking Status: Former smoker Assessment/Plan Active and Suspected Problems (Last Updated 03/01/18 @ 08:24 by Zarina Godoy, CARROTING MACHINE OPERATOR-C) Chest pain (Acute) Acute blood loss anemia (Acute) Thrombocytopenia (Acute) Gram-negative pneumonia (Acute) Pneumonia (Acute) RECOMMENDATIONS: 1. Continue antibiotics per ID recommendations. 2. Continue aerosol treatments as ordered. 3. Wean supplemental oxygen to maintain saturations 88-92%. 4. Monitor H&H. Transfuse if < 8 5. Encourage incentive spirometer use and mobilize patient as tolerated. 6. Constipated, pt would like to try prune juice 7. HR control per hospitalist medicine IMPRESSIONS: 1. Acute hypoxemic respiratory failure secondary to underlying small cell lung cancer and superimposed healthcare associated pneumonia The patient has baseline underlying fibrotic changes and emphysema noted on CT scan. In addition, he has extensive stage small cell lung cancer. All of this is being exacerbated by his current multilobar pneumonia. Sputum culture revealed MSSA. Continue Unasyn, per infectious diseases recommendations. Continue scheduled aerosol treatments, as the patient does have a mild obstructive ventilatory impairment on his last PFTs. Wean supplemental oxygen as tolerated. Encourage incentive parameter use and mobilize patient as tolerated. Weight is up, +5L, gave x1 Lasix 20 mg to see if this helps HR. Patient consistently in 150's-160s, appears to be atrial tachycardia/SVT but a lot of artifact. Previously given Amiodarone which did help some, retirement however not indicated with lung disease. 2. Anemia/thrombocytopenia secondary to chemotherapy The patient was transfused a total of 3 units of packed red blood cells. Monitor H&H. Goal to maintain a hemoglobin at or above 8 g/dL. 3. Personal history of extensive stage small cell lung cancer The patient is currently on chemotherapy and being managed by oncology. 4. History of bilateral lower extremity DVTs Xarelto is currently on hold, given thrombocytopenia. Continue to monitor platelet count and resume once greater than 50,000 per oncology recommendations. 5. CODE STATUS DNR CCA without intubation. Patient is declining Hospice care services at this time, despite clinically not doing well and with poor prognosis. This has been conveyed to the patient and his family several times. He apparently has current Palliative care through [facility] but did not mention this to staff until 02/28/18. Plan for home on discharge with , possible HH. Patient with no BM in 6 days, has been receiving Senokot BID scheduled. Going to try prune juice. This note was generated with [employer] dictation software. It may contain incorrect words, spelling, and punctuation that were not noted in checking the note before signing.
--- NOTE | 2018-03-01 08:35 | PN_ITS ---
Patient Problems: Active and Suspected Problems (Last Updated 03/01/18 @ 08:24 by Zarina Godoy , PVC LOADER-C) Chest pain (Acute) Acute blood loss anemia (Acute) Thrombocytopenia (Acute) Gram-negative pneumonia (Acute) Pneumonia (Acute) Subjective: The patient was seen and examined. He is sitting up in the chair preparing for breakfast, his is at the bedside. Patient remains persistently tachycardic in the 130s-150s, reports he feels palpitations but otherwise he is asymptomatic. His breathing has not worsened. Had a low-grade temp of 99.4?F last evening, otherwise afebrile. He is hemodynamically stable. No bowel movement in 6 days, on Senokot and will try prune juice today. Objective: Recent lab and culture data reviewed. No new imaging to review. Sputum culture growing staph aureus. Strep and Legionella urine antigens negative. Viral respiratory panel is negative. Echocardiogram from November 2017 showed normal LV size and thickness with an EF of 65%, RVSP estimated at 43 mmHg. Chest x-ray 02/26 showed multifocal pneumonia, sparing only the right upper lobe , left basilar pleural effusion. - Physical Exam General: Alert, Oriented x3, Cooperative, No apparent distress HEENT: Atraumatic, Normocephalic Oral: Moist Mucosa Neck: Supple, Trachea Midline Lungs: No wheeze, Diminished, - - minimal rhonchi, few bibasilar rales Cardiovascular: Regular Rhythm, Normal S1, Normal S2, No murmurs, No rub noted, No Gallop, Tachycardic Abdomen: Bowel Sounds Present, Soft, Non Tender, Passing Flatus Extremities: No clubbing, No cyanosis, No edema Skin: - - L hand ecchymotic and edematous, tender to touch--old IV site Neurological: Neuro grossly intact Psych/Mental Status: Alert and oriented to time, place, person, mood and affect Vital Signs Temp Pulse Resp BP Pulse Ox 97.8 F 152 H 16 114/73 93 03/01/18 06:08 03/01/18 08:19 03/01/18 06:33 03/01/18 06:08 03/01/18 06:33 Oxygen Flow Rate (L/min) 8 Oxygen Delivery Method Nasal Cannula Weight: 172 lb 2.896 oz Body Mass Index (BMI) 22.8 Intake and Output for Last 24 Hours 02/27/18 02/28/18 03/01/18 23:59 23:59 23:59 Intake Total 1699 / 1699 1013.7 / 1013.7 1189 / 1189 Output Total 1175 / 1175 675 / 675 375 / 375 Balance 524 / 524 338.7 / 338.7 814 / 814 Microbiology Past 72 Hours 02/25/18 14:36 Respiratory Panel (PCR) - Final Mucosa - Nasopharyngeal 02/24/18 21:27 Gram Stain - Final Sputum, Expectorated/Coughed Respiratory Culture - Final Staphylococcus aureus Laboratory Tests Past 24 Hrs 02/28/18 02/28/18 03/01/18 05:50 10:30 04:15 WBC RBC Hgb Hct MCV MCH MCHC RDW RDW Differential Plt Count MPV Neut % (Auto) Absolute Neuts (auto) Absolute Lymphs (auto) Total Counted Neutrophils % (Manual) Band Neutrophils % Lymphocytes % (Manual) Monocytes % (Manual) Myelocytes % Nucleated RBC % Nucleated RBCs/100 WBC Diff Path Review Reviewed Absolute Retic Sodium 146 H Potassium 4.0 Chloride 107 Carbon Dioxide 32.0 Anion Gap 7 BUN 19 H Creatinine 0.96 Estim Creat Clear Calc 77.74 Est GFR (MDRD) Af Amer 101 Est GFR (MDRD) Non-Af 84 BUN/Creatinine Ratio 19.8 Glucose 163 H Calcium 8.8 Blood Type A POSITIVE Antibody Screen NEGATIVE Crossmatch See Detail 03/01/18 04:15 WBC 18.8 H RBC 2.67 L Hgb 8.2 L Hct 26.5 L MCV 99.3 H MCH 30.7 MCHC 30.9 L RDW 18.5 H RDW Differential 57.8 H Plt Count 58 L MPV 9.9 Neut % (Auto) Not Reportable Absolute Neuts (auto) 15.6 H Absolute Lymphs (auto) 2.25 Total Counted 100 Neutrophils % (Manual) 78 H Band Neutrophils % 5 Lymphocytes % (Manual) 12 L Monocytes % (Manual) 4 Myelocytes % 1 H Nucleated RBC % 1.1 Nucleated RBCs/100 WBC 1 Diff Path Review May foll Absolute Retic 0.20 Sodium Potassium Chloride Carbon Dioxide Anion Gap BUN Creatinine Estim Creat Clear Calc Est GFR (MDRD) Af Amer Est GFR (MDRD) Non-Af BUN/Creatinine Ratio Glucose Calcium Blood Type Antibody Screen Crossmatch POC Glucose 03/01/18 02/28/18 02/28/18 06:54 22:11 16:40 POC Glucose 167 H 177 H 258 H 02/28/18 11:19 POC Glucose 208 H Medical Necessity - Tobacco Use Smoking Status: Former smoker Assessment/Plan Active and Suspected Problems (Last Updated 03/01/18 @ 08:24 by Zarina Godoy , PVC LOADER-C) Chest pain (Acute) Acute blood loss anemia (Acute) Thrombocytopenia (Acute) Gram-negative pneumonia (Acute) Pneumonia (Acute) RECOMMENDATIONS: 1. Continue antibiotics per ID recommendations. 2. Continue aerosol treatments as ordered. 3. Wean supplemental oxygen to maintain saturations 88-92%. 4. Monitor H&H. Transfuse if < 8 5. Encourage incentive spirometer use and mobilize patient as tolerated. 6. Constipated, pt would like to try prune juice 7. HR control per hospitalist medicine IMPRESSIONS: 1. Acute hypoxemic respiratory failure secondary to underlying small cell lung cancer and superimposed healthcare associated pneumonia The patient has baseline underlying fibrotic changes and emphysema noted on CT scan. In addition, he has extensive stage small cell lung cancer. All of this is being exacerbated by his current multilobar pneumonia. Sputum culture revealed MSSA. Continue Unasyn, per infectious diseases recommendations. Continue scheduled aerosol treatments, as the patient does have a mild obstructive ventilatory impairment on his last PFTs. Wean supplemental oxygen as tolerated. Encourage incentive parameter use and mobilize patient as tolerated. Weight is up, +5L, gave x1 Lasix 20 mg to see if this helps HR. Patient consistently in 150's-160s, appears to be atrial tachycardia/SVT but a lot of artifact. Previously given Amiodarone which did help some, long goods drier however not indicated with lung disease. 2. Anemia/thrombocytopenia secondary to chemotherapy The patient was transfused a total of 3 units of packed red blood cells. Monitor H&H. Goal to maintain a hemoglobin at or above 8 g/dL. 3. Personal history of extensive stage small cell lung cancer The patient is currently on chemotherapy and being managed by oncology. 4. History of bilateral lower extremity DVTs Xarelto is currently on hold, given thrombocytopenia. Continue to monitor platelet count and resume once greater than 50,000 per oncology recommendations. 5. CODE STATUS DNR CCA without intubation. Patient is declining Hospice care services at this time, despite clinically not doing well and with poor prognosis. This has been conveyed to the patient and his family several times. He apparently has [facility] but did not mention this to staff until . Plan for home on discharge with , possible HH. Patient with no BM in 6 days, has been receiving Senokot BID scheduled. Going to try prune juice. This note was generated with [employer] dictation software. It may contain incorrect words, spelling, and punctuation that were not noted in checking the note before signing.
[2018-03-01 09:50] LABS: Bedside Glucose 144 mg/dL (70-110)
--- NOTE | 2018-03-01 10:42 | PCM.PN.HOSP ---
Patient Problems: Active and Suspected Problems (Last Updated 03/01/18 @ 08:24 by Zarina Godoy, SWITCH OPERATOR-C) Chest pain (Acute) Acute blood loss anemia (Acute) Thrombocytopenia (Acute) Gram-negative pneumonia (Acute) Pneumonia (Acute) Subjective: Seen still remains dyspneic at rest heart rate on the monitor not well controlled in the 150s patient was loaded with digoxin and appears not to have had any effect I did p.o. Cardizem Objective: GENERAL: Dyspneic at rest HEENT: Clear conjunctiva, NECK; supple, normal thyroid, CHEST: Diminished to auscultation bilaterally, HEART: Regular S1 S2, no audible murmurs ABDOMEN: soft, non-tender, normoactive bowel sounds, RECTAL: deferred EXTREMITIES: No edema, no clubbing, no cyanosis. WORKFLOW DEVELOPER: Awake, no lateralizing signs. SKIN: No rash Vitals/I&O's: Vital Signs Temp Pulse Resp BP Pulse Ox 98.1 F 154 H 20 H 129/77 H 90 03/01/18 08:20 03/01/18 08:20 03/01/18 08:20 03/01/18 08:20 03/01/18 08:20 Oxygen Flow Rate (L/min) 5 Oxygen Delivery Method Nasal Cannula Weight: 78.1 kg Body Mass Index (BMI) 22.8 Intake and Output for Last 24 Hours 02/27/18 02/28/18 03/01/18 23:59 23:59 23:59 Intake Total 1699 / 1699 1013.7 / 1013.7 1189 / 1189 Output Total 1175 / 1175 675 / 675 375 / 375 Balance 524 / 524 338.7 / 338.7 814 / 814 Microbiology Past 72 Hours 02/25/18 14:36 Mucosa - Nasopharyngeal Respiratory Panel (PCR) - Final 02/24/18 21:27 Sputum, Expectorated/Coughed Gram Stain - Final 02/24/18 21:27 Sputum, Expectorated/Coughed Respiratory Culture - Final Staphylococcus aureus Laboratory Results 02/28/18 05:50: Diff Path Review Reviewed 02/28/18 10:30: Blood Type A POSITIVE, Antibody Screen NEGATIVE, Crossmatch See Detail 02/28/18 11:19: POC Glucose 208 H 02/28/18 16:40: POC Glucose 258 H 02/28/18 22:11: POC Glucose 177 H 03/01/18 04:15: Sodium 146 H, Potassium 4.0, Chloride 107, Carbon Dioxide 32.0, Anion Gap 7, BUN 19 H, Creatinine 0.96, Estim Creat Clear Calc 77.74, Est GFR (MDRD) Af Amer 101, Est GFR (MDRD) Non-Af 84, BUN/Creatinine Ratio 19.8, Glucose 163 H, Calcium 8.8 03/01/18 04:15: WBC 18.8 H, RBC 2.67 L, Hgb 8.2 L, Hct 26.5 L, MCV 99.3 H, MCH 30.7, MCHC 30.9 L, RDW 18.5 H, RDW Differential 57.8 H, Plt Count 58 L, MPV 9.9, Neut % (Auto) Not Reportable, Absolute Neuts (auto) 15.6 H, Absolute Lymphs (auto) 2.25, Total Counted 100, Neutrophils % (Manual) 78 H, Band Neutrophils % 5, Lymphocytes % (Manual) 12 L, Monocytes % (Manual) 4, Myelocytes % 1 H, Nucleated RBC % 1.1, Nucleated RBCs/100 WBC 1, Diff Path Review March, Absolute Retic 0.20 03/01/18 06:54: POC Glucose 167 H 03/01/18 09:43: POC Glucose 144 H Current Medications Acetaminophen (Tylenol) 650 mg PO Q4H PRN PRN PRN Reason: FEVER Albuterol Sulfate (Ventolin Aerosols) 2.5 mg INHALATION Q2H PRN PRN PRN Reason: SHORTNESS OF BREATH Albuterol/Ipratropium (Duoneb) 3 ml INHALATION Q4H.RT [facility] Last Admin: 03/01/18 06:33 Dose: 3 ml Atorvastatin Calcium (Lipitor) 40 mg PO QHS [facility] Last Admin: 02/28/18 21:57 Dose: 40 mg Dextrose (D50w Syringe) 0 gm IV X1 PRN; Protocol PRN Reason: Hypoglycemia Digoxin (Lanoxin) 125 mcg PO DAILY [facility] Last Admin: 03/01/18 08:19 Dose: 125 mcg Diltiazem HCl (Cardizem) 30 mg PO Q6 [facility] Divalproex Sodium (Depakote) 500 mg PO TID [facility] Last Admin: 03/01/18 05:29 Dose: 500 mg Folic Acid (Folic Acid) 1 mg PO DAILY@0800 [facility] Last Admin: 03/01/18 08:20 Dose: 1 mg Glucagon () 1 mg IM .X1 PRN PRN Reason: Hypoglycemia Guaifenesin (Mucinex) 1,200 mg PO BID [facility] Last Admin: 03/01/18 08:20 Dose: 1,200 mg Heparin Sodium (Beef Lung) (Heparin 500 Unit/5 Ml (100/Ml)) 500 unit IV UD PRN PRN Reason: HEPARIN FLUSH Sodium Chloride () 250 mls @ 15 mls/hr IV .[id number] PRN PRN Reason: SALINE FLUSH Last Admin: 02/26/18 13:46 Dose: 15 mls/hr Ampicillin Sodium/Sulbactam (Sodium 3 gm/ Sodium Chloride) 112 mls @ 150 mls/hr IV Q6 [facility] Last Admin: 03/01/18 05:30 Dose: 150 mls/hr Insulin Aspart (Novolog Flexpen (Bkc)) 0 units SC TIDAC [facility] PRN Reason: Protocol Last Admin: 03/01/18 08:19 Dose: 1 units Levothyroxine Sodium (Synthroid) 25 mcg PO DAILY@0600 [facility] Last Admin: 03/01/18 05:29 Dose: 25 mcg Magnesium Hydroxide (Milk Of Magnesia) 30 ml PO DAILY PRN PRN PRN Reason: Constipation Metoprolol Tartrate (Lopressor (Beta Raina)) 50 mg PO BID [facility] Last Admin: 03/01/18 08:19 Dose: 50 mg Mirtazapine (Remeron) 7.5 mg PO QHS [facility] Last Admin: 02/28/18 21:55 Dose: 7.5 mg Nutritional Formula (Lactose Free) (Glucerna Shake) 120 ml PO 4X/DAY [facility] Last Admin: 03/01/18 08:24 Dose: Not Given Ondansetron HCl (Zofran) 4 mg IV Q8H PRN PRN PRN Reason: NAUSEA Ondansetron HCl (Zofran Odt) 4 mg PO Q8H PRN PRN Reason: NAUSEA Oxycodone HCl (Oxyir) 5 - 10 mg PO Q4H PRN PRN PRN Reason: SEVERE PAIN (6-10/10) Last Admin: 03/01/18 02:13 Dose: 10 mg Senna (Senokot) 1 tablet PO BID [facility] Last Admin: 03/01/18 08:20 Dose: 1 tablet Sodium Chloride () 10 ml IV UD PRN PRN Reason: VAD FLUSH Last Admin: 03/01/18 04:18 Dose: 10 ml Medical Necessity - Tobacco Use Smoking Status: Former smoker Assessment/Plan Active and Suspected Problems (Last Updated 03/01/18 @ 08:24 by Zarina Godoy, SWITCH OPERATOR-C) Chest pain (Acute) Acute blood loss anemia (Acute) Thrombocytopenia (Acute) Gram-negative pneumonia (Acute) Pneumonia (Acute) Patient is a 62-year-old gentleman with stage IV small cell lung CA on chemotherapy presented with progressive generalized weakness. Found to be anemic on admission with hemoglobin of 6.4. He was also thrombocytopenic with platelet count of 16; imaging studies was questionable for suspected pneumonia admitted to a monitored bed where patient has since been managed 1. Acute hypoxic respiratory failure secondary to patient underlying lung CA as well as his pneumonia with staph aureus patient managed with Zosyn as well as vancomycin in addition to high flow oxygen with consultation placed a pulmonary medicine and ID consultation on 02/26/2018 2. Anemia secondary to chemotherapy-induced anemia patient was transfused 2 units PRBC since he was significantly symptomatic on admission. 3. Thrombocytopenia again secondary to his recent chemotherapy monitoring with plans to transfuse if patient starts bleeding or platelet count falls below 10,000 4. Stage 4 SCLC: completed 5/6 cycles of carboplatin/etopside 5. Diabetes mellitus type 2 patient oral agents held on admission please and Accu-Cheks before meals and at bedtime with sliding scale coverage 6. Paroxysmal A. fib with RVR patient was loaded with digoxin however appears to have not had any effect. Added p.o. Cardizem 30 mg every 6 7. Malignancy hypercoagulability with bilateral LE DVT; Xarelto resumed on 03/01/2018 Remains guarded CODE STATUS: DNR CCA Code Visit Inpatient E&M: 86359 Subs Hosp L3
--- NOTE | 2018-03-01 11:15 | CASEMGMT ---
JOSE called [facility] and left a message for Igor asking her the fax number to send d/c instructions to when patient is d/c. Plan: Return home with resumption of [facility]. Patient has declined home health. Daja KNIGHT MSW
--- NOTE | 2018-03-01 11:31 | CPS ---
PT PLACED BACK ON HIGH FLOW CANNULA AT 8 LPM..NURSE AWARE OF CHANGE
[2018-03-01 11:51] LABS: Bedside Glucose 129 mg/dL (70-110)
[2018-03-01] MEDS: dilTIAZem 30 MG Tablet PO ×2 (12:15→17:24)
[2018-03-01] MEDS: Ipratropium 0.5 MG/2.5 ML SOLUTION INHALATION ×3 (14:39→22:30)
[2018-03-01 16:51] LABS: Bedside Glucose 158 mg/dL (70-110)
[2018-03-01] MEDS: Magnesium Hydroxide 30 ML UDC PO (17:33)
[2018-03-01] MEDS: Glucerna Shake 120 ML LIQUID PO (20:44)
[2018-03-01] MEDS: Mirtazapine 15 MG Tablet 7.5 MG PO (20:44)
[2018-03-01] MEDS: Atorvastatin Calcium 40 MG Tablet PO (20:55)
--- NOTE | 2018-03-01 21:50 | CPS ---
pt refusing duoderm for his nose. trying gauze pad on instead. Increased FiO2 to 55%
[2018-03-02] VITALS (29 sets, daily range): BP systolic 88–118; BP diastolic 57–87; PULSE 69–105; RESP 12–20; TEMP 36.4–37.1; O2SAT 81–98
[2018-03-02] MEDS: Ipratropium 0.5 MG/2.5 ML SOLUTION INHALATION ×4 (03:13→15:10)
[2018-03-02] MEDS: dilTIAZem 60 MG Tablet PO ×4 (05:25→23:14)
[2018-03-02] MEDS: Levothyroxine 25 MCG TABLET PO (05:27)
[2018-03-02] MEDS: Divalproex Sodium 250 MG Tablet 500 MG PO ×3 (05:29→21:44)
[2018-03-02] MEDS: oxyCODONE 5 MG Tablet PO ×4 (05:44→21:59)
[2018-03-02 05:51] LABS: Hematocrit 26.5 % (40-54); Hemoglobin 8.2 g/dl (13.0-16.5); Mean Corp Hgb Conc 30.9 g/gl (32-36); Mean Corpuscular Hgb 30.9 pg (27.0-32.0); Mean Platelet Vol. 9.5 fl (6.2-12.0); Platelet Count 61 K/mm3 (150-450); RBC Distribution Width CV 18.6 % (11.6-14.6); RBC Distribution Width SD 59.5 fl (35.1-43.9); Red Blood Count 2.65 M/mm3 (4.6-6.2); White Blood Count 14.7 K/mm3 (4.4-11.0)
[2018-03-02 06:28] LABS: Neutrophil-Segmented 72 % (47-70); Total Cells Counted 100 (MANUAL DIFF)
[2018-03-02 06:29] LABS: Lymphocyte 22 % (19-41); Metamyelocyte 1 % (0-1); Monocyte 4 % (0-10); Myelocyte 1 (0-0)
[2018-03-02 06:30] LABS: Differential Indicated MANUAL DIFF; POSITIVE COUNT YES; POSITIVE DIFFERENTIAL NO; POSITIVE MORPHOLOGY YES
[2018-03-02 06:32] LABS: Absolute Lymphocyte Count 3.23 X10^3/ul (0.83-4.51); Absolute Neutrophil Count 10.6 X10^3/uL (2.0-7.7)
--- NOTE | 2018-03-02 06:35 | PCM.PROGNOTE ---
Patient Problems: Active and Suspected Problems (Last Updated 03/01/18 @ 08:24 by Zarina Godoy, COIN MACHINE SERVICER REPAIRER-C) Chest pain (Acute) Acute blood loss anemia (Acute) Thrombocytopenia (Acute) Gram-negative pneumonia (Acute) Pneumonia (Acute) Subjective: The patient was seen and examined at the bedside this morning. Events from the last 24 hours have been reviewed. The patient is currently afebrile, hemodynamically stable and maintaining appropriate oxygen saturations on BiPAP. The patient's significant other is present at the bedside. Despite his high supplemental oxygen requirement, the patient denies the presence of resting shortness of breath. He continues to have a cough and has occasionally coughed up small amounts of clotted blood. Repeat plain film chest x-ray obtained this morning revealed continued left hemithorax airspace opacifications with interval improvement of the right-sided airspace disease. Objective: The patient's most recent lab work, culture data and imaging studies have all been personally reviewed. Sputum culture was positive for MSSA. Strep and urine Legionella antigens were both negative. Respiratory viral panel was negative. Surface echocardiogram from November 2017 revealed normal LV size and thickness with an ejection fraction of 65%. Right ventricular systolic pressure was estimated to be 43 mmHg. - Physical Exam General: Alert, Cooperative, No apparent distress, - - Currently tolerating BiPAP. HEENT: Atraumatic, PERRLA, Normocephalic Oral: Dry Mucosa Neck: Supple, No Nodes, Trachea Midline Lungs: - - Diminished. Bilateral rales, left greater than right. Cardiovascular: Regular rate, Regular Rhythm, Normal S1, Normal S2, No murmurs Abdomen: Bowel Sounds Present, Soft, Non Tender, Non-Distended Extremities: No clubbing, No cyanosis, - - Bilateral lower extremity edema present Skin: No breakdown Musculoskeletal: No Tenderness to Palpation of Joints or Extremities Lymphatic: No Cervical, Supraclavicular, or Inguinal Adenopathy Neurological: Neuro grossly intact Psych/Mental Status: Normal Affect, Appropriate Vital Signs Temp Pulse Resp BP Pulse Ox 97.9 F 102 H 20 H 106/62 81 03/02/18 05:00 03/02/18 05:29 03/02/18 05:29 03/02/18 05:29 03/02/18 05:29 Oxygen Flow Rate (L/min) 8 Oxygen Delivery Method Nasal Cannula Weight: 172 lb 2.896 oz Body Mass Index (BMI) 22.8 Intake and Output for Last 24 Hours 02/28/18 03/01/18 03/02/18 23:59 23:59 23:59 Intake Total 1013.7 / 1013.7 2476 / 2476 656 / 656 Output Total 675 / 675 1974 / 1974 200 / 200 Balance 338.7 / 338.7 501 / 501 456 / 456 Laboratory Tests Past 24 Hrs 03/02/18 05:45 WBC 14.7 H RBC 2.65 L Hgb 8.2 L Hct 26.5 L MCV 100.0 H MCH 30.9 MCHC 30.9 L RDW 18.6 H RDW Differential 59.5 H Plt Count 61 L MPV 9.5 Neut % (Auto) Not Reportable Absolute Neuts (auto) 10.6 H Absolute Lymphs (auto) 3.23 Total Counted 100 Neutrophils % (Manual) 72 H Lymphocytes % (Manual) 22 Monocytes % (Manual) 4 Metamyelocytes % 1 Myelocytes % 1 H Diff Path Review March POC Glucose 03/01/18 03/01/18 03/01/18 16:44 11:43 09:43 POC Glucose 158 H 129 H 144 H 03/01/18 06:54 POC Glucose 167 H Clinical Impression(s) from Imaging Studies Chest CTA 02/24/18 13:24 IMPRESSION: No evidence of pulmonary embolus. No evidence of thoracic aortic aneurysm or dissection. Increasing consolidation in the left upper lobe. New bibasilar airspace opacities. This is likely infectious in etiology. The patient's known left upper lobe mass is not well evaluated due to the surrounding consolidated lung parenchyma. New small left pleural effusion. Stable mediastinal lymphadenopathy. Electronically Signed: Suhail Cardona, at 14:52 EDT Tel , Service support , Chest X-Ray 02/26/18 07:12 IMPRESSION: Multifocal pneumonia, sparing only the right upper lobe. Left basilar pleural effusion. Stable appearance and positioning of the right Port-A-Cath. No pneumothorax. Electronically Signed: Akin Smith MD at 9:03 EDT , Service support , Medical Necessity - Tobacco Use Smoking Status: Former smoker Assessment/Plan Active and Suspected Problems (Last Updated 03/01/18 @ 08:24 by Zarina Godoy, COIN MACHINE SERVICER REPAIRER-C) Chest pain (Acute) Acute blood loss anemia (Acute) Thrombocytopenia (Acute) Gram-negative pneumonia (Acute) Pneumonia (Acute) RECOMMENDATIONS: 1. Consider attempts at gentle diuresis 2. Continue p.o. Cardizem 3. Continue scheduled Atrovent aerosols 4. Wean supplemental oxygen as tolerated 5. Continue BiPAP therapy as needed and nightly 6. Continue current antibiotics, per infectious diseases recommendations 7. Monitor blood counts daily. Transfuse if hemoglobin drops below 8 g/dL. 8. Continue Xarelto 9. Check BMP and BNP. IMPRESSIONS: 1. Acute hypoxemic respiratory failure secondary to underlying small cell lung cancer and superimposed multifocal MSSA pneumonia The patient has baseline underlying fibrotic changes and emphysema noted on CT scan. In addition, he has extensive stage small cell lung cancer. All of this is being exacerbated by his current multilobar pneumonia. Sputum culture was positive for MSSA. Continue antibiotics as ordered. Given issues with tachycardia, the patient's duo nebs were discontinued and he was subsequently transition to Atrovent aerosols. Continue scheduled aerosol treatments, as the patient does have a mild obstructive ventilatory impairment on his last PFTs. Wean supplemental oxygen as tolerated. Encourage incentive parameter use and mobilize patient as tolerated. BiPAP to be utilized nightly and as needed. The patient is overall net +5+ L for the admission. His weight is up accordingly. Ideally, would like to diurese the patient with IV Lasix. However, his low normal blood pressures may prove to be a barrier to diuresis. 2. Anemia/thrombocytopenia secondary to chemotherapy The patient's hemoglobin remained stable at greater than 8 g/dL. Platelet count has also improved to greater than 50,000. Continue Xarelto accordingly. Check CBC daily. Transfuse if hemoglobin drops below 8 g/dL. 3. Personal history of extensive stage small cell lung cancer The patient is currently on chemotherapy and being managed by oncology. 4. History of bilateral lower extremity DVTs/paroxysmal atrial fibrillation Continue Xarelto, given that the patient's platelet count has recovered to greater than 50,000. Continue p.o. Cardizem. 5. CODE STATUS DNR CCA without intubation. This note was generated with [employer] dictation software. It may contain incorrect words, spelling, and punctuation that were not noted in checking the note before signing. Code Visit Inpatient E&M: 78298 Subs Hosp L3
--- NOTE | 2018-03-02 07:05 | RAD_ITS ---
STUDY: X-RAY CHEST REASON FOR EXAM: Male, 62 years old. Shortness of breath TECHNIQUE: Single view of the chest was obtained COMPARISON: February 26, 2017 FINDINGS: Reticulonodular opacities in the left lung with patchy airspace opacities again noted. Subtle airspace opacities in the right lung also noted. No evidence of the right lower lobe airspace opacities appear improved since previous examination Cardiac size is stable. Osseous structures demonstrate no acute abnormalities. Emphysematous changes are also seen bilaterally. Small pleural effusions are suspected bilaterally. IMPRESSION: Interval improvement in right lung airspace opacities since previous examination. Persistent reticulonodular opacities and airspace opacities in the left lung. Small bilateral pleural effusions Electronically Signed: Harsha Sue, at 8:14 EDT Tel , Service support , RAD/Chest 1 View (Portable)
[2018-03-02 07:31] LABS: Bedside Glucose 157 mg/dL (70-110)
[2018-03-02] MEDS: Folic Acid 1 MG Tablet PO (08:15)
[2018-03-02] MEDS: 0.9% NaCl VAD Flush 10 ML IV ×2 (08:40→08:41)
[2018-03-02 08:48] LABS: BNP,B-Type NATRIURETIC PEPTIDE 576.9 pg/mL (0-100)
[2018-03-02 09:15] LABS: Anion Gap 7 (5-15); BUN 14 mg/dL (7-18); BUN/Creat Ratio 13.6 RATIO (10-20); Calcium,Total 8.6 mg/dL (8.5-10.1); Chloride 106 mmol/L (98-107); Creatinine, Serum 1.03 mg/dL (0.70-1.30); EST Glomerular Filtration Rate 77 mL/min (>60); Est Glom Filt Rate - Afr Amer 93 mL/min (>60); Estimated Creatinine Clearance 72.45 ml/min; Glucose 154 mg/dL (74-106); Potassium 4.3 mmol/L (3.5-5.1); Sodium Level 146 mmol/L (136-145)
[2018-03-02] MEDS: Metoprolol Tartrate 50 MG Tablet PO ×2 (09:50→21:45)
[2018-03-02] MEDS: guaiFENesin 1,200 MG Tablet 1200 MG PO ×2 (09:51→21:43)
[2018-03-02] MEDS: Senna Tablet 1 TABLET PO ×2 (09:51→21:43)
[2018-03-02] MEDS: Glucerna Shake 120 ML LIQUID PO ×4 (09:55→21:42)
[2018-03-02 12:10] LABS: Bedside Glucose 157 mg/dL (70-110)
[2018-03-02 16:41] LABS: Bedside Glucose 147 mg/dL (70-110)
[2018-03-02] MEDS: Rivaroxaban 20 MG Tablet PO (17:20)
[2018-03-02] MEDS: Mirtazapine 15 MG Tablet 7.5 MG PO (21:43)
[2018-03-02] MEDS: Atorvastatin Calcium 40 MG Tablet PO (21:50)
[2018-03-02 22:01] LABS: Bedside Glucose 134 mg/dL (70-110)
[2018-03-03] VITALS (27 sets, daily range): BP systolic 101–152; BP diastolic 61–97; PULSE 70–148; RESP 12–22; TEMP 36.4–36.8; O2SAT 65–96
[2018-03-03 05:57] LABS: Hematocrit 25.4 % (40-54); Hemoglobin 7.6 g/dl (13.0-16.5); Mean Corp Hgb Conc 29.9 g/gl (32-36); Mean Corpuscular Hgb 31.4 pg (27.0-32.0); Mean Platelet Vol. 9.7 fl (6.2-12.0); Platelet Count 91 K/mm3 (150-450); RBC Distribution Width CV 18.4 % (11.6-14.6); RBC Distribution Width SD 59.4 fl (35.1-43.9); Red Blood Count 2.42 M/mm3 (4.6-6.2); White Blood Count 16.1 K/mm3 (4.4-11.0)
[2018-03-03] MEDS: Levothyroxine 25 MCG TABLET PO (05:59)
[2018-03-03] MEDS: Divalproex Sodium 250 MG Tablet 500 MG PO ×3 (06:00→22:15)
[2018-03-03] MEDS: dilTIAZem 60 MG Tablet PO ×4 (06:00→23:26)
[2018-03-03 06:01] LABS: Differential Indicated MANUAL DIFF; POSITIVE COUNT YES; POSITIVE DIFFERENTIAL NO; POSITIVE MORPHOLOGY YES
--- NOTE | 2018-03-03 06:30 | PCM.PROGNOTE ---
Patient Problems: Active and Suspected Problems (Last Updated 03/01/18 @ 08:24 by Zarina Godoy, WEATHERIZATION INSTALLER-C) Chest pain (Acute) Acute blood loss anemia (Acute) Thrombocytopenia (Acute) Gram-negative pneumonia (Acute) Pneumonia (Acute) Subjective: The patient was seen and examined at the bedside this morning. Events from the last 24 hours have been reviewed. The patient is currently afebrile, hemodynamically stable and maintaining appropriate oxygen saturations on BiPAP with an FiO2 requirement of 65%. The patient is currently overall net +7.4 L for the admission. Patient reports little overall change in his breathing quality since yesterday. Objective: The patient's most recent lab work, culture data and imaging studies have all been personally reviewed. Sputum culture was positive for MSSA. Strep and urine Legionella antigens were both negative. Respiratory viral panel was negative. Surface echocardiogram from November 2017 revealed normal LV size and thickness with an ejection fraction of 65%. Right ventricular systolic pressure was estimated to be 43 mmHg. - Physical Exam General: Alert, Cooperative, No apparent distress, - - Currently tolerating BiPAP therapy. HEENT: Atraumatic, PERRLA, Normocephalic Oral: No Gingival or Mucosal Lesions/ Ulcerations Neck: Supple, No Nodes, Trachea Midline Lungs: Diminished, - - Bilateral rales present. Cardiovascular: Regular rate, Regular Rhythm, Normal S1, Normal S2, No murmurs Abdomen: Bowel Sounds Present, Soft, Non Tender, Non-Distended Extremities: No clubbing, No cyanosis, Edema Skin: No breakdown Musculoskeletal: No Tenderness to Palpation of Joints or Extremities Lymphatic: No Cervical, Supraclavicular, or Inguinal Adenopathy Neurological: Neuro grossly intact Psych/Mental Status: Normal Affect, Appropriate Vital Signs Temp Pulse Resp BP Pulse Ox 97.5 F L 71 12 105/61 92 03/03/18 05:42 03/03/18 05:42 03/03/18 05:42 03/03/18 05:42 03/03/18 05:42 Oxygen Flow Rate (L/min) 15 Oxygen Delivery Method Bi-pap Weight: 175 lb 4.28 oz Body Mass Index (BMI) 22.8 Intake and Output for Last 24 Hours 03/01/18 03/02/18 03/03/18 23:59 23:59 23:59 Intake Total 2476 / 2476 2201 / 2201 784 / 784 Output Total 1974 400 / 400 Balance 501 / 501 1801 / 1801 784 / 784 Laboratory Tests Past 24 Hrs 03/02/18 03/02/18 03/02/18 05:45 05:45 08:40 WBC 14.7 H RBC 2.65 L Hgb 8.2 L Hct 26.5 L MCV 100.0 H MCH 30.9 MCHC 30.9 L RDW 18.6 H RDW Differential 59.5 H Plt Count 61 L MPV 9.5 Neut % (Auto) Not Reportable Absolute Neuts (auto) 10.6 H Absolute Lymphs (auto) 3.23 Total Counted 100 Neutrophils % (Manual) 72 H Lymphocytes % (Manual) 22 Monocytes % (Manual) 4 Metamyelocytes % 1 Myelocytes % 1 H Diff Path Review May foll Sodium 146 H Potassium 4.3 Chloride 106 Carbon Dioxide 33.0 H Anion Gap 7 BUN 14 Creatinine 1.03 Estim Creat Clear Calc 72.45 Est GFR (MDRD) Af Amer 93 Est GFR (MDRD) Non-Af 77 BUN/Creatinine Ratio 13.6 Glucose 154 H Calcium 8.6 B-Natriuretic Peptide 576.9 H 03/03/18 04:50 WBC 16.1 H RBC 2.42 L Hgb 7.6 L Hct 25.4 L MCV 105.0 H MCH 31.4 MCHC 29.9 L RDW 18.4 H RDW Differential 59.4 H Plt Count 91 L MPV 9.7 Neut % (Auto) Not Reportable Absolute Neuts (auto) Not Reportable Absolute Lymphs (auto) Total Counted Pending Neutrophils % (Manual) Lymphocytes % (Manual) Monocytes % (Manual) Metamyelocytes % Myelocytes % Diff Path Review Sodium Potassium Chloride Carbon Dioxide Anion Gap BUN Creatinine Estim Creat Clear Calc Est GFR (MDRD) Af Amer Est GFR (MDRD) Non-Af BUN/Creatinine Ratio Glucose Calcium B-Natriuretic Peptide POC Glucose 03/02/18 03/02/18 03/02/18 21:34 16:33 11:30 POC Glucose 134 H 147 H 157 H 03/02/18 07:27 POC Glucose 157 H Clinical Impression(s) from Imaging Studies Chest CTA 02/24/18 13:24 IMPRESSION: No evidence of pulmonary embolus. No evidence of thoracic aortic aneurysm or dissection. Increasing consolidation in the left upper lobe. New bibasilar airspace opacities. This is likely infectious in etiology. The patient's known left upper lobe mass is not well evaluated due to the surrounding consolidated lung parenchyma. New small left pleural effusion. Stable mediastinal lymphadenopathy. Electronically Signed: Suhail Dodsonrafaelmeliza, at 14:52 EDT Tel , Service support , Chest X-Ray 02/26/18 07:12 IMPRESSION: Multifocal pneumonia, sparing only the right upper lobe. Left basilar pleural effusion. Stable appearance and positioning of the right Port-A-Cath. No pneumothorax. Electronically Signed: Akin Smith MD at 9:03 EDT , Service support , Chest X-Ray 03/02/18 07:05 Medical Necessity - Tobacco Use Smoking Status: Former smoker Assessment/Plan Active and Suspected Problems (Last Updated 03/01/18 @ 08:24 by Zarina Godoy, WEATHERIZATION INSTALLER-C) Chest pain (Acute) Acute blood loss anemia (Acute) Thrombocytopenia (Acute) Gram-negative pneumonia (Acute) Pneumonia (Acute) RECOMMENDATIONS: 1. Consider attempts at gentle diuresis. IV Lasix will be administered this morning. If tolerated by hemodynamics, recommend repeating dose this afternoon. 2. Continue p.o. Cardizem 3. Continue scheduled Atrovent aerosols 4. Wean supplemental oxygen as tolerated 5. Continue BiPAP therapy as needed and nightly 6. Continue current antibiotics, per infectious diseases recommendations 7. Monitor blood counts daily. 8. Continue Xarelto. IMPRESSIONS: 1. Acute hypoxemic respiratory failure secondary to underlying small cell lung cancer and superimposed multifocal MSSA pneumonia The patient has baseline underlying fibrotic changes and emphysema noted on CT scan. In addition, he has extensive stage small cell lung cancer. All of this is being exacerbated by his current multilobar pneumonia. Sputum culture was positive for MSSA. Continue antibiotics as ordered. Given issues with tachycardia, the patient's duo nebs were discontinued and he was subsequently transition to Atrovent aerosols. Continue scheduled aerosol treatments, as the patient does have a mild obstructive ventilatory impairment on his last PFTs. Wean supplemental oxygen as tolerated. Encourage incentive parameter use and mobilize patient as tolerated. BiPAP to be utilized nightly and as needed. The patient is overall net +7 L for the admission. His weight is up accordingly. Ideally, would like to diurese the patient with IV Lasix. However, his low normal blood pressures may prove to be a barrier to diuresis. IV Lasix will be administered this morning and depending impact on hemodynamics, may need to be redosed this afternoon. 2. Anemia/thrombocytopenia secondary to chemotherapy Platelet count has also improved to greater than 50,000. Continue Xarelto accordingly. Check CBC daily. Transfuse if hemoglobin drops below 8 g/dL. 3. Personal history of extensive stage small cell lung cancer The patient is currently on chemotherapy and being managed by oncology. 4. History of bilateral lower extremity DVTs/paroxysmal atrial fibrillation Continue Xarelto, given that the patient's platelet count has recovered to greater than 50,000. Continue p.o. Cardizem. 5. CODE STATUS DNR CCA without intubation. This note was generated with [employer] dictation software. It may contain incorrect words, spelling, and punctuation that were not noted in checking the note before signing. Code Visit Inpatient E&M: 25534 Subs Hosp L2
[2018-03-03] MEDS: Ipratropium 0.5 MG/2.5 ML SOLUTION INHALATION ×3 (07:05→18:48)
[2018-03-03] MEDS: Furosemide 40 MG/4 ML Vial IV (07:18)
[2018-03-03] MEDS: 0.9% NaCl VAD Flush 10 ML IV (07:19)
[2018-03-03 07:31] LABS: Bedside Glucose 120 mg/dL (70-110)
[2018-03-03 07:38] LABS: Lymphocyte 9 % (19-41); Metamyelocyte 2 % (0-1); Monocyte 3 % (0-10); Myelocyte 6 (0-0); Neutrophil-Band 5 % (0-5); Neutrophil-Segmented 75 % (47-70); Total Cells Counted 100 (MANUAL DIFF)
[2018-03-03 07:39] LABS: Anisocytosis 1+; Basophilic Stippling 1+; Hypochromasia 2+; Platelet Estimate MOD DEC (ADEQ)
[2018-03-03 07:42] LABS: Absolute Lymphocyte Count 1.45 X10^3/ul (0.83-4.51); Absolute Neutrophil Count 12.9 X10^3/uL (2.0-7.7)
--- NOTE | 2018-03-03 08:29 | PCM.PN.HOSP ---
Patient Problems: Active and Suspected Problems (Last Updated 03/01/18 @ 08:24 by Zarina Godoy, BUNGY JUMP MASTER-C) Chest pain (Acute) Acute blood loss anemia (Acute) Thrombocytopenia (Acute) Gram-negative pneumonia (Acute) Pneumonia (Acute) Subjective: Patient is seen still remains significantly dyspneic at rest currently on BiPAP. Also complains of not having had a bowel movement in 5 days Objective: GENERAL: Dyspneic at rest HEENT: Clear conjunctiva, NECK; supple, normal thyroid, CHEST: Diminished to auscultation bilaterally, with crackles on the right HEART: Irregular S1 S2, no audible murmurs ABDOMEN: soft, non-tender, normoactive bowel sounds, RECTAL: deferred EXTREMITIES: José Miguel edema, TUMBLER PLATER: Awake, no lateralizing signs. SKIN: No rash Vitals/I&O's: Vital Signs Temp Pulse Resp BP Pulse Ox 97.8 F 78 12 132/63 H 65 03/03/18 08:16 03/03/18 08:16 03/03/18 08:16 03/03/18 08:16 03/03/18 08:18 Oxygen Flow Rate (L/min) 15 Oxygen Delivery Method Bi-pap Weight: 78.6 kg Body Mass Index (BMI) 22.8 Intake and Output for Last 24 Hours 03/01/18 03/02/18 03/03/18 23:59 23:59 23:59 Intake Total 2476 / 2476 2201 / 2201 1004 / 1004 Output Total 1974 / 1974 400 / 400 Balance 501 / 501 1801 / 1801 1004 / 1004 Laboratory Results 03/02/18 05:45: B-Natriuretic Peptide 576.9 H 03/02/18 08:40: Sodium 146 H, Potassium 4.3, Chloride 106, Carbon Dioxide 33.0 H, Anion Gap 7, BUN 14, Creatinine 1.03, Estim Creat Clear Calc 72.45, Est GFR (MDRD) Af Amer 93, Est GFR (MDRD) Non-Af 77, BUN/Creatinine Ratio 13.6, Glucose 154 H, Calcium 8.6 03/02/18 11:30: POC Glucose 157 H 03/02/18 16:33: POC Glucose 147 H 03/02/18 21:34: POC Glucose 134 H 03/03/18 04:50: WBC 16.1 H, RBC 2.42 L, Hgb 7.6 L, Hct 25.4 L, MCV 105.0 H, MCH 31.4, MCHC 29.9 L, RDW 18.4 H, RDW Differential 59.4 H, Plt Count 91 L, MPV 9.7, Neut % (Auto) Not Reportable, Absolute Neuts (auto) 12.9 H, Absolute Lymphs (auto) 1.45, Total Counted 100, Neutrophils % (Manual) 75 H, Band Neutrophils % 5, Lymphocytes % (Manual) 9 L, Monocytes % (Manual) 3, Metamyelocytes % 2 H, Myelocytes % 6 H, Diff Path Review March, Platelet Estimate MOD DEC, Hypochromasia 2+, Basophilic Stippling 1+, Anisocytosis 1+ 03/03/18 07:17: POC Glucose 120 H Current Medications Acetaminophen (Tylenol) 650 mg PO Q4H PRN PRN PRN Reason: FEVER Atorvastatin Calcium (Lipitor) 40 mg PO QHS [facility] Last Admin: 03/02/18 21:50 Dose: 40 mg Dextrose (D50w Syringe) 0 gm IV X1 PRN; Protocol PRN Reason: Hypoglycemia Diltiazem HCl (Cardizem) 60 mg PO Q6 [facility] Last Admin: 03/03/18 06:00 Dose: 60 mg Divalproex Sodium (Depakote) 500 mg PO TID [facility] Last Admin: 03/03/18 06:00 Dose: 500 mg Folic Acid (Folic Acid) 1 mg PO DAILY@0800 [facility] Last Admin: 03/02/18 08:15 Dose: 1 mg Furosemide (Lasix) 20 mg PO BID@1000,1800 [facility] Glucagon () 1 mg IM .X1 PRN PRN Reason: Hypoglycemia Guaifenesin (Mucinex) 1,200 mg PO BID [facility] Last Admin: 03/02/18 21:43 Dose: 1,200 mg Heparin Sodium (Beef Lung) (Heparin 500 Unit/5 Ml (100/Ml)) 500 unit IV UD PRN PRN Reason: HEPARIN FLUSH Sodium Chloride () 250 mls @ 15 mls/hr IV .[id number] PRN PRN Reason: SALINE FLUSH Last Admin: 03/01/18 23:58 Dose: 15 mls/hr Ampicillin Sodium/Sulbactam (Sodium 3 gm/ Sodium Chloride) 112 mls @ 150 mls/hr IV Q6 [facility] Last Admin: 03/03/18 07:18 Dose: 150 mls/hr Insulin Aspart (Novolog Flexpen (Bkc)) 0 units SC TIDAC [facility] PRN Reason: Protocol Last Admin: 03/03/18 07:53 Dose: Not Given Ipratropium Allamuchy (Atrovent) 0.5 mg INHALATION Q4H.RT [facility] Last Admin: 03/03/18 07:06 Dose: 0.5 mg Levothyroxine Sodium (Synthroid) 25 mcg PO DAILY@0600 [facility] Last Admin: 03/03/18 05:59 Dose: 25 mcg Magnesium Hydroxide (Milk Of Magnesia) 30 ml PO DAILY PRN PRN PRN Reason: Constipation Last Admin: 03/01/18 17:33 Dose: 30 ml Metoprolol Tartrate (Lopressor (Beta Raina)) 50 mg PO BID [facility] Last Admin: 03/02/18 21:45 Dose: 50 mg Mirtazapine (Remeron) 7.5 mg PO QHS [facility] Last Admin: 03/02/18 21:43 Dose: 7.5 mg Nutritional Formula (Lactose Free) (Glucerna Shake) 120 ml PO 4X/DAY [facility] Last Admin: 03/02/18 21:42 Dose: 120 ml Ondansetron HCl (Zofran) 4 mg IV Q8H PRN PRN PRN Reason: NAUSEA Ondansetron HCl (Zofran Odt) 4 mg PO Q8H PRN PRN Reason: NAUSEA Oxycodone HCl (Oxyir) 5 - 10 mg PO Q4H PRN PRN PRN Reason: SEVERE PAIN (6-10/10) Last Admin: 03/02/18 21:59 Dose: 10 mg Rivaroxaban (Xarelto) 20 mg PO DAILY@1700 [facility] Last Admin: 03/02/18 17:20 Dose: 20 mg Senna (Senokot) 1 tablet PO BID [facility] Last Admin: 03/02/18 21:43 Dose: 1 tablet Sodium Chloride () 10 ml IV UD PRN PRN Reason: VAD FLUSH Last Admin: 03/03/18 07:19 Dose: 10 ml Medical Necessity - Tobacco Use Smoking Status: Former smoker Assessment/Plan Active and Suspected Problems (Last Updated 03/01/18 @ 08:24 by Zarina E Walt, BUNGY JUMP MASTER-C) Chest pain (Acute) Acute blood loss anemia (Acute) Thrombocytopenia (Acute) Gram-negative pneumonia (Acute) Pneumonia (Acute) Patient is a 62-year-old gentleman with stage IV small cell lung CA on chemotherapy presented with progressive generalized weakness. Found to be anemic on admission with hemoglobin of 6.4. He was also thrombocytopenic with platelet count of 16; imaging studies was questionable for suspected pneumonia admitted to a monitored bed where patient has since been managed 1. Acute hypoxic respiratory failure secondary to patient underlying lung CA as well as his pneumonia with staph aureus patient managed with Zosyn as well as vancomycin initially and later switched to Unasyn. In addition to high flow oxygen with consultation placed a pulmonary medicine and ID consultation on 02/26/2018 2. MSSA pneumonia management as discussed above. 3. Anemia secondary to chemotherapy-induced anemia patient has received a total of 3 units PRBC since his admission. 4. Stage 4 SCLC: completed 5/6 cycles of carboplatin/etopside patient is followed by Dr. Hubbard 5. Diabetes mellitus type 2 patient oral agents held on admission please and Accu-Cheks before meals and at bedtime with sliding scale coverage 6. Paroxysmal A. fib with RVR patient was loaded with digoxin however appears to have not had any effect. Digoxin subsequently discontinued and initiated Cardizem 30 mg every 6 7. Malignancy hypercoagulability with bilateral LE DVT; Xarelto resumed on 03/01/2018 8. Constipation treated symptomatically 9. Acute on chronic diastolic congestive heart failure Lasix initiated following stabilization of his blood pressure. Echo obtained on 11/08/2017 demonstrated EF of 65% with RVSP of 43 mmHg 10. Pulmonary hypertension with RVSP of 43 mmHg. 11. Thrombocytopenia again secondary to his recent chemotherapy resolved 12. DVT prophylaxis patient on Xarelto Remains guarded CODE STATUS: DNR CCA Code Visit Inpatient E&M: 19365 Subs Hosp L3
--- NOTE | 2018-03-03 08:34 | PN_ITS ---
Patient Problems: Active and Suspected Problems (Last Updated 03/01/18 @ 08:24 by Zarina Godoy , GROUP PRODUCT MANAGER-C) Chest pain (Acute) Acute blood loss anemia (Acute) Thrombocytopenia (Acute) Gram-negative pneumonia (Acute) Pneumonia (Acute) Subjective: Patient is seen still remains significantly dyspneic at rest currently on BiPAP. 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 SKIN: No rash Vitals/I&O's: Vital Signs Temp Pulse Resp BP Pulse Ox 97.8 F 78 12 132/63 H 65 03/03/18 08:16 03/03/18 08:16 03/03/18 08:16 03/03/18 08:16 03/03/18 08:18 Oxygen Flow Rate (L/min) 15 Oxygen Delivery Method Bi-pap Weight: 78.6 kg Body Mass Index (BMI) 22.8 Intake and Output for Last 24 Hours 03/01/18 03/02/18 03/03/18 23:59 23:59 23:59 Intake Total 2476 / 2476 2201 / 2201 1004 / 1004 Output Total 1974 / 1974 400 / 400 Balance 501 / 501 1801 / 1801 1004 / 1004 Laboratory Results 03/02/18 05:45: B-Natriuretic Peptide 576.9 H 03/02/18 08:40: Sodium 146 H, Potassium 4.3, Chloride 106, Carbon Dioxide 33.0 H , Anion Gap 7, BUN 14, Creatinine 1.03, Estim Creat Clear Calc 72.45, Est GFR ( MDRD) Af Amer 93, Est GFR (MDRD) Non-Af 77, BUN/Creatinine Ratio 13.6, Glucose 154 H, Calcium 8.6 03/02/18 11:30: POC Glucose 157 H 03/02/18 16:33: POC Glucose 147 H 03/02/18 21:34: POC Glucose 134 H 03/03/18 04:50: WBC 16.1 H, RBC 2.42 L, Hgb 7.6 L, Hct 25.4 L, MCV 105.0 H, MCH 31.4, MCHC 29.9 L, RDW 18.4 H, RDW Differential 59.4 H, Plt Count 91 L, MPV 9.7 , Neut % (Auto) Not Reportable, Absolute Neuts (auto) 12.9 H, Absolute Lymphs ( auto) 1.45, Total Counted 100, Neutrophils % (Manual) 75 H, Band Neutrophils % 5 , Lymphocytes % (Manual) 9 L, Monocytes % (Manual) 3, Metamyelocytes % 2 H, Myelocytes % 6 H, Diff Path Review March, Platelet Estimate MOD DEC, Hypochromasia 2+, Basophilic Stippling 1+, Anisocytosis 1+ 03/03/18 07:17: POC Glucose 120 H Current Medications Acetaminophen (Tylenol) 650 mg PO Q4H PRN PRN PRN Reason: FEVER Atorvastatin Calcium (Lipitor) 40 mg PO QHS [facility] Last Admin: 03/02/18 21:50 Dose: 40 mg Dextrose (D50w Syringe) 0 gm IV X1 PRN; Protocol PRN Reason: Hypoglycemia Diltiazem HCl (Cardizem) 60 mg PO Q6 VICKIE Last Admin: 03/03/18 06:00 Dose: 60 mg Divalproex Sodium (Depakote) 500 mg PO TID [facility] Last Admin: 03/03/18 06:00 Dose: 500 mg Folic Acid (Folic Acid) 1 mg PO DAILY@0800 [facility] Last Admin: 03/02/18 08:15 Dose: 1 mg Furosemide (Lasix) 20 mg PO BID@1000,1800 [facility] Glucagon () 1 mg IM .X1 PRN PRN Reason: Hypoglycemia Guaifenesin (Mucinex) 1,200 mg PO BID [facility] Last Admin: 03/02/18 21:43 Dose: 1,200 mg Heparin Sodium (Beef Lung) (Heparin 500 Unit/5 Ml (100/Ml)) 500 unit IV UD PRN PRN Reason: HEPARIN FLUSH Sodium Chloride () 250 mls @ 15 mls/hr IV .[id number] PRN PRN Reason: SALINE FLUSH Last Admin: 03/01/18 23:58 Dose: 15 mls/hr Ampicillin Sodium/Sulbactam (Sodium 3 gm/ Sodium Chloride) 112 mls @ 150 mls/ hr IV Q6 [facility] Last Admin: 03/03/18 07:18 Dose: 150 mls/hr Insulin Aspart (Novolog Flexpen (Bkc)) 0 units SC TIDAC [facility] PRN Reason: Protocol Last Admin: 03/03/18 07:53 Dose: Not Given Ipratropium [place] (Atrovent) 0.5 mg INHALATION Q4H.RT [facility] Last Admin: 03/03/18 07:06 Dose: 0.5 mg Levothyroxine Sodium (Synthroid) 25 mcg PO DAILY@0600 [facility] Last Admin: 03/03/18 05:59 Dose: 25 mcg Magnesium Hydroxide (Milk Of Magnesia) 30 ml PO DAILY PRN PRN PRN Reason: Constipation Last Admin: 03/01/18 17:33 Dose: 30 ml Metoprolol Tartrate (Lopressor (Beta Raina)) 50 mg PO BID [facility] Last Admin: 03/02/18 21:45 Dose: 50 mg Mirtazapine (Remeron) 7.5 mg PO QHS [facility] Last Admin: 03/02/18 21:43 Dose: 7.5 mg Nutritional Formula (Lactose Free) (Glucerna Shake) 120 ml PO 4X/DAY [facility] Last Admin: 03/02/18 21:42 Dose: 120 ml Ondansetron HCl (Zofran) 4 mg IV Q8H PRN PRN PRN Reason: NAUSEA Ondansetron HCl (Zofran Odt) 4 mg PO Q8H PRN PRN Reason: NAUSEA Oxycodone HCl (Oxyir) 5 - 10 mg PO Q4H PRN PRN PRN Reason: SEVERE PAIN (6-10/10) Last Admin: 03/02/18 21:59 Dose: 10 mg Rivaroxaban (Xarelto) 20 mg PO DAILY@1700 [facility] Last Admin: 03/02/18 17:20 Dose: 20 mg Senna (Senokot) 1 tablet PO BID [facility] Last Admin: 03/02/18 21:43 Dose: 1 tablet Sodium Chloride () 10 ml IV UD PRN PRN Reason: VAD FLUSH Last Admin: 03/03/18 07:19 Dose: 10 ml Medical Necessity - Tobacco Use Smoking Status: Former smoker Assessment/Plan Active and Suspected Problems (Last Updated 03/01/18 @ 08:24 by Zarina E Walt , GROUP PRODUCT MANAGER-C) Chest pain (Acute) Acute blood loss anemia (Acute) Thrombocytopenia (Acute) Gram-negative pneumonia (Acute) Pneumonia (Acute) Patient is a 62-year-old gentleman with stage IV small cell lung CA on chemotherapy presented with progressive generalized weakness. Found to be anemic on admission with hemoglobin of 6.4. He was also thrombocytopenic with platelet count of 16; imaging studies was questionable for suspected pneumonia admitted to a monitored bed where patient has since been managed 1. Acute hypoxic respiratory failure secondary to patient underlying lung CA as well as his pneumonia with staph aureus patient managed with Zosyn as well as vancomycin initially and later switched to Unasyn. In addition to high flow oxygen with consultation placed a pulmonary medicine and ID consultation on 02/26 2. MSSA pneumonia management as discussed above. 3. Anemia secondary to chemotherapy-induced anemia patient has received a total of 3 units PRBC since his admission. 4. Stage 4 SCLC: completed 5/6 cycles of carboplatin/etopside patient is followed by Dr. Hubbard 5. Diabetes mellitus type 2 patient oral agents held on admission please and Accu-Cheks before meals and at bedtime with sliding scale coverage 6. Paroxysmal A. fib with RVR patient was loaded with digoxin however appears to have not had any effect. Digoxin subsequently discontinued and initiated Cardizem 30 mg every 6 7. Malignancy hypercoagulability with bilateral LE DVT; Xarelto resumed on 03/01 8. Constipation treated symptomatically 9. Acute on chronic diastolic congestive heart failure Lasix initiated following stabilization of his blood pressure. Echo obtained on 11/08/2017 demonstrated EF of 65% with RVSP of 43 mmHg 10. Pulmonary hypertension with RVSP of 43 mmHg. 11. Thrombocytopenia again secondary to his recent chemotherapy resolved 12. DVT prophylaxis patient on Xarelto Remains guarded CODE STATUS: DNR CCA Code Visit Inpatient E&M: 31302 Subs Hosp L3
[2018-03-03] MEDS: Metoprolol Tartrate 50 MG Tablet PO ×2 (09:19→22:16)
[2018-03-03] MEDS: Senna Tablet 1 TABLET PO ×2 (09:19→22:16)
[2018-03-03] MEDS: Glucerna Shake 120 ML LIQUID PO ×2 (09:19→15:35)
[2018-03-03] MEDS: Folic Acid 1 MG Tablet PO (09:19)
[2018-03-03] MEDS: guaiFENesin 1,200 MG Tablet 1200 MG PO ×2 (09:19→22:16)
[2018-03-03] MEDS: Furosemide 20 MG Tablet PO ×2 (09:19→17:03)
[2018-03-03] MEDS: oxyCODONE 5 MG Tablet PO (10:59)
[2018-03-03] MEDS: Magnesium Citrate 300 ML PO (10:59)
[2018-03-03 12:26] LABS: Bedside Glucose 204 mg/dL (70-110)
[2018-03-03 16:21] LABS: Bedside Glucose 129 mg/dL (70-110)
[2018-03-03] MEDS: Rivaroxaban 20 MG Tablet PO (17:03)
[2018-03-03] MEDS: Mirtazapine 15 MG Tablet 7.5 MG PO (22:16)
[2018-03-03] MEDS: Atorvastatin Calcium 40 MG Tablet PO (22:20)
[2018-03-03 23:35] LABS: Bedside Glucose 144 mg/dL (70-110)
[2018-03-04] VITALS (28 sets, daily range): BP systolic 98–118; BP diastolic 52–84; PULSE 73–108; RESP 12–24; TEMP 36.3–37.1; O2SAT 88–94
[2018-03-04] MEDS: Levothyroxine 25 MCG TABLET PO (06:04)
[2018-03-04] MEDS: Divalproex Sodium 250 MG Tablet 500 MG PO ×3 (06:04→22:25)
[2018-03-04] MEDS: dilTIAZem 60 MG Tablet PO ×4 (06:06→23:50)
[2018-03-04] MEDS: Ipratropium 0.5 MG/2.5 ML SOLUTION INHALATION ×5 (06:47→23:18)
[2018-03-04 07:25] LABS: Bedside Glucose 149 mg/dL (70-110)
--- NOTE | 2018-03-04 08:19 | PCM.PROGNOTE ---
Patient Problems: Active and Suspected Problems (Last Updated 03/01/18 @ 08:24 by Zarina Godoy, SCOOP MACHINE OPERATOR-C) Chest pain (Acute) Acute blood loss anemia (Acute) Thrombocytopenia (Acute) Gram-negative pneumonia (Acute) Pneumonia (Acute) Subjective: Patient was seen and examined. He is currently requiring a nonrebreather and is saturating between 88 and 92%. He complains of some shortness of breath. He is on continuous pulse oximeter and is desaturating into the 70s-80s with any movement. He is sitting in the chair with his legs dependent, edema is 4-5+ pitting. Objective: Recent lab and culture data reviewed. Sputum culture positive for MSSA. Urine strep and Legionella antigens negative. Respiratory viral panel negative. Chest x-ray from 03/02 showing interval improvement in the right lung airspace opacities since previous examination on 02/26. There is persistent reticulonodular opacities and airspace opacities in the left lung and small bilateral pleural effusions. - Physical Exam General: Alert, Oriented x3, Cooperative, - - conversational dyspnea HEENT: Atraumatic, Normocephalic Oral: Dry Mucosa Neck: Supple, Trachea Midline Lungs: No rhonchi, No wheeze, Diminished, Rales - bilateral Cardiovascular: Regular rate, Regular Rhythm, Normal S1, Normal S2, No murmurs, No rub noted, No Gallop, Tachycardic - intermittent Abdomen: Bowel Sounds Present, Soft, Non Tender, Non-Distended Extremities: No clubbing, No cyanosis, Edema - 4-5+ pitting bilat LEs Skin: - - L hand IV infiltration, improved. Still firm, less sore. scattered ecchymosis to UEs Musculoskeletal: No Tenderness to Palpation of Joints or Extremities Neurological: Neuro grossly intact Psych/Mental Status: Alert and oriented to time, place, person, mood and affect Vital Signs Temp Pulse Resp BP Pulse Ox 98.2 F 89 20 H 112/52 L 88 03/04/18 05:52 03/04/18 07:13 03/04/18 06:47 03/04/18 05:52 03/04/18 06:47 Oxygen Flow Rate (L/min) 15 Oxygen Delivery Method Non-Rebreather Weight: 172 lb 6.424 oz Body Mass Index (BMI) 22.8 Intake and Output for Last 24 Hours 03/02/18 03/03/18 03/04/18 23:59 23:59 23:59 Intake Total 2201 / 2201 2333 / 2333 120 / 120 Output Total 400 / 400 2024 300 / 300 Balance 1801 / 1801 308 / 308 -180 / -180 POC Glucose 03/04/18 03/03/18 03/03/18 06:54 21:53 16:14 POC Glucose 149 H 144 H 129 H 03/03/18 11:09 POC Glucose 204 H Medical Necessity - Tobacco Use Smoking Status: Former smoker Assessment/Plan Active and Suspected Problems (Last Updated 03/01/18 @ 08:24 by Zarina Godoy, SCOOP MACHINE OPERATOR-C) Chest pain (Acute) Acute blood loss anemia (Acute) Thrombocytopenia (Acute) Gram-negative pneumonia (Acute) Pneumonia (Acute) RECOMMENDATIONS: 1. Additional diuresis if hemodynamically stable 2. Continue p.o. Cardizem 3. Continue scheduled Atrovent aerosols 4. Wean supplemental oxygen as tolerated 5. Continue BiPAP therapy as needed and nightly 6. Continue antibiotics per ID, plans to discontinue 03/05 7. Monitor blood counts daily, continue Xarelto 8. Recommend hospice, however patient has declined IMPRESSIONS: 1. Acute hypoxemic respiratory failure secondary to underlying small cell lung cancer and superimposed multifocal MSSA pneumonia The patient has baseline underlying fibrotic changes and emphysema noted on CT scan. In addition, he has extensive stage small cell lung cancer. All of this is being exacerbated by his current multilobar pneumonia. Sputum culture was positive for MSSA. Continue antibiotics per ID recommendations. Given issues with tachycardia, the patient's duo nebs were discontinued and he was subsequently transition to Atrovent aerosols. Tachycardia improved. Continue scheduled aerosol treatments, as the patient does have a mild obstructive ventilatory impairment on his last PFTs. Wean supplemental oxygen as tolerated. Encourage incentive parameter use and mobilize patient as tolerated. BiPAP to be utilized nightly and as needed. The patient is still >6L + for the admission. His weight is up accordingly. Ideally, would like to continue to diurese with IV Lasix, depending upon blood pressures. 03/04 He has a very poor overall prognosis, which has been conveyed to the patient and his significant other. His respiratory status continues to wax and wane, however he is still requiring a high amount of O2 at rest, currently NRB. Significant LE edema, needs further diuresed. 2. Anemia/thrombocytopenia secondary to chemotherapy Platelet count improved to greater than 50,000. Continue Xarelto accordingly. Check CBC daily. Recommend transfusing if hemoglobin drops below 8 g/dL. 3. Personal history of extensive stage small cell lung cancer The patient is currently on chemotherapy and being managed by oncology. 4. History of bilateral lower extremity DVTs/paroxysmal atrial fibrillation Continue Xarelto, given that the patient's platelet count has recovered to greater than 50,000. Continue p.o. Cardizem. 5. CODE STATUS DNR CCA without intubation. Has previous Palliative care. Hospice was recommended, however patient declining at this time. This note was generated with [employer] dictation software. It may contain incorrect words, spelling, and punctuation that were not noted in checking the note before signing.
[2018-03-04] MEDS: Metoprolol Tartrate 50 MG Tablet PO ×2 (09:48→22:24)
[2018-03-04] MEDS: Folic Acid 1 MG Tablet PO (09:48)
[2018-03-04] MEDS: Furosemide 20 MG Tablet PO ×2 (09:49→17:59)
[2018-03-04] MEDS: Senna Tablet 1 TABLET PO ×2 (09:49→22:24)
[2018-03-04] MEDS: guaiFENesin 1,200 MG Tablet 1200 MG PO ×2 (10:38→22:24)
[2018-03-04 11:26] LABS: Bedside Glucose 190 mg/dL (70-110)
--- NOTE | 2018-03-04 11:26 | PN.ID_ITS ---
Patient Problems: Active and Suspected Problems (Last Updated 03/01/18 @ 08:24 by Zarina Godoy , CONSTRUCTION TRADES TEACHER-C) Chest pain (Acute) Acute blood loss anemia (Acute) Thrombocytopenia (Acute) Gram-negative pneumonia (Acute) Pneumonia (Acute) Subjective: Still some SOB. No fever, no n/v. - Physical Exam General: Alert, Cooperative Lungs: Diminished Cardiovascular: Regular rate, Regular Rhythm Abdomen: Soft, Non Tender, Non-Distended Extremities: Edema Skin: No rashes Vital Signs Temp Pulse Resp BP Pulse Ox 98.7 F 84 22 H 107/62 88 03/04/18 09:40 03/04/18 11:05 03/04/18 09:40 03/04/18 09:40 03/04/18 09:40 Oxygen Flow Rate (L/min) 8 Oxygen Delivery Method Nasal Cannula Weight: 78.2 kg Body Mass Index (BMI) 22.8 Intake and Output for Last 24 Hours 03/02/18 03/03/18 03/04/18 23:59 23:59 23:59 Intake Total 2201 / 2201 2333 / 2333 120 / 120 Output Total 400 / 400 2024 / 2024 300 / 300 Balance 1801 / 1801 308 / 308 -180 / -180 POC Glucose 03/04/18 03/03/18 03/03/18 06:54 21:53 16:14 POC Glucose 149 H 144 H 129 H 03/03/18 11:09 POC Glucose 204 H Medical Necessity - Tobacco Use Smoking Status: Former smoker Route of nutrition/ use of supplements: [] Nutritional Intake: [] IV Site: [] Flowers Catheter: [] - Assessment/Plan Antibiotics: [] Assessment/Plan: [] Active and Suspected Problems (Last Reviewed 02/11/18 @ 09:28 by Kizzy Sena) Pneumonia (Acute) DVT (deep venous thrombosis) (Acute) Chest pain (Acute) Acute blood loss anemia (Acute) Thrombocytopenia (Acute) Gram-negative pneumonia (Acute) MSSA pneumonia with possible aspiration in pt with stage 4 small cell lung cancer on chemo - resp viral panel neg. Onc and pulm following. Sputum cx with 2+ GNR on gram stain, but only MSSA grew. Cont unasyn. Day 9 of abx, plan on stopping tomorrow. Wbc has been elevated for several months now. will follow
[2018-03-04] MEDS: 0.9% NaCl VAD Flush 10 ML IV (12:49)
--- NOTE | 2018-03-04 13:39 | ONC.PN.INPT ---
- Problem List (1) Small cell lung cancer Status: Acute (2) Antineoplastic chemotherapy induced anemia Status: Acute (3) DVT (deep venous thrombosis) Status: Acute Qualifiers: DVT location: lower extremity Chronicity: acute Laterality: bilateral Subjective Date of Service:: 03/04/18 chest pain Mr. Dennis Hernandez is a 62-year-old male with extensive stage IV SCLC admitted with chest pain and respiratory tract infection. He's an ex-smoker who quit in 2015, who was hospitalized at [facility] in September 2017 with his acute abdominal pain and diagnosed with pancreatitis. During hospitalization a chest x-ray revealed a left lung mass. CT scan showed a malignant-appearing left upper lobe mass and a CT-guided biopsy on September 18, 2017 confirmed small cell lung cancer. PET CT October 08, 2017 showed abnormal uptake consistent with a malignant process involving the left lung mass, hilar adenopathy and a newly evolving left adrenal mass was not visualized on his CT scan of the abdomen in March 2017. CT-guided biopsy of the adrenal mass confirmed metastatic small cell cancer. MRI of the brain showed no evidence of metastatic disease. Of note patient developed 2 episodes of acute pancreatitis the first was September 2017, the second was November [address] scan of the abdomen and PET/CT showed indeterminate abnormality in the area of the pancreatic head that could not be further characterized but an underlying neoplastic process could not be excluded. Current Treatment: Carbo-etoposide since 11/13/2017- Last treatment 02/11/2018 Developed bilateral LE DVTs 01/2018 and has been on Xarelto. Upon entering room, patient sitting upright in bed utilizing non rebreather. Reports he is feeling much better in reference to his breathing, although during conversation patient removed mask and quickly became dyspneic. Describes appetite as fair to good. Significant other not present. Past Medical History: Chronic Problems (Last Updated 03/01/18 @ 08:24 by VINCE Sharpe) Stage 1 mild COPD by GOLD classification (Chronic) Cancer-related pain (Chronic) Past Medical History - Most Recent Inpatient Visit Past Medical History Start: 02/24/18 17:52 Text: Status: Complete Freq: ONCE Protocol: Document 02/24/18 17:52 [facility] (Rec: 02/24/18 18:20 [facility] [id number]) BMI Required to complete PMH What is Patient's BMI 22.9 Past Medical History Unable History Recalled No Query Text:Pt Unable/Family Not Present Neurologic Medical History Hx Stroke/TIA Yes: 2000 Hx Dementia/Alzheimer's No Hx Parkinson's Disease No Hx Seizures Yes: 2000 with stroke Hx Multiple Sclerosis No Hx Migraines Yes Cardiac Medical History VTE Present on Admission No Hx of Deep Vein Thrombosis/VTE/PE Yes: right leg found out a couple weeks ago Hx Hypertension No Hx Chest Pain/Angina Yes Hx Heart Attack No Hx Cardiac Surgery/Stents/Etc. No: stress test Oct 2017 Hx Heart Failure No Hx Pacemaker/AICD No Hx Irregular Heartbeat and/or Afib No Hx Anticoagulant Therapy No Query Text:(Coumadin, Aspirin, Plavix, Xarelto, etc.) Hx Pain in Legs when Walking/Leg Cramps No Respiratory Medical History Hx COPD Yes Hx Emphysema No Hx Smoking Yes Smoking Status Former smoker Years Smoking 50 Packs Smoked per Day 1.5 Hx Smoking Cessation Counseling Yes Hx Smoking Exposure Yes Hx Tobacco Use in last 12 months No Hx of Pipe Smoking No Hx Sleep Apnea No Do you snore loudly (louder than talking Yes or can be heard through closed doors)? Do you often feel tired/ fatigued/ Yes sleepy during daytime? Has anyone observed you stop breathing Yes during sleep? STOP Results Positive Comments does think patient has sleep apnea GI Medical History Hx Ulcer No Hx Hepatitis No Hx Cirrhosis No Hx GI Bleed No Hx Unplanned Weight Loss No Genitourinary Medical History Indwelling Catheter in Place on Arrival/ No Admission Hx Renal Disease No Hx Dialysis No Musculoskeletal History Hx Arthritis Yes: hands Hx Rheumatoid Arthritis No Endocrine Medical History Hx Diabetes Yes Hx Thyroid Disease Yes Hematologic Medical History Hx of Blood Transfusion Yes Hx of Transfusion in last 3 Months Yes Date of Last Transfusion (if within last 02/24/17 3 months) Ever experience any problems with No transfusion(s)? Hx of Preganancy in last 3 Months N/A Nurse Filling Out Transfusion & ESTEINER Questions: Date: 02/24/18 Time: 18:18 Psycho/Social Medical History Hx Depression Yes Hx Anxiety No Hx Behavior Disorder Yes: bipolar disorder Hx Alcohol Use No Hx Substance Use No Comments stopped maraSeptember 2017 Other Medical History Hx Blood Disorders No Hx Anemia No Hx Cancer Yes: lung, adrenal gland, lymph nodes Hx Drug Resistant Organism No Wound/Pressure Injury Present on Arrival No /Admission Query Text:If yes, chart assessment in Shift/Clinical Findings Central Line/PICC/VAD Present on Arrival Yes /Admission Antibiotics within last 7 days? No Methicillin Resistant Staphylococcus aureus Screening Active MRSA No Risk for Readmission Number of Risk Factors 7 At Risk for Readmission Patient is At Risk For Readmission Patient is eligible for Call Back Y Past Medical History (Last Updated 03/01/18 @ 08:24 by Zarina Godoy, SMEARER-C) Abdominal pain (Acute) Anemia (Acute) Cervical radiculopathy (Acute) Chest pain (Acute) 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) DVT prophylaxis (Acute) Depression (Acute) Diverticulitis (Acute) Dyspnea (Acute) Heart murmur (Acute) Hernia (Acute) Impingement syndrome, shoulder, left (Acute) Inguinal hernia (Acute) Marijuana use (Acute) Mass of pancreas (Acute) Palpitations (Acute) Pneumonia (Acute) Rotator cuff syndrome (Acute) Stroke (Acute) s/p port placement (Acute ~11/01/17) COPD (chronic obstructive pulmonary disease) (Chronic) Crohns disease (Chronic) Diabetes mellitus, type II (Chronic) History of TIA (transient ischemic attack) (Chronic) History of tobacco use (Chronic) Hypothyroidism (Chronic) Metastasis to adrenal gland (Chronic) Migraine (Chronic) Regional lymph node metastasis present (Chronic) Small cell lung cancer (Chronic) Past Surgical History (Last Updated 03/01/18 @ 08:24 by Zarina Godoy, SMEARER-C) FHx: cholecystectomy (Acute) H/O colectomy (Acute) History of appendectomy (Acute) RIGHT HERNIA REPAIR WITH KUGEL PATCH (Acute) SIGMOIDECTOMY W/ COLORECTAL ANASTAMOSIS (Acute) History of cholecystectomy (Resolved) History of laparotomy (Resolved) History of right inguinal hernia repair (Resolved) Maternal Family History: Family History (Last Reviewed 02/11/18 @ 09:28 by Kizzy Sena) Father CAD (coronary artery disease) Mesothelioma Grandfather Leukemia Brother Throat cancer Family History: No pertinent history Paternal Family History: Family History (Last Reviewed 02/11/18 @ 09:28 by Kizzy Sena) Father CAD (coronary artery disease) Mesothelioma Grandfather Leukemia Brother Throat cancer Family History: No pertinent history, - - no lung cancer. - Social History Lives: Spouse/ Significant Other Smoking Status: Former smoker Alcohol: None Drugs: Marijuana Review of Systems Constitutional:: Reports: Weakness, Fatigue. Denies: Fever, Sweats, Weight loss, Appetite change, Chills Cardiovascular:: Reports: Shortness of breath. Denies: Chest pain, Palpitations, Orthopnea, PND Respiratory: Reports: Cough, Hemoptysis - self reported, Shortness of breath at rest, Sputum production. Denies: Shortness of Breath, Wheezing Gastrointestinal:: Denies: Abdominal pain, Nausea, Vomiting, Diarrhea, Constipation, Melena, Hematochezia Genitourinary: Denies: Dysuria, Hematuria, 15, Flank pain Musculoskeletal:: Reports: Back pain - chronic. Denies: Myalgia, Arthralgia Skin: Denies: Rash, Skin Changes, Wounds Neurological:: Denies: Headache, Dizziness, Numbness, Tingling, Visual changes, Tinnitus, Hearing loss Psychiatric: Denies: Anxiety, Depression, Homicidal Ideations, Suicidal Ideations Vital Signs Height 5 ft 9 in Weight: 172 lb 6.424 oz Weight in Pounds 172.4 lbs Pulse Ox 92 Temperature 98.7 F Pulse Rate 84 Respiratory Rate 24 Blood Pressure [BP] 106/62 Blood Pressure 107/62 Blood Pressure Position [BP] Semi-Fowlers Blood Pressure Position Sitting - Physical Exam General: Alert, Oriented x3, No apparent distress HEENT: Atraumatic, Normocephalic Oropharynx:: Negative for: Dry mucosa, Ulcerated lesions Neck:: Supple, Trachea midline. Negative for: JVD, bilateral Cardiac:: Regular rate, Regular rhythm, Normal S1, Normal S2. Negative for: Murmur Lungs: Rales, Diminished, Shortness of breath, Increased respiratory effort, Excusion symmetrical Abdomen:: Bowel sounds x 4, Soft, Non-tender, Non-distended. Negative for: Hepatosplenomegaly Extremities:: Edema - +1 pitting BLE, R=L. Negative for: Cyanosis, Calf tenderness Neurological: Neuro grossly intact Skin:: Ecchymosis - BUE in various stages of healing. Negative for: Lesions, Rash, Petechiae Psychiatric:: Poor concentration, Appropriate affect Lymphatics:: Negative for: Cervical lymphadenopathy, Supraclavicular lymphadenopathy, Axillary lymphadenopathy Laboratory Data: Laboratory Tests 03/04/18 03/04/18 03/03/18 Range/Units 11:21 06:54 21:53 POC Glucose 190 H 149 H 144 H (70-110) mg/dL 03/03/18 Range/Units 16:14 POC Glucose 129 H (70-110) mg/dL Diagnostic Data: Diagnostic Data Chest CTA 02/24/18 13:24 IMPRESSION: No evidence of pulmonary embolus. No evidence of thoracic aortic aneurysm or dissection. Increasing consolidation in the left upper lobe. New bibasilar airspace opacities. This is likely infectious in etiology. The patient's known left upper lobe mass is not well evaluated due to the surrounding consolidated lung parenchyma. New small left pleural effusion. Stable mediastinal lymphadenopathy. Electronically Signed: Suhail Cardona, at 14:52 EDT Tel , Service support , Chest X-Ray 03/02/18 07:05 Assessment and Plan 62-year-old male with #1 Stage IV small cell lung cancer. Patient presented with significant weight loss and left upper abdominal pain most likely related to a rapidly growing metastatic lesion (pathologically confirmed) in the left adrenal gland. Systemic chemotherapy with carboplatin etoposide patient is status post 5/6 cycles with partial remission of his disease . Last cycle was 02/11/2018 and received Neulasta 02/14/2018 #2 Anemia of cancer and chemotherapy, recommend transfuse with PRBCS to target HB > 8 g/dl #3 Thrombocytopenia, r/t chemotherapy vs. infection. Platelets now 91,000. No evidence of active bleeding. #4 Cancer r/t pain controlled adequately per patient at the present time. #5 Indeterminate abnormality in the pancreatic head area possibilities are post pancreatitis, metastatic small cell lung cancer to pancreas, or a second primary cancer of the pancreas. Pursuing this abnormality with biopsy is of academic interest only and may only cause delay in initiating treatment for the aggressive small cell lung cancer. His prognosis and survival are more dependent on the extensive stage small cell lung cancer and active treatment will have to be redirected again assess life-threatening, and inevitably fatal disease. On recent CT these abnormalities are not progressive. #6 Malignancy hypercoagulability with bilateral LE DVT, continue Xarelto given platelets are now >50,000. #7 Acute hospitalization with a bilateral staph pneumonia and acute on chronic respiratory failure. There appears to be continued slow improvement this morning and comparison to yesterday when he was decompensating despite maximum efforts at treating his pneumonia and airways disease. #8 CODE STATUS : DNR. #9 Patient and family met with the hospice team, services declined at the present time but this is a backup plan if he were to decompensate and wished to go home with hospice services. Certainly palliative care services are appropriate however and would not preclude him from being considered for his 6th and final cycle of palliative chemotherapy in the future when/if able. Discussed with patient and significant other. Bella Aguila, MSN, HAND CLOTH CUTTER-C, AOCNP Medications: Prescriptions This Visit Medication Instructions Recorded Alive Mens 1 tab PO DAILY 02/24/18 Ferrous Sulfate 325 mg PO DAILY@0800 02/24/18 Folic Acid 1 tab PO DAILY 02/24/18 Rivaroxaban [Xarelto] 1 tab PO DAILY 02/24/18 Vitamin D3 2 tab PO DAILY 02/24/18 Primary Care Provider: Last Aguilar Referring Provider:
[2018-03-04 13:50] LABS: Anion Gap 3 (5-15); BUN 13 mg/dL (7-18); BUN/Creat Ratio 12.5 RATIO (10-20); Calcium,Total 8.3 mg/dL (8.5-10.1); Chloride 100 mmol/L (98-107); Creatinine, Serum 1.04 mg/dL (0.70-1.30); EST Glomerular Filtration Rate 76 mL/min (>60); Est Glom Filt Rate - Afr Amer 92 mL/min (>60); Estimated Creatinine Clearance 71.76 ml/min; Glucose 153 mg/dL (74-106); Potassium 3.6 mmol/L (3.5-5.1); Sodium Level 140 mmol/L (136-145)
--- NOTE | 2018-03-04 13:52 | PN_ITS ---
- Problem List (1) Small cell lung cancer Status: Acute (2) Antineoplastic chemotherapy induced anemia Status: Acute (3) DVT (deep venous thrombosis) Status: Acute Qualifiers: DVT location: lower extremity Chronicity: acute Laterality: bilateral Subjective Date of Service:: 03/04/18 chest pain Mr. Dennis Hernandez is a 62-year-old male with extensive stage IV SCLC admitted with chest pain and respiratory tract infection. He's an ex-smoker who quit in 2015, who was hospitalized at [facility] in September 2017 with his acute abdominal pain and diagnosed with pancreatitis. During hospitalization a chest x-ray revealed a left lung mass. CT scan showed a malignant-appearing left upper lobe mass and a CT-guided biopsy on September 18, 2017 confirmed small cell lung cancer. PET CT October 08, 2017 showed abnormal uptake consistent with a malignant process involving the left lung mass, hilar adenopathy and a newly evolving left adrenal mass was not visualized on his CT scan of the abdomen in March 2017. CT-guided biopsy of the adrenal mass confirmed metastatic small cell cancer. MRI of the brain showed no evidence of metastatic disease. Of note patient developed 2 episodes of acute pancreatitis the first was September 2017, the second was November [address] scan of the abdomen and PET/CT showed indeterminate abnormality in the area of the pancreatic head that could not be further characterized but an underlying neoplastic process could not be excluded. Current Treatment: Carbo-etoposide since 11/13/2017- Last treatment 02/11/2018 Developed bilateral LE DVTs 01/2018 and has been on Xarelto. Upon entering room, patient sitting upright in bed utilizing non rebreather. Reports he is feeling much better in reference to his breathing, although during conversation patient removed mask and quickly became dyspneic. Describes appetite as fair to good. Significant other not present. Past Medical History: Chronic Problems (Last Updated 03/01/18 @ 08:24 by VINCE Sharpe) Stage 1 mild COPD by GOLD classification (Chronic) Cancer-related pain (Chronic) Past Medical History - Most Recent Inpatient Visit Past Medical History Start: 02/24/18 17: 52 Text: Status: Complete Freq: ONCE Protocol: Document 02/24/18 17:52 [facility] (Rec: 02/24/18 18:20 [facility] [id number]) BMI Required to complete PMH What is Patient's BMI 22.9 Past Medical History Unable History Recalled No Query Text:Pt Unable/Family Not Present Neurologic Medical History Hx Stroke/TIA Yes: 2000 Hx Dementia/Alzheimer's No Hx Parkinson's Disease No Hx Seizures Yes: 2000 with stroke Hx Multiple Sclerosis No Hx Migraines Yes Cardiac Medical History VTE Present on Admission No Hx of Deep Vein Thrombosis/VTE/PE Yes: right leg found out a couple weeks ago Hx Hypertension No Hx Chest Pain/Angina Yes Hx Heart Attack No Hx Cardiac Surgery/Stents/Etc. No: stress test Oct 2017 Hx Heart Failure No Hx Pacemaker/AICD No Hx Irregular Heartbeat and/or Afib No Hx Anticoagulant Therapy No Query Text:(Coumadin, Aspirin, Plavix, Xarelto, etc.) Hx Pain in Legs when Walking/Leg Cramps No Respiratory Medical History Hx COPD Yes Hx Emphysema No Hx Smoking Yes Smoking Status Former smoker Years Smoking 50 Packs Smoked per Day 1.5 Hx Smoking Cessation Counseling Yes Hx Smoking Exposure Yes Hx Tobacco Use in last 12 months No Hx of Pipe Smoking No Hx Sleep Apnea No Do you snore loudly (louder than talking Yes or can be heard through closed doors)? Do you often feel tired/ fatigued/ Yes sleepy during daytime? Has anyone observed you stop breathing Yes during sleep? STOP Results Positive Comments does think patient has sleep apnea GI Medical History Hx Ulcer No Hx Hepatitis No Hx Cirrhosis No Hx GI Bleed No Hx Unplanned Weight Loss No Genitourinary Medical History Indwelling Catheter in Place on Arrival/ No Admission Hx Renal Disease No Hx Dialysis No Musculoskeletal History Hx Arthritis Yes: hands Hx Rheumatoid Arthritis No Endocrine Medical History Hx Diabetes Yes Hx Thyroid Disease Yes Hematologic Medical History Hx of Blood Transfusion Yes Hx of Transfusion in last 3 Months Yes Date of Last Transfusion (if within last 02/24/17 3 months) Ever experience any problems with No transfusion(s)? Hx of Preganancy in last 3 Months N/A Nurse Filling Out Transfusion & ESTEINER Questions: Date: 02/24/18 Time: 18:18 Psycho/Social Medical History Hx Depression Yes Hx Anxiety No Hx Behavior Disorder Yes: bipolar disorder Hx Alcohol Use No Hx Substance Use No Comments stopped maraSeptember 2017 Other Medical History Hx Blood Disorders No Hx Anemia No Hx Cancer Yes: lung, adrenal gland, lymph nodes Hx Drug Resistant Organism No Wound/Pressure Injury Present on Arrival No /Admission Query Text:If yes, chart assessment in Shift/Clinical Findings Central Line/PICC/VAD Present on Arrival Yes /Admission Antibiotics within last 7 days? No Methicillin Resistant Staphylococcus aureus Screening Active MRSA No Risk for Readmission Number of Risk Factors 7 At Risk for Readmission Patient is At Risk For Readmission Patient is eligible for Call Back Y Past Medical History (Last Updated 03/01/18 @ 08:24 by Zarina Godoy, SODIUM CHLORITE OPERATOR-C) Abdominal pain (Acute) Anemia (Acute) Cervical radiculopathy (Acute) Chest pain (Acute) 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) DVT prophylaxis (Acute) Depression (Acute) Diverticulitis (Acute) Dyspnea (Acute) Heart murmur (Acute) Hernia (Acute) Impingement syndrome, shoulder, left (Acute) Inguinal hernia (Acute) Marijuana use (Acute) Mass of pancreas (Acute) Palpitations (Acute) Pneumonia (Acute) Rotator cuff syndrome (Acute) Stroke (Acute) s/p port placement (Acute ~11/01/17) COPD (chronic obstructive pulmonary disease) (Chronic) Crohns disease (Chronic) Diabetes mellitus, type II (Chronic) History of TIA (transient ischemic attack) (Chronic) History of tobacco use (Chronic) Hypothyroidism (Chronic) Metastasis to adrenal gland (Chronic) Migraine (Chronic) Regional lymph node metastasis present (Chronic) Small cell lung cancer (Chronic) Past Surgical History (Last Updated 03/01/18 @ 08:24 by Zarina Godoy, SODIUM CHLORITE OPERATOR-C) FHx: cholecystectomy (Acute) H/O colectomy (Acute) History of appendectomy (Acute) RIGHT HERNIA REPAIR WITH KUGEL PATCH (Acute) SIGMOIDECTOMY W/ COLORECTAL ANASTAMOSIS (Acute) History of cholecystectomy (Resolved) History of laparotomy (Resolved) History of right inguinal hernia repair (Resolved) Maternal Family History: Family History (Last Reviewed 02/11/18 @ 09:28 by Kizzy Sena) Father CAD (coronary artery disease) Mesothelioma Grandfather Leukemia Brother Throat cancer Family History: No pertinent history Paternal Family History: Family History (Last Reviewed 02/11/18 @ 09:28 by Kizzy Sena) Father CAD (coronary artery disease) Mesothelioma Grandfather Leukemia Brother Throat cancer Family History: No pertinent history, - - no lung cancer. - Social History Lives: Spouse/ Significant Other Smoking Status: Former smoker Alcohol: None Drugs: Marijuana Review of Systems Constitutional:: Reports: Weakness, Fatigue. Denies: Fever, Sweats, Weight loss , Appetite change, Chills Cardiovascular:: Reports: Shortness of breath. Denies: Chest pain, Palpitations , Orthopnea, PND Respiratory: Reports: Cough, Hemoptysis - self reported, Shortness of breath at rest, Sputum production. Denies: Shortness of Breath, Wheezing Gastrointestinal:: Denies: Abdominal pain, Nausea, Vomiting, Diarrhea, Constipation, Melena, Hematochezia Genitourinary: Denies: Dysuria, Hematuria, 15, Flank pain Musculoskeletal:: Reports: Back pain - chronic. Denies: Myalgia, Arthralgia Skin: Denies: Rash, Skin Changes, Wounds Neurological:: Denies: Headache, Dizziness, Numbness, Tingling, Visual changes, Tinnitus, Hearing loss Psychiatric: Denies: Anxiety, Depression, Homicidal Ideations, Suicidal Ideations Vital Signs Height 5 ft 9 in Weight: 172 lb 6.424 oz Weight in Pounds 172.4 lbs Pulse Ox 92 Temperature 98.7 F Pulse Rate 84 Respiratory Rate 24 Blood Pressure [BP] 106/62 Blood Pressure 107/62 Blood Pressure Position [BP] Semi-Fowlers Blood Pressure Position Sitting - Physical Exam General: Alert, Oriented x3, No apparent distress HEENT: Atraumatic, Normocephalic Oropharynx:: Negative for: Dry mucosa, Ulcerated lesions Neck:: Supple, Trachea midline. Negative for: JVD, bilateral Cardiac:: Regular rate, Regular rhythm, Normal S1, Normal S2. Negative for: Murmur Lungs: Rales, Diminished, Shortness of breath, Increased respiratory effort, Excusion symmetrical Abdomen:: Bowel sounds x 4, Soft, Non-tender, Non-distended. Negative for: Hepatosplenomegaly Extremities:: Edema - +1 pitting BLE, R=L. Negative for: Cyanosis, Calf tenderness Neurological: Neuro grossly intact Skin:: Ecchymosis - BUE in various stages of healing. Negative for: Lesions, Rash, Petechiae Psychiatric:: Poor concentration, Appropriate affect Lymphatics:: Negative for: Cervical lymphadenopathy, Supraclavicular lymphadenopathy, Axillary lymphadenopathy Laboratory Data: Laboratory Tests 3 03/04/18 03/04/18 03/03/18 Range/Units 11:21 06:54 21:53 POC Glucose 190 H 149 H 144 H (70-110) mg/dL 3 03/03/18 Range/Units 16:14 POC Glucose 129 H (70-110) mg/dL Diagnostic Data: Diagnostic Data Chest CTA 02/24/18 13:24 IMPRESSION: No evidence of pulmonary embolus. No evidence of thoracic aortic aneurysm or dissection. Increasing consolidation in the left upper lobe. New bibasilar airspace opacities. This is likely infectious in etiology. The patient's known left upper lobe mass is not well evaluated due to the surrounding consolidated lung parenchyma. New small left pleural effusion. Stable mediastinal lymphadenopathy. Electronically Signed: Suhail Cardona, at 14:52 EDT Tel , Service support , Chest X-Ray 03/02/18 07:05 Assessment and Plan 62-year-old male with #1 Stage IV small cell lung cancer. Patient presented with significant weight loss and left upper abdominal pain most likely related to a rapidly growing metastatic lesion (pathologically confirmed) in the left adrenal gland. Systemic chemotherapy with carboplatin etoposide patient is status post 5/6 cycles with partial remission of his disease . Last cycle was 02/11/2018 and received Neulasta 02/14/2018 #2 Anemia of cancer and chemotherapy, recommend transfuse with PRBCS to target HB > 8 g/dl #3 Thrombocytopenia, r/t chemotherapy vs. infection. Platelets now 91,000. No evidence of active bleeding. #4 Cancer r/t pain controlled adequately per patient at the present time. #5 Indeterminate abnormality in the pancreatic head area possibilities are post pancreatitis, metastatic small cell lung cancer to pancreas, or a second primary cancer of the pancreas. Pursuing this abnormality with biopsy is of academic interest only and may only cause delay in initiating treatment for the aggressive small cell lung cancer. His prognosis and survival are more dependent on the extensive stage small cell lung cancer and active treatment will have to be redirected again assess life-threatening, and inevitably fatal disease. On recent CT these abnormalities are not progressive. #6 Malignancy hypercoagulability with bilateral LE DVT, continue Xarelto given platelets are now >50,000. #7 Acute hospitalization with a bilateral staph pneumonia and acute on chronic respiratory failure. There appears to be continued slow improvement this morning and comparison to yesterday when he was decompensating despite maximum efforts at treating his pneumonia and airways disease. #8 CODE STATUS : DNR. #9 Patient and family met with the hospice team, services declined at the present time but this is a backup plan if he were to decompensate and wished to go home with hospice services. Certainly palliative care services are appropriate however and would not preclude him from being considered for his 6th and final cycle of palliative chemotherapy in the future when/if able. Discussed with patient and significant other. Bella Aguila, ZAYNAB, CLINICAL SUPPORT MANAGER-C, AOCNP Medications: Prescriptions This Visit Medication Instructions Recorded Alive Mens 1 tab PO DAILY 02/24/18 Ferrous Sulfate 325 mg PO DAILY@0800 02/24/18 Folic Acid 1 tab PO DAILY 02/24/18 Rivaroxaban [Xarelto] 1 tab PO DAILY 02/24/18 Vitamin D3 2 tab PO DAILY 02/24/18 Primary Care Provider: Last Aguilar Referring Provider:
[2018-03-04 13:54] LABS: Hematocrit 24.8 % (40-54); Hemoglobin 7.5 g/dl (13.0-16.5); Mean Corp Hgb Conc 30.2 g/gl (32-36); Mean Corpuscular Hgb 31.3 pg (27.0-32.0); Mean Corpuscular Volume 103.3 fL (80-94); Mean Platelet Vol. 9.6 fl (6.2-12.0); Platelet Count 125 K/mm3 (150-450); RBC Distribution Width CV 17.8 % (11.6-14.6); RBC Distribution Width SD 56.9 fl (35.1-43.9); White Blood Count 15.8 K/mm3 (4.4-11.0)
[2018-03-04 14:02] LABS: Differential Indicated MANUAL DIFF; POSITIVE COUNT YES; POSITIVE DIFFERENTIAL NO; POSITIVE MORPHOLOGY YES
[2018-03-04] MEDS: Glucerna Shake 120 ML LIQUID PO ×3 (14:24→23:51)
[2018-03-04 14:39] LABS: Lymphocyte 7 % (19-41); Monocyte 5 % (0-10); Neutrophil-Segmented 87 % (47-70); Promyelocyte 1 (0-0); Total Cells Counted 100 (MANUAL DIFF)
[2018-03-04 14:40] LABS: Platelet Estimate SLT DEC (ADEQ); Red Cell Morphology NORM C+C NORMAL (NORM C&C)
[2018-03-04 14:41] LABS: Absolute Lymphocyte Count 1.11 X10^3/ul (0.83-4.51); Absolute Neutrophil Count 13.7 X10^3/uL (2.0-7.7)
--- NOTE | 2018-03-04 15:53 | PCM.PN.HOSP ---
Patient Problems: Active and Suspected Problems (Last Updated 03/01/18 @ 08:24 by Zarina Godoy, LINE COOK-C) Chest pain (Acute) Acute blood loss anemia (Acute) Thrombocytopenia (Acute) Gram-negative pneumonia (Acute) Pneumonia (Acute) Subjective: CC: shortness of breath Objective: This is a 62-year-old male with extensive stage IV SCLC admitted with chest pain and respiratory tract infection.he is found to have MSSA there is now receiving IV Unasyn. Vitals/I&O's: Vital Signs Temp Pulse Resp BP Pulse Ox 98.4 F 105 H 22 H 112/60 90 03/04/18 13:40 03/04/18 15:34 03/04/18 15:34 03/04/18 13:40 03/04/18 13:40 Oxygen Flow Rate (L/min) 15 Oxygen Delivery Method Non-Rebreather Weight: 78.2 kg Body Mass Index (BMI) 22.8 Intake and Output for Last 24 Hours 03/02/18 03/03/18 03/04/18 23:59 23:59 23:59 Intake Total 2201 / 2201 2333 / 2333 120 / 120 Output Total 400 / 400 2024 / 2024 300 / 300 Balance 1801 / 1801 308 / 308 -180 / -180 General: Alert, Oriented x3 HEENT: Atraumatic Oral: Moist Mucosa Neck: Supple, No JVD Cardiovascular: Regular rate, Normal S1, Normal S2 Abdomen: Bowel Sounds Present, Soft Extremities: No edema Neurological: Cranial nerves II-XII grossly intact, Neuro grossly intact, Motor Exam 5/5 strength throughout Laboratory Results 03/03/18 16:14: POC Glucose 129 H 03/03/18 21:53: POC Glucose 144 H 03/04/18 06:54: POC Glucose 149 H 03/04/18 11:21: POC Glucose 190 H 03/04/18 13:20: WBC 15.8 H, RBC 2.40 L, Hgb 7.5 L, Hct 24.8 L, MCV 103.3 H, MCH 31.3, MCHC 30.2 L, RDW 17.8 H, RDW Differential 56.9 H, Plt Count 125 L, MPV 9.6, Neut % (Auto) Not Reportable, Absolute Neuts (auto) 13.7 H, Absolute Lymphs (auto) 1.11, Total Counted 100, Neutrophils % (Manual) 87 H, Lymphocytes % (Manual) 7 L, Monocytes % (Manual) 5, Promyelocytes % 1 H, Diff Path Review March, Platelet Estimate SLT DEC, RBC Morphology NORM C+C 03/04/18 13:20: Sodium 140, Potassium 3.6, Chloride 100, Carbon Dioxide 37.0 H, Anion Gap 3 L, BUN 13, Creatinine 1.04, Estim Creat Clear Calc 71.76, Est GFR (MDRD) Af Amer 92, Est GFR (MDRD) Non-Af 76, BUN/Creatinine Ratio 12.5, Glucose 153 H, Calcium 8.3 L Current Medications Acetaminophen (Tylenol) 650 mg PO Q4H PRN PRN PRN Reason: FEVER Atorvastatin Calcium (Lipitor) 40 mg PO QHS [facility] Last Admin: 03/03/18 22:20 Dose: 40 mg Dextrose (D50w Syringe) 0 gm IV X1 PRN; Protocol PRN Reason: Hypoglycemia Diltiazem HCl (Cardizem) 60 mg PO Q6 [facility] Last Admin: 03/04/18 12:52 Dose: 60 mg Divalproex Sodium (Depakote) 500 mg PO TID [facility] Last Admin: 03/04/18 14:24 Dose: 500 mg Folic Acid (Folic Acid) 1 mg PO DAILY@0800 [facility] Last Admin: 03/04/18 09:48 Dose: 1 mg Furosemide (Lasix) 20 mg PO BID@1000,1800 [facility] Last Admin: 03/04/18 09:49 Dose: 20 mg Glucagon () 1 mg IM .X1 PRN PRN Reason: Hypoglycemia Guaifenesin (Mucinex) 1,200 mg PO BID [facility] Last Admin: 03/04/18 10:38 Dose: 1,200 mg Heparin Sodium (Beef Lung) (Heparin 500 Unit/5 Ml (100/Ml)) 500 unit IV UD PRN PRN Reason: HEPARIN FLUSH Sodium Chloride () 250 mls @ 15 mls/hr IV .[id number] PRN PRN Reason: SALINE FLUSH Last Admin: 03/03/18 09:19 Dose: 15 mls/hr Ampicillin Sodium/Sulbactam (Sodium 3 gm/ Sodium Chloride) 112 mls @ 150 mls/hr IV Q6 [facility]ICKIE Last Admin: 03/04/18 12:47 Dose: 150 mls/hr Insulin Aspart (Novolog Flexpen (Bkc)) 0 units SC TIDAC [facility] PRN Reason: Protocol Last Admin: 03/04/18 14:23 Dose: 2 units Ipratropium [place] (Atrovent) 0.5 mg INHALATION Q4H.RT [facility] Last Admin: 03/04/18 15:09 Dose: 0.5 mg Levothyroxine Sodium (Synthroid) 25 mcg PO DAILY@0600 [facility] Last Admin: 03/04/18 06:04 Dose: 25 mcg Magnesium Hydroxide (Milk Of Magnesia) 30 ml PO DAILY PRN PRN PRN Reason: Constipation Last Admin: 03/01/18 17:33 Dose: 30 ml Metoprolol Tartrate (Lopressor (Beta Raina)) 50 mg PO BID [facility] Last Admin: 03/04/18 09:48 Dose: 50 mg Mirtazapine (Remeron) 7.5 mg PO QHS [facility] Last Admin: 03/03/18 22:16 Dose: 7.5 mg Nutritional Formula (Lactose Free) (Glucerna Shake) 120 ml PO 4X/DAY [facility] Last Admin: 03/04/18 14:24 Dose: 120 ml Ondansetron HCl (Zofran) 4 mg IV Q8H PRN PRN PRN Reason: NAUSEA Ondansetron HCl (Zofran Odt) 4 mg PO Q8H PRN PRN Reason: NAUSEA Oxycodone HCl (Oxyir) 5 - 10 mg PO Q4H PRN PRN PRN Reason: SEVERE PAIN (6-10/10) Last Admin: 03/03/18 10:59 Dose: 10 mg Rivaroxaban (Xarelto) 20 mg PO DAILY@1700 [facility] Last Admin: 03/03/18 17:03 Dose: 20 mg Senna (Senokot) 1 tablet PO BID [facility] Last Admin: 03/04/18 09:49 Dose: 1 tablet Sodium Chloride () 10 ml IV UD PRN PRN Reason: VAD FLUSH Last Admin: 03/04/18 12:49 Dose: 10 ml Medical Necessity - Tobacco Use Smoking Status: Former smoker Assessment/Plan Active and Suspected Problems (Last Updated 03/01/18 @ 08:24 by Zarina Godoy, LINE COOK-C) Chest pain (Acute) Acute blood loss anemia (Acute) Thrombocytopenia (Acute) Gram-negative pneumonia (Acute) Pneumonia (Acute) 1. Acute hypoxic respiratory failure secondary to PNA and lung CA ; he is requiring high flow oxygen. 2. MSSA pneumonia ; recent IV Unasyn. 3. Anemia of CD and chemotherapy; transfuse a unit of packed RBCs today. 4. Metastatic SCLC; Domenico undergoing chemotherapy, he initially declined hospice but now wants to talk to them. 5. Diabetes mellitus type 2 ; he is on RISS 6. Paroxysmal A. fib ; he is on PO Cardizem 30 mg every 6 7. Bilateral LE DVT; he is Xarelto . 8. Constipation ; bowel regimen. 9. Acute congestive heart failure with preserved left ventricular function; we will continue on IV Lasix. 10. Thrombocytopenia 2/2 therapy; will monitor platelet level closely. Code Visit Inpatient E&M: [id number] Subs Hosp L2
[2018-03-04] MEDS: Rivaroxaban 20 MG Tablet PO (18:00)
[2018-03-04] MEDS: oxyCODONE 5 MG Tablet PO (18:00)
[2018-03-04 18:20] LABS: Bedside Glucose 234 mg/dL (70-110)
--- NOTE | 2018-03-04 20:45 | NURSING ---
Pts family upset with lack of improvement in pts condition/son thinking pt not getting enough physical therapy and not moving enough and this is holding him back. Pt/family not realistic of whole clinical picture r/t stage 4 lung ca/pneumonia/afib-pt refusing hospice because he's not ready to give up at this point and states he wants to walk out of here. Pt upset with anyone mentioning hospice because he's not ready to yet and he/son thinks we are letting him weaken and his lack of mobility is causing him lower ext swelling. Lengthy conversation held with pt/family about clinical condition/md orders/and what hospice/palliative entails. Son remained upset and left, pts girlfriend remains at bedside.
[2018-03-04] MEDS: Atorvastatin Calcium 40 MG Tablet PO (22:25)
[2018-03-04] MEDS: Mirtazapine 15 MG Tablet 7.5 MG PO (22:25)
--- NOTE | 2018-03-04 23:00 | NURSING ---
Pt refusing to wear bipap at this time. States he will let us know if he needs it.
[2018-03-04 23:36] LABS: Bedside Glucose 129 mg/dL (70-110)
[2018-03-05] VITALS (22 sets, daily range): BP systolic 107–133; BP diastolic 56–77; PULSE 75–122; RESP 16–24; TEMP 36.2–36.6; O2SAT 88–100
--- NOTE | 2018-03-05 03:11 | CPS ---
pt declines use of bipap at this time. RN aware.
[2018-03-05] MEDS: Levothyroxine 25 MCG TABLET PO (05:02)
[2018-03-05] MEDS: dilTIAZem 60 MG Tablet PO ×3 (05:03→17:28)
[2018-03-05] MEDS: Divalproex Sodium 250 MG Tablet 500 MG PO ×3 (05:03→21:12)
[2018-03-05 07:05] LABS: Bedside Glucose 148 mg/dL (70-110)
[2018-03-05] MEDS: Ipratropium 0.5 MG/2.5 ML SOLUTION INHALATION ×5 (07:05→23:50)
--- NOTE | 2018-03-05 08:14 | CPS ---
Pt informed to call nursing if he would change his mind and would like to be placed on Bipap.
[2018-03-05 09:00] LABS: Hemoglobin 9.2 g/dl (13.0-16.5); Mean Corp Hgb Conc 31.7 g/gl (32-36); Mean Corpuscular Hgb 31.2 pg (27.0-32.0); Mean Corpuscular Volume 98.3 fL (80-94); Mean Platelet Vol. 9.4 fl (6.2-12.0); Platelet Count 127 K/mm3 (150-450); RBC Distribution Width CV 17.6 % (11.6-14.6); RBC Distribution Width SD 56.7 fl (35.1-43.9); Red Blood Count 2.95 M/mm3 (4.6-6.2); White Blood Count 15.6 K/mm3 (4.4-11.0)
[2018-03-05 09:01] LABS: Scan Indicated on CBC? Y/N NO
--- NOTE | 2018-03-05 09:30 | CASEMGMT ---
This RN CM received call from [place] at Hospice and she states that they received a call from hector Hagan RN yesterday stating that pt had agreed to Hospice at that time but Hospice placed call to pt's sig other and pt's sig other states that they have not agreed to anything at this time and she told hospice that no one is giving them any time to talk about hospice. Hospice states they advised pt that they would notify CM and that they would not call pt back for a day or two. Pt's sig other voiced understanding and agreed to have Hospice call back at that time. Stef SW updated on all at this time and voices understanding. Enmanuel ISLAS CM
[2018-03-05 09:43] LABS: Pathologist Review Reviewed
[2018-03-05 09:50] LABS: Pathologist Review Reviewed
[2018-03-05 09:52] LABS: Pathologist Review Reviewed
[2018-03-05] MEDS: Furosemide 20 MG Tablet PO ×2 (10:25→17:28)
[2018-03-05] MEDS: Glucerna Shake 120 ML LIQUID PO ×4 (10:25→21:13)
[2018-03-05] MEDS: Folic Acid 1 MG Tablet PO (10:25)
[2018-03-05] MEDS: guaiFENesin 1,200 MG Tablet 1200 MG PO ×2 (10:25→21:12)
[2018-03-05] MEDS: Metoprolol Tartrate 50 MG Tablet PO ×2 (10:25→21:12)
[2018-03-05] MEDS: Senna Tablet 1 TABLET PO ×2 (10:26→21:12)
--- NOTE | 2018-03-05 11:02 | PCM.PROGNOTE ---
Patient Problems: Active and Suspected Problems (Last Updated 03/01/18 @ 08:24 by Zarina Godoy, WELT TRIMMING MACHINE OPERATOR-C) Chest pain (Acute) Acute blood loss anemia (Acute) Thrombocytopenia (Acute) Gram-negative pneumonia (Acute) Pneumonia (Acute) Subjective: The patient was seen and examined, girlfriend at bedside. He just returned to his chair after ambulating from the bathroom. His heart rate is in the 150s. His pulse oximeter is not reading correctly, the waveform is very poor. He is short of breath but able to speak in fragmented sentences. He is wearing 8 L of oxygen. Objective: Recent lab and culture data reviewed. Sputum culture positive for MSSA. Urine strep and Legionella antigens negative. Respiratory viral panel negative. Hemoglobin improved to 9.2 after unit of blood last night. Chest x-ray from 03/02 showing interval improvement in the right lung airspace opacities since previous examination on 02/26. There is persistent reticulonodular opacities and airspace opacities in the left lung and small bilateral pleural effusions. - Physical Exam General: Alert, Oriented x3, Cooperative, - - mild respiratory distress. speaking in fragmented sentences HEENT: Atraumatic, Normocephalic Oral: Moist Mucosa Neck: Supple, Trachea Midline Lungs: - - Diminished throughout with bibasilar rales, no significant wheezing. Symmetric expansion, no dullness to percussion. Cardiovascular: Normal S1, Normal S2, No murmurs, No rub noted, No Gallop, Tachycardic Abdomen: Bowel Sounds Present, Soft, Non Tender Extremities: No clubbing, No cyanosis, Edema - Proved, now 3+ Skin: - - No changes from previous Neurological: Neuro grossly intact Psych/Mental Status: Alert and oriented to time, place, person, mood and affect Vital Signs Temp Pulse Resp BP Pulse Ox 97.8 F 93 19 H 125/56 H 94 03/05/18 08:25 03/05/18 10:25 03/05/18 08:25 03/05/18 10:25 03/05/18 08:25 Oxygen Flow Rate (L/min) 15 Oxygen Delivery Method Non-Rebreather Weight: 173 lb 15.115 oz Body Mass Index (BMI) 22.8 Intake and Output for Last 24 Hours 03/03/18 03/04/18 03/05/18 23:59 23:59 23:59 Intake Total 2333 / 2333 1697 / 1697 1042 / 1042 Output Total 2024 1800 / 1800 350 / 350 Balance 308 / 308 -103 / -103 692 / 692 Laboratory Tests Past 24 Hrs 03/01/18 03/02/18 03/03/18 04:15 05:45 04:50 WBC RBC Hgb Hct MCV MCH MCHC RDW RDW Differential Plt Count MPV Neut % (Auto) Absolute Neuts (auto) Absolute Lymphs (auto) Total Counted Neutrophils % (Manual) Lymphocytes % (Manual) Monocytes % (Manual) Promyelocytes % Diff Path Review Reviewed Reviewed Reviewed Platelet Estimate RBC Morphology Sodium Potassium Chloride Carbon Dioxide Anion Gap BUN Creatinine Estim Creat Clear Calc Est GFR (MDRD) Af Amer Est GFR (MDRD) Non-Af BUN/Creatinine Ratio Glucose Calcium Blood Type Antibody Screen Crossmatch 03/04/18 03/04/18 03/04/18 13:20 13:20 19:21 WBC 15.8 H RBC 2.40 L Hgb 7.5 L Hct 24.8 L MCV 103.3 H MCH 31.3 MCHC 30.2 L RDW 17.8 H RDW Differential 56.9 H Plt Count 125 L MPV 9.6 Neut % (Auto) Not Reportable Absolute Neuts (auto) 13.7 H Absolute Lymphs (auto) 1.11 Total Counted 100 Neutrophils % (Manual) 87 H Lymphocytes % (Manual) 7 L Monocytes % (Manual) 5 Promyelocytes % 1 H Diff Path Review May foll Platelet Estimate SLT DEC RBC Morphology NORM C+C Sodium 140 Potassium 3.6 Chloride 100 Carbon Dioxide 37.0 H Anion Gap 3 L BUN 13 Creatinine 1.04 Estim Creat Clear Calc 71.76 Est GFR (MDRD) Af Amer 92 Est GFR (MDRD) Non-Af 76 BUN/Creatinine Ratio 12.5 Glucose 153 H Calcium 8.3 L Blood Type A POSITIVE Antibody Screen NEGATIVE Crossmatch See Detail 03/05/18 08:50 WBC 15.6 H RBC 2.95 L Hgb 9.2 L Hct 29.0 L MCV 98.3 H MCH 31.2 MCHC 31.7 L RDW 17.6 H RDW Differential 56.7 H Plt Count 127 L MPV 9.4 Neut % (Auto) Absolute Neuts (auto) Absolute Lymphs (auto) Total Counted Neutrophils % (Manual) Lymphocytes % (Manual) Monocytes % (Manual) Promyelocytes % Diff Path Review Platelet Estimate RBC Morphology Sodium Potassium Chloride Carbon Dioxide Anion Gap BUN Creatinine Estim Creat Clear Calc Est GFR (MDRD) Af Amer Est GFR (MDRD) Non-Af BUN/Creatinine Ratio Glucose Calcium Blood Type Antibody Screen Crossmatch POC Glucose 03/05/18 03/04/18 03/04/18 06:48 22:22 18:15 POC Glucose 148 H 129 H 234 H 03/04/18 11:21 POC Glucose 190 H Medical Necessity - Tobacco Use Smoking Status: Former smoker Assessment/Plan Active and Suspected Problems (Last Updated 03/01/18 @ 08:24 by Zarina Godoy, WELT TRIMMING MACHINE OPERATOR-C) Chest pain (Acute) Acute blood loss anemia (Acute) Thrombocytopenia (Acute) Gram-negative pneumonia (Acute) Pneumonia (Acute) RECOMMENDATIONS: 1. Additional diuresis if hemodynamically stable 2. Continue p.o. Cardizem 3. Continue scheduled Atrovent aerosols 4. Wean supplemental oxygen as tolerated 5. Continue BiPAP therapy as needed and nightly 6. Antibiotics have been discontinued 7. Monitor blood counts daily, continue Xarelto 8. Recommend hospice, however patient has declined IMPRESSIONS: 1. Acute hypoxemic respiratory failure secondary to underlying small cell lung cancer and superimposed multifocal MSSA pneumonia The patient has baseline underlying fibrotic changes and emphysema noted on CT scan. In addition, he has extensive stage small cell lung cancer. All of this is being exacerbated by his current multilobar pneumonia. Sputum culture was positive for MSSA. Continue antibiotics per ID recommendations. Given issues with tachycardia, the patient's duo nebs were discontinued and he was subsequently transition to Atrovent aerosols. Tachycardia improved. Continue scheduled aerosol treatments, as the patient does have a mild obstructive ventilatory impairment on his last PFTs. Wean supplemental oxygen as tolerated. Encourage incentive parameter use and mobilize patient as tolerated. BiPAP to be utilized nightly and as needed. The patient is 8L + for the admission. His weight is up accordingly. Ideally, would like to continue to diurese with Lasix, especially with blood transfusions. 03/04 He has a very poor overall prognosis, which has been conveyed to the patient and his significant other on multiple occasions. His respiratory status continues to wax and wane, however he is still requiring a high amount of O2 at rest and has significant desaturations with any movement or conversation. Significant LE edema, needs further diuresed. 2. Anemia/thrombocytopenia secondary to chemotherapy Platelet count improved to greater than 50,000. Continue Xarelto accordingly. Check CBC daily. Received total of 4 units of PRBCs this admit. Recommend transfusing if hemoglobin drops below 8 g/dL. 3. Personal history of extensive stage small cell lung cancer The patient is currently on chemotherapy and being managed by oncology. 4. History of bilateral lower extremity DVTs/paroxysmal atrial fibrillation Continue Xarelto, given that the patient's platelet count has recovered to greater than 50,000. Continue p.o. Cardizem. 5. CODE STATUS DNR CCA without intubation. Has previous Palliative care. Hospice was recommended, however patient declining at this time. He appears to be very indecisive. This note was generated with [employer] dictation software. It may contain incorrect words, spelling, and punctuation that were not noted in checking the note before signing.
[2018-03-05 12:20] LABS: Bedside Glucose 199 mg/dL (70-110)
[2018-03-05 14:25] LABS: Pathologist Review Reviewed
--- NOTE | 2018-03-05 15:47 | PCM.PN.HOSP ---
Patient Problems: Active and Suspected Problems (Last Updated 03/01/18 @ 08:24 by Zarina Godoy, SCRIPT WRITER-C) Chest pain (Acute) Acute blood loss anemia (Acute) Thrombocytopenia (Acute) Gram-negative pneumonia (Acute) Pneumonia (Acute) Subjective: CC: Shortness of breath Objective: He is significantly dyspneic with mild ambulation. He is still requiring high flow oxygen, the patient and family declined hospital consult. He wants to go home. Vitals/I&O's: Vital Signs Temp Pulse Resp BP Pulse Ox 98 F 81 24 H 118/63 92 03/05/18 14:25 03/05/18 15:10 03/05/18 14:41 03/05/18 14:25 03/05/18 14:41 Oxygen Flow Rate (L/min) 8 Oxygen Delivery Method Venturi Mask Weight: 78.9 kg Body Mass Index (BMI) 22.8 Intake and Output for Last 24 Hours 03/03/18 03/04/18 03/05/18 23:59 23:59 23:59 Intake Total 2333 / 2333 1697 / 1697 1597 / 1597 Output Total 2024 / 2024 1800 / 1800 350 / 350 Balance 308 / 308 -103 / -103 1247 / 1247 General: Alert, Oriented x3 Oral: Moist Mucosa Neck: Supple, No JVD Lungs: Clear to auscultation Cardiovascular: Regular rate, Normal S1, Normal S2 Abdomen: Bowel Sounds Present, Non Tender Extremities: No edema Neurological: Cranial nerves II-XII grossly intact, Neuro grossly intact, Motor Exam 5/5 strength throughout Psych/Mental Status: Normal Affect Laboratory Results 03/01/18 04:15: Diff Path Review Reviewed 03/02/18 05:45: Diff Path Review Reviewed 03/03/18 04:50: Diff Path Review Reviewed 03/04/18 13:20: Diff Path Review Reviewed 03/04/18 18:15: POC Glucose 234 H 03/04/18 19:21: Blood Type A POSITIVE, Antibody Screen NEGATIVE, Crossmatch See Detail 03/04/18 22:22: POC Glucose 129 H 03/05/18 06:48: POC Glucose 148 H 03/05/18 08:50: WBC 15.6 H, RBC 2.95 L, Hgb 9.2 L, Hct 29.0 L, MCV 98.3 H, MCH 31.2, MCHC 31.7 L, RDW 17.6 H, RDW Differential 56.7 H, Plt Count 127 L, MPV 9.4 03/05/18 12:04: POC Glucose 199 H Current Medications Acetaminophen (Tylenol) 650 mg PO Q4H PRN PRN PRN Reason: FEVER Atorvastatin Calcium (Lipitor) 40 mg PO QHS [facility] Last Admin: 03/04/18 22:25 Dose: 40 mg Dextrose (D50w Syringe) 0 gm IV X1 PRN; Protocol PRN Reason: Hypoglycemia Diltiazem HCl (Cardizem) 60 mg PO Q6 [facility] Last Admin: 03/05/18 12:08 Dose: 60 mg Divalproex Sodium (Depakote) 500 mg PO TID [facility] Last Admin: 03/05/18 13:45 Dose: 500 mg Folic Acid (Folic Acid) 1 mg PO DAILY@0800 [facility] Last Admin: 03/05/18 10:25 Dose: 1 mg Furosemide (Lasix) 20 mg PO BID@1000,1800 [facility] Last Admin: 03/05/18 10:25 Dose: 20 mg Glucagon () 1 mg IM .X1 PRN PRN Reason: Hypoglycemia Guaifenesin (Mucinex) 1,200 mg PO BID [facility] Last Admin: 03/05/18 10:25 Dose: 1,200 mg Heparin Sodium (Beef Lung) (Heparin 500 Unit/5 Ml (100/Ml)) 500 unit IV UD PRN PRN Reason: HEPARIN FLUSH Sodium Chloride () 250 mls @ 15 mls/hr IV .[id number] PRN PRN Reason: SALINE FLUSH Last Admin: 03/03/18 09:19 Dose: 15 mls/hr Insulin Aspart (Novolog Flexpen (Bkc)) 0 units SC TIDAC VICKIE PRN Reason: Protocol Last Admin: 03/05/18 12:08 Dose: 2 units Ipratropium Lawrence (Atrovent) 0.5 mg INHALATION Q4H.RT [facility] Last Admin: 03/05/18 14:41 Dose: 0.5 mg Levothyroxine Sodium (Synthroid) 25 mcg PO DAILY@0600 [facility] Last Admin: 03/05/18 05:02 Dose: 25 mcg Magnesium Hydroxide (Milk Of Magnesia) 30 ml PO DAILY PRN PRN PRN Reason: Constipation Last Admin: 03/01/18 17:33 Dose: 30 ml Metoprolol Tartrate (Lopressor (Beta Raina)) 50 mg PO BID [facility] Last Admin: 03/05/18 10:25 Dose: 50 mg Mirtazapine (Remeron) 7.5 mg PO QHS [facility] Last Admin: 03/04/18 22:25 Dose: 7.5 mg Nutritional Formula (Lactose Free) (Glucerna Shake) 120 ml PO 4X/DAY [facility] Last Admin: 03/05/18 13:45 Dose: 120 ml Ondansetron HCl (Zofran) 4 mg IV Q8H PRN PRN PRN Reason: NAUSEA Ondansetron HCl (Zofran Odt) 4 mg PO Q8H PRN PRN Reason: NAUSEA Oxycodone HCl (Oxyir) 5 - 10 mg PO Q4H PRN PRN PRN Reason: SEVERE PAIN (6-10/10) Last Admin: 03/04/18 18:00 Dose: 5 mg Rivaroxaban (Xarelto) 20 mg PO DAILY@1700 [facility] Last Admin: 03/04/18 18:00 Dose: 20 mg Senna (Senokot) 1 tablet PO BID [facility] Last Admin: 03/05/18 10:26 Dose: 1 tablet Sodium Chloride () 10 ml IV UD PRN PRN Reason: VAD FLUSH Last Admin: 03/04/18 12:49 Dose: 10 ml Medical Necessity - Tobacco Use Smoking Status: Former smoker Assessment/Plan Active and Suspected Problems (Last Updated 03/01/18 @ 08:24 by Zarina Godoy, SCRIPT WRITER-C) Chest pain (Acute) Acute blood loss anemia (Acute) Thrombocytopenia (Acute) Gram-negative pneumonia (Acute) Pneumonia (Acute) 1. Acute hypoxic respiratory failure secondary to PNA and lung CA ; he is requiring high flow oxygen at 8lit/min today, we will wean as tolerated. 2. MSSA pneumonia ; adequately treated with IV Unasyn , antibiotic stopped today. 3. Anemia of CD and chemotherapy; hemoglobin improved to 9 point 9.2 units of packed RBCs. 4. Metastatic SCLC; Domenico undergoing chemotherapy, he initially declined hospice but now wants to talk to them. 5. Diabetes mellitus type 2 ; he is on RISS 6. Paroxysmal A. fib ; he is on PO Cardizem 30 mg every 6 7. Bilateral LE DVT; he is Xarelto . 8. Constipation ; bowel regimen. 9. Acute congestive heart failure with preserved left ventricular function; we will continue on IV Lasix. 10. Thrombocytopenia 2/2 therapy; platelet level is improving Code Visit Inpatient E&M: 11359 Subs Hosp L2
--- NOTE | 2018-03-05 15:50 | PN_ITS ---
Patient Problems: Active and Suspected Problems (Last Updated 03/01/18 @ 08:24 by Zarina Godoy , PLATE PAINTER APPRENTICE-C) Chest pain (Acute) Acute blood loss anemia (Acute) Thrombocytopenia (Acute) Gram-negative pneumonia (Acute) Pneumonia (Acute) Subjective: CC: Shortness of breath Objective: He is significantly dyspneic with mild ambulation. He is still requiring high flow oxygen, the patient and family declined hospital consult. He wants to go home. Vitals/I&O's: Vital Signs Temp Pulse Resp BP Pulse Ox 98 F 81 24 H 118/63 92 03/05/18 14:25 03/05/18 15:10 03/05/18 14:41 03/05/18 14:25 03/05/18 14:41 Oxygen Flow Rate (L/min) 8 Oxygen Delivery Method Venturi Mask Weight: 78.9 kg Body Mass Index (BMI) 22.8 Intake and Output for Last 24 Hours 03/03/18 03/04/18 03/05/18 23:59 23:59 23:59 Intake Total 2333 / 2333 1697 / 1697 1597 / 1597 Output Total 2024 / 2024 1800 / 1800 350 / 350 Balance 308 / 308 -103 / -103 1247 / 1247 General: Alert, Oriented x3 Oral: Moist Mucosa Neck: Supple, No JVD Lungs: Clear to auscultation Cardiovascular: Regular rate, Normal S1, Normal S2 Abdomen: Bowel Sounds Present, Non Tender Extremities: No edema Neurological: Cranial nerves II-XII grossly intact, Neuro grossly intact, Motor Exam 5/5 strength throughout Psych/Mental Status: Normal Affect Laboratory Results 03/01/18 04:15: Diff Path Review Reviewed 03/02/18 05:45: Diff Path Review Reviewed 03/03/18 04:50: Diff Path Review Reviewed 03/04/18 13:20: Diff Path Review Reviewed 03/04/18 18:15: POC Glucose 234 H 03/04/18 19:21: Blood Type A POSITIVE, Antibody Screen NEGATIVE, Crossmatch See Detail 03/04/18 22:22: POC Glucose 129 H 03/05/18 06:48: POC Glucose 148 H 03/05/18 08:50: WBC 15.6 H, RBC 2.95 L, Hgb 9.2 L, Hct 29.0 L, MCV 98.3 H, MCH 31.2, MCHC 31.7 L, RDW 17.6 H, RDW Differential 56.7 H, Plt Count 127 L, MPV 9.4 03/05/18 12:04: POC Glucose 199 H Current Medications Acetaminophen (Tylenol) 650 mg PO Q4H PRN PRN PRN Reason: FEVER Atorvastatin Calcium (Lipitor) 40 mg PO QHS [facility] Last Admin: 03/04/18 22:25 Dose: 40 mg Dextrose (D50w Syringe) 0 gm IV X1 PRN; Protocol PRN Reason: Hypoglycemia Diltiazem HCl (Cardizem) 60 mg PO Q6 [facility] Last Admin: 03/05/18 12:08 Dose: 60 mg Divalproex Sodium (Depakote) 500 mg PO TID [facility] Last Admin: 03/05/18 13:45 Dose: 500 mg Folic Acid (Folic Acid) 1 mg PO DAILY@0800 [facility] Last Admin: 03/05/18 10:25 Dose: 1 mg Furosemide (Lasix) 20 mg PO BID@1000,1800 [facility] Last Admin: 03/05/18 10:25 Dose: 20 mg Glucagon () 1 mg IM .X1 PRN PRN Reason: Hypoglycemia Guaifenesin (Mucinex) 1,200 mg PO BID [facility] Last Admin: 03/05/18 10:25 Dose: 1,200 mg Heparin Sodium (Beef Lung) (Heparin 500 Unit/5 Ml (100/Ml)) 500 unit IV UD PRN PRN Reason: HEPARIN FLUSH Sodium Chloride () 250 mls @ 15 mls/hr IV .[id number] PRN PRN Reason: SALINE FLUSH Last Admin: 03/03/18 09:19 Dose: 15 mls/hr Insulin Aspart (Novolog Flexpen (Bkc)) 0 units SC TIDAC VICKIE PRN Reason: Protocol Last Admin: 03/05/18 12:08 Dose: 2 units Ipratropium Marshall (Atrovent) 0.5 mg INHALATION Q4H.RT [facility] Last Admin: 03/05/18 14:41 Dose: 0.5 mg Levothyroxine Sodium (Synthroid) 25 mcg PO DAILY@0600 [facility] Last Admin: 03/05/18 05:02 Dose: 25 mcg Magnesium Hydroxide (Milk Of Magnesia) 30 ml PO DAILY PRN PRN PRN Reason: Constipation Last Admin: 03/01/18 17:33 Dose: 30 ml Metoprolol Tartrate (Lopressor (Beta Raina)) 50 mg PO BID [facility] Last Admin: 03/05/18 10:25 Dose: 50 mg Mirtazapine (Remeron) 7.5 mg PO QHS [facility] Last Admin: 03/04/18 22:25 Dose: 7.5 mg Nutritional Formula (Lactose Free) (Glucerna Shake) 120 ml PO 4X/DAY [facility] Last Admin: 03/05/18 13:45 Dose: 120 ml Ondansetron HCl (Zofran) 4 mg IV Q8H PRN PRN PRN Reason: NAUSEA Ondansetron HCl (Zofran Odt) 4 mg PO Q8H PRN PRN Reason: NAUSEA Oxycodone HCl (Oxyir) 5 - 10 mg PO Q4H PRN PRN PRN Reason: SEVERE PAIN (6-10/10) Last Admin: 03/04/18 18:00 Dose: 5 mg Rivaroxaban (Xarelto) 20 mg PO DAILY@1700 [facility] Last Admin: 03/04/18 18:00 Dose: 20 mg Senna (Senokot) 1 tablet PO BID [facility] Last Admin: 03/05/18 10:26 Dose: 1 tablet Sodium Chloride () 10 ml IV UD PRN PRN Reason: VAD FLUSH Last Admin: 03/04/18 12:49 Dose: 10 ml Medical Necessity - Tobacco Use Smoking Status: Former smoker Assessment/Plan Active and Suspected Problems (Last Updated 03/01/18 @ 08:24 by Zarina Godoy , PLATE PAINTER APPRENTICE-C) Chest pain (Acute) Acute blood loss anemia (Acute) Thrombocytopenia (Acute) Gram-negative pneumonia (Acute) Pneumonia (Acute) 1. Acute hypoxic respiratory failure secondary to PNA and lung CA ; he is requiring high flow oxygen at 8lit/min today, we will wean as tolerated. 2. MSSA pneumonia ; adequately treated with IV Unasyn , antibiotic stopped today. 3. Anemia of CD and chemotherapy; hemoglobin improved to 9 point 9.2 units of packed RBCs. 4. Metastatic SCLC; Domenico undergoing chemotherapy, he initially declined hospice but now wants to talk to them. 5. Diabetes mellitus type 2 ; he is on RISS 6. Paroxysmal A. fib ; he is on PO Cardizem 30 mg every 6 7. Bilateral LE DVT; he is Xarelto . 8. Constipation ; bowel regimen. 9. Acute congestive heart failure with preserved left ventricular function; we will continue on IV Lasix. 10. Thrombocytopenia 2/2 therapy; platelet level is improving Code Visit Inpatient E&M: 77456 Subs Hosp L2
[2018-03-05 16:45] LABS: Bedside Glucose 97 mg/dL (70-110)
--- NOTE | 2018-03-05 17:00 | CHAPLAIN ---
Type of Pastoral Visit ___ Initial Visit _x__ Follow-up Visit ___ On-call Visit ___ General Patient Visit ___ Spiritual Assessment ___ Family Conference ___ Bereavement ___ Rapid Response ___ Code Blue ___ Other (describe below) Pastoral Care Referral From _x__ Patient ___ Family ___ Nurse ___ Physician ___ Storage Engineer ___ Assembler Bicycle ___ Other (describe below) Sacrament/Intervention _x__ Active listening ___ Anointing ___ Amish ___ Bereavement ___ Communion ___ Tonya exploration ___ _x__ Life review _x__ Prayer ___ Reconciliation ___ Sacrament of Sick _x__ Supportive presence ___ Wedding ___ Other (describe below) Pastoral Comments
[2018-03-05] MEDS: Rivaroxaban 20 MG Tablet PO (17:28)
[2018-03-05] MEDS: Mirtazapine 15 MG Tablet 7.5 MG PO (21:12)
[2018-03-05] MEDS: Atorvastatin Calcium 40 MG Tablet PO (21:13)
[2018-03-06] VITALS (25 sets, daily range): BP systolic 101–129; BP diastolic 42–83; PULSE 79–161; RESP 18–31; TEMP 36.4–37.1; O2SAT 78–99
[2018-03-06] MEDS: dilTIAZem 60 MG Tablet PO ×5 (01:00→23:58)
--- NOTE | 2018-03-06 01:00 | CPS ---
pt refused bipap
[2018-03-06] MEDS: Ipratropium 0.5 MG/2.5 ML SOLUTION INHALATION ×3 (03:13→11:04)
[2018-03-06] MEDS: Levothyroxine 25 MCG TABLET PO (05:29)
[2018-03-06] MEDS: Divalproex Sodium 250 MG Tablet 500 MG PO ×3 (05:29→22:35)
[2018-03-06 06:45] LABS: Bedside Glucose 216 mg/dL (70-110)
[2018-03-06] MEDS: Metoprolol Tartrate 50 MG Tablet PO ×2 (10:16→22:35)
[2018-03-06] MEDS: Furosemide 20 MG Tablet PO ×2 (10:16→17:50)
[2018-03-06] MEDS: Folic Acid 1 MG Tablet PO (10:16)
[2018-03-06] MEDS: guaiFENesin 1,200 MG Tablet 1200 MG PO ×2 (10:16→22:35)
[2018-03-06] MEDS: Senna Tablet 1 TABLET PO ×2 (10:16→22:35)
--- NOTE | 2018-03-06 10:32 | PN_ITS ---
Patient Problems: Active and Suspected Problems (Last Updated 03/01/18 @ 08:24 by Zarina Godoy , PROGRAM SPECIALIST-C) Chest pain (Acute) Acute blood loss anemia (Acute) Thrombocytopenia (Acute) Gram-negative pneumonia (Acute) Pneumonia (Acute) Subjective: The patient was seen and examined. He just accumulated from the bathroom to his chair. He is able to tolerate activity slightly better than yesterday. He denies any cough or sputum production. Heart rate improved overall today, however remains intermittently tachycardic up to 160. He is currently wearing a nonrebreather and is saturating in the upper 90s. I did transition him to 8 L per nasal cannula to eat his breakfast. Again discussed that higher oxygen requirements cannot be accommodated in the home setting. Patient and his significant other acknowledged understanding, however he is still taking about going home today. Objective: Recent lab and culture data reviewed. Sputum culture positive for MSSA. Urine strep and Legionella antigens negative. Respiratory viral panel negative. Total of 4 units PRBCs transfused. Chest x-ray from 03/02 showing interval improvement in the right lung airspace opacities since previous examination on 02/26. There is persistent reticulonodular opacities and airspace opacities in the left lung and small bilateral pleural effusions. - Physical Exam General: Alert, Oriented x3, Cooperative, - - No conversational dyspnea HEENT: Atraumatic, Normocephalic Oral: Moist Mucosa Neck: No Nodes, Trachea Midline Lungs: No rhonchi, No wheeze, No rales, Diminished Cardiovascular: Normal S1, Normal S2, No murmurs, Irregular Rate, No rub noted, No Gallop Abdomen: Bowel Sounds Present, Soft, Non Tender Extremities: No cyanosis, Edema - 4-5+ pitting bilat LEs Skin: - - no changes Musculoskeletal: No Tenderness to Palpation of Joints or Extremities Neurological: Neuro grossly intact Psych/Mental Status: Alert and oriented to time, place, person, mood and affect Vital Signs Temp Pulse Resp BP Pulse Ox 98.2 F 112 H 25 H 107/73 92 03/06/18 10:00 03/06/18 10:16 03/06/18 10:00 03/06/18 10:03/06/18 10:00 Oxygen Flow Rate (L/min) 12 Oxygen Delivery Method Non-Rebreather Weight: 170 lb 10.205 oz Body Mass Index (BMI) 22.8 Intake and Output for Last 24 Hours 03/04/18 03/05/18 03/06/18 23:59 23:59 23:59 Intake Total 1697 / 1697 1956.8 / 1956.8 409 / 409 Output Total 1800 / 1800 975 / 975 1100 / 1100 Balance -103 / -103 981.8 / 981.8 -691 / -691 Laboratory Tests Past 24 Hrs 03/04/18 13:20 Diff Path Review Reviewed POC Glucose 03/06/18 03/05/18 03/05/18 06:38 16:35 12:04 POC Glucose 216 H 97 199 H Medical Necessity - Tobacco Use Smoking Status: Former smoker Assessment/Plan Active and Suspected Problems (Last Updated 03/01/18 @ 08:24 by Zarina Godoy , PROGRAM SPECIALIST-C) Chest pain (Acute) Acute blood loss anemia (Acute) Thrombocytopenia (Acute) Gram-negative pneumonia (Acute) Pneumonia (Acute) RECOMMENDATIONS: 1. Continue p.o. Cardizem 2. Continue scheduled Atrovent aerosols 3. Wean supplemental oxygen as tolerated 4. Continue BiPAP therapy as needed and nightly 5. Monitor blood counts daily, continue Xarelto 6. Recommend hospice, however patient has declined 7. Patient not improving, would encourage d/c to Hospice or to skilled rehab facility IMPRESSIONS: 1. Acute hypoxemic respiratory failure secondary to underlying small cell lung cancer and superimposed multifocal MSSA pneumonia The patient has baseline underlying fibrotic changes and emphysema noted on CT scan. In addition, he has extensive stage small cell lung cancer. All of this is being exacerbated by his current multilobar pneumonia. Sputum culture was positive for MSSA. Continue antibiotics per ID recommendations. Given issues with tachycardia, the patient's duo nebs were discontinued and he was subsequently transition to Atrovent aerosols. Tachycardia improved. Continue scheduled aerosol treatments, as the patient does have a mild obstructive ventilatory impairment on his last PFTs. Wean supplemental oxygen as tolerated. Encourage incentive parameter use and mobilize patient as tolerated. BiPAP to be utilized nightly and as needed. The patient is >7L + for the admission. His weight is up accordingly. Ideally, would like to continue to diurese with Lasix. 03/04, 03/05, 03/06 He has a very poor overall prognosis, which has been conveyed to the patient and his significant other on multiple occasions by multiple providers. His respiratory status continues to wax and wane, however he is still requiring a high amount of O2 at rest and has significant desaturations with any movement or conversation. Significant LE edema, needs further diuresed. Elevated LEs. Patient does not appear to understand that he cannot go home with such high oxygen requirements as concentrator does not go that high. 2. Anemia/thrombocytopenia secondary to chemotherapy Platelet count improved to greater than 50,000. Continue Xarelto accordingly. Check CBC daily. Received total of 4 units of PRBCs this admit. Recommend transfusing if hemoglobin drops below 8 g/dL. 3. Personal history of extensive stage small cell lung cancer The patient is currently on chemotherapy and being managed by oncology. 4. History of bilateral lower extremity DVTs/paroxysmal atrial fibrillation Continue Xarelto, given that the patient's platelet count has recovered to greater than 50,000. Continue p.o. Cardizem. 5. CODE STATUS DNR CCA without intubation. Has previous Palliative care. Hospice was recommended, however patient declining at this time. Patient appears to be in denial about gravity of health status. This note was generated with [employer]dcube[employer] software. It may contain incorrect words, spelling, and punctuation that were not noted in checking the note before signing.
[2018-03-06 11:56] LABS: Bedside Glucose 141 mg/dL (70-110)
--- NOTE | 2018-03-06 12:30 | CASEMGMT ---
JOSE met with patient alone. Introduced self and role at [facility]. JOSE told him SW wanted to talk with him alone so he had a chance to share his concerns and fears about everything that is going on. He was very open with SW. His main concern is his significant other. He is worried about her when he dies. He became tearful. He expressed some more of his concerns and fears. SW asked him about his concerns with Hospice. He said he has some questions. He asked, can he go home on Hospice, will someone from there visit him, if he falls will Hospice help him or let him go. JOSE validated his questions and told him that Hospice would not let him suffer. JOSE confirmed he can have Hospice at home and they will come and see him. He then wanted SW to talk with his girlfriend as she also had some questions. He was going to have her come back to the hospital. Daja MÉNDEZ
--- NOTE | 2018-03-06 13:38 | ONC.PN.INPT ---
- Problem List (1) Small cell lung cancer Status: Acute (2) Antineoplastic chemotherapy induced anemia Status: Acute (3) DVT (deep venous thrombosis) Status: Acute Qualifiers: DVT location: lower extremity Chronicity: acute Laterality: bilateral Subjective Date of Service:: 03/06/18 chest pain, respiratory failure Mr. Dennis Hernandez is a 62-year-old male with extensive stage IV SCLC admitted with chest pain and respiratory tract infection. He's an ex-smoker who quit in 2015, who was hospitalized at [facility] in September 2017 with his acute abdominal pain and diagnosed with pancreatitis. During hospitalization a chest x-ray revealed a left lung mass. CT scan showed a malignant-appearing left upper lobe mass and a CT-guided biopsy on September 18, 2017 confirmed small cell lung cancer. PET CT October 08, 2017 showed abnormal uptake consistent with a malignant process involving the left lung mass, hilar adenopathy and a newly evolving left adrenal mass was not visualized on his CT scan of the abdomen in March 2017. CT-guided biopsy of the adrenal mass confirmed metastatic small cell cancer. MRI of the brain showed no evidence of metastatic disease. Of note patient developed 2 episodes of acute pancreatitis the first was September 2017, the second was November [address] scan of the abdomen and PET/CT showed indeterminate abnormality in the area of the pancreatic head that could not be further characterized but an underlying neoplastic process could not be excluded. Current Treatment: Carbo-etoposide since 11/13/2017- Last treatment 02/11/2018 Developed bilateral LE DVTs 01/2018 and has been on Xarelto Upon entering room, patient sitting upright in bed with NRB mask. Verbalizes he is tired of being in the hospital and very much would like to go home. Frequently during conversation patient removed mask and quickly became dyspneic and tachycardic. Significant other present. Past Medical History: Chronic Problems (Last Updated 03/01/18 @ 08:24 by SIDDHARTH SharpeC) Stage 1 mild COPD by GOLD classification (Chronic) Cancer-related pain (Chronic) Past Medical History - Most Recent Inpatient Visit Past Medical History Start: 02/24/18 17:52 Text: Status: Complete Freq: ONCE Protocol: Document 02/24/18 17:52 [facility] (Rec: 02/24/18 18:20 [facility] [id number]) BMI Required to complete PMH What is Patient's BMI 22.9 Past Medical History Unable History Recalled No Query Text:Pt Unable/Family Not Present Neurologic Medical History Hx Stroke/TIA Yes: 2000 Hx Dementia/Alzheimer's No Hx Parkinson's Disease No Hx Seizures Yes: 2000 with stroke Hx Multiple Sclerosis No Hx Migraines Yes Cardiac Medical History VTE Present on Admission No Hx of Deep Vein Thrombosis/VTE/PE Yes: right leg found out a couple weeks ago Hx Hypertension No Hx Chest Pain/Angina Yes Hx Heart Attack No Hx Cardiac Surgery/Stents/Etc. No: stress test Oct 2017 Hx Heart Failure No Hx Pacemaker/AICD No Hx Irregular Heartbeat and/or Afib No Hx Anticoagulant Therapy No Query Text:(Coumadin, Aspirin, Plavix, Xarelto, etc.) Hx Pain in Legs when Walking/Leg Cramps No Respiratory Medical History Hx COPD Yes Hx Emphysema No Hx Smoking Yes Smoking Status Former smoker Years Smoking 50 Packs Smoked per Day 1.5 Hx Smoking Cessation Counseling Yes Hx Smoking Exposure Yes Hx Tobacco Use in last 12 months No Hx of Pipe Smoking No Hx Sleep Apnea No Do you snore loudly (louder than talking Yes or can be heard through closed doors)? Do you often feel tired/ fatigued/ Yes sleepy during daytime? Has anyone observed you stop breathing Yes during sleep? STOP Results Positive Comments does think patient has sleep apnea GI Medical History Hx Ulcer No Hx Hepatitis No Hx Cirrhosis No Hx GI Bleed No Hx Unplanned Weight Loss No Genitourinary Medical History Indwelling Catheter in Place on Arrival/ No Admission Hx Renal Disease No Hx Dialysis No Musculoskeletal History Hx Arthritis Yes: hands Hx Rheumatoid Arthritis No Endocrine Medical History Hx Diabetes Yes Hx Thyroid Disease Yes Hematologic Medical History Hx of Blood Transfusion Yes Hx of Transfusion in last 3 Months Yes Date of Last Transfusion (if within last 02/24/17 3 months) Ever experience any problems with No transfusion(s)? Hx of Preganancy in last 3 Months N/A Nurse Filling Out Transfusion & ESTEINER Questions: Date: 02/24/18 Time: 18:18 Psycho/Social Medical History Hx Depression Yes Hx Anxiety No Hx Behavior Disorder Yes: bipolar disorder Hx Alcohol Use No Hx Substance Use No Comments stopped marajuana september 2017 Other Medical History Hx Blood Disorders No Hx Anemia No Hx Cancer Yes: lung, adrenal gland, lymph nodes Hx Drug Resistant Organism No Wound/Pressure Injury Present on Arrival No /Admission Query Text:If yes, chart assessment in Shift/Clinical Findings Central Line/PICC/VAD Present on Arrival Yes /Admission Antibiotics within last 7 days? No Methicillin Resistant Staphylococcus aureus Screening Active MRSA No Risk for Readmission Number of Risk Factors 7 At Risk for Readmission Patient is At Risk For Readmission Patient is eligible for Call Back Y Past Medical History (Last Updated 03/01/18 @ 08:24 by Zarina Godoy, FURNITURE STAINER-C) Abdominal pain (Acute) Anemia (Acute) Cervical radiculopathy (Acute) Chest pain (Acute) 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) DVT prophylaxis (Acute) Depression (Acute) Diverticulitis (Acute) Dyspnea (Acute) Heart murmur (Acute) Hernia (Acute) Impingement syndrome, shoulder, left (Acute) Inguinal hernia (Acute) Marijuana use (Acute) Mass of pancreas (Acute) Palpitations (Acute) Pneumonia (Acute) Rotator cuff syndrome (Acute) Stroke (Acute) s/p port placement (Acute ~11/01/17) COPD (chronic obstructive pulmonary disease) (Chronic) Crohns disease (Chronic) Diabetes mellitus, type II (Chronic) History of TIA (transient ischemic attack) (Chronic) History of tobacco use (Chronic) Hypothyroidism (Chronic) Metastasis to adrenal gland (Chronic) Migraine (Chronic) Regional lymph node metastasis present (Chronic) Small cell lung cancer (Chronic) Past Surgical History (Last Updated 03/01/18 @ 08:24 by Zarina Godoy, FURNITURE STAINER-C) FHx: cholecystectomy (Acute) H/O colectomy (Acute) History of appendectomy (Acute) RIGHT HERNIA REPAIR WITH KUGEL PATCH (Acute) SIGMOIDECTOMY W/ COLORECTAL ANASTAMOSIS (Acute) History of cholecystectomy (Resolved) History of laparotomy (Resolved) History of right inguinal hernia repair (Resolved) Maternal Family History: Family History (Last Reviewed 02/11/18 @ 09:28 by Kizzy Sena) Father CAD (coronary artery disease) Mesothelioma Grandfather Leukemia Brother Throat cancer Family History: No pertinent history Paternal Family History: Family History (Last Reviewed 02/11/18 @ 09:28 by Kizzy Sena) Father CAD (coronary artery disease) Mesothelioma Grandfather Leukemia Brother Throat cancer Family History: No pertinent history, - - no lung cancer. - Social History Lives: Spouse/ Significant Other Smoking Status: Former smoker Alcohol: None Drugs: Marijuana Review of Systems Constitutional:: Reports: Weakness, Fatigue. Denies: Fever, Sweats, Appetite change, Chills Cardiovascular:: Reports: Dyspnea on exertion. Denies: Chest pain, Palpitations, Orthopnea, PND Respiratory: Reports: Shortness of breath at rest. Denies: Cough, Hemoptysis, Wheezing Gastrointestinal:: Denies: Abdominal pain, Nausea, Vomiting, Diarrhea, Constipation, Hematochezia Genitourinary: Denies: Dysuria, Hematuria, 15, Flank pain Musculoskeletal:: Denies: Back pain, Myalgia, Arthralgia Skin: Denies: Rash, Skin Changes, Wounds Neurological:: Denies: Headache, Dizziness, Numbness, Tingling, Visual changes, Tinnitus, Hearing loss Psychiatric: Denies: Anxiety, Depression, Homicidal Ideations, Suicidal Ideations Vital Signs Height 5 ft 9 in Weight: 170 lb 10.205 oz Weight in Pounds 170.6 lbs Pulse Ox 96 Temperature 98.2 F Pulse Rate 86 Respiratory Rate 27 Blood Pressure [BP] 106/62 Blood Pressure 118/62 Blood Pressure Position [BP] Semi-Fowlers Blood Pressure Position Sitting - Physical Exam General: Alert, Oriented x3, No apparent distress HEENT: Atraumatic, Normocephalic Oropharynx:: Negative for: Dry mucosa Neck:: Supple, Trachea midline. Negative for: JVD, bilateral Cardiac:: Regular rhythm, Normal S1, Normal S2, Tachycardia. Negative for: Murmur Lungs: Diminished, Tachypneic, Increased respiratory effort, Excusion symmetrical Abdomen:: Bowel sounds x 4, Soft, Non-tender, Non-distended. Negative for: Hepatosplenomegaly Extremities:: Edema - BLE +2, L>R. Negative for: Cyanosis Skin:: Ecchymosis - BUE in various stages of healing. Negative for: Lesions, Rash, Petechiae Psychiatric:: Appropriate affect, Euthymic Laboratory Data: Laboratory Tests 03/06/18 03/06/18 03/05/18 Range/Units 11:43 06:38 16:35 Diff Path Review POC Glucose 141 H 216 H 97 (70-110) mg/dL 03/04/18 Range/Units 13:20 Diff Path Review Reviewed POC Glucose (70-110) mg/dL Diagnostic Data: Diagnostic Data Chest CTA 02/24/18 13:24 IMPRESSION: No evidence of pulmonary embolus. No evidence of thoracic aortic aneurysm or dissection. Increasing consolidation in the left upper lobe. New bibasilar airspace opacities. This is likely infectious in etiology. The patient's known left upper lobe mass is not well evaluated due to the surrounding consolidated lung parenchyma. New small left pleural effusion. Stable mediastinal lymphadenopathy. Electronically Signed: Suhail Cardona, at 14:52 EDT Tel , Service support , Chest X-Ray 03/02/18 07:05 Assessment and Plan 62-year-old male with #1 Stage IV small cell lung cancer. Patient presented with significant weight loss and left upper abdominal pain most likely related to a rapidly growing metastatic lesion (pathologically confirmed) in the left adrenal gland. Systemic chemotherapy with carboplatin etoposide patient is status post 5/6 cycles with partial remission of his disease . Last cycle was 02/11/2018 and received Neulasta 02/14/2018 #2 Acute on chronic respiratory failure- Requiring 15 L/min via NRB mask. Patient is not able to maintain adequate oxygen saturation with less O2 at this point. Would likely require longterm care. Engaged in lengthy, candid conversation about his current status, enquiring what the patient wants. He verbalizes its important to him to be able to go home. He plans to discuss options offered to him with girlfriend and make a formal decision about where he would like to go upon discharge. He plans to relay his decision to primary care team this afternoon. Bella Aguila, MSN, FRUIT FARMER-C, AOCNP Medications: Prescriptions This Visit Medication Instructions Recorded Alive Mens 1 tab PO DAILY 02/24/18 Ferrous Sulfate 325 mg PO DAILY@0800 02/24/18 Folic Acid 1 tab PO DAILY 02/24/18 Rivaroxaban [Xarelto] 1 tab PO DAILY 02/24/18 Vitamin D3 2 tab PO DAILY 02/24/18 Primary Care Provider: Last Aguilar Referring Provider:
--- NOTE | 2018-03-06 13:48 | PN_ITS ---
- Problem List (1) Small cell lung cancer Status: Acute (2) Antineoplastic chemotherapy induced anemia Status: Acute (3) DVT (deep venous thrombosis) Status: Acute Qualifiers: DVT location: lower extremity Chronicity: acute Laterality: bilateral Subjective Date of Service:: 03/06/18 chest pain, respiratory failure Mr. Dennis Hernandez is a 62-year-old male with extensive stage IV SCLC admitted with chest pain and respiratory tract infection. He's an ex-smoker who quit in 2015, who was hospitalized at [facility] in September 2017 with his acute abdominal pain and diagnosed with pancreatitis. During hospitalization a chest x-ray revealed a left lung mass. CT scan showed a malignant-appearing left upper lobe mass and a CT-guided biopsy on September 18, 2017 confirmed small cell lung cancer. PET CT October 08, 2017 showed abnormal uptake consistent with a malignant process involving the left lung mass, hilar adenopathy and a newly evolving left adrenal mass was not visualized on his CT scan of the abdomen in March 2017. CT-guided biopsy of the adrenal mass confirmed metastatic small cell cancer. MRI of the brain showed no evidence of metastatic disease. Of note patient developed 2 episodes of acute pancreatitis the first was September 2017, the second was November [address] scan of the abdomen and PET/CT showed indeterminate abnormality in the area of the pancreatic head that could not be further characterized but an underlying neoplastic process could not be excluded. Current Treatment: Carbo-etoposide since 11/13/2017- Last treatment 02/11/2018 Developed bilateral LE DVTs 01/2018 and has been on Xarelto Upon entering room, patient sitting upright in bed with NRB mask. Verbalizes he is tired of being in the hospital and very much would like to go home. Frequently during conversation patient removed mask and quickly became dyspneic and tachycardic. Significant other present. Past Medical History: Chronic Problems (Last Updated 03/01/18 @ 08:24 by SIDDHARTH SharpeC) Stage 1 mild COPD by GOLD classification (Chronic) Cancer-related pain (Chronic) Past Medical History - Most Recent Inpatient Visit Past Medical History Start: 02/24/18 17: 52 Text: Status: Complete Freq: ONCE Protocol: Document 02/24/18 17:52 [facility] (Rec: 02/24/18 18:20 [facility] [id number]) BMI Required to complete PMH What is Patient's BMI 22.9 Past Medical History Unable History Recalled No Query Text:Pt Unable/Family Not Present Neurologic Medical History Hx Stroke/TIA Yes: 2000 Hx Dementia/Alzheimer's No Hx Parkinson's Disease No Hx Seizures Yes: 2000 with stroke Hx Multiple Sclerosis No Hx Migraines Yes Cardiac Medical History VTE Present on Admission No Hx of Deep Vein Thrombosis/VTE/PE Yes: right leg found out a couple weeks ago Hx Hypertension No Hx Chest Pain/Angina Yes Hx Heart Attack No Hx Cardiac Surgery/Stents/Etc. No: stress test Oct 2017 Hx Heart Failure No Hx Pacemaker/AICD No Hx Irregular Heartbeat and/or Afib No Hx Anticoagulant Therapy No Query Text:(Coumadin, Aspirin, Plavix, Xarelto, etc.) Hx Pain in Legs when Walking/Leg Cramps No Respiratory Medical History Hx COPD Yes Hx Emphysema No Hx Smoking Yes Smoking Status Former smoker Years Smoking 50 Packs Smoked per Day 1.5 Hx Smoking Cessation Counseling Yes Hx Smoking Exposure Yes Hx Tobacco Use in last 12 months No Hx of Pipe Smoking No Hx Sleep Apnea No Do you snore loudly (louder than talking Yes or can be heard through closed doors)? Do you often feel tired/ fatigued/ Yes sleepy during daytime? Has anyone observed you stop breathing Yes during sleep? STOP Results Positive Comments does think patient has sleep apnea GI Medical History Hx Ulcer No Hx Hepatitis No Hx Cirrhosis No Hx GI Bleed No Hx Unplanned Weight Loss No Genitourinary Medical History Indwelling Catheter in Place on Arrival/ No Admission Hx Renal Disease No Hx Dialysis No Musculoskeletal History Hx Arthritis Yes: hands Hx Rheumatoid Arthritis No Endocrine Medical History Hx Diabetes Yes Hx Thyroid Disease Yes Hematologic Medical History Hx of Blood Transfusion Yes Hx of Transfusion in last 3 Months Yes Date of Last Transfusion (if within last 02/24/17 3 months) Ever experience any problems with No transfusion(s)? Hx of Preganancy in last 3 Months N/A Nurse Filling Out Transfusion & ESTEINER Questions: Date: 02/24/18 Time: 18:18 Psycho/Social Medical History Hx Depression Yes Hx Anxiety No Hx Behavior Disorder Yes: bipolar disorder Hx Alcohol Use No Hx Substance Use No Comments stopped marajuana september 2017 Other Medical History Hx Blood Disorders No Hx Anemia No Hx Cancer Yes: lung, adrenal gland, lymph nodes Hx Drug Resistant Organism No Wound/Pressure Injury Present on Arrival No /Admission Query Text:If yes, chart assessment in Shift/Clinical Findings Central Line/PICC/VAD Present on Arrival Yes /Admission Antibiotics within last 7 days? No Methicillin Resistant Staphylococcus aureus Screening Active MRSA No Risk for Readmission Number of Risk Factors 7 At Risk for Readmission Patient is At Risk For Readmission Patient is eligible for Call Back Y Past Medical History (Last Updated 03/01/18 @ 08:24 by Zarina Godoy, CELL POURER-C) Abdominal pain (Acute) Anemia (Acute) Cervical radiculopathy (Acute) Chest pain (Acute) 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) DVT prophylaxis (Acute) Depression (Acute) Diverticulitis (Acute) Dyspnea (Acute) Heart murmur (Acute) Hernia (Acute) Impingement syndrome, shoulder, left (Acute) Inguinal hernia (Acute) Marijuana use (Acute) Mass of pancreas (Acute) Palpitations (Acute) Pneumonia (Acute) Rotator cuff syndrome (Acute) Stroke (Acute) s/p port placement (Acute ~11/01/17) COPD (chronic obstructive pulmonary disease) (Chronic) Crohns disease (Chronic) Diabetes mellitus, type II (Chronic) History of TIA (transient ischemic attack) (Chronic) History of tobacco use (Chronic) Hypothyroidism (Chronic) Metastasis to adrenal gland (Chronic) Migraine (Chronic) Regional lymph node metastasis present (Chronic) Small cell lung cancer (Chronic) Past Surgical History (Last Updated 03/01/18 @ 08:24 by Zarina Godoy, CELL POURER-C) FHx: cholecystectomy (Acute) H/O colectomy (Acute) History of appendectomy (Acute) RIGHT HERNIA REPAIR WITH KUGEL PATCH (Acute) SIGMOIDECTOMY W/ COLORECTAL ANASTAMOSIS (Acute) History of cholecystectomy (Resolved) History of laparotomy (Resolved) History of right inguinal hernia repair (Resolved) Maternal Family History: Family History (Last Reviewed 02/11/18 @ 09:28 by Kizzy Sena) Father CAD (coronary artery disease) Mesothelioma Grandfather Leukemia Brother Throat cancer Family History: No pertinent history Paternal Family History: Family History (Last Reviewed 02/11/18 @ 09:28 by Kizzy Sena) Father CAD (coronary artery disease) Mesothelioma Grandfather Leukemia Brother Throat cancer Family History: No pertinent history, - - no lung cancer. - Social History Lives: Spouse/ Significant Other Smoking Status: Former smoker Alcohol: None Drugs: Marijuana Review of Systems Constitutional:: Reports: Weakness, Fatigue. Denies: Fever, Sweats, Appetite change, Chills Cardiovascular:: Reports: Dyspnea on exertion. Denies: Chest pain, Palpitations , Orthopnea, PND Respiratory: Reports: Shortness of breath at rest. Denies: Cough, Hemoptysis, Wheezing Gastrointestinal:: Denies: Abdominal pain, Nausea, Vomiting, Diarrhea, Constipation, Hematochezia Genitourinary: Denies: Dysuria, Hematuria, 15, Flank pain Musculoskeletal:: Denies: Back pain, Myalgia, Arthralgia Skin: Denies: Rash, Skin Changes, Wounds Neurological:: Denies: Headache, Dizziness, Numbness, Tingling, Visual changes, Tinnitus, Hearing loss Psychiatric: Denies: Anxiety, Depression, Homicidal Ideations, Suicidal Ideations Vital Signs Height 5 ft 9 in Weight: 170 lb 10.205 oz Weight in Pounds 170.6 lbs Pulse Ox 96 Temperature 98.2 F Pulse Rate 86 Respiratory Rate 27 Blood Pressure [BP] 106/62 Blood Pressure 118/62 Blood Pressure Position [BP] Semi-Fowlers Blood Pressure Position Sitting - Physical Exam General: Alert, Oriented x3, No apparent distress HEENT: Atraumatic, Normocephalic Oropharynx:: Negative for: Dry mucosa Neck:: Supple, Trachea midline. Negative for: JVD, bilateral Cardiac:: Regular rhythm, Normal S1, Normal S2, Tachycardia. Negative for: Murmur Lungs: Diminished, Tachypneic, Increased respiratory effort, Excusion symmetrical Abdomen:: Bowel sounds x 4, Soft, Non-tender, Non-distended. Negative for: Hepatosplenomegaly Extremities:: Edema - BLE +2, L>R. Negative for: Cyanosis Skin:: Ecchymosis - BUE in various stages of healing. Negative for: Lesions, Rash, Petechiae Psychiatric:: Appropriate affect, Euthymic Laboratory Data: Laboratory Tests 3 03/06/18 03/06/18 03/05/18 Range/Units 11:43 06:38 16:35 Diff Path Review POC Glucose 141 H 216 H 97 (70-110) mg/dL 3 03/04/18 Range/Units 13:20 Diff Path Review Reviewed POC Glucose (70-110) mg/dL Diagnostic Data: Diagnostic Data Chest CTA 02/24/18 13:24 IMPRESSION: No evidence of pulmonary embolus. No evidence of thoracic aortic aneurysm or dissection. Increasing consolidation in the left upper lobe. New bibasilar airspace opacities. This is likely infectious in etiology. The patient's known left upper lobe mass is not well evaluated due to the surrounding consolidated lung parenchyma. New small left pleural effusion. Stable mediastinal lymphadenopathy. Electronically Signed: Suhail Cardona, at 14:52 EDT Tel , Service support , Chest X-Ray 03/02/18 07:05 Assessment and Plan 62-year-old male with #1 Stage IV small cell lung cancer. Patient presented with significant weight loss and left upper abdominal pain most likely related to a rapidly growing metastatic lesion (pathologically confirmed) in the left adrenal gland. Systemic chemotherapy with carboplatin etoposide patient is status post 5/6 cycles with partial remission of his disease . Last cycle was 02/11/2018 and received Neulasta 02/14/2018 #2 Acute on chronic respiratory failure- Requiring 15 L/min via NRB mask. Patient is not able to maintain adequate oxygen saturation with less O2 at this point. Would likely require long term care. Engaged in lengthy, candid conversation about his current status, enquiring what the patient wants. He verbalizes its important to him to be able to go home. He plans to discuss options offered to him with girlfriend and make a formal decision about where he would like to go upon discharge. He plans to relay his decision to primary care team this afternoon. Bella Aguila, MSN, INTERVENTION MANAGER-C, AOCNP Medications: Prescriptions This Visit Medication Instructions Recorded Alive Mens 1 tab PO DAILY 02/24/18 Ferrous Sulfate 325 mg PO DAILY@0800 02/24/18 Folic Acid 1 tab PO DAILY 02/24/18 Rivaroxaban [Xarelto] 1 tab PO DAILY 02/24/18 Vitamin D3 2 tab PO DAILY 02/24/18 Primary Care Provider: Last Aguilar Referring Provider:
--- NOTE | 2018-03-06 15:19 | CHAPLAIN ---
Type of Pastoral Visit ___ Initial Visit _x__ Follow-up Visit ___ On-call Visit ___ General Patient Visit ___ Spiritual Assessment ___ Family Conference ___ Bereavement ___ Rapid Response ___ Code Blue _x__ Other (describe below) Pastoral Care Referral From _x__ Patient _x__ Family _x__ Nurse ___ Physician _x__ Water Attendant ___ Magnet Maker ___ Other (describe below) Sacrament/Intervention _x__ Active listening ___ Anointing ___ Oriental Orthodox ___ Bereavement ___ Communion ___ Tonya exploration ___ ___ Life review _x__ Prayer ___ Reconciliation ___ Sacrament of Sick _x__ Supportive presence ___ Wedding _x__ Other (describe below) Pastoral Comments specific requests to discuss possible wedding for patient and SO; also discussion about hospice continued with this media director after other staff members have given this option; much time to listen and review options; follow up on how a wedding could be facilitated; cooperation with other medical and social welfare clerk staff involved; SO was involved in last part of the visit; encouraged these two to discuss further to make decisions
--- NOTE | 2018-03-06 15:47 | CASEMGMT ---
SW went back to room and spoke with patient and his girlfriend, Martha. SW answered Martha's questions. SW asked if they are willing to talk with Hospice and they both said yes. SW then asked if they wanted SW to check and see if [facility] has Hospice as he is active with them for Palliative Care. They wanted SW to check. SW spoke with [facility] and they do not offer Hospice. SW told patient and Martha this information and they are okay with talking to [facility]. JOSE called [facility] and spoke with Juliette letting her know patient and his girlfriend are in agreement with talking to them. They will send someone over. Tiffani from Hospice is here to meet with patient and Martha. Daja KNIGHT FARM OPERATIONS MANAGER
--- NOTE | 2018-03-06 16:22 | PCM.PN.HOSP ---
Patient Problems: Active and Suspected Problems (Last Updated 03/01/18 @ 08:24 by Zarina Godoy, DRIER TRANSFER CAR OPERATOR-C) Chest pain (Acute) Acute blood loss anemia (Acute) Thrombocytopenia (Acute) Gram-negative pneumonia (Acute) Pneumonia (Acute) Subjective: He is significantly dyspneic with mild ambulation. He is still requiring high flow oxygen, he is now thinking about going home with hospice. Vitals/I&O's: Vital Signs Temp Pulse Resp BP Pulse Ox 97.8 F 96 22 H 101/42 L 94 03/06/18 15:00 03/06/18 15:04 03/06/18 15:00 03/06/18 15:00 03/06/18 15:00 Oxygen Flow Rate (L/min) 12 Oxygen Delivery Method Non-Rebreather Weight: 77.4 kg Body Mass Index (BMI) 22.8 Intake and Output for Last 24 Hours 03/04/18 03/05/18 03/06/18 23:59 23:59 23:59 Intake Total 1697 / 1697 1956.8 / 1956.8 709 / 709 Output Total 1800 / 1800 975 / 975 1100 / 1100 Balance -103 / -103 981.8 / 981.8 -391 / -391 General: Alert, Oriented x3 HEENT: Atraumatic Oral: Moist Mucosa Neck: Supple, No JVD Lungs: Clear to auscultation Cardiovascular: Regular rate, Normal S1 Abdomen: Bowel Sounds Present, Non Tender Extremities: No clubbing Neurological: Cranial nerves II-XII grossly intact, Motor Exam 5/5 strength throughout Laboratory Results 03/05/18 16:35: POC Glucose 97 03/06/18 06:38: POC Glucose 216 H 03/06/18 11:43: POC Glucose 141 H Current Medications Acetaminophen (Tylenol) 650 mg PO Q4H PRN PRN PRN Reason: FEVER Atorvastatin Calcium (Lipitor) 40 mg PO QHS [facility] Last Admin: 03/05/18 21:13 Dose: 40 mg Dextrose (D50w Syringe) 0 gm IV X1 PRN; Protocol PRN Reason: Hypoglycemia Diltiazem HCl (Cardizem) 60 mg PO Q6 [facility] Last Admin: 03/06/18 11:49 Dose: 60 mg Divalproex Sodium (Depakote) 500 mg PO TID [facility] Last Admin: 03/06/18 14:46 Dose: 500 mg Folic Acid (Folic Acid) 1 mg PO DAILY@0800 [facility] Last Admin: 03/06/18 10:16 Dose: 1 mg Furosemide (Lasix) 20 mg PO BID@1000,1800 [facility] Last Admin: 03/06/18 10:16 Dose: 20 mg Glucagon () 1 mg IM .X1 PRN PRN Reason: Hypoglycemia Guaifenesin (Mucinex) 1,200 mg PO BID [facility] Last Admin: 03/06/18 10:16 Dose: 1,200 mg Heparin Sodium (Beef Lung) (Heparin 500 Unit/5 Ml (100/Ml)) 500 unit IV UD PRN PRN Reason: HEPARIN FLUSH Sodium Chloride () 250 mls @ 15 mls/hr IV .[id number] PRN PRN Reason: SALINE FLUSH Last Admin: 03/03/18 09:19 Dose: 15 mls/hr Insulin Aspart (Novolog Flexpen (Bkc)) 0 units SC TIDAC [facility] PRN Reason: Protocol Last Admin: 03/06/18 11:48 Dose: Not Given Ipratropium [place] (Atrovent) 0.5 mg INHALATION Q4H.RT [facility] Last Admin: 03/06/18 15:01 Dose: Not Given Levothyroxine Sodium (Synthroid) 25 mcg PO DAILY@0600 [facility] Last Admin: 03/06/18 05:29 Dose: 25 mcg Magnesium Hydroxide (Milk Of Magnesia) 30 ml PO DAILY PRN PRN PRN Reason: Constipation Last Admin: 03/01/18 17:33 Dose: 30 ml Metoprolol Tartrate (Lopressor (Beta Raina)) 50 mg PO BID [facility] Last Admin: 03/06/18 10:16 Dose: 50 mg Mirtazapine (Remeron) 7.5 mg PO QHS [facility] Last Admin: 03/05/18 21:12 Dose: 7.5 mg Nutritional Formula (Lactose Free) (Glucerna Shake) 120 ml PO 4X/DAY [facility] Last Admin: 03/06/18 14:45 Dose: Not Given Ondansetron HCl (Zofran) 4 mg IV Q8H PRN PRN PRN Reason: NAUSEA Ondansetron HCl (Zofran Odt) 4 mg PO Q8H PRN PRN Reason: NAUSEA Oxycodone HCl (Oxyir) 5 - 10 mg PO Q4H PRN PRN PRN Reason: SEVERE PAIN (6-1010) Last Admin: 03/04/18 18:00 Dose: 5 mg Rivaroxaban (Xarelto) 20 mg PO DAILY@1700 [facility] Last Admin: 03/05/18 17:28 Dose: 20 mg Senna (Senokot) 1 tablet PO BID [facility] Last Admin: 03/06/18 10:16 Dose: 1 tablet Sodium Chloride () 10 ml IV UD PRN PRN Reason: VAD FLUSH Last Admin: 03/04/18 12:49 Dose: 10 ml Medical Necessity - Tobacco Use Smoking Status: Former smoker Assessment/Plan Active and Suspected Problems (Last Updated 03/01/18 @ 08:24 by Zarina Godoy, DRIER TRANSFER CAR OPERATOR-C) Chest pain (Acute) Acute blood loss anemia (Acute) Thrombocytopenia (Acute) Gram-negative pneumonia (Acute) Pneumonia (Acute) 1. Acute hypoxic respiratory failure secondary to PNA and lung CA ; he is requiring high flow oxygen . 2. MSSA pneumonia ; adequately treated with IV Unasyn , antibiotic stopped 3. Anemia of CD and chemotherapy; hemoglobin stable after blood transfusion. 4. Metastatic SCLC; he is undergoing chemotherapy. He is thinking about going home with hospice, he was to get to his girlfriend but does not want to this here. 5. Diabetes mellitus type 2 ; he is on RISS 6. Paroxysmal A. fib ; he is on PO Cardizem 30 mg every 6 7. Bilateral LE DVT; he is on Xarelto . 8. Constipation ; bowel regimen. 9. Acute congestive heart failure with preserved left ventricular function; we will continue on IV Lasix. 10. Thrombocytopenia 2/2 therapy; platelet level is improving Code Visit Inpatient E&M: 87790 Subs Hosp L2
--- NOTE | 2018-03-06 16:29 | CASEMGMT ---
Spoke with Tiffani from Hospice and patient and Martha are agreeable. Papers were signed and Hospice will work on setting up equipment in the home. SW to follow and notify Hospice of d/c time when set. Plan: Home with [facility] once equipment set up Daja KNIGHT MSW
[2018-03-06 16:36] LABS: Bedside Glucose 132 mg/dL (70-110)
[2018-03-06] MEDS: Rivaroxaban 20 MG Tablet PO (17:50)
[2018-03-06] MEDS: Mirtazapine 15 MG Tablet 7.5 MG PO (22:36)
[2018-03-06] MEDS: Atorvastatin Calcium 40 MG Tablet PO (22:37)
[2018-03-06 23:26] LABS: Bedside Glucose 160 mg/dL (70-110)
[2018-03-07] VITALS (11 sets, daily range): BP systolic 90–120; BP diastolic 52–84; PULSE 76–149; RESP 17–25; TEMP 36.4–36.8; O2SAT 76–100
[2018-03-07] MEDS: Divalproex Sodium 250 MG Tablet 500 MG PO ×2 (05:53→15:15)
[2018-03-07] MEDS: Levothyroxine 25 MCG TABLET PO (05:54)
[2018-03-07] MEDS: dilTIAZem 60 MG Tablet PO ×2 (05:54→12:24)
[2018-03-07 07:11] LABS: Bedside Glucose 151 mg/dL (70-110)
[2018-03-07] MEDS: Metoprolol Tartrate 50 MG Tablet PO (08:17)
[2018-03-07] MEDS: guaiFENesin 1,200 MG Tablet 1200 MG PO (08:18)
[2018-03-07] MEDS: Furosemide 20 MG Tablet PO (08:18)
[2018-03-07] MEDS: Folic Acid 1 MG Tablet PO (08:18)
[2018-03-07] MEDS: Senna Tablet 1 TABLET PO (08:18)
--- NOTE | 2018-03-07 11:19 | PCM.PROGNOTE ---
Patient Problems: Active and Suspected Problems (Last Updated 03/01/18 @ 08:24 by Zarina Godoy, HYDROELECTRIC MECHANIC-C) Chest pain (Acute) Acute blood loss anemia (Acute) Thrombocytopenia (Acute) Gram-negative pneumonia (Acute) Pneumonia (Acute) Subjective: The patient was seen and examined. Assisted with ambulation from the bed to the chair, no noted tachycardia and mild shortness of breath. He is currently on 8 L of oxygen supplementation. Denies any increase in shortness of breath, cough, or sputum production. States he has agreed to hospice and his girlfriend is meeting with them in their home between 10 and 12 today for equipment set up. Plans to be discharged after this is accomplished. - Physical Exam General: Alert, Oriented x3, Cooperative, No apparent distress, - - No conversational dyspnea HEENT: Atraumatic, Normocephalic Oral: Moist Mucosa Neck: Supple, Trachea Midline Lungs: No rhonchi, No wheeze, No rales, Diminished Cardiovascular: Normal S1, Normal S2, Irregular Rate Abdomen: Bowel Sounds Present, Soft, Non Tender Extremities: No cyanosis, Edema - Unchanged Skin: - - No changes Neurological: Neuro grossly intact Psych/Mental Status: Alert and oriented to time, place, person, mood and affect Vital Signs Temp Pulse Resp BP Pulse Ox 98.2 F 76 25 H 107/65 100 03/07/18 11:13 03/07/18 11:13 03/07/18 11:13 03/07/18 11:13 03/07/18 11:13 Oxygen Flow Rate (L/min) 15 Oxygen Delivery Method Non-Rebreather Weight: 165 lb 12.602 oz Body Mass Index (BMI) 22.8 Intake and Output for Last 24 Hours 03/05/18 03/06/18 03/07/18 23:59 23:59 23:59 Intake Total 1956.8 / 1956.8 1209 / 1209 240 / 240 Output Total 975 / 975 2375 / 2375 Balance 981.8 / 981.8 -1166 / -1166 240 / 240 POC Glucose 03/07/18 03/06/18 03/06/18 06:59 22:40 16:25 POC Glucose 151 H 160 H 132 H 03/06/18 11:43 POC Glucose 141 H Medical Necessity - Tobacco Use Smoking Status: Former smoker Assessment/Plan Active and Suspected Problems (Last Updated 03/01/18 @ 08:24 by Zarina Godoy, HYDROELECTRIC MECHANIC-C) Chest pain (Acute) Acute blood loss anemia (Acute) Thrombocytopenia (Acute) Gram-negative pneumonia (Acute) Pneumonia (Acute) RECOMMENDATIONS: 1. Continue aerosols 2. Wean supplemental oxygen as tolerated 3. Continue BiPAP therapy as needed and nightly 4. Home with hospice today, equipment being set up, including higher dose concentrator for his oxygen IMPRESSIONS: 1. Acute hypoxemic respiratory failure secondary to underlying small cell lung cancer and superimposed multifocal MSSA pneumonia The patient has baseline underlying fibrotic changes and emphysema noted on CT scan. In addition, he has extensive stage small cell lung cancer. All of this is being exacerbated by his current multilobar pneumonia. Sputum culture was positive for MSSA. Continue scheduled aerosol treatments. Wean supplemental oxygen as tolerated. Encourage incentive parameter use and mobilize patient as tolerated. BiPAP to be utilized nightly and as needed. 03/04, 03/05, 03/06: He has a very poor overall prognosis, which has been conveyed to the patient and his significant other on multiple occasions by multiple providers. His respiratory status continues to wax and wane, however he is still requiring a high amount of O2 at rest and has significant desaturations with any movement or conversation. Significant LE edema, needs further diuresed. Elevated LEs. Patient does not appear to understand that he cannot go home with such high oxygen requirements as concentrator does not go that high. 03/07: Patient appears to be in pretty good spirits. Looking forward to going home. Currently tolerating nasal cannula without much difficulty. Plans to be discharged with home Hospice later this afternoon. 2. Anemia/thrombocytopenia secondary to chemotherapy Platelet count improved to greater than 50,000. Continue Xarelto per oncology. Received total of 4 units of PRBCs this admit. 3. Personal history of extensive stage small cell lung cancer The patient is currently on chemotherapy and being managed by oncology. 4. History of bilateral lower extremity DVTs/paroxysmal atrial fibrillation Continue Xarelto, given that the patient's platelet count has recovered to greater than 50,000. Continue p.o. Cardizem. 5. CODE STATUS DNR CCA without intubation. Has previous Palliative care. Patient is now agreeable to hospice, he will be discharged today home with hospice. This note was generated with Dragon dictation software. It may contain incorrect words, spelling, and punctuation that were not noted in checking the note before signing.
[2018-03-07 11:36] LABS: Bedside Glucose 165 mg/dL (70-110)
--- NOTE | 2018-03-07 12:57 | CASEMGMT ---
Addendum entered by Mily Vu 03/07/18 14:29: Discharge order given. Met with pt and sig other Martha in room and they are both agreeable for ambulance transport to be arranged. [facility] Care to apple picking supervisor today between 2:30-3:30. Pt and sig other informed and nursing notified. REGINA Byrne Original Note: Social Work Received phone call from Tiffani at [facility]. DME and O2 to be delivered today between -12. Pt sig other Martha informed pt that she would like to transport pt home. Hospice expressing concerns with this due to high level of O2 needed and pt weakness as there are 5 steps to get into the home. SW met with pt and two sons in pt room. Explained that once medical equipment is delivered and physicians write orders, pt can return home. SW broached the topic of transportation with pt and explained concern for car transport and explained the benefits of ambulance transport. Pt and sons in agreement with the use of ambulance for transportation home. Sons state they will be installing ramp into home this weekend which will assist pt in entering and exiting home. Pt planning to call Martha after this SW left his room and inform of transportation decision. Pt with no preference on company used. SW informed physician of DME delivery. Phone call to [facility] and informed of transportation decision. SW to continue to follow for d/c planning. REGINA Byrne
--- NOTE | 2018-03-07 13:19 | PCM.DC.SUM ---
Discharge Date and Diagnosis Date of Admission: 02/24/18 Date of Discharge: 03/07/18 - Primary Discharge Diagnosis Active and Suspected Problems (Last Updated 03/01/18 @ 08:24 by VINCE Sharpe) Chest pain (Acute) Acute blood loss anemia (Acute) Thrombocytopenia (Acute) Gram-negative pneumonia (Acute) Pneumonia (Acute) - Secondary Discharge Diagnosis Chronic Problems (Last Updated 03/01/18 @ 08:24 by VINCE Sharpe) Stage 1 mild COPD by GOLD classification (Chronic) Cancer-related pain (Chronic) Hospital Course and Treatment Operations: None Summary of Care Provided: This is a 62-year-old male was admitted with acute respiratory failure with hypoxia due to pneumonia and lung cancer. The patient has metastatic small cell lung cancer and is currently undergoing chemotherapy. The patient was treated with IV antibiotics and was subsequently found to have methicillin sensitive staph aureus growing from sputum, he was treated with IV Unasyn per Infectious disease recommendation. The patient continued to require high flow oxygen. We recommended palliative care/ hospice, the patient initially declined but ultimately agreed. He was discharged home with high flow oxygen in a stable condition. 1. Acute hypoxic respiratory failure secondary to PNA and lung CA ; he is requiring high flow oxygen . 2. MSSA pneumonia ; he is adequately treated with IV Unasyn , antibiotic stopped 3. Anemia of CD and chemotherapy; hemoglobin stable after blood transfusion. 4. Metastatic SCLC; he is undergoing chemotherapy. He was discharged home with hospice. 5. Diabetes mellitus type 2 ; he is on RISS 6. Paroxysmal A. fib ; he is on PO Cardizem 30 mg every 6 7. Bilateral LE DVT; he is on Xarelto . 8. Constipation ; bowel regimen. 9. Acute congestive heart failure with preserved left ventricular function; we will continue on IV Lasix. 10. Thrombocytopenia 2/2 therapy; platelet level is improving Home Medications: Medications to take at Discharge Atorvastatin Calcium 40 mg PO QHS 09/16/17 Divalproex Sodium [Depakote ER] 500 mg PO TID 09/16/17 Levothyroxine [Synthroid] 25 mcg PO DAILY 09/16/17 Senna [Senokot] 1 tab PO BID PRN 10/25/17 Cyanocobalamin (Vitamin B-12) [Vitamin B-12] 1,000 mcg PO DAILY 12/12/17 Hydrocodone/Acetaminophen [[place] 5-325 Tablet] 1 ea PO TID PRN 12/12/17 Mirtazapine 7.5 mg PO QHS 12/12/17 metoprolol tartrate 50 mg tablet 50 mg PO BID 12/19/17 Ondansetron HCl [Zofran] 4 mg PO Q8H PRN PRN 10 Days #30 tab 02/18/18 Ferrous Sulfate 325 mg PO DAILY@0800 02/24/18 Folic Acid 1 tab PO DAILY 02/24/18 Rivaroxaban [Xarelto] 1 tab PO DAILY 02/24/18 Acetaminophen [Tylenol Tablet] 650 mg PO Q4H PRN PRN tablet 03/07/18 Diltiazem [Cardizem] 60 mg PO Q6 tablet 03/07/18 Primary Care Physician: Last Aguilar Chi, MD [Primary Care Provider] - Medical Necessity - Tobacco Use Smoking Status: Former smoker Meaningful Use Info Meaningful Use Diagnoses (Choose all that apply): None applicable Code Visit Inpatient E&M: 63892 Disch Hosp
--- NOTE | 2018-03-07 13:59 | DCINST_ITS ---
- Discharge Diagnoses Current Active Problems: Current Active and Chronic Problems (Last Updated 03/01/18 @ 08:24 by Zarina Godoy NP-C) Chest pain (Acute) Acute blood loss anemia (Acute) Thrombocytopenia (Acute) Gram-negative pneumonia (Acute) Pneumonia (Acute) You will use the following diet at home:: No restrictions Discharge Activity: Return to Normal Activity Allergies/Adverse Reactions: Allergies morphine Allergy (Severe, Verified 02/24/18 13:21) Swelling hydromorphone [From Dilaudid] Adverse Reaction (Severe, Verified 02/24/18 13:21) SEVERE HEADACHE HEAD-ACHE SEVERE Medications to take at Discharge Atorvastatin Calcium 40 mg PO QHS 09/16/17 Divalproex Sodium [Depakote ER] 500 mg PO TID 09/16/17 Levothyroxine [Synthroid] 25 mcg PO DAILY 09/16/17 Senna [Senokot] 1 tab PO BID PRN 10/25/17 Cyanocobalamin (Vitamin B-12) [Vitamin B-12] 1,000 mcg PO DAILY 12/12/17 Hydrocodone/Acetaminophen [[place] 5-325 Tablet] 1 ea PO TID PRN 12/12/17 Mirtazapine 7.5 mg PO QHS 12/12/17 metoprolol tartrate 50 mg tablet 50 mg PO BID 12/19/17 Ondansetron HCl [Zofran] 4 mg PO Q8H PRN PRN 10 Days #30 tab 02/18/18 Ferrous Sulfate 325 mg PO DAILY@0800 02/24/18 Folic Acid 1 tab PO DAILY 02/24/18 Rivaroxaban [Xarelto] 1 tab PO DAILY 02/24/18 Acetaminophen [Tylenol Tablet] 650 mg PO Q4H PRN PRN tablet 03/07/18 Diltiazem [Cardizem] 60 mg PO Q6 tablet 03/07/18 Primary Care Physician: Last Aguilar Chi, MD [Primary Care Provider] - Proposed Discharge Date: 03/07/18
--- NOTE | 2018-03-07 15:25 | NURSING ---
CALLED REPORT TO FERNANDO CABALLERO RN. WOULD LIKE TO LEAVE [facility] IN FOR MEDS.
== END 2018-03-07 15:35 | disposition hospice, home (50) | DRG 177 ==
LOC: ED 14:53 → PCU 17:50 → ICU 02-26 12:36 → PCU 02-27 07:23 → ICU 02-28 07:23
PROVIDERS: Internal Medicine; Internal Medicine Critical Care Medicine; Nurse Practitioner Family; Emergency Provider Emergency Medicine; Family Provider Family Medicine Geriatric Medicine; PCP Family Medicine Geriatric Medicine; Visit Provider Internal Medicine
DX: J15.211 Pneumonia due to Methicillin susceptible Staphylococcus aureus (principal); J96.01 Acute respiratory failure with hypoxia; I50.33 Acute on chronic diastolic (congestive) heart failure; C34.90 Malignant neoplasm of unspecified part of unspecified bronchus or lung; C79.72 Secondary malignant neoplasm of left adrenal gland; Z66 Do not resuscitate; G89.3 Neoplasm related pain (acute) (chronic); T45.1X5A Adverse effect of antineoplastic and immunosuppressive drugs, initial encounter; D64.81 Anemia due to antineoplastic chemotherapy; K59.00 Constipation, unspecified; I48.0 Paroxysmal atrial fibrillation; Z79.899 Other long term (current) drug therapy; E11.40 Type 2 diabetes mellitus with diabetic neuropathy, unspecified; D63.0 Anemia in neoplastic disease; Z87.891 Personal history of nicotine dependence; Z86.718 Personal history of other venous thrombosis and embolism; D69.59 Other secondary thrombocytopenia; E03.9 Hypothyroidism, unspecified; Z51.5 Encounter for palliative care; Z79.84 Long term (current) use of oral hypoglycemic drugs
CPT/HCPCS: 36591; 71045; 71275; 80048; 82962; 83605; 83735; 83880; 84484; 85025; 85027; 86644; 86850; 86900; 86920; 86922; 87040; 87070; 87186; 87205; 87449; 87633; 87641; 93005; 94002; 94003; 94640; 94762; 97110; 97116; 97162; 97166; 97530; 97535; 97802; 99284; J7030; J7040; J7050; P9016; Q9967; A4216; J0295; J1940